=== PATIENT | male | born 1945 | race American Indian/Alaskan Native ===

== ENCOUNTER 2016-10-07 12:30 | Emergency (ER) | payer MEDICARE, BC, OTHER ==
--- NOTE | 2016-10-07 13:34 | EDM.PDOC ---
ED HPI GENERAL MEDICAL PROBLEM - General Chief Complaint: Genitourinary Problem Stated Complaint: UNK Time Seen by Provider: 10/07/16 13:19 - History of Present Illness INITIAL COMMENTS - FREE TEXT/NARRATIVE: HISTORY AND PHYSICAL: History of present illness: Patient is a 71-year-old white male with history of intermittent urinary retention and hesitancy who has seen urology in the distant past who presents with concern of mild discomfort with urination and stress incontinence along with urinary hesitancy and intermittent retention he denies fever chills nausea vomiting or pain Review of systems: As per history of present illness and below otherwise all systems reviewed and negative. Past medical history: As per history of present illness and as reviewed below otherwise noncontributory. Surgical history: As per history of present illness and as reviewed below otherwise noncontributory. Social history: No reported history of drug or alcohol abuse. Family history: As per history of present illness and as reviewed below otherwise noncontributory. Physical exam: HEENT: Atraumatic, normocephalic, pupils reactive, negative for conjunctival pallor or scleral icterus, mucous membranes moist, throat clear, neck supple, nontender, trachea midline. Lungs: Clear to auscultation, breath sounds equal bilaterally, chest nontender. Heart: S1S2, regular, negative for clicks, rubs, or JVD. Abdomen: Soft, nondistended, nontender. Negative for masses or hepatosplenomegaly. Negative for costovertebral tenderness. Pelvis: Stable nontender. Genitourinary: Deferred. Rectal: Deferred. Extremities: Atraumatic, negative for cords or calf pain. Neurovascular unremarkable. Neuro: Awake, alert, oriented. Cranial nerves II through XII unremarkable. Cerebellum unremarkable. Motor and sensory unremarkable throughout. Exam nonfocal. Diagnostics: CBC CMP UA urine culture bladder scan Therapeutics: To be determined Impression: #1 intermittent urinary retention/hesitancy/ incontinence Definitive disposition and diagnosis as appropriate pending reevaluation and review of above. upon urination Pain Score (Numeric/FACES): 7 - Related Data Allergies Allergy/AdvReac Type Severity Reaction Status Date / Time hydrocodone bitartrate Allergy Change Verified 10/07/16 13:21 [From [place]] Mental Status meperidine HCl [From Demerol] Allergy Change Verified 10/07/16 13:21 Mental Status oxycodone [Oxycodone] Allergy Change Verified 10/07/16 13:21 Mental Status tramadol HCl [From Ultram] Allergy Change Verified 10/07/16 13:21 Mental Status Home Meds: Home Meds Aspirin [Aspirin EC] 81 mg PO BEDTIME 01/24/14 [History] Carvedilol [Coreg] 6.25 mg PO BID 01/24/14 [History] Cyanocobalamin (Vitamin B-12) [Vitamin B-12] 1 injection INJECT ASDIRECTED 01/24 [History] atorvaSTATin [Lipitor] 20 mg PO BEDTIME 01/24/14 [History] DULoxetine [Cymbalta] 30 mg PO DAILY 10/07/16 [History] Omeprazole 20 mg PO BEDTIME 10/07/16 [History] traZODone HCl [Trazodone HCl] 100 mg PO BEDTIME 10/07/16 [History] Past Medical History Other Genitourinary History: retention Social & Family History - Tobacco Use Smoking Status *Q: Current Every Day Smoker Years of Tobacco use: 40 Used Tobacco, but Quit: No Second Hand Smoke Exposure: Yes - Alcohol Use Days Per Week of Alcohol Use: 0 - Recreational Drug Use Recreational Drug Use: No ED ROS GENERAL - Review of Systems Review Of Systems: ROS reveals no pertinent complaints other than HPI. ED EXAM, GENERAL - Physical Exam Exam: See Below (see dictation) Course - Vital Signs Last Recorded V/S: Last Vital Signs Temp 37.6 C 10/07/16 14:31 Pulse 69 10/07/16 14:31 Resp 20 10/07/16 14:31 BP 128/72 10/07/16 14:31 Pulse Ox 94 L 10/07/16 14:31 - Orders/Labs/Meds Orders: Active Orders 24 hr Category Date Time Status CULTURE URINE [RM] Stat Lab 10/07/16 13:37 Received Labs: Laboratory Tests 10/07/16 10/07/16 10/07/16 Range/Units 13:36 13:36 13:37 WBC 11.34 H (4.0-11.0) K/uL RBC 4.32 L (4.50-5.90) M/uL Hgb 13.5 (13.0-17.0) g/dL Hct 40.9 (38.0-50.0) % MCV 94.7 (80.0-98.0) fL MCH 31.3 (27.0-32.0) pg MCHC 33.0 (31.0-37.0) g/dL RDW Std Deviation 48.9 (28.0-62.0) fl RDW Coeff of Adriana 14 (11.0-15.0) % Plt Count 162 (150-400) K/uL MPV 10.80 (7.40-12.00) fL Neut % (Auto) 65.2 (48.0-80.0) % Lymph % (Auto) 24.0 (16.0-40.0) % [place] % (Auto) 7.2 (0.0-15.0) % Eos % (Auto) 3.3 (0.0-7.0) % Baso % (Auto) 0.3 (0.0-1.5) % Neut # (Auto) 7.4 H (1.4-5.7) K/uL Lymph # (Auto) 2.7 H (0.6-2.4) K/uL [place] # (Auto) 0.8 (0.0-0.8) K/uL Eos # (Auto) 0.4 (0.0-0.7) K/uL Baso # (Auto) 0.0 (0.0-0.1) K/uL Nucleated RBC % 0.0 /100WBC Nucleated RBCs # 0 K/uL Sodium 138 (136-146) mmol/L Potassium 4.0 (3.5-5.1) mmol/L Chloride 108 (98-110) mmol/L Carbon Dioxide 23 (21-31) mmol/L BUN 16 (6.0-23.0) mg/dL Creatinine 0.8 (0.6-1.5) mg/dL Est Cr Clr Drug Dosing 91.61 mL/min Estimated GFR (MDRD) > 60.0 ml/min Glucose 183 H (60-110) mg/dL Calcium 9.2 (8.8-10.8) mg/dL Total Bilirubin 0.7 (0.1-1.5) mg/dL AST 32 (5-40) IU/L ALT 30 (8-54) IU/L Alkaline Phosphatase 83 (40-150) Total Protein 6.8 (6.0-8.0) g/dL Albumin 3.9 (3.4-4.8) g/dL Globulin 2.9 (2.0-3.5) g/dL Albumin/Globulin Ratio 1.3 (1.3-2.8) Urine Color YELLOW Urine Appearance SLT CLOUDY Urine pH 5.5 (5.0-8.0) Ur Specific [place] 1.015 (1.001-1.035) Urine Protein NEGATIVE (NEGATIVE) mg/dL Urine Glucose (UA) NEGATIVE (NEGATIVE) mg/dL Urine Ketones NEGATIVE (NEGATIVE) mg/dL Urine Occult Blood SMALL H (NEGATIVE) Urine Nitrite NEGATIVE (NEGATIVE) Urine Bilirubin NEGATIVE (NEGATIVE) Urine Urobilinogen 0.2 (<2.0) EU/dL Ur Leukocyte Esterase MODERATE (NEGATIVE) Urine RBC 1-2 (0-2/HPF) Urine WBC 10-20 (0-5/HPF) Ur Epithelial Cells RARE (NONE-FEW) Urine Bacteria FEW (NEGATIVE) Departure - Departure Time of Disposition: 15:02 Disposition: Home, Self-Care 01 Condition: good Clinical Impression: UTI, Urinary tract infectious disease, Retention of urine Referrals: PCP,None [Primary Care Provider] - Forms: ED Department Discharge Additional Instructions: The following information is given to patients seen in the emergency department who are being discharged to home. This information is to outline your options for follow-up care. We provide all patients seen in our emergency department with a follow-up referral. The need for follow-up, as well as the timing and circumstances, are variable depending upon the specifics of your emergency department visit. If you don't have a primary care physician on staff, we will provide you with a referral. We always advise you to contact your personal physician following an emergency department visit to inform them of the circumstance of the visit and for follow-up with them and/or the need for any referrals to a consulting specialist. The emergency department will also refer you to a specialist when appropriate. This referral assures that you have the opportunity for followup care with a specialist. All of these measure are taken in an effort to provide you with optimal care, which includes your followup. Under all circumstances we always encourage you to contact your private physician who remains a resource for coordinating your care. When calling for followup care, please make the office aware that this follow-up is from your recent emergency room visit. If for any reason you are refused follow-up, please contact the [facility] emergency department at and asked to speak to the emergency department charge nurse. GARY [facility] Specialty Care - Urology [address] [place] [id number] Cipro as prescribed German as prescribed call to schedule appointment with private medical doctor in urology of both return as needed discussed - My Orders Last 24 Hours: My Active Orders 10/07/16 13:37 CULTURE URINE [RM] Stat - Assessment/Plan Last 24 Hours: My Active Orders 10/07/16 13:37 CULTURE URINE [RM] Stat
[2016-10-07 14:07] LABS: CHLORIDE,CL 108 mmol/L (98-110); SODIUM,NA 138 mmol/L (136-146)
[2016-10-07 14:44] VITALS: BP 128/72
== END 2016-10-07 15:24 | disposition home or self-care (01) ==
LOC: MW.ED 12:30
DX: N39.0 Urinary tract infection, site not specified (principal); F17.200 Nicotine dependence, unspecified, uncomplicated; R33.9 Retention of urine, unspecified; Z88.5 Allergy status to narcotic agent; Z88.6 Allergy status to analgesic agent; Z88.8 Allergy status to other drugs, medicaments and biological substances; Z79.899 Other long term (current) drug therapy
CPT/HCPCS: 36415; 80053; 81001; 85025; 87086; 87088; 87186; 99283

== ENCOUNTER → 2016-10-20 | Outpatient (CLI) | payer MEDICARE, OTHER, BC | LOC: MW.CHUR 13:54 | PROVIDERS: ATTEND Urology | DX: R32 Unspecified urinary incontinence (principal); N39.0 Urinary tract infection, site not specified | CPT/HCPCS: 36415; 81001; 84153; 99203 ==

== ENCOUNTER → 2016-10-22 | Outpatient (CLI) | payer MEDICARE, BC ==
--- NOTE | 2016-10-22 13:41 | CT ---
CT of the abdomen and pelvis without contrast. HISTORY: Pain TECHNIQUE: Axial CT images were obtained of the abdomen and pelvis without contrast. Coronal and sag ittal reconstructions obtained. Comparison: 03/08/2014. FINDINGS: The lung bases are clear, no pleural effusion. The liver, spleen, adrenal glands, and pancreas appear unremarkable for noncontrast examination. Cho lecystectomy clips are noted. There is no bulky retroperitoneal lymphadenopathy. No abdominal ascite s. Gastric bypass changes noted with mild distal esophageal wall thickening. There are no calcifications noted within the kidneys or along the courses of the ureters bilaterally . There is a hyperdense cyst within the midpole of the right kidney. The large and small bowel are normal in caliber without evidence of obstruction. Appendectomy. There is no bulky pelvic lymphadenopathy. No free fluid. No free air. There is mild bladder wall thickeni ng along the upper fundus. 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 Left total hip hardware is noted. IMPRESSION: 1. Mild bladder wall thickening, grossly unchanged from the prior CT. 2. Cholecystectomy and colectomy. 3. Stable hemorrhagic cyst within the midpole of the right kidney. 4. Otherwise no acute findings within the abdomen or pelvis.
== END ==
LOC: MW.DI 11:17
PROVIDERS: ATTEND Urology
DX: N39.0 Urinary tract infection, site not specified (principal); Z90.49 Acquired absence of other specified parts of digestive tract; N28.1 Cyst of kidney, acquired
CPT/HCPCS: 74176; 74176-26

== ENCOUNTER 2018-03-24 17:44 | Emergency (ER) | payer MEDICARE, OTHER, BC ==
--- NOTE | 2018-03-24 18:04 | EDM.PDOC ---
ED HPI GENERAL MEDICAL PROBLEM - General Chief Complaint: General Stated Complaint: PT HAS BODY PAIN Time Seen by Provider: 03/24/18 18:03 Source of Information: Reports: Patient History Limitations: Reports: No Limitations - History of Present Illness INITIAL COMMENTS - FREE TEXT/NARRATIVE: HISTORY AND PHYSICAL: []73-year-old male presenting with pain all over History of Present Illness: []Today patient just doesn't feel well states he hurts all over. Family states that this has been waxing and waning over the last month. They expressed concern that he was unsteady on his feet tonight. He was coughing up sputum. Denies Nausea, vomiting no diarrhea He is a smoker. He does have history of 7 cardiac stents. Review of Systems: As per history of present illness and below otherwise all systems reviewed and negative. Past medical history: As per history of present illness and as reviewed below otherwise noncontributory. Surgical history: As per history of present illness and as reviewed below otherwise noncontributory. Social history: No reported history of drug or alcohol abuse. Family history: As per history of present illness and as reviewed below otherwise noncontributory. Physical exam: Alert and oriented male answering questions appropriately in full sentences no shortness breath noted. HEENT: Atraumatic, normocehpalic, pupils reactive, negative for conjunctival pallor or scleral icterus, mucous membranes moist, throat clear, neck supple, nontender, trachea midline. Lungs: Coarse on auscultation, breath sounds equal bilaterally, right side chest tender on palpation. Heart: S1S2, regular, negative for clicks, rubs, or JVD. Abdomen: Soft, nondistended, nontender. Negative for masses or hepatossplenmegaly. Negative for costovertebral tenderness. Pelvis: Stable nontender. Genitourinary: Deferred. Rectal: Deferred Extremities: Atraumatic, negative for cords or calf pain. Neurovascular unremarkable. Neuro: Awake, alert, oriented. Cranial nerves II through XII unremarkable. Cerebellum unremarkable. Motor and sensory unremarkable throughout. Exam nonfocal. Discussed this case with Dr. Menjivar she has accepted this patient for transfer. Diagnostics: []CBC CMP EKG blood cultures 2 amylase lipase Therapeutics: []DuoNeb Aspirin Lovenox Nitropaste Morphine Zofran Impression: []Elevated troponin Plan: []transfer to [facility] Definitive disposition and diagnosis as appropriate pending reevaluation and review of above. Onset: Today, Sudden Duration: Hour(s):, Getting Worse Location: Reports: Chest, Generalized Severity: Moderate Improves with: Reports: None Worsens with: Reports: None Associated Symptoms: Reports: Nausea/Vomiting Over whole body Pain Score (Numeric/FACES): 10 - Related Data Allergies Allergy/AdvReac Type Severity Reaction Status Date / Time hydrocodone bitartrate Allergy Change Verified 03/24/18 18:01 [From [place]] Mental Status meperidine HCl [From Demerol] Allergy Change Verified 03/24/18 18:01 Mental Status oxycodone [Oxycodone] Allergy Change Verified 03/24/18 18:01 Mental Status tramadol HCl [From Ultram] Allergy Change Verified 03/24/18 18:01 Mental Status Home Meds: Home Meds Aspirin [Aspirin EC] 81 mg PO BEDTIME 01/24/14 [History] Carvedilol [Coreg] 6.25 mg PO BID 01/24/14 [History] Cyanocobalamin (Vitamin B-12) [Vitamin B-12] 1 injection INJECT ASDIRECTED 01/24 [History] atorvaSTATin [Lipitor] 20 mg PO BEDTIME 01/24/14 [History] DULoxetine [Cymbalta] 60 mg PO DAILY 10/07/16 [History] Omeprazole 20 mg PO BEDTIME 10/07/16 [History] Mirtazapine 30 mg PO BEDTIME 03/24/18 [History] Past Medical History Cardiovascular History: Reports: Heart Failure, Hypertension Other Genitourinary History: retention Endocrine/Metabolic History: Reports: Diabetes, Type II ED ROS GENERAL - Review of Systems Review Of Systems: ROS reveals no pertinent complaints other than HPI. ED EXAM, GENERAL - Physical Exam Exam: See Below (see dictation) EKG INTERPRETATION EKG Date: 03/24/18 Rhythm: Other (Sinus tachycardia) Rate (Beats/Min): 108 Comparison: Change From Previous EKG EKG Interpretation Comments: sinus tach vs RSR Course - Vital Signs Last Recorded V/S: Last Vital Signs Temp 36.6 C 03/24/18 18:03 Pulse 90 03/24/18 18:03 Resp 16 03/24/18 18:03 BP 138/78 03/24/18 18:03 Pulse Ox 93 L 09/12/18 18:03 - Orders/Labs/Meds Orders: Active Orders 24 hr Category Date Time Status EKG Documentation Completion [RC] STAT Care 03/24/18 18:14 Active RT Aerosol Therapy [RC] ASDIRECTED Care 03/24/18 18:33 Active Chest 2V [CR] Stat Exams 03/24/18 18:40 Taken CKMB [CHEM] Stat Lab 03/24/18 18:20 Received CREATINE KINASE,CK [CHEM] Stat Lab 03/24/18 18:20 Received CULTURE BLOOD [BC] Stat Lab 03/24/18 18:31 Received CULTURE BLOOD [BC] Stat Lab 03/24/18 18:40 Received Sodium Chloride 0.9% [Saline Flush] Med 03/24/18 18:14 Active 10 ml FLUSH ASDIRECTED PRN Sodium Chloride 0.9% [Saline Flush] Med 03/24/18 18:14 Active 2.5 ml FLUSH ASDIRECTED PRN Blood Culture x2 Reflex Set [OM.PC] Stat Oth 03/24/18 18:14 Ordered Saline Lock Insert [OM.PC] Stat Oth 03/24/18 18:14 Ordered Medication Orders Sodium Chloride (Saline Flush) 10 ml FLUSH ASDIRECTED PRN PRN Reason: Keep Vein Open Sodium Chloride (Saline Flush) 2.5 ml FLUSH ASDIRECTED PRN PRN Reason: Keep Vein Open Labs: Laboratory Tests 03/24/18 03/24/18 03/24/18 Range/Units 18:20 18:20 18:20 WBC 15.45 H (4.0-11.0) K/uL RBC 4.69 (4.50-5.90) M/uL Hgb 14.7 (13.0-17.0) g/dL Hct 43.4 (38.0-50.0) % MCV 92.5 (80.0-98.0) fL MCH 31.3 (27.0-32.0) pg MCHC 33.9 (31.0-37.0) g/dL RDW Std Deviation 46.5 (28.0-62.0) fl RDW Coeff of Adriana 14 (11.0-15.0) % Plt Count 210 (150-400) K/uL MPV 10.90 (7.40-12.00) fL Neut % (Auto) 77.2 (48.0-80.0) % Lymph % (Auto) 14.6 L (16.0-40.0) % [place] % (Auto) 6.3 (0.0-15.0) % Eos % (Auto) 1.7 (0.0-7.0) % Baso % (Auto) 0.2 (0.0-1.5) % Neut # (Auto) 11.9 H (1.4-5.7) K/uL Lymph # (Auto) 2.3 (0.6-2.4) K/uL [place] # (Auto) 1.0 H (0.0-0.8) K/uL Eos # (Auto) 0.3 (0.0-0.7) K/uL Baso # (Auto) 0.0 (0.0-0.1) K/uL Nucleated RBC % 0.0 /100WBC Nucleated RBCs # 0 K/uL INR 0.98 Sodium 137 (136-148) mmol/L Potassium 4.0 (3.5-5.1) mmol/L Chloride 105 (98-107) mmol/L Carbon Dioxide 24.5 (21.0-32.0) mmol/L BUN 12 (7.0-18.0) mg/dL Creatinine 0.9 (0.8-1.3) mg/dL Est Cr Clr Drug Dosing 90.75 mL/min Estimated GFR (MDRD) > 60.0 ml/min Glucose 175 H (74-106) mg/dL Calcium 9.3 (8.5-10.1) mg/dL Total Bilirubin 0.6 (0.2-1.0) mg/dL AST 21 (15-37) IU/L ALT 25 (14-63) IU/L Alkaline Phosphatase 106 (46-116) U/L Troponin I 0.081 H* (0.000-0.056) ng/mL Total Protein 7.3 (6.4-8.2) g/dL Albumin 3.8 (3.4-5.0) g/dL Globulin 3.5 (2.0-3.5) g/dL Albumin/Globulin Ratio 1.1 L (1.3-2.8) Amylase 44 (25-115) U/L Meds: Medications Generic Name Dose Route Start Last Admin Trade Name David PRN Reason Stop Dose Admin Sodium Chloride 10 ml 03/24/18 18:14 Saline Flush FLUSH ASDIRECTED PRN Keep Vein Open Sodium Chloride 2.5 ml 03/24/18 18:14 Saline Flush FLUSH ASDIRECTED PRN Keep Vein Open Discontinued Medications Generic Name Dose Route Start Last Admin Trade Name David PRN Reason Stop Dose Admin Albuterol/Ipratropium 3 ml 03/24/18 18:32 03/24/18 18:38 Duoneb 3.0-0.5 Mg/3 Ml NEB 03/24/18 18:33 3 ml ONETIME ONE Administration Aspirin 324 mg 03/24/18 19:22 03/24/18 19:31 Aspirin PO 03/24/18 19:23 324 mg ONETIME ONE Administration Enoxaparin Sodium 120 mg 03/24/18 19:22 03/24/18 19:36 Lovenox SUBCUT 03/24/18 19:23 120 mg ONETIME ONE Administration Sodium Chloride 1,000 mls @ 999 mls/hr 03/24/18 18:15 03/24/18 18:27 Normal Saline IV 03/24/18 19:15 999 mls/hr STAT ONE Administration Morphine Sulfate 2 mg 03/24/18 20:01 Morphine IVPUSH 03/24/18 20:02 ONETIME ONE Nitroglycerin 1 gm 03/24/18 19:24 03/24/18 19:33 Nitro-Bid 2% TOP 03/24/18 19:25 1 gm ONETIME ONE Administration Ondansetron HCl 4 mg 03/24/18 20:01 Zofran IVPUSH 03/24/18 20:02 ONETIME ONE Departure - Departure Time of Disposition: 20:04 Disposition: DC/Tfer to Acute Hospital 02 Condition: Good Clinical Impression: Elevated troponin - Discharge Information Referrals: PCP,None [Primary Care Provider] - Forms: ED Department Discharge - My Orders Last 24 Hours: My Active Orders 03/24/18 18:14 EKG Documentation Completion [RC] STAT Sodium Chloride 0.9% [Saline Flush] 10 ml FLUSH ASDIRECTED PRN Sodium Chloride 0.9% [Saline Flush] 2.5 ml FLUSH ASDIRECTED PRN Blood Culture x2 Reflex Set [OM.PC] Stat Saline Lock Insert [OM.PC] Stat 03/24/18 18:20 CKMB [CHEM] Stat CREATINE KINASE,CK [CHEM] Stat 03/24/18 18:31 CULTURE BLOOD [BC] Stat 03/24/18 18:33 RT Aerosol Therapy [RC] ASDIRECTED 03/24/18 18:40 Chest 2V [CR] Stat CULTURE BLOOD [BC] Stat - Assessment/Plan Last 24 Hours: My Active Orders 03/24/18 18:14 EKG Documentation Completion [RC] STAT Sodium Chloride 0.9% [Saline Flush] 10 ml FLUSH ASDIRECTED PRN Sodium Chloride 0.9% [Saline Flush] 2.5 ml FLUSH ASDIRECTED PRN Blood Culture x2 Reflex Set [OM.PC] Stat Saline Lock Insert [OM.PC] Stat 03/24/18 18:20 CKMB [CHEM] Stat CREATINE KINASE,CK [CHEM] Stat 03/24/18 18:31 CULTURE BLOOD [BC] Stat 03/24/18 18:33 RT Aerosol Therapy [RC] ASDIRECTED 03/24/18 18:40 Chest 2V [CR] Stat CULTURE BLOOD [BC] Stat
[2018-03-24] MEDS ORDERED: Sodium Chloride 0.9% 2.5 ML Syringe FLUSH PRN (18:14)
[2018-03-24] MEDS ORDERED: Sodium Chloride 0.9% 10 ML Syringe FLUSH PRN (18:14)
[2018-03-24] MEDS ORDERED: Sodium Chloride 0.9% 1,000 ML IV ONE (18:15)
[2018-03-24] MEDS ORDERED: Albuterol/Ipratropium 3.0-0.5 MG/3 ML Neb Soln NEB ONE (18:32)
[2018-03-24 19:07] LABS: CHLORIDE,CL 105 mmol/L (98-107); SODIUM,NA 137 mmol/L (136-148)
[2018-03-24] MEDS ORDERED: Aspirin 81 MG Tab.Chew PO ONE (19:22)
[2018-03-24] MEDS ORDERED: Enoxaparin 150 MG/1 ML Syringe SUBCUT ONE (19:22)
[2018-03-24] MEDS ORDERED: Nitroglycerin 2% Oint 1 GM UD Packet TOP ONE (19:24)
[2018-03-24] MEDS ORDERED: Morphine 2 MG/ML Syringe IVPUSH ONE (20:01)
[2018-03-24] MEDS ORDERED: Ondansetron 4 MG/2 ML SDV IVPUSH ONE (20:01)
[2018-03-24] MEDS ORDERED: Morphine 2 MG/ML Syringe ONE (20:03)
[2018-03-24] MEDS ORDERED: Ondansetron 4 MG/2 ML SDV ONE (20:04)
[2018-03-24 20:09] VITALS: BP 108/65
--- NOTE | 2018-03-25 10:46 | CR ---
EXAM DATE: 03/24/18 PATIENT'S AGE: 73 Patient: ANGELIA HERNANDEZ Facility: [place], [place] Site . Site : [id number] Study: XRay Chest [id number]/12/2018 7:18:02 PM Ordering Physician: Doctor Murphy Final Report: INDICATION: Pain, shortness of breath TECHNIQUE: Chest radiograph 3 views COMPARISON: None FINDINGS: Moderate degradation of image quality noted due to body habitus. Mediastinum: The mediastinum is normal in appearance. The heart silhouette is normal in size and morphology. Lung: Mild bibasilar subsegmental atelectasis is noted. No sign of pleural effusion seen. No pneumothorax is identified. Musculoskeletal: Unremarkable for age. IMPRESSION: 1. Mild bibasilar subsegmental atelectasis is noted. Dictated by: Chandu Ying MD @ 03/24/2018 19:37:30 (Electronic Signature) Report Signed by Proxy. [email or web address]
== END 2018-03-24 20:20 ==
LOC: MW.ED 17:44
DX: R79.89 Other specified abnormal findings of blood chemistry (principal); I11.0 Hypertensive heart disease with heart failure; I50.9 Heart failure, unspecified; E11.9 Type 2 diabetes mellitus without complications; F17.210 Nicotine dependence, cigarettes, uncomplicated; Z88.8 Allergy status to other drugs, medicaments and biological substances; Z79.82 Long term (current) use of aspirin; Z95.5 Presence of coronary angioplasty implant and graft
CPT/HCPCS: 36415; 71046; 80053; 82150; 82550; 82553; 84484; 85025; 85610; 87040; 93005; 94640; 96361; 96372; 96374; 96375; 99285; A9270; J1650; J2270; J2405; J7040; 99284; J7620-GY

== ENCOUNTER 2018-03-26 16:14 | Emergency (ER) | payer MEDICARE, OTHER, BC ==
--- NOTE | 2018-03-26 17:32 | EDM.PDOC ---
ED HPI GENERAL MEDICAL PROBLEM - General Chief Complaint: Genitourinary Problem Stated Complaint: BLADDER HURTING Time Seen by Provider: 03/26/18 16:16 Source of Information: Reports: Patient History Limitations: Reports: No Limitations - History of Present Illness INITIAL COMMENTS - FREE TEXT/NARRATIVE: History of present illness: []Patient was seen in this ER 2 days ago and transferred to [facility] and had cardiac stents placed. He was discharged stable today and came straight to the ER for burning with urination. He states he complained of this at [facility] but they did not address it. He denies any fevers, chills, vomiting or diarrhea. Patient has had shortness of breath and a mild cough when he lays down for months and this is not new or changed. She denies any chest pain. Review of systems: As per history of present illness and below otherwise all systems reviewed and negative. Past medical history: As per history of present illness and as reviewed below otherwise noncontributory. Surgical history: As per history of present illness and as reviewed below otherwise noncontributory. Social history: No reported history of drug or alcohol abuse. Family history: As per history of present illness and as reviewed below otherwise noncontributory. Physical exam: General: Well developed, well nourished in NAD HEENT: Atraumatic, normocephalic, pupils reactive, negative for conjunctival pallor or scleral icterus, mucous membranes moist, throat clear, neck supple, nontender, trachea midline. Lungs: Clear to auscultation, breath sounds equal bilaterally, chest nontender. Heart: S1S2, regular, negative for clicks, rubs, or JVD. Abdomen: Soft, nondistended, nontender. Negative for masses or hepatosplenomegaly. Negative for costovertebral tenderness. Pelvis: Stable nontender. Genitourinary: Deferred. Rectal: Deferred. Extremities: Atraumatic, negative for cords or calf pain. Neurovascular unremarkable. Neuro: Awake, alert, oriented. Cranial nerves II through XII unremarkable. Cerebellum unremarkable. Motor and sensory unremarkable throughout. Exam nonfocal. Skin:warm and dry Diagnostics: UA Therapeutics: None ED Course: unremarkable Impression: UTI Prescriptions: Cipro, Pyridium Plan: take meds as directed follow-up with primary care Definitive disposition and diagnosis as appropriate pending reevaluation and review of above. Penis Pain Score (Numeric/FACES): 4 - Related Data Allergies Allergy/AdvReac Type Severity Reaction Status Date / Time hydrocodone bitartrate Allergy Change Verified 03/26/18 16:40 [From [place]] Mental Status meperidine HCl [From Demerol] Allergy Change Verified 03/26/18 16:40 Mental Status oxycodone [Oxycodone] Allergy Change Verified 03/26/18 16:40 Mental Status tramadol HCl [From Ultram] Allergy Change Verified 03/26/18 16:40 Mental Status Home Meds: Home Meds Aspirin [Aspirin EC] 81 mg PO BEDTIME 01/24/14 [History] Carvedilol [Coreg] 6.25 mg PO BID 01/24/14 [History] Cyanocobalamin (Vitamin B-12) [Vitamin B-12] 1 injection INJECT ASDIRECTED 01/24 [History] atorvaSTATin [Lipitor] 20 mg PO BEDTIME 01/24/14 [History] DULoxetine [Cymbalta] 60 mg PO DAILY 10/07/16 [History] Omeprazole 20 mg PO BEDTIME 10/07/16 [History] Mirtazapine 30 mg PO BEDTIME 03/24/18 [History] Ciprofloxacin HCl [Cipro] 500 mg PO BID #20 tablet 03/26/18 [Rx] Esomeprazole [NexIUM] 40 mg PO DAILY 03/26/18 [History] Lisinopril 10 mg PO DAILY 03/26/18 [History] Nitroglycerin 0.4 mg PO ASDIRECTED PRN 03/26/18 [History] Phenazopyridine HCl [Pyridium] 200 mg PO TID #9 tablet 03/26/18 [Rx] Ticagrelor [Brilinta] 90 mg PO BID 03/26/18 [History] Past Medical History HEENT History: Reports: Impaired Vision Other HEENT History: wears glasses Cardiovascular History: Reports: Heart Failure, Hypertension, [place], Stents Respiratory History: Reports: COPD Gastrointestinal History: Reports: None Other Genitourinary History: retention Musculoskeletal History: Reports: Osteoarthritis Neurological History: Reports: None Psychiatric History: Reports: None Endocrine/Metabolic History: Reports: Diabetes, Type II Dermatologic History: Reports: None - Infectious Disease History Infectious Disease History: Reports: Chicken Pox Social & Family History - Family History Family Medical History: Noncontributory - Tobacco Use Smoking Status *Q: Current Every Day Smoker Years of Tobacco use: 40 Packs/Tins Daily: 1.5 - Caffeine Use Caffeine Use: Reports: Coffee, Soda, Tea - Recreational Drug Use Recreational Drug Use: No ED ROS GENERAL - Review of Systems Review Of Systems: ROS reveals no pertinent complaints other than HPI. ED EXAM, RENAL/ - Physical Exam Exam: See Below (See history of present illness) Course - Vital Signs Last Recorded V/S: Last Vital Signs Temp 97.4 F 03/26/18 16:33 Pulse 76 03/26/18 16:33 Resp 20 03/26/18 16:33 BP 124/71 03/26/18 16:33 Pulse Ox 94 L 03/26/18 16:33 - Orders/Labs/Meds Labs: Laboratory Tests 03/26/18 Range/Units 17:00 Urine Color YELLOW Urine Appearance SLT CLOUDY Urine pH 6.0 (5.0-8.0) Ur Specific [place] 1.010 (1.001-1.035) Urine Protein NEGATIVE (NEGATIVE) mg/dL Urine Glucose (UA) NEGATIVE (NEGATIVE) mg/dL Urine Ketones NEGATIVE (NEGATIVE) mg/dL Urine Occult Blood TRACE-INTACT (NEGATIVE) Urine Nitrite NEGATIVE (NEGATIVE) Urine Bilirubin NEGATIVE (NEGATIVE) Urine Urobilinogen 2.0 H (<2.0) EU/dL Ur Leukocyte Esterase TRACE (NEGATIVE) Urine RBC 0-2 (0-2/HPF) Urine WBC 3-6 (0-5/HPF) Ur Epithelial Cells RARE (NONE-FEW) Urine Bacteria FEW (NEGATIVE) Departure - Departure Time of Disposition: 17:40 Disposition: Home, Self-Care 01 Condition: Good Clinical Impression: UTI (urinary tract infection) Qualifiers: Urinary tract infection type: site unspecified Hematuria presence: without hematuria Qualified Code(s): N39.0 - Urinary tract infection, site not specified - Discharge Information *PRESCRIPTION DRUG MONITORING PROGRAM REVIEWED*: No *COPY OF PRESCRIPTION DRUG MONITORING REPORT IN PATIENT ELAINE: No Prescriptions: Ciprofloxacin HCl [Cipro] 500 mg PO BID #20 tablet Phenazopyridine HCl [Pyridium] 200 mg PO TID #9 tablet Referrals: PCP,None [Primary Care Provider] - Forms: ED Department Discharge Additional Instructions: The following information is given to patients seen in the emergency department who are being discharged to home. This information is to outline your options for follow-up care. We provide all patients seen in our emergency department with a follow-up referral. The need for follow-up, as well as the timing and circumstances, are variable depending upon the specifics of your emergency department visit. If you don't have a primary care physician on staff, we will provide you with a referral. We always advise you to contact your personal physician following an emergency department visit to inform them of the circumstance of the visit and for follow-up with them and/or the need for any referrals to a consulting specialist. The emergency department will also refer you to a specialist when appropriate. This referral assures that you have the opportunity for follow-up care with a specialist. All of these measure are taken in an effort to provide you with optimal care, which includes your follow-up. Under all circumstances we always encourage you to contact your private physician who remains a resource for coordinating your care. When calling for follow-up care, please make the office aware that this follow-up is from your recent emergency room visit. If for any reason you are refused follow-up, please contact the [facility] Emergency Department at and asked to speak to the emergency department charge nurse. Pyridium and Cipro as directed, follow-up with primary care return if symptoms worsen or change [facility] [address] [place] [phone]
[2018-03-26 18:32] VITALS: BP 109/68
== END 2018-03-26 17:54 | disposition home or self-care (01) ==
LOC: MW.ED 16:14
DX: N39.0 Urinary tract infection, site not specified (principal); F17.210 Nicotine dependence, cigarettes, uncomplicated; I11.0 Hypertensive heart disease with heart failure; I50.9 Heart failure, unspecified; I25.2 Old myocardial infarction; E11.9 Type 2 diabetes mellitus without complications; M19.90 Unspecified osteoarthritis, unspecified site; Z79.899 Other long term (current) drug therapy; Z88.5 Allergy status to narcotic agent; Z88.8 Allergy status to other drugs, medicaments and biological substances
CPT/HCPCS: 81001; 99283

== ENCOUNTER 2019-06-12 10:23 | Inpatient (IN) | payer MEDICARE, OTHER ==
[2019-06-12] MEDS ORDERED: HYDROmorphone 1 MG/ML Syringe IVPUSH STA (10:25)
[2019-06-12] MEDS ORDERED: Ondansetron 4 MG/2 ML SDV IVPUSH ONE (10:26)
[2019-06-12] MEDS ORDERED: Sodium Chloride 0.9% 2.5 ML Syringe FLUSH PRN (10:29)
[2019-06-12] MEDS ORDERED: Sodium Chloride 0.9% 10 ML SDV IV PRN (10:29)
--- NOTE | 2019-06-12 10:32 | EDM.PDOC ---
ED HPI GENERAL MEDICAL PROBLEM - General Chief Complaint: Trauma Stated Complaint: FRACTURED FEMUR Time Seen by Provider: 06/12/19 10:26 - History of Present Illness INITIAL COMMENTS - FREE TEXT/NARRATIVE: HISTORY AND PHYSICAL: History of present illness: Patient's a 74-year-old white male presents status post fall when she slipped on ice injuring his left hip and femur he arrives via paramedics he denies any chest pain dizziness palpitations shortness of breath he denies head or neck pain or trauma he states this was strictly a mechanical fall. Review of systems: As per history of present illness and below otherwise all systems reviewed and negative. Past medical history: As per history of present illness and as reviewed below otherwise noncontributory. Surgical history: As per history of present illness and as reviewed below otherwise noncontributory. Social history: No reported history of drug or alcohol abuse. Family history: As per history of present illness and as reviewed below otherwise noncontributory. Physical exam: HEENT: Atraumatic, normocephalic, pupils reactive, negative for conjunctival pallor or scleral icterus, mucous membranes moist, throat clear, neck supple, nontender, trachea midline. Lungs: Clear to auscultation, breath sounds equal bilaterally, chest nontender. Heart: S1S2, regular, negative for clicks, rubs, or JVD. Abdomen: Soft, nondistended, nontender. Negative for masses or hepatosplenomegaly. Negative for costovertebral tenderness. Pelvis: Stable tenderness palpation of his left hip Genitourinary: Deferred. Rectal: Deferred. Extremities: Lower extremity shortened and internally rotated limited range of motion secondary pain tenderness to his left hip and mid femur Neuro: Awake, alert, oriented. Cranial nerves II through XII unremarkable. Cerebellum unremarkable. Motor and sensory unremarkable throughout. Exam nonfocal. Diagnostics: CBC CMP troponin PT/INR chest x-ray EKG CT brain x-ray pelvis left hip and left femur Therapeutics: [IV O2 monitor dilaudid 1 mg IV Zofran 4 mg IV Impression: #1 observation status post fall #2 left hip/femur injury Definitive disposition and diagnosis as appropriate pending reevaluation and review of above. - Related Data Allergies Allergy/AdvReac Type Severity Reaction Status Date / Time hydrocodone bitartrate Allergy Change Verified 06/12/19 10:40 [From [place]] Mental Status meperidine HCl [From Demerol] Allergy Change Verified 06/12/19 10:40 Mental Status oxycodone [Oxycodone] Allergy Change Verified 06/12/19 10:40 Mental Status tramadol HCl [From Ultram] Allergy Change Verified 06/12/19 10:40 Mental Status Home Meds: Home Meds Aspirin [Aspirin EC] 81 mg PO BEDTIME 01/24/14 [History] Carvedilol [Coreg] 6.25 mg PO BID 01/24/14 [History] atorvaSTATin [Lipitor] 20 mg PO BEDTIME 01/24/14 [History] DULoxetine [Cymbalta] 60 mg PO DAILY 10/07/16 [History] Omeprazole 20 mg PO BEDTIME 10/07/16 [History] Lisinopril 10 mg PO DAILY 03/26/18 [History] Nitroglycerin 0.4 mg PO ASDIRECTED PRN 03/26/18 [History] Ticagrelor [Brilinta] 90 mg PO BID 03/26/18 [History] LORazepam [Ativan] 0.5 mg PO PRN 07/02/18 [History] Omeprazole 20 mg PO DAILY 07/02/18 [History] metFORMIN [Glucophage XR] 500 mg PO DAILY 07/02/18 [History] traZODone HCl [Trazodone HCl] 100 mg PO DAILY 07/02/18 [History] Tamsulosin HCl [Flomax] 0.4 mg PO 06/12/19 [History] Past Medical History HEENT History: Reports: Impaired Vision Other HEENT History: wears glasses Cardiovascular History: Reports: Heart Failure, Hypertension, [place], Stents Respiratory History: Reports: COPD Gastrointestinal History: Reports: None Other Genitourinary History: retention Musculoskeletal History: Reports: Osteoarthritis Neurological History: Reports: None Psychiatric History: Reports: None Endocrine/Metabolic History: Reports: Diabetes, Type II Dermatologic History: Reports: None - Infectious Disease History Infectious Disease History: Reports: Chicken Pox Social & Family History - Family History Family Medical History: Noncontributory - Caffeine Use Caffeine Use: Reports: Coffee, Soda, Tea Review of Systems - Review of Systems Review Of Systems: Comprehensive ROS is negative, except as noted in HPI. ED EXAM, GENERAL - Physical Exam Exam: See Below (dictation) Course - Orders/Labs/Meds Orders: Active Orders 24 hr Category Date Time Status Cardiac Monitoring [RC] . DIRECTED Care 06/12/19 10:29 Active EKG Documentation Completion [RC] STAT Care 06/12/19 10:29 Active Chest 1V Frontal [CR] Stat Exams 06/12/19 10:29 Taken Femur Min 2V Lt [CR] Stat Exams 06/12/19 10:29 Ordered Head wo Cont [CT] Stat Exams 06/12/19 10:29 Ordered Pelvis 1V or 2V [CR] Stat Exams 06/12/19 10:29 Ordered CBC WITH AUTO DIFF [HEME] Stat Lab 06/12/19 10:42 Received COMPREHENSIVE METABOLIC PN,CMP [CHEM] Stat Lab 06/12/19 10:42 Received INR,PT,PROTHROMBIN TIME [COAG] Stat Lab 06/12/19 10:42 Received TROPONIN I [CHEM] Stat Lab 06/12/19 10:42 Received UA RFX TAVARES AND CULT IF INDIC [URIN] Stat Lab 06/12/19 10:29 Ordered Sodium Chloride 0.9% [Normal Saline] Med 06/12/19 10:29 Active 10 ml IV ASDIRECTED PRN Sodium Chloride 0.9% [Saline Flush] Med 06/12/19 10:29 Active 10 ml FLUSH ASDIRECTED PRN Sodium Chloride 0.9% [Saline Flush] Med 06/12/19 10:29 Active 2.5 ml FLUSH ASDIRECTED PRN Peripheral IV Insertion Adult [OM.PC] Stat Oth 06/12/19 10:29 Ordered Medication Orders Sodium Chloride (Saline Flush) 10 ml FLUSH ASDIRECTED PRN PRN Reason: Keep Vein Open Last Admin: 06/12/19 10:38 Dose: 10 ml Sodium Chloride (Saline Flush) 2.5 ml FLUSH ASDIRECTED PRN PRN Reason: Keep Vein Open Last Admin: 06/12/19 10:39 Dose: 2.5 ml Sodium Chloride (Normal Saline) 10 ml IV ASDIRECTED PRN PRN Reason: IV Use Meds: Medications Generic Name Dose Route Start Last Admin Trade Name Freq PRN Reason Stop Dose Admin Sodium Chloride 10 ml 06/12/19 10:29 06/12/19 10:38 Saline Flush FLUSH 10 ml ASDIRECTED PRN Administration Keep Vein Open Sodium Chloride 2.5 ml 06/12/19 10:29 06/12/19 10:39 Saline Flush FLUSH 2.5 ml ASDIRECTED PRN Administration Keep Vein Open Sodium Chloride 10 ml 06/12/19 10:29 Normal Saline IV ASDIRECTED PRN IV Use Discontinued Medications Generic Name Dose Route Start Last Admin Trade Name Freq PRN Reason Stop Dose Admin Hydromorphone HCl 1 mg 06/12/19 10:25 06/12/19 10:37 Dilaudid IVPUSH 06/12/19 10:26 1 mg NOW STA Administration Ondansetron HCl 4 mg 06/12/19 10:26 06/12/19 10:36 Zofran IVPUSH 06/12/19 10:27 4 mg ONETIME ONE Administration Departure - Departure Time of Disposition: 10:59 Disposition: Admitted As Inpatient 65 Condition: Good Clinical Impression: Femur fracture - Discharge Information Forms: ED Department Discharge - My Orders Last 24 Hours: My Active Orders 06/12/19 10:29 Cardiac Monitoring [RC] . DIRECTED EKG Documentation Completion [RC] STAT Chest 1V Frontal [CR] Stat Femur Min 2V Lt [CR] Stat Head wo Cont [CT] Stat Pelvis 1V or 2V [CR] Stat UA RFX TAVARES AND CULT IF INDIC [URIN] Stat Sodium Chloride 0.9% [Normal Saline] 10 ml IV ASDIRECTED PRN Sodium Chloride 0.9% [Saline Flush] 10 ml FLUSH ASDIRECTED PRN Sodium Chloride 0.9% [Saline Flush] 2.5 ml FLUSH ASDIRECTED PRN Peripheral IV Insertion Adult [OM.PC] Stat 06/12/19 10:42 CBC WITH AUTO DIFF [HEME] Stat COMPREHENSIVE METABOLIC PN,CMP [CHEM] Stat INR,PT,PROTHROMBIN TIME [COAG] Stat TROPONIN I [CHEM] Stat - Assessment/Plan Last 24 Hours: My Active Orders 06/12/19 10:29 Cardiac Monitoring [RC] . DIRECTED EKG Documentation Completion [RC] STAT Chest 1V Frontal [CR] Stat Femur Min 2V Lt [CR] Stat Head wo Cont [CT] Stat Pelvis 1V or 2V [CR] Stat UA RFX TAVARES AND CULT IF INDIC [URIN] Stat Sodium Chloride 0.9% [Normal Saline] 10 ml IV ASDIRECTED PRN Sodium Chloride 0.9% [Saline Flush] 10 ml FLUSH ASDIRECTED PRN Sodium Chloride 0.9% [Saline Flush] 2.5 ml FLUSH ASDIRECTED PRN Peripheral IV Insertion Adult [OM.PC] Stat 06/12/19 10:42 CBC WITH AUTO DIFF [HEME] Stat COMPREHENSIVE METABOLIC PN,CMP [CHEM] Stat INR,PT,PROTHROMBIN TIME [COAG] Stat TROPONIN I [CHEM] Stat
[2019-06-12] MEDS: Sodium Chloride 0.9% 10 ML Syringe FLUSH PRN (10:38)
--- NOTE | 2019-06-12 11:14 | CR ---
Indication: Fall. Technique: Two views of the left femur were obtained. Comparison: April 03, 2006 hip x-ray. Findings: Postoperative changes of a left hip arthroplasty are identified. Postoperative changes of a left knee replacement are identified. Mid diaphyseal left femoral fracture is identified. The distal fracture fragment is distal placed approximately 1/2 shaft with medial relation to the proximal fracture fragment. Impression: Mid diaphyseal left femoral fracture Dictated by Lilia Peterson MD @ Jun 12 2019 11:12AM Signed by Dr. Lilia Peterson @ Jun 12 2019 11:13AM
--- NOTE | 2019-06-12 11:14 | CR ---
Indication: Trauma. Fall. Technique: A single AP portable view of the chest. Comparison: March 24, 2018. Findings: The right hemidiaphragm is elevated. The heart is normal in size. No focal infiltrate, pleural effusion, pneumothorax is identified. Impression: Stable chest x-ray Dictated by Lilia Peterson MD @ Jun 12 2019 11:11AM Signed by Dr. Lilia Peterson @ Jun 12 2019 11:12AM
[2019-06-12] MEDS ORDERED: HYDROmorphone 1 MG/ML Syringe IVPUSH ONE ×2 (11:15→12:38)
--- NOTE | 2019-06-12 11:16 | CR ---
Indication: Trauma. Fall. Technique: An AP view of the pelvis was obtained. Comparison: 09/01/2015 hip x-ray. Findings: A left hip arthroplasty is identified. There is no evidence of hardware failure. Femoral stem is not completely included on the study. Degenerative changes of the lower lumbar spine and right [place] hip are identified. Impression: Left hip arthroplasty. Degenerative changes of the right hip. Dictated by Lilia Peterson MD @ Jun 12 2019 11:13AM Signed by Dr. Lilia Peterson @ Jun 12 2019 11:13AM
--- NOTE | 2019-06-12 11:27 | CT ---
INDICATION: Fall. COMPARISON: Head CT scan dated 24 June 2014. TECHNIQUE: Noncontrast head CT scan. FINDINGS: No abnormal foci of altered attenuation in the brain parenchyma. No midline shift or mass effect. No hydrocephalus. No abnormal extra-axial fluid collections. 2.0 x 0.9 cm lesion along the medial aspect of the left anterior tentorium adjacent to the left the brainstem likely represents a meningioma and is unchanged. No abnormalities of the skull or scalp identified. IMPRESSION: 1. No evidence of acute intracranial abnormalities. 2. Probable small meningioma along the left anterior tentorium is unchanged. Dictated by Wilfred Hauser MD @ 06/12/2019 11:24:47 AM Please note that all CT scans at this facility use dose modulation, iterative reconstruction, and/or weight-based dosing when appropriate to reduce radiation dose to as low as reasonably achievable. Dictated by: Wilfred Hauser MD @ 06/12/2019 11:24:54 (Electronically Signed)
--- NOTE | 2019-06-12 12:15 | PCM.HP.2 ---
H&P History of Present Illness - General Date of Service: 06/12/19 Admit Problem/Dx: Admission Diagnosis/Problem Admission Diagnosis/Problem Fracture of distal femur Source of Information: Patient, Family - History of Present Illness Initial Comments - Free Text/Narative: Patient's a 74-year-old white male with PMH of CAD s/p CABG, stents x6, history of stent thrombosis, HTN, CKD, COPD and DM type 2 presents following a mechanical fall when when he slipped on ice injuring on his left side. Patient denies any chest pain dizziness palpitations shortness of breath, head or neck pain or trauma he states this was strictly a mechanical fall. On admission, CT head negative, CXR negative and x-ray of left femur revealed a fracture. Patient was admitted to hospital for Fracture repair and management Onset of Symptoms: Reports: Today, Sudden Duration of Symptoms: Reports: Hour(s): Location: Reports: Lower Extremity, Left Quality: Reports: Sharp Improves with: Reports: Immobilization Worsens with: Reports: Movement Left Leg Pain Score (Numeric/FACES): 8 - Related Data Allergies/Adverse Reactions: Allergies Allergy/AdvReac Type Severity Reaction Status Date / Time hydrocodone bitartrate Allergy Change Verified 06/12/19 13:59 [From [place]] Mental Status meperidine HCl [From Demerol] Allergy Change Verified 06/12/19 13:59 Mental Status oxycodone [Oxycodone] Allergy Change Verified 06/12/19 13:59 Mental Status tramadol HCl [From Ultram] Allergy Change Verified 06/12/19 13:59 Mental Status Home Medications: Home Meds Aspirin [Aspirin EC] 81 mg PO BEDTIME 01/24/14 [History] Carvedilol [Coreg] 6.25 mg PO BID 01/24/14 [History] atorvaSTATin [Lipitor] 20 mg PO BEDTIME 01/24/14 [History] Lisinopril 10 mg PO DAILY 03/26/18 [History] Nitroglycerin 0.4 mg PO ASDIRECTED PRN 03/26/18 [History] Ticagrelor [Brilinta] 90 mg PO BID 03/26/18 [History] Omeprazole 20 mg PO WITHDINNER 07/02/18 [History] metFORMIN [Glucophage XR] 500 mg PO WITHDINNER 07/02/18 [History] traZODone HCl [Trazodone HCl] 100 mg PO BEDTIME 07/02/18 [History] Multivitamin [Daily Multiple Vitamin] 1 tab PO DAILY 06/12/19 [History] Sulfamethoxazole/Trimethoprim [Sulfamethoxazole-Tmp Ds Tablet] 1 tab PO BID 07/31 [History] Tamsulosin HCl [Flomax] 0.4 mg PO BEDTIME 06/12/19 [History] LORazepam 0.5 mg PO DAILY PRN 06/14/19 [History] Tolterodine Tartrate [Tolterodine Tartrate ER] 1 cap PO BEDTIME 06/14/19 [ History] Acetaminophen/HYDROcodone [[place] 325-5 MG] 1 tab PO Q6H PRN #15 tablet 06/22/19 [Rx] Bisacodyl [Dulcolax] 10 mg RECTAL DAILY PRN 7 Days #7 supp 06/22/19 [Rx] Docusate Sodium [Colace] 100 mg PO BID 7 Days #14 cap 06/22/19 [Rx] Gabapentin [Neurontin] 300 mg PO TID 7 Days #21 cap 06/22/19 [Rx] LORazepam [Ativan] 0.5 mg PO DAILY 7 Days #7 tablet 06/22/19 [Rx] Past Medical History HEENT History: Reports: Impaired Vision Other HEENT History: wears glasses Cardiovascular History: Reports: Heart Failure, Hypertension, [place], Stents Respiratory History: Reports: COPD Gastrointestinal History: Reports: None Other Genitourinary History: retention Musculoskeletal History: Reports: Osteoarthritis Neurological History: Reports: None Psychiatric History: Reports: None Endocrine/Metabolic History: Reports: Diabetes, Type II Dermatologic History: Reports: None - Infectious Disease History Infectious Disease History: Reports: Chicken Pox Social & Family History - Family History Family Medical History: Noncontributory - Caffeine Use Caffeine Use: Reports: Coffee, Soda, Tea H&P Review of Systems - Review of Systems: Review Of Systems: See Below General: Denies: Fever, Chills HEENT: Denies: Dysphasia, Ear Pain Pulmonary: Denies: Shortness of Breath, Wheezing, Pleuritic Chest Pain, Cough Cardiovascular: Denies: Chest Pain, Palpitations, Dyspnea on Exertion Gastrointestinal: Denies: Abdominal Pain, Anorexia, Black Stool Genitourinary: Denies: Dysuria, Frequency Musculoskeletal: Denies: Neck Pain, Shoulder Pain, Arm Pain Skin: Denies: Cyanosis, Jaundice, Mottled, Pallor Psychiatric: Denies: Confusion, Depression, Mood Lability Neurological: Denies: Confusion, Dizziness, Headache, Numbness Exam - Exam Exam: See Below - Vital Signs Vital Signs: Last Vital Signs Temp 36.4 C 06/12/19 12:06 Pulse 74 06/12/19 12:06 Resp 12 06/12/19 12:06 BP 100/59 L 06/12/19 12:06 Pulse Ox 94 L 06/12/19 12:06 - Exam General: Alert, Oriented, Cooperative, Moderate Distress Neck: Supple Lungs: Clear to Auscultation, Normal Respiratory Effort Cardiovascular: Regular Rate, Regular Rhythm, Normal S1, Normal S2 GI/Abdominal Exam: Normal Bowel Sounds, Soft, Non-Tender Extremities: Leg Pain, Limited Range of Motion. No: Normal Range of Motion, Pallor, Redness Peripheral Pulses: 1+: Dorsalis Pedis (L), Dorsalis Pedis (R) Skin: Warm - Patient Data Lab Results Last 24 hrs: Laboratory Results - last 24 hr 06/12/19 06/12/19 Range/Units 10:42 10:42 WBC 8.54 (4.0-11.0) K/uL RBC 3.95 L (4.50-5.90) M/uL Hgb 12.5 L (13.0-17.0) g/dL Hct 37.4 L (38.0-50.0) % MCV 94.7 (80.0-98.0) fL MCH 31.6 (27.0-32.0) pg MCHC 33.4 (31.0-37.0) g/dL RDW Std Deviation 49.9 (28.0-62.0) fl RDW Coeff of Adriana 15 (11.0-15.0) % Plt Count 199 (150-400) K/uL MPV 10.60 (7.40-12.00) fL Neut % (Auto) 60.6 (48.0-80.0) % Lymph % (Auto) 30.3 (16.0-40.0) % [place] % (Auto) 6.1 (0.0-15.0) % Eos % (Auto) 2.5 (0.0-7.0) % Baso % (Auto) 0.5 (0.0-1.5) % Neut # (Auto) 5.2 (1.4-5.7) K/uL Lymph # (Auto) 2.6 H (0.6-2.4) K/uL [place] # (Auto) 0.5 (0.0-0.8) K/uL Eos # (Auto) 0.2 (0.0-0.7) K/uL Baso # (Auto) 0.0 (0.0-0.1) K/uL Nucleated RBC % 0.0 /100WBC Nucleated RBCs # 0 K/uL INR 1.02 Result Diagrams: 06/22/19 04:50 06/22/19 04:50 - Problem List (1) CAD (coronary artery disease) SNOMED Code(s): 22720759 ICD Code: I25.10 - ATHSCL HEART DISEASE OF [place] CORONARY ARTERY W/O ANG PCTRS Status: Acute (2) Femur fracture SNOMED Code(s): 01639873 ICD Code: S72.90XA - UNSP FRACTURE OF UNSP FEMUR, INIT ENCNTR FOR CLOSED FRACTURE Status: Acute Qualifiers: Encounter type: initial encounter Femur location: shaft Fracture type: closed Fracture morphology: spiral Fracture alignment: displaced Laterality: left Qualified Code(s): S72.342A - Displaced spiral fracture of shaft of left femur, initial encounter for closed fracture (3) Elevated troponin SNOMED Code(s): 362304294, 882054701, 977028102 ICD Code: R74.8 - ABNORMAL LEVELS OF OTHER SERUM ENZYMES Status: Acute Problem List Initiated/Reviewed/Updated: Yes Orders Last 24hrs: Active Orders 24 hr Category Date Time Status Patient Status [ADT] Stat ADT 06/12/19 11:01 Active Cardiac Monitoring [RC] . DIRECTED Care 06/12/19 10:29 Active EKG Documentation Completion [RC] STAT Care 06/12/19 10:29 Active COMPREHENSIVE METABOLIC PN,CMP [CHEM] Stat Lab 06/12/19 10:42 Received TROPONIN I [CHEM] Stat Lab 06/12/19 10:42 Received UA RFX TAVARES AND CULT IF INDIC [URIN] Stat Lab 06/12/19 10:29 Ordered Sodium Chloride 0.9% [Normal Saline] Med 12/01/19 10:29 Active 10 ml IV ASDIRECTED PRN Sodium Chloride 0.9% [Saline Flush] Med 06/12/19 10:29 Active 10 ml FLUSH ASDIRECTED PRN Sodium Chloride 0.9% [Saline Flush] Med 06/12/19 10:29 Active 2.5 ml FLUSH ASDIRECTED PRN Peripheral IV Insertion Adult [OM.PC] Stat Oth 06/12/19 10:29 Ordered Medication Orders Sodium Chloride (Saline Flush) 10 ml FLUSH ASDIRECTED PRN PRN Reason: Keep Vein Open Last Admin: 06/12/19 10:38 Dose: 10 ml Sodium Chloride (Saline Flush) 2.5 ml FLUSH ASDIRECTED PRN PRN Reason: Keep Vein Open Last Admin: 06/12/19 10:39 Dose: 2.5 ml Sodium Chloride (Normal Saline) 10 ml IV ASDIRECTED PRN PRN Reason: IV Use Assessment/Plan Comment:: 74 y/o M with PMH of CAD s/p CABG, multiple stents who comes in s/p mechanical fall and femur # Ortho on board, scheduled for sx rose EKG unremarkable, 1st trop was slightly elevated, 2nd is normal, unlikely ACS Start Diet for now, NPO past midnight Tylenol for mild pain, Morphine for severe pain Hold off on ASA and Brilinta due to impending surgery Hold off on Antihypertensives due to hypotension likely induced by Dilaudid Patient remains high risk for surgery due to underlying cardiac history but needs the surgery regardless
[2019-06-12 12:17] LABS: BLOOD UREA NITROGEN,BUN 20 mg/dL (7.0-18.0); CARBON DIOXIDE,CO2 24.8 mmol/L (21.0-32.0); CHLORIDE,CL 104 mmol/L (98-107); GLUCOSE RANDOM 149 mg/dL (74-106); POTASSIUM,K 4.8 mmol/L (3.5-5.1); SODIUM,NA 136 mmol/L (136-148)
[2019-06-12] MEDS ORDERED: Tranexamic Acid 2,000 MG in Sodium Chloride 0.9% 100 ML IV ONE (13:07)
[2019-06-12] MEDS ORDERED: Ropivacaine 49.25 ML, Ketorolac 30 MG, EPINEPHrine 0.5 MG in Sodium Chloride 0.9% 23.45 ML INJECT SCH (13:15)
[2019-06-12] MEDS ORDERED: Famotidine 20 MG/2 ML SDV IVPUSH SCH (13:15)
[2019-06-12] MEDS ORDERED: ceFAZolin 2 GM in Premix Bag 1 BAG IV SCH (13:15)
[2019-06-12] MEDS ORDERED: Scopolamine 1.5 MG Transdermal Patch TRDERM SCH (13:15)
[2019-06-12] MEDS ORDERED: Famotidine 40 MG in Sodium Chloride 0.9% 6 ML IV ONE (13:30)
[2019-06-12] MEDS ORDERED: Acetaminophen/HYDROcodone 325-5 MG Tab PO PRN (13:31)
[2019-06-12] MEDS ORDERED: Albuterol/Ipratropium 3.0-0.5 MG/3 ML Neb Soln NEB PRN (13:31)
[2019-06-12] MEDS ORDERED: Ondansetron 4 MG Tab.DIS PO PRN (13:31)
[2019-06-12] MEDS ORDERED: Sodium Chloride 0.9% 500 ML IV SCH (14:30)
[2019-06-12] MEDS: Ondansetron 4 MG/2 ML SDV IVPUSH PRN ×2 (14:43→23:07)
[2019-06-12] MEDS ORDERED: Nitroglycerin 0.4 MG Tab.SL SL PRN (15:54)
[2019-06-12 16:34] LABS: HEMOGLOBIN A1C 7.4 % (4.5-6.2)
[2019-06-12] MEDS: Lidocaine 5% 700 MG Patch TOP SCH (16:42)
[2019-06-12] MEDS: Acetaminophen 500 MG Tab PO PRN ×2 (16:42→23:07)
[2019-06-12] MEDS: Morphine 2 MG/ML Syringe IVPUSH PRN ×2 (18:24→22:30)
[2019-06-12] MEDS: atorvaSTATin 40 MG Tab PO SCH (20:59)
[2019-06-12] MEDS: traZODone 50 MG Tab PO SCH (20:59)
[2019-06-12] MEDS: Lactated Ringers 1,000 ML IV SCH (22:30)
[2019-06-13] MEDS: Morphine 2 MG/ML Syringe IVPUSH PRN ×4 (02:36→12:53)
[2019-06-13 06:28] LABS: POTASSIUM,K 5.4 mmol/L (3.5-5.1)
[2019-06-13] MEDS: Omeprazole 20 MG Cap.CR PO SCH (06:34)
[2019-06-13] MEDS: Tamsulosin 0.4 MG Cap.ER PO SCH (07:54)
[2019-06-13] MEDS: Insulin Aspart 100 Units/ML 3 ML Pen SUBCUT SCH ×3 (07:54→17:54)
[2019-06-13] MEDS: LORazepam 0.5 MG Tab PO SCH (09:26)
[2019-06-13] MEDS: Lactated Ringers 1,000 ML IV SCH (09:27)
--- NOTE | 2019-06-13 09:27 | PCM.SN ---
- Free Text/Narrative Note: Chart reviewed, patient interviewed and examined in preperation for surgery for a mid shaft femur fs (above TKA prosthesis and below KIMI prosthesis). 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 On Brintilla- last dose 26 hours ago. Will not perform regional anesthesia (spinal) until 5 days after Brintilla stopped. Best medical advice recommends delaying all but emergent surgery for 4-5 days after stopping brintilla. Aspirin was stopped upon admission yesterday. Will restart today and continue throughout the perioperative period. Will place pt on telemetry because of the risk of stent thrombosis while stopping brintilla. ECHO this am showed EF of 60%, normal valves, no RWMA. TROPONON was elevated upon admission yesterday. Will request consult from cardiology to optimize cardiac care. ( Brintilla has no reverasal agent and is not removed with dialysis) GERD DM2 Heart failure by history HTN smokes 1.5 ppd CKD3 with eGFR of 53 serum potassium of 5.3 Preoperative management plan discussed with hospitalists This patient will need an ICU bed for 24-48 hours post op
[2019-06-13] MEDS: Aspirin 81 MG Tab.Chew PO SCH (10:44)
--- NOTE | 2019-06-13 12:10 | PCM.PN ---
<Steven Jones M - Last Filed: 06/13/19 12:03> - General Info Date of Service: 06/13/19 Subjective Update: Reports no complaints at bedside this morning. Reported having chest pain early in the morning but has since resolved. Denies SOB or chest pain currently. - Patient Data Vitals - Most Recent: Last Vital Signs Temp 97.6 F 06/13/19 07:08 Pulse 79 06/13/19 07:08 Resp 20 06/13/19 07:08 BP 100/55 L 06/13/19 07:08 Pulse Ox 92 L 06/13/19 07:08 Weight - Most Recent: 133.5 kg I&O - Last 24 Hours: Intake & Output 06/12/19 06/13/19 06/13/19 22:59 06:59 14:59 Intake Total 100 1227 Output Total 150 830 Balance -50 397 Lab Results Last 24 Hours: Laboratory Results - last 24 hr 06/12/19 06/12/19 06/12/19 Range/Units 10:42 10:42 10:42 WBC (4.0-11.0) K/uL RBC (4.50-5.90) M/uL Hgb (13.0-17.0) g/dL Hct (38.0-50.0) % MCV (80.0-98.0) fL MCH (27.0-32.0) pg MCHC (31.0-37.0) g/dL RDW Std Deviation (28.0-62.0) fl RDW Coeff of Adriana (11.0-15.0) % Plt Count (150-400) K/uL MPV (7.40-12.00) fL Neut % (Auto) (48.0-80.0) % Lymph % (Auto) (16.0-40.0) % [place] % (Auto) (0.0-15.0) % Eos % (Auto) (0.0-7.0) % Baso % (Auto) (0.0-1.5) % Neut # (Auto) (1.4-5.7) K/uL Lymph # (Auto) (0.6-2.4) K/uL [place] # (Auto) (0.0-0.8) K/uL Eos # (Auto) (0.0-0.7) K/uL Baso # (Auto) (0.0-0.1) K/uL Nucleated RBC % /100WBC Nucleated RBCs # K/uL Sodium 136 (136-148) mmol/L Potassium 4.8 (3.5-5.1) mmol/L Chloride 104 (98-107) mmol/L Carbon Dioxide 24.8 (21.0-32.0) mmol/L BUN 20 H (7.0-18.0) mg/dL Creatinine 1.1 (0.8-1.3) mg/dL Est Cr Clr Drug Dosing 75.01 mL/min Estimated GFR (MDRD) > 60.0 ml/min Glucose 149 H (74-106) mg/dL POC Glucose (60-110) mg/dL Hemoglobin A1c 7.4 H (4.5-6.2) % Calcium 8.6 (8.5-10.1) mg/dL Phosphorus (2.6-4.7) mg/dL Magnesium (1.8-2.4) mg/dL Total Bilirubin 0.4 (0.2-1.0) mg/dL AST 27 (15-37) IU/L ALT 34 (14-63) IU/L Alkaline Phosphatase 78 (46-116) U/L Troponin I 0.057 H (0.000-0.056) ng/mL Total Protein 7.0 (6.4-8.2) g/dL Albumin 3.7 (3.4-5.0) g/dL Globulin 3.3 (2.6-4.0) g/dL Albumin/Globulin Ratio 1.1 (0.9-1.6) Triglycerides 58 (0-200) mg/dL Cholesterol 101 (50-200) mg/dL LDL Cholesterol, Calc 46 L (60-180) mg/dL VLDL Cholesterol 11 (5-55) mg/dL HDL Cholesterol 43 (40-60) mg/dL Cholesterol/HDL Ratio 2.3 L (3.3-6.0) TSH 3rd Generation 1.29 (0.36-3.74) uIU/mL Urine Color Urine Appearance Urine pH (5.0-8.0) Ur Specific [place] (1.001-1.035) Urine Protein (NEGATIVE) mg/dL Urine Glucose (UA) (NEGATIVE) mg/dL Urine Ketones (NEGATIVE) mg/dL Urine Occult Blood (NEGATIVE) Urine Nitrite (NEGATIVE) Urine Bilirubin (NEGATIVE) Urine Urobilinogen (<2.0) EU/dL Ur Leukocyte Esterase (NEGATIVE) Blood Type Antibody Screen 06/12/19 06/12/19 06/12/19 Range/Units 14:14 14:14 16:15 WBC (4.0-11.0) K/uL RBC (4.50-5.90) M/uL Hgb (13.0-17.0) g/dL Hct (38.0-50.0) % MCV (80.0-98.0) fL MCH (27.0-32.0) pg MCHC (31.0-37.0) g/dL RDW Std Deviation (28.0-62.0) fl RDW Coeff of Adriana (11.0-15.0) % Plt Count (150-400) K/uL MPV (7.40-12.00) fL Neut % (Auto) (48.0-80.0) % Lymph % (Auto) (16.0-40.0) % [place] % (Auto) (0.0-15.0) % Eos % (Auto) (0.0-7.0) % Baso % (Auto) (0.0-1.5) % Neut # (Auto) (1.4-5.7) K/uL Lymph # (Auto) (0.6-2.4) K/uL [place] # (Auto) (0.0-0.8) K/uL Eos # (Auto) (0.0-0.7) K/uL Baso # (Auto) (0.0-0.1) K/uL Nucleated RBC % /100WBC Nucleated RBCs # K/uL Sodium (136-148) mmol/L Potassium (3.5-5.1) mmol/L Chloride (98-107) mmol/L Carbon Dioxide (21.0-32.0) mmol/L BUN (7.0-18.0) mg/dL Creatinine (0.8-1.3) mg/dL Est Cr Clr Drug Dosing mL/min Estimated GFR (MDRD) ml/min Glucose (74-106) mg/dL POC Glucose (60-110) mg/dL Hemoglobin A1c (4.5-6.2) % Calcium (8.5-10.1) mg/dL Phosphorus (2.6-4.7) mg/dL Magnesium (1.8-2.4) mg/dL Total Bilirubin (0.2-1.0) mg/dL AST (15-37) IU/L ALT (14-63) IU/L Alkaline Phosphatase (46-116) U/L Troponin I 0.054 (0.000-0.056) ng/mL Total Protein (6.4-8.2) g/dL Albumin (3.4-5.0) g/dL Globulin (2.6-4.0) g/dL Albumin/Globulin Ratio (0.9-1.6) Triglycerides (0-200) mg/dL Cholesterol (50-200) mg/dL LDL Cholesterol, Calc (60-180) mg/dL VLDL Cholesterol (5-55) mg/dL HDL Cholesterol (40-60) mg/dL Cholesterol/HDL Ratio (3.3-6.0) TSH 3rd Generation (0.36-3.74) uIU/mL Urine Color YELLOW Urine Appearance CLEAR Urine pH 6.0 (5.0-8.0) Ur Specific [place] >= 1.030 (1.001-1.035) Urine Protein NEGATIVE (NEGATIVE) mg/dL Urine Glucose (UA) NEGATIVE (NEGATIVE) mg/dL Urine Ketones NEGATIVE (NEGATIVE) mg/dL Urine Occult Blood NEGATIVE (NEGATIVE) Urine Nitrite NEGATIVE (NEGATIVE) Urine Bilirubin NEGATIVE (NEGATIVE) Urine Urobilinogen 0.2 (<2.0) EU/dL Ur Leukocyte Esterase NEGATIVE (NEGATIVE) Blood Type O POSITIVE Antibody Screen NEGATIVE 06/12/19 06/13/19 06/13/19 Range/Units 18:01 05:43 05:55 WBC 11.11 H (4.0-11.0) K/uL RBC 3.30 L (4.50-5.90) M/uL Hgb 10.3 L (13.0-17.0) g/dL Hct 31.4 L (38.0-50.0) % MCV 95.2 (80.0-98.0) fL MCH 31.2 (27.0-32.0) pg MCHC 32.8 (31.0-37.0) g/dL RDW Std Deviation 49.9 (28.0-62.0) fl RDW Coeff of Adriana 14 (11.0-15.0) % Plt Count 186 (150-400) K/uL MPV 10.80 (7.40-12.00) fL Neut % (Auto) 62.0 (48.0-80.0) % Lymph % (Auto) 27.0 (16.0-40.0) % [place] % (Auto) 10.4 (0.0-15.0) % Eos % (Auto) 0.5 (0.0-7.0) % Baso % (Auto) 0.1 (0.0-1.5) % Neut # (Auto) 6.9 H (1.4-5.7) K/uL Lymph # (Auto) 3.0 H (0.6-2.4) K/uL [place] # (Auto) 1.2 H (0.0-0.8) K/uL Eos # (Auto) 0.1 (0.0-0.7) K/uL Baso # (Auto) 0.0 (0.0-0.1) K/uL Nucleated RBC % 0.0 /100WBC Nucleated RBCs # 0 K/uL Sodium (136-148) mmol/L Potassium (3.5-5.1) mmol/L Chloride (98-107) mmol/L Carbon Dioxide (21.0-32.0) mmol/L BUN (7.0-18.0) mg/dL Creatinine (0.8-1.3) mg/dL Est Cr Clr Drug Dosing mL/min Estimated GFR (MDRD) ml/min Glucose (74-106) mg/dL POC Glucose 143 H 145 H (60-110) mg/dL Hemoglobin A1c (4.5-6.2) % Calcium (8.5-10.1) mg/dL Phosphorus (2.6-4.7) mg/dL Magnesium (1.8-2.4) mg/dL Total Bilirubin (0.2-1.0) mg/dL AST (15-37) IU/L ALT (14-63) IU/L Alkaline Phosphatase (46-116) U/L Troponin I (0.000-0.056) ng/mL Total Protein (6.4-8.2) g/dL Albumin (3.4-5.0) g/dL Globulin (2.6-4.0) g/dL Albumin/Globulin Ratio (0.9-1.6) Triglycerides (0-200) mg/dL Cholesterol (50-200) mg/dL LDL Cholesterol, Calc (60-180) mg/dL VLDL Cholesterol (5-55) mg/dL HDL Cholesterol (40-60) mg/dL Cholesterol/HDL Ratio (3.3-6.0) TSH 3rd Generation (0.36-3.74) uIU/mL Urine Color Urine Appearance Urine pH (5.0-8.0) Ur Specific [place] (1.001-1.035) Urine Protein (NEGATIVE) mg/dL Urine Glucose (UA) (NEGATIVE) mg/dL Urine Ketones (NEGATIVE) mg/dL Urine Occult Blood (NEGATIVE) Urine Nitrite (NEGATIVE) Urine Bilirubin (NEGATIVE) Urine Urobilinogen (<2.0) EU/dL Ur Leukocyte Esterase (NEGATIVE) Blood Type Antibody Screen 06/13/19 06/13/19 Range/Units 05:55 06:54 WBC (4.0-11.0) K/uL RBC (4.50-5.90) M/uL Hgb (13.0-17.0) g/dL Hct (38.0-50.0) % MCV (80.0-98.0) fL MCH (27.0-32.0) pg MCHC (31.0-37.0) g/dL RDW Std Deviation (28.0-62.0) fl RDW Coeff of Adriana (11.0-15.0) % Plt Count (150-400) K/uL MPV (7.40-12.00) fL Neut % (Auto) (48.0-80.0) % Lymph % (Auto) (16.0-40.0) % [place] % (Auto) (0.0-15.0) % Eos % (Auto) (0.0-7.0) % Baso % (Auto) (0.0-1.5) % Neut # (Auto) (1.4-5.7) K/uL Lymph # (Auto) (0.6-2.4) K/uL [place] # (Auto) (0.0-0.8) K/uL Eos # (Auto) (0.0-0.7) K/uL Baso # (Auto) (0.0-0.1) K/uL Nucleated RBC % /100WBC Nucleated RBCs # K/uL Sodium 135 L (136-148) mmol/L Potassium 5.4 H (3.5-5.1) mmol/L Chloride 101 (98-107) mmol/L Carbon Dioxide 25.0 (21.0-32.0) mmol/L BUN 29 H (7.0-18.0) mg/dL Creatinine 1.3 (0.8-1.3) mg/dL Est Cr Clr Drug Dosing 61.88 mL/min Estimated GFR (MDRD) 53.8 ml/min Glucose 159 H (74-106) mg/dL POC Glucose (60-110) mg/dL Hemoglobin A1c (4.5-6.2) % Calcium 8.4 L (8.5-10.1) mg/dL Phosphorus 4.6 (2.6-4.7) mg/dL Magnesium 2.1 (1.8-2.4) mg/dL Total Bilirubin (0.2-1.0) mg/dL AST (15-37) IU/L ALT (14-63) IU/L Alkaline Phosphatase (46-116) U/L Troponin I < 0.050 (0.000-0.056) ng/mL Total Protein (6.4-8.2) g/dL Albumin (3.4-5.0) g/dL Globulin (2.6-4.0) g/dL Albumin/Globulin Ratio (0.9-1.6) Triglycerides (0-200) mg/dL Cholesterol (50-200) mg/dL LDL Cholesterol, Calc (60-180) mg/dL VLDL Cholesterol (5-55) mg/dL HDL Cholesterol (40-60) mg/dL Cholesterol/HDL Ratio (3.3-6.0) TSH 3rd Generation (0.36-3.74) uIU/mL Urine Color Urine Appearance Urine pH (5.0-8.0) Ur Specific [place] (1.001-1.035) Urine Protein (NEGATIVE) mg/dL Urine Glucose (UA) (NEGATIVE) mg/dL Urine Ketones (NEGATIVE) mg/dL Urine Occult Blood (NEGATIVE) Urine Nitrite (NEGATIVE) Urine Bilirubin (NEGATIVE) Urine Urobilinogen (<2.0) EU/dL Ur Leukocyte Esterase (NEGATIVE) Blood Type Antibody Screen Med Orders - Current: Current Medications Acetaminophen (Tylenol Extra Strength) 500 mg PO Q6H PRN PRN Reason: Pain Last Admin: 06/12/19 23:07 Dose: 500 mg Albuterol/Ipratropium (Duoneb 3.0-0.5 Mg/3 Ml) 3 ml NEB Q4HRRT PRN PRN Reason: Shortness Of Breath/wheezing Aspirin (Aspirin) 81 mg PO DAILY [facility] Last Admin: 06/13/19 10:44 Dose: 81 mg Atorvastatin Calcium (Lipitor) 20 mg PO BEDTIME [facility] Last Admin: 06/12/19 20:59 Dose: 20 mg Cefazolin Sodium/Dextrose 2 gm (/ Premix) 50 mls @ 100 mls/hr IV ONCALL [facility] Ropivacaine 49.25 ml/Ketorolac Tromethamine 30 mg/Epinephrine HCl 0.5 mg/ Sodium Chloride 74.2 mls @ 50 mls/sec INJECT ASDIRECTED [facility] Insulin Aspart (Novolog) 0 unit SUBCUT TIDAC [facility]; Protocol Last Admin: 06/13/19 07:54 Dose: Not Given Lidocaine (Lidoderm 5%) 700 mg TOP Q24H [facility] Last Admin: 06/12/19 16:42 Dose: 700 mg Lorazepam (Ativan) 0.5 mg PO DAILY [facility] Last Admin: 06/13/19 09:26 Dose: 0.5 mg Morphine Sulfate (Morphine) 2 mg IVPUSH Q2H PRN PRN Reason: Pain (severe 7-10) Stop: 06/13/19 13:32 Last Admin: 06/13/19 07:55 Dose: 2 mg Nitroglycerin (Nitrostat) 0.4 mg SL ASDIRECTED PRN PRN Reason: Chest Pain Omeprazole (Omeprazole) 20 mg PO ACBREAKFAST [facility] Last Admin: 06/13/19 06:34 Dose: 20 mg Ondansetron HCl (Zofran Odt) 4 mg PO Q4H PRN PRN Reason: nausea, able to take PO Ondansetron HCl (Zofran) 4 mg IVPUSH Q4H PRN PRN Reason: Nausea/Vomiting Last Admin: 06/12/19 23:07 Dose: 4 mg Scopolamine (Transderm-Scop) 1.5 mg TRDERM ONARRIVE [facility] Sodium Chloride (Saline Flush) 10 ml FLUSH ASDIRECTED PRN PRN Reason: Keep Vein Open Last Admin: 06/12/19 10:38 Dose: 10 ml Sodium Chloride (Saline Flush) 2.5 ml FLUSH ASDIRECTED PRN PRN Reason: Keep Vein Open Last Admin: 06/12/19 10:39 Dose: 2.5 ml Sodium Chloride (Normal Saline) 10 ml IV ASDIRECTED PRN PRN Reason: IV Use Tamsulosin HCl (Flomax) 0.4 mg PO PCBREAKFAST [facility] Last Admin: 06/13/19 07:54 Dose: 0.4 mg Trazodone HCl (Trazodone) 100 mg PO BEDTIME [facility] Last Admin: 06/12/19 20:59 Dose: 100 mg Discontinued Medications Hydrocodone Bitart/Acetaminophen ([place] 325-5 Mg) 2 tab PO Q4H PRN PRN Reason: Pain (moderate 4-6) Hydromorphone HCl (Dilaudid) 1 mg IVPUSH NOW STA Stop: 06/12/19 10:26 Last Admin: 06/12/19 10:37 Dose: 1 mg Hydromorphone HCl (Dilaudid) 1 mg IVPUSH ONETIME ONE Stop: 06/12/19 11:16 Last Admin: 06/12/19 11:23 Dose: 1 mg Hydromorphone HCl (Dilaudid) 1 mg IVPUSH ONETIME ONE Stop: 06/12/19 12:39 Last Admin: 06/12/19 12:42 Dose: 1 mg Lactated Ringer's (Ringers, Lactated) 1,000 mls @ 100 mls/hr IV ASDIRECTED [facility] Last Admin: 06/13/19 09:27 Dose: 100 mls/hr Tranexamic Acid 2,000 mg/ (Sodium Chloride) 120 mls @ 360 mls/hr IV ASDIRECTED ONE Stop: 06/12/19 13:26 Famotidine 40 mg/ Sodium (Chloride) 10 mls @ 300 mls/hr IV ONETIME ONE Stop: 06/12/19 13:31 Sodium Chloride (Normal Saline) 500 mls @ 999 mls/hr IV .BOLUS [facility] Last Admin: 06/12/19 14:43 Dose: 999 mls/hr Ondansetron HCl (Zofran) 4 mg IVPUSH ONETIME ONE Stop: 06/12/19 10:27 Last Admin: 06/12/19 10:36 Dose: 4 mg - Exam General: Alert, Oriented, Cooperative, No Acute Distress Lungs: Clear to Auscultation, Normal Respiratory Effort Cardiovascular: Regular Rate, Regular Rhythm GI/Abdominal Exam: Normal Bowel Sounds, Soft, Non-Tender, No Distention Extremities: Other (LLE: edematous when compared to right. ) Peripheral Pulses: 1+: Posterior Tibial (L), Posterior Tibial (R) Skin: Warm, Dry, Intact - Problem List Review Problem List Initiated/Reviewed/Updated: Yes - My Orders Last 24 Hours: My Active Orders 06/13/19 08:57 Code Status [Resuscitation Status] Routine 06/13/19 09:08 Telemetry Monitoring [Cardiac Monitoring] [RC] . DIRECTED 06/13/19 09:15 Aspirin 81 mg PO DAILY 06/13/19 Breakfast Heart Healthy Diet [DIET] - Plan Plan:: Assessment and Plan: 1. Left femur fracture s/p mechanical fall: Patient scheduled for surgery on 06/15/19. His last dose of ticagrelor was yesterday morning and has been held since admission. As per anesthesia, recommended restarting aspirin because of significant cardiac history. Patient on telemetry. He will require ICU bed post- op for close monitoring. Preliminary ECHO report showed EF of 60-65%. Patient's initial troponin on admission was elevated but has since normalized. Will also contact cardiology for evaluation considering significant complicated cardiac history and is considered high risk for surgery. 2. Hypotension: Will hold anti-hypertensive medications for now. 3. Hyperkalemia: Will continue to monitor. 4. History of CAD s/p CABG, stents x 6, HFpEF, HTN, COPD and DM type II. <Estevan Jones - Last Filed: 06/14/19 11:51> - Patient Data Vitals - Most Recent: Last Vital Signs Temp 36.9 C 06/14/19 11:42 Pulse 87 06/14/19 11:42 Resp 16 06/14/19 11:42 BP 123/59 L 06/14/19 11:42 Pulse Ox 95 06/14/19 11:42 I&O - Last 24 Hours: Intake & Output 06/13/19 06/14/19 06/14/19 22:59 06:59 14:59 Intake Total 1180 820 Output Total 900 1200 Balance 280 -380 Lab Results Last 24 Hours: Laboratory Results - last 24 hr 06/13/19 06/13/19 06/14/19 Range/Units 12:28 17:53 05:05 WBC 9.58 (4.0-11.0) K/uL RBC 2.84 L (4.50-5.90) M/uL Hgb 9.1 L (13.0-17.0) g/dL Hct 26.3 L (38.0-50.0) % MCV 92.6 (80.0-98.0) fL MCH 32.0 (27.0-32.0) pg MCHC 34.6 (31.0-37.0) g/dL RDW Std Deviation 43.7 (28.0-62.0) fl RDW Coeff of Adriana 13 (11.0-15.0) % Plt Count 171 (150-400) K/uL MPV 11.40 (7.40-12.00) fL Neut % (Auto) 57.5 (48.0-80.0) % Lymph % (Auto) 26.9 (16.0-40.0) % [place] % (Auto) 14.0 (0.0-15.0) % Eos % (Auto) 1.4 (0.0-7.0) % Baso % (Auto) 0.2 (0.0-1.5) % Neut # (Auto) 5.5 (1.4-5.7) K/uL Lymph # (Auto) 2.6 H (0.6-2.4) K/uL [place] # (Auto) 1.3 H (0.0-0.8) K/uL Eos # (Auto) 0.1 (0.0-0.7) K/uL Baso # (Auto) 0.0 (0.0-0.1) K/uL Sodium (136-148) mmol/L Potassium (3.5-5.1) mmol/L Chloride (98-107) mmol/L Carbon Dioxide (21.0-32.0) mmol/L BUN (7.0-18.0) mg/dL Creatinine (0.8-1.3) mg/dL Est Cr Clr Drug Dosing mL/min Estimated GFR (MDRD) ml/min Glucose (74-106) mg/dL POC Glucose 150 H 128 H (60-110) mg/dL Calcium (8.5-10.1) mg/dL Total Bilirubin (0.2-1.0) mg/dL AST (15-37) IU/L ALT (14-63) IU/L Alkaline Phosphatase (46-116) U/L Total Protein (6.4-8.2) g/dL Albumin (3.4-5.0) g/dL Globulin (2.6-4.0) g/dL Albumin/Globulin Ratio (0.9-1.6) 06/14/19 06/14/19 06/14/19 Range/Units 05:05 05:59 11:38 WBC (4.0-11.0) K/uL RBC (4.50-5.90) M/uL Hgb (13.0-17.0) g/dL Hct (38.0-50.0) % MCV (80.0-98.0) fL MCH (27.0-32.0) pg MCHC (31.0-37.0) g/dL RDW Std Deviation (28.0-62.0) fl RDW Coeff of Adriana (11.0-15.0) % Plt Count (150-400) K/uL MPV (7.40-12.00) fL Neut % (Auto) (48.0-80.0) % Lymph % (Auto) (16.0-40.0) % [place] % (Auto) (0.0-15.0) % Eos % (Auto) (0.0-7.0) % Baso % (Auto) (0.0-1.5) % Neut # (Auto) (1.4-5.7) K/uL Lymph # (Auto) (0.6-2.4) K/uL [place] # (Auto) (0.0-0.8) K/uL Eos # (Auto) (0.0-0.7) K/uL Baso # (Auto) (0.0-0.1) K/uL Sodium 133 L (136-148) mmol/L Potassium 4.7 (3.5-5.1) mmol/L Chloride 100 (98-107) mmol/L Carbon Dioxide 25.9 (21.0-32.0) mmol/L BUN 18 (7.0-18.0) mg/dL Creatinine 1.0 (0.8-1.3) mg/dL Est Cr Clr Drug Dosing 80.44 mL/min Estimated GFR (MDRD) > 60.0 ml/min Glucose 138 H (74-106) mg/dL POC Glucose 129 H 190 H (60-110) mg/dL Calcium 8.0 L (8.5-10.1) mg/dL Total Bilirubin 0.6 (0.2-1.0) mg/dL AST 31 (15-37) IU/L ALT 22 (14-63) IU/L Alkaline Phosphatase 66 (46-116) U/L Total Protein 6.0 L (6.4-8.2) g/dL Albumin 3.1 L (3.4-5.0) g/dL Globulin 2.9 (2.6-4.0) g/dL Albumin/Globulin Ratio 1.1 (0.9-1.6) Med Orders - Current: Current Medications Acetaminophen (Tylenol Extra Strength) 500 mg PO Q6H PRN PRN Reason: Pain Last Admin: 06/14/19 06:50 Dose: 500 mg Hydrocodone Bitart/Acetaminophen ([place] 325-5 Mg) 1 tab PO Q4H PRN PRN Reason: Pain Albuterol/Ipratropium (Duoneb 3.0-0.5 Mg/3 Ml) 3 ml NEB Q4HRRT PRN PRN Reason: Shortness Of Breath/wheezing Last Admin: 06/14/19 00:36 Dose: 3 ml Aspirin (Aspirin) 81 mg PO DAILY [facility] Last Admin: 06/14/19 08:49 Dose: 81 mg Atorvastatin Calcium (Lipitor) 20 mg PO BEDTIME [facility] Last Admin: 06/13/19 21:27 Dose: 20 mg Bisacodyl (Dulcolax) 10 mg RECTAL DAILY PRN PRN Reason: Constipation Docusate Sodium (Colace) 100 mg PO BID [facility] Heparin Sodium (Porcine) (Heparin Sodium) 5,000 units SUBCUT Q8H [facility] Cefazolin Sodium/Dextrose 2 gm (/ Premix) 50 mls @ 100 mls/hr IV ONCALL [facility] Insulin Aspart (Novolog) 0 unit SUBCUT TIDAC [facility]; Protocol Last Admin: 06/14/19 06:52 Dose: Not Given Lidocaine (Lidoderm 5%) 700 mg TOP Q24H [facility] Last Admin: 06/13/19 16:04 Dose: 700 mg Lorazepam (Ativan) 0.5 mg PO DAILY [facility] Last Admin: 06/14/19 08:48 Dose: 0.5 mg Nitroglycerin (Nitrostat) 0.4 mg SL ASDIRECTED PRN PRN Reason: Chest Pain Omeprazole (Omeprazole) 20 mg PO ACBREAKFAST [facility] Last Admin: 06/14/19 06:49 Dose: 20 mg Ondansetron HCl (Zofran Odt) 4 mg PO Q4H PRN PRN Reason: nausea, able to take PO Ondansetron HCl (Zofran) 4 mg IVPUSH Q4H PRN PRN Reason: Nausea/Vomiting Last Admin: 06/12/19 23:07 Dose: 4 mg Scopolamine (Transderm-Scop) 1.5 mg TRDERM ONARRIVE [facility] Sodium Chloride (Saline Flush) 10 ml FLUSH ASDIRECTED PRN PRN Reason: Keep Vein Open Last Admin: 06/12/19 10:38 Dose: 10 ml Sodium Chloride (Saline Flush) 2.5 ml FLUSH ASDIRECTED PRN PRN Reason: Keep Vein Open Last Admin: 06/12/19 10:39 Dose: 2.5 ml Sodium Chloride (Normal Saline) 10 ml IV ASDIRECTED PRN PRN Reason: IV Use Tamsulosin HCl (Flomax) 0.4 mg PO PCBREAKFAST [facility] Last Admin: 06/14/19 08:51 Dose: 0.4 mg Trazodone HCl (Trazodone) 100 mg PO BEDTIME [facility] Last Admin: 06/13/19 21:27 Dose: 100 mg Discontinued Medications Hydrocodone Bitart/Acetaminophen ([place] 325-5 Mg) 2 tab PO Q4H PRN PRN Reason: Pain (moderate 4-6) Hydromorphone HCl (Dilaudid) 1 mg IVPUSH NOW STA Stop: 06/12/19 10:26 Last Admin: 06/12/19 10:37 Dose: 1 mg Hydromorphone HCl (Dilaudid) 1 mg IVPUSH ONETIME ONE Stop: 06/12/19 11:16 Last Admin: 06/12/19 11:23 Dose: 1 mg Hydromorphone HCl (Dilaudid) 1 mg IVPUSH ONETIME ONE Stop: 06/12/19 12:39 Last Admin: 06/12/19 12:42 Dose: 1 mg Hydromorphone HCl (Dilaudid) 0.5 mg IVPUSH Q4H PRN PRN Reason: Pain Hydromorphone HCl (Dilaudid) 1 mg IVPUSH ONETIME ONE Stop: 06/13/19 17:36 Last Admin: 06/13/19 17:53 Dose: 1 mg Lactated Ringer's (Ringers, Lactated) 1,000 mls @ 100 mls/hr IV ASDIRECTED [facility] Last Admin: 06/13/19 09:27 Dose: 100 mls/hr Tranexamic Acid 2,000 mg/ (Sodium Chloride) 120 mls @ 360 mls/hr IV ASDIRECTED ONE Stop: 06/12/19 13:26 Famotidine 40 mg/ Sodium (Chloride) 10 mls @ 300 mls/hr IV ONETIME ONE Stop: 06/12/19 13:31 Sodium Chloride (Normal Saline) 500 mls @ 999 mls/hr IV .BOLUS [facility] Last Admin: 06/12/19 14:43 Dose: 999 mls/hr Ketorolac Tromethamine (Toradol) 15 mg IVPUSH Q6H PRN PRN Reason: Pain Last Admin: 06/14/19 01:32 Dose: 15 mg Morphine Sulfate (Morphine) 2 mg IVPUSH Q2H PRN PRN Reason: Pain (severe 7-10) Stop: 06/13/19 13:32 Last Admin: 06/13/19 12:53 Dose: 2 mg Ondansetron HCl (Zofran) 4 mg IVPUSH ONETIME ONE Stop: 06/12/19 10:27 Last Admin: 06/12/19 10:36 Dose: 4 mg - Problem List & Annotations (1) CAD (coronary artery disease) SNOMED Code(s): 62847912 Code(s): I25.10 - ATHSCL HEART DISEASE OF [place] CORONARY ARTERY W/O ANG PCTRS Status: Acute Current Visit: Yes (2) Femur fracture SNOMED Code(s): 21343481 Code(s): S72.90XA - UNSP FRACTURE OF UNSP FEMUR, INIT ENCNTR FOR CLOSED FRACTURE Status: Acute Current Visit: Yes Qualifiers: Encounter type: initial encounter Femur location: shaft Fracture type: closed Fracture morphology: spiral Fracture alignment: displaced Laterality: left Qualified Code(s): S72.342A - Displaced spiral fracture of shaft of left femur, initial encounter for closed fracture (3) Elevated troponin SNOMED Code(s): 770094272, 640070048, 781282324 Code(s): R74.8 - ABNORMAL LEVELS OF OTHER SERUM ENZYMES Status: Acute Current Visit: No - My Orders Last 24 Hours: My Active Orders 06/13/19 15:53 Echo Comp wo Cont [US] Routine - Plan Plan:: I have seen and evaluated the patient and agree with the residents note unless specified in my note
[2019-06-13] MEDS: Lidocaine 5% 700 MG Patch TOP SCH (16:04)
[2019-06-13] MEDS: Acetaminophen 500 MG Tab PO PRN (16:04)
[2019-06-13] MEDS ORDERED: HYDROmorphone 1 MG/ML Syringe IVPUSH PRN (17:24)
[2019-06-13] MEDS ORDERED: HYDROmorphone 1 MG/ML Syringe IVPUSH ONE (17:35)
[2019-06-13] MEDS ORDERED: Ketorolac 30 MG/ML SDV IVPUSH PRN (17:36)
[2019-06-13] MEDS: traZODone 50 MG Tab PO SCH (21:27)
[2019-06-13] MEDS: atorvaSTATin 40 MG Tab PO SCH (21:27)
[2019-06-14] MEDS: Acetaminophen 500 MG Tab PO PRN ×2 (00:34→06:50)
[2019-06-14 06:06] LABS: BLOOD UREA NITROGEN,BUN 18 mg/dL (7.0-18.0); CARBON DIOXIDE,CO2 25.9 mmol/L (21.0-32.0); CHLORIDE,CL 100 mmol/L (98-107); GLUCOSE RANDOM 138 mg/dL (74-106); POTASSIUM,K 4.7 mmol/L (3.5-5.1); SODIUM,NA 133 mmol/L (136-148)
[2019-06-14] MEDS: Omeprazole 20 MG Cap.CR PO SCH (06:49)
[2019-06-14] MEDS: Insulin Aspart 100 Units/ML 3 ML Pen SUBCUT SCH ×3 (06:52→17:43)
--- NOTE | 2019-06-14 07:55 | PCM.CONS ---
H&P History of Present Illness - General Date of Service: 06/13/19 Admit Problem/Dx: Admission Diagnosis/Problem Periprosthetic distal 1/3 shaft femoral fracture, closed Source of Information: Patient, Provider, RN History Limitations: Reports: No Limitations - History of Present Illness Onset of Symptoms: Reports: Today, Sudden Symptom Onset Date: 06/13/19 Duration of Symptoms: Reports: Hour(s): Location: Reports: Lower Extremity, Left Quality: Reports: Burning, Pressure, Stabbing, Throbbing Improves with: Reports: Immobilization Worsens with: Reports: Movement Associated Symptoms: Reports: No Other Symptoms Left Leg Pain Score (Numeric/FACES): 8 - Related Data Allergies/Adverse Reactions: Allergies Allergy/AdvReac Type Severity Reaction Status Date / Time hydrocodone bitartrate Allergy Change Verified 06/12/19 13:59 [From [facility]] Mental Status meperidine HCl [From Demerol] Allergy Change Verified 06/12/19 13:59 Mental Status oxycodone [Oxycodone] Allergy Change Verified 06/12/19 13:59 Mental Status tramadol HCl [From Ultram] Allergy Change Verified 06/12/19 13:59 Mental Status Home Medications: Home Meds Aspirin [Aspirin EC] 81 mg PO BEDTIME 01/24/14 [History] Carvedilol [Coreg] 6.25 mg PO BID 01/24/14 [History] atorvaSTATin [Lipitor] 20 mg PO BEDTIME 01/24/14 [History] Lisinopril 10 mg PO DAILY 03/26/18 [History] Nitroglycerin 0.4 mg PO ASDIRECTED PRN 03/26/18 [History] Ticagrelor [Brilinta] 90 mg PO BID 03/26/18 [History] LORazepam [Ativan] 0.5 mg PO DAILY 07/02/18 [History] Omeprazole 20 mg PO DAILY 07/02/18 [History] metFORMIN [Glucophage XR] 500 mg PO DAILY 07/02/18 [History] traZODone HCl [Trazodone HCl] 100 mg PO DAILY 07/02/18 [History] Multivitamin [Daily Multiple Vitamin] 1 tab PO DAILY 06/12/19 [History] Sulfamethoxazole/Trimethoprim [Sulfamethoxazole-Tmp Ds Tablet] 1 tab PO BID 07/31 [History] Tamsulosin HCl [Flomax] 0.4 mg PO DAILY 06/12/19 [History] Past Medical History HEENT History: Reports: Impaired Vision Other HEENT History: wears glasses Cardiovascular History: Reports: Heart Failure, Hypertension, MD, Stents Respiratory History: Reports: COPD Gastrointestinal History: Reports: None Genitourinary History: Reports: Renal Calculus, Other (See Below) Other Genitourinary History: retention Musculoskeletal History: Reports: Osteoarthritis Neurological History: Reports: None Other Neuro History: crushed vertabrea in lower back, hx of rib fractures Psychiatric History: Reports: None Endocrine/Metabolic History: Reports: Diabetes, Type II Hematologic History: Reports: B12 Deficiency Dermatologic History: Reports: None - Infectious Disease History Infectious Disease History: Reports: Chicken Pox - Past Surgical History HEENT Surgical History: Reports: Adenoidectomy, Tonsillectomy GI Surgical History: Reports: Appendectomy, Other (See Below) Other GI Surgeries/Procedures: gastric bypass Endocrine Surgical History: Reports: None Other Endocrine Surgeries/Procedures: sweat glans removed in groin and bilateral armpits. Neurological Surgical History: Reports: None Musculoskeletal Surgical History: Reports: Arthroscopic Procedure, Hip Replacement, Knee Replacement Other Musculoskeletal Surgeries/Procedures:: left hip and knee replaced. Right knee replaced. Social & Family History - Family History Family Medical History: Noncontributory - Tobacco Use Smoking Status *Q: Current Every Day Smoker Years of Tobacco use: 50 Packs/Tins Daily: 2 Used Tobacco, but Quit: No Second Hand Smoke Exposure: Yes - Caffeine Use Caffeine Use: Reports: Coffee, Soda, Tea Other Caffeine Use: Diet Mountain Dew - Recreational Drug Use Recreational Drug Use: No H&P Review of Systems - Review of Systems: Review Of Systems: See Below General: Reports: No Symptoms HEENT: Reports: No Symptoms Pulmonary: Reports: No Symptoms Cardiovascular: Reports: No Symptoms Gastrointestinal: Reports: No Symptoms Genitourinary: Reports: No Symptoms Musculoskeletal: Reports: Leg Pain, Joint Pain, Joint Swelling, Muscle Pain, Muscle Stiffness Skin: Reports: No Symptoms Psychiatric: Reports: No Symptoms Neurological: Reports: No Symptoms Hematologic/Lymphatic: Reports: No Symptoms Immunologic: Reports: No Symptoms Exam - Exam Exam: See Below - Vital Signs Vital Signs: Last Vital Signs Temp 36.7 C 06/14/19 07:49 Pulse 86 06/14/19 07:49 Resp 16 06/14/19 07:49 BP 108/61 06/14/19 07:49 Pulse Ox 94 L 06/14/19 07:49 Weight: 133.5 kg - Exam General: Alert, Oriented, Cooperative, Moderate Distress HEENT: Mucosa Moist & [place], Pupils Equal, Pupils Reactive Neck: Supple, Trachea Midline Lungs: Normal Respiratory Effort GI/Abdominal Exam: No Distention Extremities: Joint Swelling, Leg Pain, Limited Range of Motion Peripheral Pulses: 2+: Dorsalis Pedis (L) Skin: Warm, Dry, Intact Neuro Extensive - Mental Status: Alert, Oriented x3, Normal Mood/Affect, Normal Cognition Psychiatric: Alert, Normal Affect, Normal Mood - Patient Data Lab Results Last 24 hrs: Laboratory Results - last 24 hr 06/13/19 06/13/19 06/14/19 Range/Units 12:28 17:53 05:05 WBC 9.58 (4.0-11.0) K/uL RBC 2.84 L (4.50-5.90) M/uL Hgb 9.1 L (13.0-17.0) g/dL Hct 26.3 L (38.0-50.0) % MCV 92.6 (80.0-98.0) fL MCH 32.0 (27.0-32.0) pg MCHC 34.6 (31.0-37.0) g/dL RDW Std Deviation 43.7 (28.0-62.0) fl RDW Coeff of Adriana 13 (11.0-15.0) % Plt Count 171 (150-400) K/uL MPV 11.40 (7.40-12.00) fL Neut % (Auto) 57.5 (48.0-80.0) % Lymph % (Auto) 26.9 (16.0-40.0) % [place] % (Auto) 14.0 (0.0-15.0) % Eos % (Auto) 1.4 (0.0-7.0) % Baso % (Auto) 0.2 (0.0-1.5) % Neut # (Auto) 5.5 (1.4-5.7) K/uL Lymph # (Auto) 2.6 H (0.6-2.4) K/uL [place] # (Auto) 1.3 H (0.0-0.8) K/uL Eos # (Auto) 0.1 (0.0-0.7) K/uL Baso # (Auto) 0.0 (0.0-0.1) K/uL Sodium (136-148) mmol/L Potassium (3.5-5.1) mmol/L Chloride (98-107) mmol/L Carbon Dioxide (21.0-32.0) mmol/L BUN (7.0-18.0) mg/dL Creatinine (0.8-1.3) mg/dL Est Cr Clr Drug Dosing mL/min Estimated GFR (MDRD) ml/min Glucose (74-106) mg/dL POC Glucose 150 H 128 H (60-110) mg/dL Calcium (8.5-10.1) mg/dL Total Bilirubin (0.2-1.0) mg/dL AST (15-37) IU/L ALT (14-63) IU/L Alkaline Phosphatase (46-116) U/L Total Protein (6.4-8.2) g/dL Albumin (3.4-5.0) g/dL Globulin (2.6-4.0) g/dL Albumin/Globulin Ratio (0.9-1.6) 06/14/19 06/14/19 Range/Units 05:05 05:59 WBC (4.0-11.0) K/uL RBC (4.50-5.90) M/uL Hgb (13.0-17.0) g/dL Hct (38.0-50.0) % MCV (80.0-98.0) fL MCH (27.0-32.0) pg MCHC (31.0-37.0) g/dL RDW Std Deviation (28.0-62.0) fl RDW Coeff of Adriana (11.0-15.0) % Plt Count (150-400) K/uL MPV (7.40-12.00) fL Neut % (Auto) (48.0-80.0) % Lymph % (Auto) (16.0-40.0) % [place] % (Auto) (0.0-15.0) % Eos % (Auto) (0.0-7.0) % Baso % (Auto) (0.0-1.5) % Neut # (Auto) (1.4-5.7) K/uL Lymph # (Auto) (0.6-2.4) K/uL [place] # (Auto) (0.0-0.8) K/uL Eos # (Auto) (0.0-0.7) K/uL Baso # (Auto) (0.0-0.1) K/uL Sodium 133 L (136-148) mmol/L Potassium 4.7 (3.5-5.1) mmol/L Chloride 100 (98-107) mmol/L Carbon Dioxide 25.9 (21.0-32.0) mmol/L BUN 18 (7.0-18.0) mg/dL Creatinine 1.0 (0.8-1.3) mg/dL Est Cr Clr Drug Dosing 80.44 mL/min Estimated GFR (MDRD) > 60.0 ml/min Glucose 138 H (74-106) mg/dL POC Glucose 129 H (60-110) mg/dL Calcium 8.0 L (8.5-10.1) mg/dL Total Bilirubin 0.6 (0.2-1.0) mg/dL AST 31 (15-37) IU/L ALT 22 (14-63) IU/L Alkaline Phosphatase 66 (46-116) U/L Total Protein 6.0 L (6.4-8.2) g/dL Albumin 3.1 L (3.4-5.0) g/dL Globulin 2.9 (2.6-4.0) g/dL Albumin/Globulin Ratio 1.1 (0.9-1.6) Result Diagrams: 06/14/19 05:05 06/14/19 05:05 Consult PN Assessment/Plan POD#: 0 Procedures: Procedures AIRWAY INHALATION TREATMENT (03/24/18) ASSAY OF ACETAMINOPHEN (12/26/13) ASSAY OF AMYLASE (03/24/18) ASSAY OF CK (CPK) (03/24/18) ASSAY OF CREATININE (06/29/18) ASSAY OF LACTIC ACID (03/08/14) ASSAY OF PROTEIN OTHER (12/26/13) ASSAY OF PSA TOTAL (10/27/18) ASSAY OF SALICYLATE (12/26/13) ASSAY OF TROPONIN QUANT (03/24/18) BLOOD CULTURE FOR BACTERIA (03/24/18) BODY FLUID CELL COUNT (12/26/13) CARDIAC REHAB/MONITOR (05/10/18) CHEST X-RAY 1 VIEW FRONTAL (06/24/14) COMPLETE CBC W/AUTO DIFF WBC (03/24/18) COMPREHEN METABOLIC PANEL (03/24/18) CREATINE MB FRACTION (03/24/18) CT ABD & PELV 1/> REGNS (06/29/18) CT ABD & PELVIS W/O CONTRAST (10/22/16) CT HEAD/BRAIN W/O DYE (06/24/14) CULTURE AEROBIC IDENTIFY (12/26/13) CULTURE OTHR SPECIMN AEROBIC (12/26/13) CYSTOSCOPY (10/27/18) ELECTROCARDIOGRAM TRACING (03/24/18) EMERGENCY DEPT VISIT (07/02/18) EMERGENCY DEPT VISIT (03/24/18) EMERGENCY DEPT VISIT (10/07/16) EMERGENCY DEPT VISIT (06/24/14) EMERGENCY DEPT VISIT (06/24/14) EMERGENCY DEPT VISIT (03/08/14) EMERGENCY DEPT VISIT (12/26/13) FIBRIN DEGRADATION QUANT (06/24/14) GLUCOSE BLOOD TEST (06/24/14) GLUCOSE OTHER FLUID (12/26/13) HYDRATE IV INFUSION ADD-ON (03/24/18) INFLUENZA A/B AG IA (06/24/14) METABOLIC PANEL TOTAL CA (12/26/13) MICROBE SUSCEPTIBLE TAVARES (10/07/16) PROTHROMBIN TIME (03/24/18) PT EVALUATION (12/26/13) ROUTINE VENIPUNCTURE (10/27/18) SMEAR GRAM STAIN (12/26/13) SPINAL FLUID TAP DIAGNOSTIC (12/26/13) THER/PROPH/DIAG INJ IV PUSH (03/24/18) THER/PROPH/DIAG INJ SC/IM (03/24/18) THER/PROPH/DIAG IV INF INIT (03/08/14) THROMBOPLASTIN TIME PARTIAL (12/26/13) TX/PRO/DX INJ NEW DRUG ADDON (03/24/18) URINALYSIS AUTO W/O SCOPE (06/24/14) URINALYSIS AUTO W/SCOPE (10/27/18) URINE BACTERIA CULTURE (10/07/16) URINE CULTURE/COLONY COUNT (10/07/16) US TRANSRECTAL (10/27/18) US URINE CAPACITY MEASURE (07/02/18) X-RAY EXAM CHEST 2 VIEWS (03/24/18) X-RAY EXAM HIP UNI 2-3 VIEWS (04/03/16) X-RAY EXAM KNEE 4 OR MORE (03/14/16) X-RAY EXAM OF KNEE 3 (04/03/16) (1) Femur fracture SNOMED Code(s): 54966582 Code(s): S72.90XA - UNSP FRACTURE OF UNSP FEMUR, INIT ENCNTR FOR CLOSED FRACTURE Current Visit: Yes Qualifiers: Encounter type: initial encounter Femur location: shaft Fracture type: closed Fracture morphology: spiral Fracture alignment: displaced Laterality: left Qualified Code(s): S72.342A - Displaced spiral fracture of shaft of left femur, initial encounter for closed fracture Problem List Initiated/Reviewed/Updated: Yes Plan: A: 74 yo male distal 1/3 femoral shaft fracture, closed, periprosthetic P: wait for Brililia dc 4 days prior to orif pain control, dvt prophylaxis plan for or Thursday
[2019-06-14] MEDS: LORazepam 0.5 MG Tab PO SCH (08:48)
[2019-06-14] MEDS: Aspirin 81 MG Tab.Chew PO SCH (08:49)
[2019-06-14] MEDS: Tamsulosin 0.4 MG Cap.ER PO SCH (08:51)
--- NOTE | 2019-06-14 08:59 | PCM.PN ---
<Steven Jones M - Last Filed: 06/14/19 12:21> - General Info Date of Service: 06/14/19 Subjective Update: Patient reports no shortness of breath or chest pain overnight. Denied having a bowel movement. Tolerating PO diet. - Patient Data Vitals - Most Recent: Last Vital Signs Temp 98.0 F 06/14/19 07:49 Pulse 86 06/14/19 07:49 Resp 16 06/14/19 07:49 BP 108/61 06/14/19 07:49 Pulse Ox 94 L 06/14/19 07:49 Weight - Most Recent: 133.5 kg I&O - Last 24 Hours: Intake & Output 06/13/19 06/14/19 06/14/19 22:59 06:59 14:59 Intake Total 1180 820 Output Total 900 1200 Balance 280 -380 Lab Results Last 24 Hours: Laboratory Results - last 24 hr 06/13/19 06/13/19 06/14/19 Range/Units 12:28 17:53 05:05 WBC 9.58 (4.0-11.0) K/uL RBC 2.84 L (4.50-5.90) M/uL Hgb 9.1 L (13.0-17.0) g/dL Hct 26.3 L (38.0-50.0) % MCV 92.6 (80.0-98.0) fL MCH 32.0 (27.0-32.0) pg MCHC 34.6 (31.0-37.0) g/dL RDW Std Deviation 43.7 (28.0-62.0) fl RDW Coeff of Adriana 13 (11.0-15.0) % Plt Count 171 (150-400) K/uL MPV 11.40 (7.40-12.00) fL Neut % (Auto) 57.5 (48.0-80.0) % Lymph % (Auto) 26.9 (16.0-40.0) % [place] % (Auto) 14.0 (0.0-15.0) % Eos % (Auto) 1.4 (0.0-7.0) % Baso % (Auto) 0.2 (0.0-1.5) % Neut # (Auto) 5.5 (1.4-5.7) K/uL Lymph # (Auto) 2.6 H (0.6-2.4) K/uL [place] # (Auto) 1.3 H (0.0-0.8) K/uL Eos # (Auto) 0.1 (0.0-0.7) K/uL Baso # (Auto) 0.0 (0.0-0.1) K/uL Sodium (136-148) mmol/L Potassium (3.5-5.1) mmol/L Chloride (98-107) mmol/L Carbon Dioxide (21.0-32.0) mmol/L BUN (7.0-18.0) mg/dL Creatinine (0.8-1.3) mg/dL Est Cr Clr Drug Dosing mL/min Estimated GFR (MDRD) ml/min Glucose (74-106) mg/dL POC Glucose 150 H 128 H (60-110) mg/dL Calcium (8.5-10.1) mg/dL Total Bilirubin (0.2-1.0) mg/dL AST (15-37) IU/L ALT (14-63) IU/L Alkaline Phosphatase (46-116) U/L Total Protein (6.4-8.2) g/dL Albumin (3.4-5.0) g/dL Globulin (2.6-4.0) g/dL Albumin/Globulin Ratio (0.9-1.6) 06/14/19 06/14/19 Range/Units 05:05 05:59 WBC (4.0-11.0) K/uL RBC (4.50-5.90) M/uL Hgb (13.0-17.0) g/dL Hct (38.0-50.0) % MCV (80.0-98.0) fL MCH (27.0-32.0) pg MCHC (31.0-37.0) g/dL RDW Std Deviation (28.0-62.0) fl RDW Coeff of Adriana (11.0-15.0) % Plt Count (150-400) K/uL MPV (7.40-12.00) fL Neut % (Auto) (48.0-80.0) % Lymph % (Auto) (16.0-40.0) % [place] % (Auto) (0.0-15.0) % Eos % (Auto) (0.0-7.0) % Baso % (Auto) (0.0-1.5) % Neut # (Auto) (1.4-5.7) K/uL Lymph # (Auto) (0.6-2.4) K/uL [place] # (Auto) (0.0-0.8) K/uL Eos # (Auto) (0.0-0.7) K/uL Baso # (Auto) (0.0-0.1) K/uL Sodium 133 L (136-148) mmol/L Potassium 4.7 (3.5-5.1) mmol/L Chloride 100 (98-107) mmol/L Carbon Dioxide 25.9 (21.0-32.0) mmol/L BUN 18 (7.0-18.0) mg/dL Creatinine 1.0 (0.8-1.3) mg/dL Est Cr Clr Drug Dosing 80.44 mL/min Estimated GFR (MDRD) > 60.0 ml/min Glucose 138 H (74-106) mg/dL POC Glucose 129 H (60-110) mg/dL Calcium 8.0 L (8.5-10.1) mg/dL Total Bilirubin 0.6 (0.2-1.0) mg/dL AST 31 (15-37) IU/L ALT 22 (14-63) IU/L Alkaline Phosphatase 66 (46-116) U/L Total Protein 6.0 L (6.4-8.2) g/dL Albumin 3.1 L (3.4-5.0) g/dL Globulin 2.9 (2.6-4.0) g/dL Albumin/Globulin Ratio 1.1 (0.9-1.6) Med Orders - Current: Current Medications Acetaminophen (Tylenol Extra Strength) 500 mg PO Q6H PRN PRN Reason: Pain Last Admin: 06/14/19 06:50 Dose: 500 mg Albuterol/Ipratropium (Duoneb 3.0-0.5 Mg/3 Ml) 3 ml NEB Q4HRRT PRN PRN Reason: Shortness Of Breath/wheezing Last Admin: 06/14/19 00:36 Dose: 3 ml Aspirin (Aspirin) 81 mg PO DAILY [facility] Last Admin: 06/14/19 08:49 Dose: 81 mg Atorvastatin Calcium (Lipitor) 20 mg PO BEDTIME [facility] Last Admin: 06/13/19 21:27 Dose: 20 mg Cefazolin Sodium/Dextrose 2 gm (/ Premix) 50 mls @ 100 mls/hr IV ONCALL [facility] Insulin Aspart (Novolog) 0 unit SUBCUT TIDAC [facility]; Protocol Last Admin: 06/14/19 06:52 Dose: Not Given Ketorolac Tromethamine (Toradol) 15 mg IVPUSH Q6H PRN PRN Reason: Pain Last Admin: 06/14/19 01:32 Dose: 15 mg Lidocaine (Lidoderm 5%) 700 mg TOP Q24H [facility] Last Admin: 06/13/19 16:04 Dose: 700 mg Lorazepam (Ativan) 0.5 mg PO DAILY [facility] Last Admin: 06/14/19 08:48 Dose: 0.5 mg Nitroglycerin (Nitrostat) 0.4 mg SL ASDIRECTED PRN PRN Reason: Chest Pain Omeprazole (Omeprazole) 20 mg PO ACBREAKFAST [facility] Last Admin: 06/14/19 06:49 Dose: 20 mg Ondansetron HCl (Zofran Odt) 4 mg PO Q4H PRN PRN Reason: nausea, able to take PO Ondansetron HCl (Zofran) 4 mg IVPUSH Q4H PRN PRN Reason: Nausea/Vomiting Last Admin: 06/12/19 23:07 Dose: 4 mg Scopolamine (Transderm-Scop) 1.5 mg TRDERM ONARRIVE [facility] Sodium Chloride (Saline Flush) 10 ml FLUSH ASDIRECTED PRN PRN Reason: Keep Vein Open Last Admin: 06/12/19 10:38 Dose: 10 ml Sodium Chloride (Saline Flush) 2.5 ml FLUSH ASDIRECTED PRN PRN Reason: Keep Vein Open Last Admin: 06/12/19 10:39 Dose: 2.5 ml Sodium Chloride (Normal Saline) 10 ml IV ASDIRECTED PRN PRN Reason: IV Use Tamsulosin HCl (Flomax) 0.4 mg PO PCBREAKFAST [facility] Last Admin: 06/14/19 08:51 Dose: 0.4 mg Trazodone HCl (Trazodone) 100 mg PO BEDTIME [facility] Last Admin: 06/13/19 21:27 Dose: 100 mg Discontinued Medications Hydrocodone Bitart/Acetaminophen ([place] 325-5 Mg) 2 tab PO Q4H PRN PRN Reason: Pain (moderate 4-6) Hydromorphone HCl (Dilaudid) 1 mg IVPUSH NOW STA Stop: 06/12/19 10:26 Last Admin: 06/12/19 10:37 Dose: 1 mg Hydromorphone HCl (Dilaudid) 1 mg IVPUSH ONETIME ONE Stop: 06/12/19 11:16 Last Admin: 06/12/19 11:23 Dose: 1 mg Hydromorphone HCl (Dilaudid) 1 mg IVPUSH ONETIME ONE Stop: 06/12/19 12:39 Last Admin: 06/12/19 12:42 Dose: 1 mg Hydromorphone HCl (Dilaudid) 0.5 mg IVPUSH Q4H PRN PRN Reason: Pain Hydromorphone HCl (Dilaudid) 1 mg IVPUSH ONETIME ONE Stop: 06/13/19 17:36 Last Admin: 06/13/19 17:53 Dose: 1 mg Lactated Ringer's (Ringers, Lactated) 1,000 mls @ 100 mls/hr IV ASDIRECTED [facility] Last Admin: 06/13/19 09:27 Dose: 100 mls/hr Tranexamic Acid 2,000 mg/ (Sodium Chloride) 120 mls @ 360 mls/hr IV ASDIRECTED ONE Stop: 06/12/19 13:26 Famotidine 40 mg/ Sodium (Chloride) 10 mls @ 300 mls/hr IV ONETIME ONE Stop: 06/12/19 13:31 Sodium Chloride (Normal Saline) 500 mls @ 999 mls/hr IV .BOLUS [facility] Last Admin: 06/12/19 14:43 Dose: 999 mls/hr Morphine Sulfate (Morphine) 2 mg IVPUSH Q2H PRN PRN Reason: Pain (severe 7-10) Stop: 06/13/19 13:32 Last Admin: 06/13/19 12:53 Dose: 2 mg Ondansetron HCl (Zofran) 4 mg IVPUSH ONETIME ONE Stop: 06/12/19 10:27 Last Admin: 06/12/19 10:36 Dose: 4 mg - Exam General: Alert, Oriented, Cooperative, No Acute Distress Lungs: Clear to Auscultation, Normal Respiratory Effort Cardiovascular: Regular Rate, Regular Rhythm GI/Abdominal Exam: Normal Bowel Sounds, Soft, Non-Tender, No Distention, Other ( morbid obesity) Extremities: Other (LLE: immobilizer in place. ) Peripheral Pulses: 1+: Posterior Tibial (L), Posterior Tibial (R) Skin: Warm, Dry, Intact - Problem List Review Problem List Initiated/Reviewed/Updated: Yes - My Orders Last 24 Hours: My Active Orders 06/13/19 08:57 Code Status [Resuscitation Status] Routine 06/13/19 09:08 Telemetry Monitoring [Cardiac Monitoring] [RC] Q8H 06/13/19 09:15 Aspirin 81 mg PO DAILY 06/13/19 17:18 Notify Provider Consults [RC] ASDIRECTED Consult to Physician [CONS] Stat 06/13/19 17:36 Ketorolac [Toradol] 15 mg IVPUSH Q6H PRN - Plan Plan:: Assessment and Plan: 1. Left femur fracture s/p mechanical fall: Per orthopedic surgery, surgery tentatively planned for Thursday (06/17/19). Ticagrelor held on admission. Per anesthesia, will continue aspirin daily because of significant cardiac history. Preliminary ECHO report showed EF of 60-65%. [place] [employer] Dr. Hernandez consulted yesterday who recommended continuing aspirin as well. Patient will require ICU bed post-op for close monitoring. Will add heparin for VTE prophylaxis. 2. Hypotension: Will hold anti-hypertensive medications for now and continue to monitor blood pressures. 3. Hyperkalemia, resolved. 4. History of CAD s/p CABG, stents x 6, HFpEF, HTN, COPD and DM type II. <Estevan Jones - Last Filed: 06/25/19 20:55> - Patient Data Vitals - Most Recent: Last Vital Signs Temp 36.6 C 06/22/19 12:00 Pulse 92 06/22/19 12:00 Resp 16 06/22/19 12:00 BP 115/60 06/22/19 12:00 Pulse Ox 95 06/22/19 12:00 Med Orders - Current: Current Medications Discontinued Medications Acetaminophen (Tylenol Extra Strength) 500 mg PO Q6H PRN PRN Reason: Pain Last Admin: 06/21/19 07:39 Dose: 500 mg Hydrocodone Bitart/Acetaminophen ([place] 325-5 Mg) 2 tab PO Q4H PRN PRN Reason: Pain (moderate 4-6) Hydrocodone Bitart/Acetaminophen ([place] 325-5 Mg) 1 tab PO Q4H PRN PRN Reason: Other Last Admin: 06/22/19 13:57 Dose: 1 tab Al Hydroxide/Mg Hydroxide (Mag-Al Plus) 30 ml PO Q4H PRN PRN Reason: Heartburn Last Admin: 06/19/19 02:28 Dose: 30 ml Albuterol/Ipratropium (Duoneb 3.0-0.5 Mg/3 Ml) 3 ml NEB Q4HRRT PRN PRN Reason: Shortness Of Breath/wheezing Last Admin: 06/14/19 00:36 Dose: 3 ml Aspirin (Aspirin) 81 mg PO DAILY [facility] Last Admin: 06/22/19 09:04 Dose: 81 mg Atorvastatin Calcium (Lipitor) 20 mg PO BEDTIME [facility] Last Admin: 06/17/19 20:36 Dose: 20 mg Atorvastatin Calcium (Lipitor) 20 mg PO BEDTIME [facility] Last Admin: 06/21/19 20:22 Dose: 20 mg Bisacodyl (Dulcolax) 10 mg RECTAL DAILY PRN PRN Reason: Constipation Last Admin: 06/17/19 22:50 Dose: 10 mg Cefazolin Sodium (Ancef) Confirm Administered Dose 2 gm .ROUTE .STK-MED ONE Stop: 06/17/19 11:34 Docusate Sodium (Colace) 100 mg PO BID [facility] Last Admin: 06/22/19 09:05 Dose: 100 mg Esmolol HCl (Esmolol) Confirm Administered Dose 100 mg .ROUTE .STK-MED ONE Stop: 06/17/19 13:29 Fentanyl (Sublimaze) Confirm Administered Dose 100 mcg .ROUTE .STK-MED ONE Stop: 06/17/19 09:04 Furosemide (Lasix) 40 mg IVPUSH NOW ONE Stop: 06/19/19 11:33 Last Admin: 06/19/19 11:46 Dose: 40 mg Gabapentin (Neurontin) 300 mg PO TID [facility] Last Admin: 06/22/19 13:57 Dose: 300 mg Heparin Sodium (Porcine) (Heparin Sodium) 5,000 units SUBCUT Q8H [facility] Last Admin: 06/14/19 17:42 Dose: 5,000 units Heparin Sodium (Porcine) (Heparin Sodium) 5,000 units SUBCUT Q8H [facility] Stop: 06/16/19 23:00 Last Admin: 06/16/19 16:13 Dose: 5,000 units Hydromorphone HCl (Dilaudid) 1 mg IVPUSH NOW STA Stop: 06/12/19 10:26 Last Admin: 06/12/19 10:37 Dose: 1 mg Hydromorphone HCl (Dilaudid) 1 mg IVPUSH ONETIME ONE Stop: 06/12/19 11:16 Last Admin: 06/12/19 11:23 Dose: 1 mg Hydromorphone HCl (Dilaudid) 1 mg IVPUSH ONETIME ONE Stop: 06/12/19 12:39 Last Admin: 06/12/19 12:42 Dose: 1 mg Hydromorphone HCl (Dilaudid) 0.5 mg IVPUSH Q4H PRN PRN Reason: Pain Hydromorphone HCl (Dilaudid) 1 mg IVPUSH ONETIME ONE Stop: 06/13/19 17:36 Last Admin: 06/13/19 17:53 Dose: 1 mg Hydromorphone HCl (Dilaudid) 0.5 mg IVPUSH Q4H PRN PRN Reason: Other Last Admin: 06/17/19 10:37 Dose: 0.5 mg Hydromorphone HCl (Dilaudid) 2 mg IVPUSH ONETIME ONE Stop: 06/14/19 17:01 Last Admin: 06/14/19 17:10 Dose: 2 mg Hydromorphone HCl (Dilaudid) 0.5 mg IVPUSH Q4H PRN PRN Reason: Other Last Admin: 06/20/19 08:54 Dose: 0.5 mg Hydroxyzine Pamoate (Vistaril) 25 mg PO Q6H [facility] Last Admin: 06/22/19 13:57 Dose: 25 mg Cefazolin Sodium/Dextrose 2 gm (/ Premix) 50 mls @ 100 mls/hr IV ONCALL [facility] Lactated Ringer's (Ringers, Lactated) 1,000 mls @ 100 mls/hr IV ASDIRECTED [facility] Last Admin: 06/13/19 09:27 Dose: 100 mls/hr Tranexamic Acid 2,000 mg/ (Sodium Chloride) 120 mls @ 360 mls/hr IV ASDIRECTED ONE Stop: 06/12/19 13:26 Famotidine 40 mg/ Sodium (Chloride) 10 mls @ 300 mls/hr IV ONETIME ONE Stop: 06/12/19 13:31 Sodium Chloride (Normal Saline) 500 mls @ 999 mls/hr IV .BOLUS [facility] Last Admin: 06/12/19 14:43 Dose: 999 mls/hr Lactated Ringer's (Ringers, Lactated) 1,000 mls @ 75 mls/hr IV ASDIRECTED [facility] Last Admin: 06/14/19 23:54 Dose: 75 mls/hr Lactated Ringer's (Ringers, Lactated) 1,000 mls @ 75 mls/hr IV ASDIRECTED [facility] Last Admin: 06/17/19 21:12 Dose: 75 mls/hr Ropivacaine 49.25 ml/Ketorolac Tromethamine 30 mg/Epinephrine HCl 0.5 mg/ Clonidine HCl 80 mcg/ Sodium Chloride 75 mls @ 50 mls/sec INJECT ASDIRECTED [facility] Cefazolin Sodium/Dextrose 2 gm (/ Premix) 50 mls @ 100 mls/hr IV ONCALL [facility] Cefazolin Sodium/Dextrose 2 gm (/ Premix) 50 mls @ 100 mls/hr IV ONETIME ONE Stop: 06/17/19 20:29 Last Admin: 06/17/19 20:09 Dose: 100 mls/hr Vasopressin 100 units/ Sodium (Chloride) 100 mls @ 0.6 mls/hr IV TITRATE [facility]; Protocol Last Titration: 06/18/19 11:10 Dose: 0 units/min, 0 mls/hr Lactated Ringer's (Ringers, Lactated) 1,000 mls @ 999 mls/hr IV .BOLUS ONE Stop: 06/18/19 10:42 Last Admin: 06/18/19 09:52 Dose: 999 mls/hr Pantoprazole Sodium 40 mg/ (Sodium Chloride) 10 mls @ 300 mls/hr IV NOW ONE Stop: 06/19/19 04:36 Last Admin: 06/19/19 04:55 Dose: 300 mls/hr Insulin Aspart (Novolog) 0 unit SUBCUT TIDAC [facility]; Protocol Last Admin: 06/22/19 12:50 Dose: 4 units Insulin Glargine (Lantus Solostar) 8 units SUBCUT DAILY [facility] Last Admin: 06/22/19 09:10 Dose: 8 units Ketorolac Tromethamine (Toradol) 15 mg IVPUSH Q6H PRN PRN Reason: Pain Last Admin: 06/14/19 01:32 Dose: 15 mg Lidocaine (Lidoderm 5%) 700 mg TOP Q24H [facility] Last Admin: 06/19/19 07:26 Dose: Not Given Lidocaine (Xylocaine-Mpf 2%) Confirm Administered Dose 5 ml .ROUTE .STK-MED ONE Stop: 06/17/19 09:04 Lorazepam (Ativan) 0.5 mg PO DAILY [facility] Last Admin: 06/22/19 09:05 Dose: 0.5 mg Magnesium Hydroxide (Milk Of Magnesia) 30 ml PO ONETIME ONE Stop: 06/21/19 09:31 Last Admin: 06/21/19 10:48 Dose: 30 ml Midazolam HCl (Versed 1 Mg/Ml) Confirm Administered Dose 2 mg .ROUTE .STK-MED ONE Stop: 06/17/19 09:04 Morphine Sulfate (Morphine) 2 mg IVPUSH Q2H PRN PRN Reason: Pain (severe 7-10) Stop: 06/13/19 13:32 Last Admin: 06/13/19 12:53 Dose: 2 mg Nitroglycerin (Nitrostat) 0.4 mg SL ASDIRECTED PRN PRN Reason: Chest Pain Omeprazole (Omeprazole) 20 mg PO ACBREAKFAST [facility] Last Admin: 06/22/19 06:34 Dose: 20 mg Ondansetron HCl (Zofran) 4 mg IVPUSH ONETIME ONE Stop: 06/12/19 10:27 Last Admin: 06/12/19 10:36 Dose: 4 mg Ondansetron HCl (Zofran Odt) 4 mg PO Q4H PRN PRN Reason: nausea, able to take PO Ondansetron HCl (Zofran) 4 mg IVPUSH Q4H PRN PRN Reason: Nausea/Vomiting Last Admin: 06/12/19 23:07 Dose: 4 mg Ondansetron HCl (Zofran) Confirm Administered Dose 4 mg .ROUTE .STK-MED ONE Stop: 06/17/19 14:21 Ticagrelor 90 Mg 1 each PO BID [facility] Last Admin: 06/22/19 09:12 Dose: 1 each Phenylephrine HCl (Eber-Synephrine) Confirm Administered Dose 10 mg .ROUTE .STK- MED ONE Stop: 06/17/19 09:05 Phenylephrine HCl (Eber-Synephrine) Confirm Administered Dose 10 mg .ROUTE .STK- MED ONE Stop: 06/17/19 12:53 Phenylephrine HCl (Eber-Synephrine) Confirm Administered Dose 10 mg .ROUTE .STK- MED ONE Stop: 06/17/19 13:40 Phenylephrine HCl (Phenylephrine In Ns 100 Mcg/Ml) Confirm Administered Dose 1 mg .ROUTE .STK-MED ONE Stop: 06/17/19 13:55 Propofol (Diprivan 20 Ml) Confirm Administered Dose 400 mg .ROUTE .STK-MED ONE Stop: 06/17/19 09:04 Propofol (Diprivan 20 Ml) Confirm Administered Dose 200 mg .ROUTE .STK-MED ONE Stop: 06/17/19 12:30 Propofol (Diprivan 20 Ml) Confirm Administered Dose 200 mg .ROUTE .STK-MED ONE Stop: 06/17/19 13:21 Scopolamine ([facility]m-[facility]op) [facility] Sodium Chloride (Saline Flush) 10 ml FLUSH ASDIRECTED PRN PRN Reason: Keep Vein Open Last Admin: 06/20/19 04:29 Dose: 10 ml Sodium Chloride (Saline Flush) 2.5 ml FLUSH ASDIRECTED PRN PRN Reason: Keep Vein Open Last Admin: 06/12/19 10:39 Dose: 2.5 ml Sodium Chloride (Normal Saline) 10 ml IV ASDIRECTED PRN PRN Reason: IV Use Sodium Phosphate (Neutra-Phos) 250 mg PO QID [facility] Stop: 06/21/19 06:01 Last Admin: 06/21/19 06:46 Dose: 250 mg Tamsulosin HCl (Flomax) 0.4 mg PO PCBREAKFAST [facility] Last Admin: 06/17/19 09:12 Dose: Not Given Tamsulosin HCl (Flomax) 0.4 mg PO PCBREAKFAST [facility] Last Admin: 06/22/19 09:04 Dose: 0.4 mg Tranexamic Acid (Cyklokapron) Confirm Administered Dose 1,000 mg .ROUTE .STK- MED ONE Stop: 06/17/19 09:45 Trazodone HCl (Trazodone) 100 mg PO BEDTIME [facility] Last Admin: 06/21/19 20:23 Dose: 100 mg Vancomycin HCl (Vancomycin) Confirm Administered Dose 1 gm .ROUTE .STK-MED ONE Stop: 06/17/19 13:37 Vasopressin (Vasopressin) Confirm Administered Dose 20 units .ROUTE .STK-MED ONE Stop: 06/17/19 13:46 Vasopressin (Vasopressin) Confirm Administered Dose 20 units .ROUTE .STK-MED ONE Stop: 06/17/19 14:21 - Problem List & Annotations (1) CAD (coronary artery disease) SNOMED Code(s): 62259785 Code(s): I25.10 - ATHSCL HEART DISEASE OF [place] CORONARY ARTERY W/O ANG PCTRS Status: Acute (2) Femur fracture SNOMED Code(s): 40992356 Code(s): S72.90XA - UNSP FRACTURE OF UNSP FEMUR, INIT ENCNTR FOR CLOSED FRACTURE Status: Acute Qualifiers: Encounter type: initial encounter Femur location: shaft Fracture type: closed Fracture morphology: spiral Fracture alignment: displaced Laterality: left Qualified Code(s): S72.342A - Displaced spiral fracture of shaft of left femur, initial encounter for closed fracture (3) Elevated troponin SNOMED Code(s): 181595619, 236854772, 450921459 Code(s): R74.8 - ABNORMAL LEVELS OF OTHER SERUM ENZYMES Status: Acute - Plan Plan:: I have seen and evaluated the patient and agree with the residents note unless specified in my note
[2019-06-14] MEDS: Acetaminophen/HYDROcodone 325-5 MG Tab PO PRN ×2 (12:11→22:38)
[2019-06-14] MEDS: Docusate Sodium 100 MG Cap PO SCH ×2 (12:16→20:29)
[2019-06-14] MEDS: Heparin Sodium 5,000 Units/ML Vial SUBCUT SCH ×2 (12:30→17:42)
[2019-06-14] MEDS ORDERED: Aluminum Hydroxide/Magnesium Hydroxide/Simethicone Susp 30 ML Cup PO PRN (12:38)
[2019-06-14] MEDS: Lidocaine 5% 700 MG Patch TOP SCH (16:20)
[2019-06-14] MEDS: HYDROmorphone 2 MG/ML Syringe IVPUSH PRN (16:21)
[2019-06-14] MEDS ORDERED: HYDROmorphone 1 MG/ML Syringe IVPUSH ONE (17:00)
--- NOTE | 2019-06-14 17:36 | PCM.OPNOTE ---
- General Post-Op/Procedure Note Date of Surgery/Procedure: 06/14/19 Operative Procedure(s): application long leg splint Pre Op Diagnosis: left distal shaft femur fracture, closed Post-Op Diagnosis: Same Anesthesia Technique: Other (see below) Other Anesthesia Type: iv pain meds Primary Surgeon: Pradeep Medrano Complications: None Condition: Stable Free Text/Narrative:: Intake & Output 06/14/19 06/14/19 06/14/19 06:59 14:59 22:59 Intake Total 820 Output Total 1200 Balance -380
[2019-06-14] MEDS: atorvaSTATin 40 MG Tab PO SCH (20:28)
[2019-06-14] MEDS: traZODone 50 MG Tab PO SCH (20:29)
--- NOTE | 2019-06-14 22:45 | CONS ---
DATE OF CONSULTATION: DATE OF : 1945 PRIMARY CARE PHYSICIAN: Tatum Linton REASON FOR CONSULTATION: Preop for the femur surgery. HISTORY OF PRESENT ILLNESS: This is a 74-year-old male who had a history of CAD, status post multiple stents. The last stent was in March 2018. At that time, he was admitted in the hospital for substernal chest pain, who also had a history of diabetes, hypertension, and also chronic kidney disease. He was seen here at the hospital at this time because of mechanical fall. He was getting out from the car, but he slipped on the floor. It was icy floor, and he denied head trauma, but he landed on his left hip. When he came to the emergency room, he was found to have a fracture. Orthopedic surgeon was consulted and recommended to have a surgery. However, because of a history of CAD as well as he is taking the Brilinta as well as an aspirin, he was consulted to me at this time. Per the patient, prior to the mechanical fall, he has been doing well. Denies shortness of breath or chest pain, and the last stent was in March 2018. PAST MEDICAL HISTORY: Includes CAD, status post multiple stents, last stent was in March 2018; diabetes; hypertension. FAMILY HISTORY: There is positive family history of premature CAD. SOCIAL HISTORY: Current smoker. Denies alcohol. Denies drug use. ALLERGIES: He is allergic to Ativan, Darvocet, oxycodone, tramadol. REVIEW OF SYSTEMS: Except indicated in the HPI, otherwise been negative. PHYSICAL EXAMINATION: VITAL SIGNS: Initial blood pressure is 120/57, heart rate of 70 to 90, temperature is 98, and O2 saturation is 94% on 2 L. HEENT: No pallor. No jaundice. No JVD. HEART: Normal S1 and S2. No murmur. LUNGS: Clear. ABDOMEN: Soft and nontender. Bowel sounds are present. No hepatosplenomegaly. LEGS: The left leg is immobilized. The right leg has no edema. EKG on March 14 shows sinus rhythm with a heart rate of 88, QRS duration 95, OR interval 194, QTc interval 446. No ST changes. Echocardiogram, prelim report, June 13, suboptimal study; however, the LVEF is grossly impaired. No significant valvular abnormalities. The last cardiac catheterization on March 30 showed left main has no obstructive lesion, LAD, mild luminal irregularity. The proximal and mid LAD stent was patent; no significant in-stent stenosis. The left circumflex showed in-stent stenosis of 75%. It was treated with a drug-eluting stent at that time. RCA showed no obstructive lesion, and the left ventricular end-diastolic pressure is 14. ASSESSMENT AND PLAN: This is a 74-year-old male, history of coronary artery disease, status post multiple percutaneous coronary interventions, last time in March 2018, on dual anti-platelet therapy including Brilinta and aspirin. He presented to the hospital with mechanical fall with a femur fracture. The femur surgery seems to be a urgent surgery. It cannot be waited long. At least, his LVEF is preserved. He should be able to tolerate the surgery, and he has a brief episode of chest pain this morning, which is not the same chest pain that he had when he had the heart attack. EKG has been unremarkable so far, unchanged from the previous EKG, and troponin was indeterminate , but it came back down to negative. He is intermediate risk for intermediate risk surgery. However, due to urgent nature of the surgery, he should go for this surgery. I would not recommend any further cardiac testing at this point. Aspirin and Brilinta can be on hold prior to surgery to decrease bleeding risk. Because the stent that he had was more than a year ago, the risk of a stent thrombosis has tremendously reduced. Otherwise, I will follow the patient. If any concerns, please feel free to reach out to me. Thank you so much. BENJA BALDERRAMA /[id number]
[2019-06-14] MEDS ORDERED: Lactated Ringers 1,000 ML IV SCH (23:15)
[2019-06-15] MEDS: HYDROmorphone 2 MG/ML Syringe IVPUSH PRN ×4 (03:47→13:07)
[2019-06-15] MEDS: Insulin Aspart 100 Units/ML 3 ML Pen SUBCUT SCH ×3 (06:31→17:21)
[2019-06-15] MEDS: Omeprazole 20 MG Cap.CR PO SCH ×2 (06:33→09:31)
[2019-06-15 06:54] LABS: BLOOD UREA NITROGEN,BUN 14 mg/dL (7.0-18.0); CARBON DIOXIDE,CO2 26.2 mmol/L (21.0-32.0); CHLORIDE,CL 100 mmol/L (98-107); GLUCOSE RANDOM 159 mg/dL (74-106); POTASSIUM,K 4.5 mmol/L (3.5-5.1); SODIUM,NA 133 mmol/L (136-148)
[2019-06-15] MEDS: Heparin Sodium 5,000 Units/ML Vial SUBCUT SCH ×3 (08:36→23:22)
[2019-06-15] MEDS: LORazepam 0.5 MG Tab PO SCH (08:41)
[2019-06-15] MEDS: Docusate Sodium 100 MG Cap PO SCH ×2 (08:42→20:55)
[2019-06-15] MEDS: Aspirin 81 MG Tab.Chew PO SCH (08:42)
[2019-06-15] MEDS: Tamsulosin 0.4 MG Cap.ER PO SCH (08:42)
[2019-06-15] MEDS: Acetaminophen/HYDROcodone 325-5 MG Tab PO PRN ×2 (09:37→23:19)
[2019-06-15] MEDS: Bisacodyl 10 MG Supp RECTAL PRN (10:54)
--- NOTE | 2019-06-15 13:23 | PCM.PN ---
- General Info Date of Service: 06/15/19 Subjective Update: Reports no chest pain, shortness of breath, nausea or vomiting. Has not had bowel movement. - Patient Data Vitals - Most Recent: Last Vital Signs Temp 98.9 F 06/15/19 11:00 Pulse 97 06/15/19 11:00 Resp 20 06/15/19 11:00 BP 135/65 06/15/19 11:00 Pulse Ox 94 L 06/15/19 11:00 Weight - Most Recent: 294 lb 5.074 oz I&O - Last 24 Hours: Intake & Output 06/14/19 06/15/19 06/15/19 22:59 06:59 14:59 Intake Total 800 400 Output Total 1800 900 Balance -1000 -500 Lab Results Last 24 Hours: Laboratory Results - last 24 hr 06/14/19 06/15/19 06/15/19 Range/Units 16:17 05:58 06:05 WBC 8.34 (4.0-11.0) K/uL RBC 2.90 L (4.50-5.90) M/uL Hgb 9.1 L (13.0-17.0) g/dL Hct 27.0 L (38.0-50.0) % MCV 93.1 (80.0-98.0) fL MCH 31.4 (27.0-32.0) pg MCHC 33.7 (31.0-37.0) g/dL RDW Std Deviation 47.9 (28.0-62.0) fl RDW Coeff of Adriana 14 (11.0-15.0) % Plt Count 164 (150-400) K/uL MPV 10.70 (7.40-12.00) fL Neut % (Auto) 58.6 (48.0-80.0) % Lymph % (Auto) 26.0 (16.0-40.0) % [place] % (Auto) 13.5 (0.0-15.0) % Eos % (Auto) 1.7 (0.0-7.0) % Baso % (Auto) 0.2 (0.0-1.5) % Neut # (Auto) 4.9 (1.4-5.7) K/uL Lymph # (Auto) 2.2 (0.6-2.4) K/uL [place] # (Auto) 1.1 H (0.0-0.8) K/uL Eos # (Auto) 0.1 (0.0-0.7) K/uL Baso # (Auto) 0.0 (0.0-0.1) K/uL Nucleated RBC % 0.0 /100WBC Nucleated RBCs # 0 K/uL Sodium (136-148) mmol/L Potassium (3.5-5.1) mmol/L Chloride (98-107) mmol/L Carbon Dioxide (21.0-32.0) mmol/L BUN (7.0-18.0) mg/dL Creatinine (0.8-1.3) mg/dL Est Cr Clr Drug Dosing mL/min Estimated GFR (MDRD) ml/min Glucose (74-106) mg/dL POC Glucose 120 H 148 H (60-110) mg/dL Calcium (8.5-10.1) mg/dL Total Bilirubin (0.2-1.0) mg/dL AST (15-37) IU/L ALT (14-63) IU/L Alkaline Phosphatase (46-116) U/L Total Protein (6.4-8.2) g/dL Albumin (3.4-5.0) g/dL Globulin (2.6-4.0) g/dL Albumin/Globulin Ratio (0.9-1.6) 06/15/19 06/15/19 Range/Units 06:05 11:50 WBC (4.0-11.0) K/uL RBC (4.50-5.90) M/uL Hgb (13.0-17.0) g/dL Hct (38.0-50.0) % MCV (80.0-98.0) fL MCH (27.0-32.0) pg MCHC (31.0-37.0) g/dL RDW Std Deviation (28.0-62.0) fl RDW Coeff of Adriana (11.0-15.0) % Plt Count (150-400) K/uL MPV (7.40-12.00) fL Neut % (Auto) (48.0-80.0) % Lymph % (Auto) (16.0-40.0) % [place] % (Auto) (0.0-15.0) % Eos % (Auto) (0.0-7.0) % Baso % (Auto) (0.0-1.5) % Neut # (Auto) (1.4-5.7) K/uL Lymph # (Auto) (0.6-2.4) K/uL [place] # (Auto) (0.0-0.8) K/uL Eos # (Auto) (0.0-0.7) K/uL Baso # (Auto) (0.0-0.1) K/uL Nucleated RBC % /100WBC Nucleated RBCs # K/uL Sodium 133 L (136-148) mmol/L Potassium 4.5 (3.5-5.1) mmol/L Chloride 100 (98-107) mmol/L Carbon Dioxide 26.2 (21.0-32.0) mmol/L BUN 14 (7.0-18.0) mg/dL Creatinine 0.8 (0.8-1.3) mg/dL Est Cr Clr Drug Dosing 100.55 mL/min Estimated GFR (MDRD) > 60.0 ml/min Glucose 159 H (74-106) mg/dL POC Glucose 147 H (60-110) mg/dL Calcium 8.1 L (8.5-10.1) mg/dL Total Bilirubin 0.7 (0.2-1.0) mg/dL AST 26 (15-37) IU/L ALT 20 (14-63) IU/L Alkaline Phosphatase 69 (46-116) U/L Total Protein 5.9 L (6.4-8.2) g/dL Albumin 3.1 L (3.4-5.0) g/dL Globulin 2.8 (2.6-4.0) g/dL Albumin/Globulin Ratio 1.1 (0.9-1.6) Med Orders - Current: Current Medications Acetaminophen (Tylenol Extra Strength) 500 mg PO Q6H PRN PRN Reason: Pain Last Admin: 06/14/19 06:50 Dose: 500 mg Hydrocodone Bitart/Acetaminophen ([place] 325-5 Mg) 1 tab PO Q4H PRN PRN Reason: Other Last Admin: 06/15/19 09:37 Dose: 1 tab Al Hydroxide/Mg Hydroxide (Mag-Al Plus) 30 ml PO Q4H PRN PRN Reason: Heartburn Albuterol/Ipratropium (Duoneb 3.0-0.5 Mg/3 Ml) 3 ml NEB Q4HRRT PRN PRN Reason: Shortness Of Breath/wheezing Last Admin: 06/14/19 00:36 Dose: 3 ml Aspirin (Aspirin) 81 mg PO DAILY [facility] Last Admin: 06/15/19 08:42 Dose: 81 mg Atorvastatin Calcium (Lipitor) 20 mg PO BEDTIME [facility] Last Admin: 06/14/19 20:28 Dose: 20 mg Bisacodyl (Dulcolax) 10 mg RECTAL DAILY PRN PRN Reason: Constipation Last Admin: 06/15/19 10:54 Dose: 10 mg Docusate Sodium (Colace) 100 mg PO BID [facility] Last Admin: 06/15/19 08:42 Dose: 100 mg Heparin Sodium (Porcine) (Heparin Sodium) 5,000 units SUBCUT Q8H [facility] Last Admin: 06/15/19 08:36 Dose: 5,000 units Hydromorphone HCl (Dilaudid) 0.5 mg IVPUSH Q4H PRN PRN Reason: Other Last Admin: 06/15/19 13:07 Dose: 0.5 mg Cefazolin Sodium/Dextrose 2 gm (/ Premix) 50 mls @ 100 mls/hr IV ONCALL [facility] Lactated Ringer's (Ringers, Lactated) 1,000 mls @ 75 mls/hr IV ASDIRECTED [facility] Last Admin: 06/14/19 23:54 Dose: 75 mls/hr Insulin Aspart (Novolog) 0 unit SUBCUT TIDAC [facility]; Protocol Last Admin: 06/15/19 06:31 Dose: Not Given Lidocaine (Lidoderm 5%) 700 mg TOP Q24H [facility] Last Admin: 06/14/19 16:20 Dose: 700 mg Lorazepam (Ativan) 0.5 mg PO DAILY [facility] Last Admin: 06/15/19 08:41 Dose: 0.5 mg Nitroglycerin (Nitrostat) 0.4 mg SL ASDIRECTED PRN PRN Reason: Chest Pain Omeprazole (Omeprazole) 20 mg PO ACBREAKFAST [facility] Last Admin: 06/15/19 09:31 Dose: 20 mg Ondansetron HCl (Zofran Odt) 4 mg PO Q4H PRN PRN Reason: nausea, able to take PO Ondansetron HCl (Zofran) 4 mg IVPUSH Q4H PRN PRN Reason: Nausea/Vomiting Last Admin: 06/12/19 23:07 Dose: 4 mg Scopolamine (Transderm-Scop) 1.5 mg TRDERM ONARRIVE [facility] Sodium Chloride (Saline Flush) 10 ml FLUSH ASDIRECTED PRN PRN Reason: Keep Vein Open Last Admin: 06/12/19 10:38 Dose: 10 ml Sodium Chloride (Saline Flush) 2.5 ml FLUSH ASDIRECTED PRN PRN Reason: Keep Vein Open Last Admin: 06/12/19 10:39 Dose: 2.5 ml Sodium Chloride (Normal Saline) 10 ml IV ASDIRECTED PRN PRN Reason: IV Use Tamsulosin HCl (Flomax) 0.4 mg PO PCBREAKFAST [facility] Last Admin: 06/15/19 08:42 Dose: 0.4 mg Trazodone HCl (Trazodone) 100 mg PO BEDTIME [facility] Last Admin: 06/14/19 20:29 Dose: 100 mg Discontinued Medications Hydrocodone Bitart/Acetaminophen ([place] 325-5 Mg) 2 tab PO Q4H PRN PRN Reason: Pain (moderate 4-6) Heparin Sodium (Porcine) (Heparin Sodium) 5,000 units SUBCUT Q8H [facility] Last Admin: 06/14/19 17:42 Dose: 5,000 units Hydromorphone HCl (Dilaudid) 1 mg IVPUSH NOW STA Stop: 06/12/19 10:26 Last Admin: 06/12/19 10:37 Dose: 1 mg Hydromorphone HCl (Dilaudid) 1 mg IVPUSH ONETIME ONE Stop: 06/12/19 11:16 Last Admin: 06/12/19 11:23 Dose: 1 mg Hydromorphone HCl (Dilaudid) 1 mg IVPUSH ONETIME ONE Stop: 06/12/19 12:39 Last Admin: 06/12/19 12:42 Dose: 1 mg Hydromorphone HCl (Dilaudid) 0.5 mg IVPUSH Q4H PRN PRN Reason: Pain Hydromorphone HCl (Dilaudid) 1 mg IVPUSH ONETIME ONE Stop: 06/13/19 17:36 Last Admin: 06/13/19 17:53 Dose: 1 mg Hydromorphone HCl (Dilaudid) 2 mg IVPUSH ONETIME ONE Stop: 06/14/19 17:01 Last Admin: 06/14/19 17:10 Dose: 2 mg Lactated Ringer's (Ringers, Lactated) 1,000 mls @ 100 mls/hr IV ASDIRECTED [facility] Last Admin: 06/13/19 09:27 Dose: 100 mls/hr Tranexamic Acid 2,000 mg/ (Sodium Chloride) 120 mls @ 360 mls/hr IV ASDIRECTED ONE Stop: 06/12/19 13:26 Famotidine 40 mg/ Sodium (Chloride) 10 mls @ 300 mls/hr IV ONETIME ONE Stop: 06/12/19 13:31 Sodium Chloride (Normal Saline) 500 mls @ 999 mls/hr IV .BOLUS [facility] Last Admin: 06/12/19 14:43 Dose: 999 mls/hr Ketorolac Tromethamine (Toradol) 15 mg IVPUSH Q6H PRN PRN Reason: Pain Last Admin: 06/14/19 01:32 Dose: 15 mg Morphine Sulfate (Morphine) 2 mg IVPUSH Q2H PRN PRN Reason: Pain (severe 7-10) Stop: 06/13/19 13:32 Last Admin: 06/13/19 12:53 Dose: 2 mg Ondansetron HCl (Zofran) 4 mg IVPUSH ONETIME ONE Stop: 06/12/19 10:27 Last Admin: 06/12/19 10:36 Dose: 4 mg - Exam General: Alert, Oriented, Cooperative, No Acute Distress Lungs: Clear to Auscultation, Normal Respiratory Effort Cardiovascular: Regular Rate, Regular Rhythm GI/Abdominal Exam: Normal Bowel Sounds, Soft, Non-Tender, No Distention Extremities: No Pedal Edema, Other (LLE: wrapped in splint) Peripheral Pulses: 1+: Dorsalis Pedis (L), Dorsalis Pedis (R) Skin: Warm, Dry, Intact - Problem List Review Problem List Initiated/Reviewed/Updated: Yes - My Orders Last 24 Hours: My Active Orders 06/14/19 12:38 Alum Hydrox/Mag Hydrox/Simeth [Mag-Al Plus] 30 ml PO Q4H PRN 06/14/19 12:39 HYDROmorphone [Dilaudid] 0.5 mg IVPUSH Q4H PRN - Plan Plan:: Assessment and Plan: 1. Left femur fracture s/p mechanical fall: Per orthopedic surgery, surgery tentatively planned for Thursday (06/17/19). Ticagrelor held on admission. Will continue aspirin [address]. Hernandez consulted yesterday. Per cardiology, patient is intermediate risk for intermediate surgery and no further cardiac testing was recommended. Patient will require ICU bed post-op for close monitoring. Patient is on heparin for VTE prophylaxis. 2. Hypotension: Will hold anti-hypertensive medications for now and continue to monitor blood pressures. 3. History of CAD s/p CABG, stents x 6, HFpEF, HTN, COPD and DM type II.
--- NOTE | 2019-06-15 14:36 | ECHO ---
EXAM DATE: 06/12/19 PATIENT'S AGE: 74 The echocardiogram report can be seen in this patient's EMR (Electronic Medical Record) in the Reports section. The report has also been scanned into PACs. [email or web address]
[2019-06-15] MEDS: Lidocaine 5% 700 MG Patch TOP SCH (17:45)
[2019-06-15] MEDS: Acetaminophen 500 MG Tab PO PRN (20:53)
[2019-06-15] MEDS: traZODone 50 MG Tab PO SCH (20:55)
[2019-06-15] MEDS: atorvaSTATin 40 MG Tab PO SCH (20:56)
[2019-06-16] MEDS: Acetaminophen/HYDROcodone 325-5 MG Tab PO PRN ×3 (03:25→16:13)
[2019-06-16] MEDS: HYDROmorphone 2 MG/ML Syringe IVPUSH PRN ×2 (04:59→09:49)
[2019-06-16] MEDS: Omeprazole 20 MG Cap.CR PO SCH (06:42)
[2019-06-16] MEDS: Insulin Aspart 100 Units/ML 3 ML Pen SUBCUT SCH ×3 (06:59→16:22)
[2019-06-16 07:12] LABS: BLOOD UREA NITROGEN,BUN 16 mg/dL (7.0-18.0); CHLORIDE,CL 100 mmol/L (98-107); GLUCOSE RANDOM 156 mg/dL (74-106); POTASSIUM,K 4.2 mmol/L (3.5-5.1); SODIUM,NA 134 mmol/L (136-148)
[2019-06-16] MEDS: Docusate Sodium 100 MG Cap PO SCH ×2 (08:14→20:30)
[2019-06-16] MEDS: hydrOXYzine Pamoate 25 MG Cap PO SCH ×3 (08:15→20:30)
[2019-06-16] MEDS: Tamsulosin 0.4 MG Cap.ER PO SCH (08:15)
[2019-06-16] MEDS: LORazepam 0.5 MG Tab PO SCH (08:16)
[2019-06-16] MEDS: Aspirin 81 MG Tab.Chew PO SCH (08:18)
[2019-06-16] MEDS: Heparin Sodium 5,000 Units/ML Vial SUBCUT SCH ×2 (11:09→16:13)
[2019-06-16] MEDS: Gabapentin 300 MG Cap PO SCH ×3 (13:46→22:07)
--- NOTE | 2019-06-16 15:41 | PCM.PN ---
- General Info Date of Service: 06/16/19 Subjective Update: Denies SOB or chest pain this morning. Had bowel movement yesterday. Has been tolerating oral diet. - Patient Data Vitals - Most Recent: Last Vital Signs Temp 98.8 F 06/16/19 12:00 Pulse 89 06/16/19 12:00 Resp 16 06/16/19 12:00 BP 119/57 L 06/16/19 12:00 Pulse Ox 98 06/16/19 12:00 Weight - Most Recent: 294 lb 5.074 oz I&O - Last 24 Hours: Intake & Output 06/16/19 06/16/19 06/16/19 06:59 14:59 22:59 Intake Total 800 Output Total 700 Balance 100 Lab Results Last 24 Hours: Laboratory Results - last 24 hr 06/15/19 06/16/19 06/16/19 Range/Units 16:59 06:21 06:35 WBC 9.23 (4.0-11.0) K/uL RBC 2.76 L (4.50-5.90) M/uL Hgb 8.6 L (13.0-17.0) g/dL Hct 25.7 L (38.0-50.0) % MCV 93.1 (80.0-98.0) fL MCH 31.2 (27.0-32.0) pg MCHC 33.5 (31.0-37.0) g/dL RDW Std Deviation 47.8 (28.0-62.0) fl RDW Coeff of Adriana 14 (11.0-15.0) % Plt Count 180 (150-400) K/uL MPV 10.00 (7.40-12.00) fL Neut % (Auto) 59.9 (48.0-80.0) % Lymph % (Auto) 23.6 (16.0-40.0) % [place] % (Auto) 13.8 (0.0-15.0) % Eos % (Auto) 2.5 (0.0-7.0) % Baso % (Auto) 0.2 (0.0-1.5) % Neut # (Auto) 5.5 (1.4-5.7) K/uL Lymph # (Auto) 2.2 (0.6-2.4) K/uL [place] # (Auto) 1.3 H (0.0-0.8) K/uL Eos # (Auto) 0.2 (0.0-0.7) K/uL Baso # (Auto) 0.0 (0.0-0.1) K/uL Nucleated RBC % 0.0 /100WBC Nucleated RBCs # 0 K/uL Sodium (136-148) mmol/L Potassium (3.5-5.1) mmol/L Chloride (98-107) mmol/L Carbon Dioxide (21.0-32.0) mmol/L BUN (7.0-18.0) mg/dL Creatinine (0.8-1.3) mg/dL Est Cr Clr Drug Dosing mL/min Estimated GFR (MDRD) ml/min Glucose (74-106) mg/dL POC Glucose 149 H 147 H (60-110) mg/dL Calcium (8.5-10.1) mg/dL Total Bilirubin (0.2-1.0) mg/dL AST (15-37) IU/L ALT (14-63) IU/L Alkaline Phosphatase (46-116) U/L Total Protein (6.4-8.2) g/dL Albumin (3.4-5.0) g/dL Globulin (2.6-4.0) g/dL Albumin/Globulin Ratio (0.9-1.6) 06/16/19 06/16/19 Range/Units 06:35 11:17 WBC (4.0-11.0) K/uL RBC (4.50-5.90) M/uL Hgb (13.0-17.0) g/dL Hct (38.0-50.0) % MCV (80.0-98.0) fL MCH (27.0-32.0) pg MCHC (31.0-37.0) g/dL RDW Std Deviation (28.0-62.0) fl RDW Coeff of Adriana (11.0-15.0) % Plt Count (150-400) K/uL MPV (7.40-12.00) fL Neut % (Auto) (48.0-80.0) % Lymph % (Auto) (16.0-40.0) % [place] % (Auto) (0.0-15.0) % Eos % (Auto) (0.0-7.0) % Baso % (Auto) (0.0-1.5) % Neut # (Auto) (1.4-5.7) K/uL Lymph # (Auto) (0.6-2.4) K/uL [place] # (Auto) (0.0-0.8) K/uL Eos # (Auto) (0.0-0.7) K/uL Baso # (Auto) (0.0-0.1) K/uL Nucleated RBC % /100WBC Nucleated RBCs # K/uL Sodium 134 L (136-148) mmol/L Potassium 4.2 (3.5-5.1) mmol/L Chloride 100 (98-107) mmol/L Carbon Dioxide 28.0 (21.0-32.0) mmol/L BUN 16 (7.0-18.0) mg/dL Creatinine 0.8 (0.8-1.3) mg/dL Est Cr Clr Drug Dosing 100.55 mL/min Estimated GFR (MDRD) > 60.0 ml/min Glucose 156 H (74-106) mg/dL POC Glucose 155 H (60-110) mg/dL Calcium 8.5 (8.5-10.1) mg/dL Total Bilirubin 1.0 (0.2-1.0) mg/dL AST 25 (15-37) IU/L ALT 19 (14-63) IU/L Alkaline Phosphatase 68 (46-116) U/L Total Protein 6.2 L (6.4-8.2) g/dL Albumin 2.8 L (3.4-5.0) g/dL Globulin 3.4 (2.6-4.0) g/dL Albumin/Globulin Ratio 0.8 L (0.9-1.6) Med Orders - Current: Current Medications Acetaminophen (Tylenol Extra Strength) 500 mg PO Q6H PRN PRN Reason: Pain Last Admin: 06/15/19 20:53 Dose: 500 mg Hydrocodone Bitart/Acetaminophen ([place] 325-5 Mg) 1 tab PO Q4H PRN PRN Reason: Other Last Admin: 06/16/19 11:33 Dose: 1 tab Al Hydroxide/Mg Hydroxide (Mag-Al Plus) 30 ml PO Q4H PRN PRN Reason: Heartburn Albuterol/Ipratropium (Duoneb 3.0-0.5 Mg/3 Ml) 3 ml NEB Q4HRRT PRN PRN Reason: Shortness Of Breath/wheezing Last Admin: 06/14/19 00:36 Dose: 3 ml Aspirin (Aspirin) 81 mg PO DAILY [facility] Last Admin: 06/16/19 08:18 Dose: 81 mg Atorvastatin Calcium (Lipitor) 20 mg PO BEDTIME [facility] Last Admin: 06/15/19 20:56 Dose: 20 mg Bisacodyl (Dulcolax) 10 mg RECTAL DAILY PRN PRN Reason: Constipation Last Admin: 06/15/19 10:54 Dose: 10 mg Docusate Sodium (Colace) 100 mg PO BID [facility] Last Admin: 06/16/19 08:14 Dose: 100 mg Gabapentin (Neurontin) 300 mg PO TID [facility] Last Admin: 06/16/19 13:46 Dose: 300 mg Heparin Sodium (Porcine) (Heparin Sodium) 5,000 units SUBCUT Q8H [facility] Stop: 06/16/19 23:00 Last Admin: 06/16/19 11:09 Dose: 5,000 units Hydromorphone HCl (Dilaudid) 0.5 mg IVPUSH Q4H PRN PRN Reason: Other Last Admin: 06/16/19 09:49 Dose: 0.5 mg Hydroxyzine Pamoate (Vistaril) 25 mg PO Q6H [facility] Last Admin: 06/16/19 13:46 Dose: 25 mg Cefazolin Sodium/Dextrose 2 gm (/ Premix) 50 mls @ 100 mls/hr IV ONCALL [facility] Insulin Aspart (Novolog) 0 unit SUBCUT TIDAC [facility]; Protocol Last Admin: 06/16/19 11:36 Dose: Not Given Lidocaine (Lidoderm 5%) 700 mg TOP Q24H [facility] Last Admin: 06/15/19 17:45 Dose: 700 mg Lorazepam (Ativan) 0.5 mg PO DAILY [facility] Last Admin: 06/16/19 08:16 Dose: 0.5 mg Nitroglycerin (Nitrostat) 0.4 mg SL ASDIRECTED PRN PRN Reason: Chest Pain Omeprazole (Omeprazole) 20 mg PO ACBREAKFAST [facility] Last Admin: 06/16/19 06:42 Dose: 20 mg Ondansetron HCl (Zofran Odt) 4 mg PO Q4H PRN PRN Reason: nausea, able to take PO Ondansetron HCl (Zofran) 4 mg IVPUSH Q4H PRN PRN Reason: Nausea/Vomiting Last Admin: 06/12/19 23:07 Dose: 4 mg Scopolamine (Transderm-Scop) 1.5 mg TRDERM ONARRIVE [facility] Sodium Chloride (Saline Flush) 10 ml FLUSH ASDIRECTED PRN PRN Reason: Keep Vein Open Last Admin: 06/12/19 10:38 Dose: 10 ml Sodium Chloride (Saline Flush) 2.5 ml FLUSH ASDIRECTED PRN PRN Reason: Keep Vein Open Last Admin: 06/12/19 10:39 Dose: 2.5 ml Sodium Chloride (Normal Saline) 10 ml IV ASDIRECTED PRN PRN Reason: IV Use Tamsulosin HCl (Flomax) 0.4 mg PO PCBREAKFAST [facility] Last Admin: 06/16/19 08:15 Dose: 0.4 mg Trazodone HCl (Trazodone) 100 mg PO BEDTIME [facility] Last Admin: 06/15/19 20:55 Dose: 100 mg Discontinued Medications Hydrocodone Bitart/Acetaminophen ([place] 325-5 Mg) 2 tab PO Q4H PRN PRN Reason: Pain (moderate 4-6) Heparin Sodium (Porcine) (Heparin Sodium) 5,000 units SUBCUT Q8H [facility] Last Admin: 06/14/19 17:42 Dose: 5,000 units Hydromorphone HCl (Dilaudid) 1 mg IVPUSH NOW STA Stop: 06/12/19 10:26 Last Admin: 06/12/19 10:37 Dose: 1 mg Hydromorphone HCl (Dilaudid) 1 mg IVPUSH ONETIME ONE Stop: 06/12/19 11:16 Last Admin: 06/12/19 11:23 Dose: 1 mg Hydromorphone HCl (Dilaudid) 1 mg IVPUSH ONETIME ONE Stop: 06/12/19 12:39 Last Admin: 06/12/19 12:42 Dose: 1 mg Hydromorphone HCl (Dilaudid) 0.5 mg IVPUSH Q4H PRN PRN Reason: Pain Hydromorphone HCl (Dilaudid) 1 mg IVPUSH ONETIME ONE Stop: 06/13/19 17:36 Last Admin: 06/13/19 17:53 Dose: 1 mg Hydromorphone HCl (Dilaudid) 2 mg IVPUSH ONETIME ONE Stop: 06/14/19 17:01 Last Admin: 06/14/19 17:10 Dose: 2 mg Lactated Ringer's (Ringers, Lactated) 1,000 mls @ 100 mls/hr IV ASDIRECTED [facility] Last Admin: 06/13/19 09:27 Dose: 100 mls/hr Tranexamic Acid 2,000 mg/ (Sodium Chloride) 120 mls @ 360 mls/hr IV ASDIRECTED ONE Stop: 06/12/19 13:26 Famotidine 40 mg/ Sodium (Chloride) 10 mls @ 300 mls/hr IV ONETIME ONE Stop: 06/12/19 13:31 Sodium Chloride (Normal Saline) 500 mls @ 999 mls/hr IV .BOLUS [facility] Last Admin: 06/12/19 14:43 Dose: 999 mls/hr Lactated Ringer's (Ringers, Lactated) 1,000 mls @ 75 mls/hr IV ASDIRECTED [facility] Last Admin: 06/14/19 23:54 Dose: 75 mls/hr Ketorolac Tromethamine (Toradol) 15 mg IVPUSH Q6H PRN PRN Reason: Pain Last Admin: 06/14/19 01:32 Dose: 15 mg Morphine Sulfate (Morphine) 2 mg IVPUSH Q2H PRN PRN Reason: Pain (severe 7-10) Stop: 06/13/19 13:32 Last Admin: 06/13/19 12:53 Dose: 2 mg Ondansetron HCl (Zofran) 4 mg IVPUSH ONETIME ONE Stop: 06/12/19 10:27 Last Admin: 06/12/19 10:36 Dose: 4 mg - Exam General: Alert, Oriented, Cooperative, No Acute Distress Lungs: Clear to Auscultation, Normal Respiratory Effort Cardiovascular: Regular Rate, Regular Rhythm GI/Abdominal Exam: Normal Bowel Sounds, Soft, Non-Tender, No Distention Extremities: Other (LLE: splint and dressing in place. ) Peripheral Pulses: 1+: Dorsalis Pedis (L), Dorsalis Pedis (R) - Problem List Review Problem List Initiated/Reviewed/Updated: Yes - Plan Plan:: Assessment and Plan: 1. Left femur fracture s/p mechanical fall: Per orthopedic surgery, going to OR tomorrow. Per cardiology, patient is intermediate risk for intermediate surgery and no further cardiac testing was recommended. Patient will require ICU bed post-op for close monitoring. Patient is on heparin for VTE prophylaxis and this will be discontinued after dose tonight. 2. Hypotension: Continue to hold anti-hypertensive medications and continue to monitor blood pressures. 3. History of CAD s/p CABG, stents x 6, HFpEF, HTN, COPD and DM type II.
[2019-06-16] MEDS: Lidocaine 5% 700 MG Patch TOP SCH (16:13)
[2019-06-16] MEDS ORDERED: Ropivacaine 49.25 ML, Ketorolac 30 MG, EPINEPHrine 0.5 MG, cloNIDine 80 MCG in Sodium C... INJECT SCH (16:15)
[2019-06-16] MEDS: atorvaSTATin 40 MG Tab PO SCH (20:30)
[2019-06-16] MEDS: traZODone 50 MG Tab PO SCH (20:30)
[2019-06-16] MEDS: Lactated Ringers 1,000 ML IV SCH (23:49)
[2019-06-17] MEDS: hydrOXYzine Pamoate 25 MG Cap PO SCH ×4 (02:44→20:37)
[2019-06-17] MEDS: Acetaminophen/HYDROcodone 325-5 MG Tab PO PRN ×3 (03:56→19:50)
[2019-06-17 05:54] LABS: BLOOD UREA NITROGEN,BUN 15 mg/dL (7.0-18.0); CARBON DIOXIDE,CO2 28.8 mmol/L (21.0-32.0); CHLORIDE,CL 99 mmol/L (98-107); GLUCOSE RANDOM 158 mg/dL (74-106); POTASSIUM,K 4.1 mmol/L (3.5-5.1); SODIUM,NA 133 mmol/L (136-148)
[2019-06-17] MEDS: Gabapentin 300 MG Cap PO SCH ×3 (05:58→22:06)
[2019-06-17] MEDS: Acetaminophen 500 MG Tab PO PRN ×2 (05:58→16:25)
[2019-06-17] MEDS: HYDROmorphone 2 MG/ML Syringe IVPUSH PRN ×2 (06:04→10:37)
[2019-06-17] MEDS: Insulin Aspart 100 Units/ML 3 ML Pen SUBCUT SCH ×3 (07:25→20:38)
--- NOTE | 2019-06-17 08:31 | PCM.PREANE ---
Preanesthetic Assessment - Anesthesia/Transfusion/Family Hx Anesthesia History: Prior Anesthesia Without Reaction Family History of Anesthesia Reaction: No Transfusion History: Unknown - Review of Systems General: No Symptoms Pulmonary: No Symptoms Cardiovascular: No Symptoms Gastrointestinal: No Symptoms Neurological: No Symptoms Other: Reports: Easy Bleeding - Physical Assessment NPO Status Date: 06/16/19 Vital Signs: Last Vital Signs Temp 98.6 F 06/17/19 07:35 Pulse 84 06/17/19 07:35 Resp 16 06/17/19 07:35 BP 120/63 06/17/19 07:35 Pulse Ox 95 06/17/19 07:35 Height: 6 ft 5 in Weight: 133.5 kg ASA Class: 4 Mental Status: Alert & Oriented x3 Airway Class: Mallampati = 2 ROM/Head Extension: Full Lungs: Clear to Auscultation, Normal Respiratory Effort Cardiovascular: Regular Rate, Regular Rhythm - Lab Values: Laboratory Last Values WBC 8.13 K/uL (4.0-11.0) 06/17/19 05:13 RBC 2.64 M/uL (4.50-5.90) L 06/17/19 05:13 Hgb 8.2 g/dL (13.0-17.0) L 06/17/19 05:13 Hct 24.6 % (38.0-50.0) L 06/17/19 05:13 MCV 93.2 fL (80.0-98.0) 06/17/19 05:13 MCH 31.1 pg (27.0-32.0) 06/17/19 05:13 MCHC 33.3 g/dL (31.0-37.0) 06/17/19 05:13 RDW Std Deviation 46.6 fl (28.0-62.0) 06/17/19 05:13 RDW Coeff of Adriana 14 % (11.0-15.0) 06/17/19 05:13 Plt Count 201 K/uL (150-400) 06/17/19 05:13 MPV 10.00 fL (7.40-12.00) 06/17/19 05:13 Neut % (Auto) 56.4 % (48.0-80.0) 06/17/19 05:13 Lymph % (Auto) 26.1 % (16.0-40.0) 06/17/19 05:13 [place] % (Auto) 13.0 % (0.0-15.0) 06/17/19 05:13 Eos % (Auto) 4.1 % (0.0-7.0) 06/17/19 05:13 Baso % (Auto) 0.4 % (0.0-1.5) 06/17/19 05:13 Neut # (Auto) 4.6 K/uL (1.4-5.7) 06/17/19 05:13 Lymph # (Auto) 2.1 K/uL (0.6-2.4) 06/17/19 05:13 [place] # (Auto) 1.1 K/uL (0.0-0.8) H 06/17/19 05:13 Eos # (Auto) 0.3 K/uL (0.0-0.7) 06/17/19 05:13 Baso # (Auto) 0.0 K/uL (0.0-0.1) 06/17/19 05:13 Nucleated RBC % 0.0 /100WBC 06/17/19 05:13 Nucleated RBCs # 0 K/uL 06/17/19 05:13 INR 1.02 06/12/19 10:42 Sodium 133 mmol/L (136-148) L 06/17/19 05:13 Potassium 4.1 mmol/L (3.5-5.1) 06/17/19 05:13 Chloride 99 mmol/L (98-107) 06/17/19 05:13 Carbon Dioxide 28.8 mmol/L (21.0-32.0) 06/17/19 05:13 BUN 15 mg/dL (7.0-18.0) 06/17/19 05:13 Creatinine 0.8 mg/dL (0.8-1.3) 06/17/19 05:13 Est Cr Clr Drug Dosing 100.55 mL/min 06/17/19 05:13 Estimated GFR (MDRD) > 60.0 ml/min 06/17/19 05:13 Glucose 158 mg/dL (74-106) H 06/17/19 05:13 POC Glucose 155 mg/dL (60-110) H 06/17/19 06:08 Hemoglobin A1c 7.4 % (4.5-6.2) H 06/12/19 10:42 Calcium 8.1 mg/dL (8.5-10.1) L 06/17/19 05:13 Phosphorus 4.6 mg/dL (2.6-4.7) 06/13/19 05:55 Magnesium 2.1 mg/dL (1.8-2.4) 06/13/19 05:55 Total Bilirubin 1.0 mg/dL (0.2-1.0) 06/17/19 05:13 AST 18 IU/L (15-37) 06/17/19 05:13 ALT 17 IU/L (14-63) 06/17/19 05:13 Alkaline Phosphatase 63 U/L (46-116) 06/17/19 05:13 Troponin I < 0.050 ng/mL (0.000-0.056) 06/13/19 06:54 Total Protein 5.9 g/dL (6.4-8.2) L 06/17/19 05:13 Albumin 2.6 g/dL (3.4-5.0) L 06/17/19 05:13 Globulin 3.3 g/dL (2.6-4.0) 06/17/19 05:13 Albumin/Globulin Ratio 0.8 (0.9-1.6) L 06/17/19 05:13 Triglycerides 58 mg/dL (0-200) 06/12/19 10:42 Cholesterol 101 mg/dL (50-200) 06/12/19 10:42 LDL Cholesterol, Calc 46 mg/dL (60-180) L 06/12/19 10:42 VLDL Cholesterol 11 mg/dL (5-55) 06/12/19 10:42 HDL Cholesterol 43 mg/dL (40-60) 06/12/19 10:42 Cholesterol/HDL Ratio 2.3 (3.3-6.0) L 06/12/19 10:42 TSH 3rd Generation 1.29 uIU/mL (0.36-3.74) 06/12/19 10:42 Urine Color YELLOW 06/12/19 16:15 Urine Appearance CLEAR 06/12/19 16:15 Urine pH 6.0 (5.0-8.0) 06/12/19 16:15 Ur Specific [place] >= 1.030 (1.001-1.035) 06/12/19 16:15 Urine Protein NEGATIVE mg/dL (NEGATIVE) 06/12/19 16:15 Urine Glucose (UA) NEGATIVE mg/dL (NEGATIVE) 06/12/19 16:15 Urine Ketones NEGATIVE mg/dL (NEGATIVE) 06/12/19 16:15 Urine Occult Blood NEGATIVE (NEGATIVE) 06/12/19 16:15 Urine Nitrite NEGATIVE (NEGATIVE) 06/12/19 16:15 Urine Bilirubin NEGATIVE (NEGATIVE) 06/12/19 16:15 Urine Urobilinogen 0.2 EU/dL (<2.0) 06/12/19 16:15 Ur Leukocyte Esterase NEGATIVE (NEGATIVE) 06/12/19 16:15 Blood Type O POSITIVE 06/16/19 16:40 Antibody Screen NEGATIVE 06/16/19 16:40 Crossmatch See Detail 06/16/19 16:40 - Allergies Allergies/Adverse Reactions: Allergies Allergy/AdvReac Type Severity Reaction Status Date / Time hydrocodone bitartrate Allergy Change Verified 06/12/19 13:59 [From [place]] Mental Status meperidine HCl [From Demerol] Allergy Change Verified 06/12/19 13:59 Mental Status oxycodone [Oxycodone] Allergy Change Verified 06/12/19 13:59 Mental Status tramadol HCl [From Ultram] Allergy Change Verified 06/12/19 13:59 Mental Status - Blood Blood Available: Yes Product(s) Available: PRBC - Acknowledgements Anesthesia Type Planned: Spinal Pt an Appropriate Candidate for the Planned Anesthesia: Yes Alternatives and Risks of Anesthesia Discussed w Pt/Guardian: Yes Pt/Guardian Understands and Agrees with Anesthesia Plan: Yes Additional Comments: Now 5 days since d/c of brintilla, should be safe for spinal anesthesia with sedation and vasopressor support. HB is 8, will give prbc slowly, beginning in the OR. Will plan 48 hr post op ICU stay with am troponins x 2 days. High risk of MACE form acute cardiac injury 5 days ago as documented by rise and fall of troponin PLAN:spinal with sedation, vasopressor support, pRBCs PreAnesthesia Questionnaire HEENT History: Reports: Impaired Vision Other HEENT History: wears glasses Cardiovascular History: Reports: Heart Failure, Hypertension, [place], Stents Respiratory History: Reports: COPD Gastrointestinal History: Reports: None Genitourinary History: Reports: Renal Calculus, Other (See Below) Other Genitourinary History: retention Musculoskeletal History: Reports: Osteoarthritis Neurological History: Reports: None Other Neuro History: crushed vertabrea in lower back, hx of rib fractures Psychiatric History: Reports: None Endocrine/Metabolic History: Reports: Diabetes, Type II Hematologic History: Reports: B12 Deficiency Dermatologic History: Reports: None - Infectious Disease History Infectious Disease History: Reports: Chicken Pox - Past Surgical History HEENT Surgical History: Reports: Adenoidectomy, Tonsillectomy GI Surgical History: Reports: Appendectomy, Other (See Below) Other GI Surgeries/Procedures: gastric bypass Endocrine Surgical History: Reports: None Other Endocrine Surgeries/Procedures: sweat glans removed in groin and bilateral armpits. Neurological Surgical History: Reports: None Musculoskeletal Surgical History: Reports: Arthroscopic Procedure, Hip Replacement, Knee Replacement Other Musculoskeletal Surgeries/Procedures:: left hip and knee replaced. Right knee replaced. - SUBSTANCE USE Smoking Status *Q: Current Every Day Smoker Tobacco Use Within Last Twelve Months: Cigarettes Second Hand Smoke Exposure: Yes Recreational Drug Use History: No - HOME MEDS Home Medications: Home Meds Aspirin [Aspirin EC] 81 mg PO BEDTIME 01/24/14 [History] Carvedilol [Coreg] 6.25 mg PO BID 01/24/14 [History] atorvaSTATin [Lipitor] 20 mg PO BEDTIME 01/24/14 [History] Lisinopril 10 mg PO DAILY 03/26/18 [History] Nitroglycerin 0.4 mg PO ASDIRECTED PRN 03/26/18 [History] Ticagrelor [Brilinta] 90 mg PO BID 03/26/18 [History] LORazepam [Ativan] 0.5 mg PO DAILY 07/02/18 [History] Omeprazole 20 mg PO WITHDINNER 07/02/18 [History] metFORMIN [Glucophage XR] 500 mg PO WITHDINNER 07/02/18 [History] traZODone HCl [Trazodone HCl] 100 mg PO BEDTIME 07/02/18 [History] Multivitamin [Daily Multiple Vitamin] 1 tab PO DAILY 06/12/19 [History] Sulfamethoxazole/Trimethoprim [Sulfamethoxazole-Tmp Ds Tablet] 1 tab PO BID 07/31 [History] Tamsulosin HCl [Flomax] 0.4 mg PO BEDTIME 06/12/19 [History] LORazepam 0.5 mg PO DAILY PRN 06/14/19 [History] Tolterodine Tartrate [Tolterodine Tartrate ER] 1 cap PO BEDTIME 06/14/19 [ History] - CURRENT (IN HOUSE) MEDS Current Meds: Current Medications Acetaminophen (Tylenol Extra Strength) 500 mg PO Q6H PRN PRN Reason: Pain Last Admin: 06/17/19 05:58 Dose: 500 mg Hydrocodone Bitart/Acetaminophen ([place] 325-5 Mg) 1 tab PO Q4H PRN PRN Reason: Other Last Admin: 06/17/19 07:53 Dose: 1 tab Al Hydroxide/Mg Hydroxide (Mag-Al Plus) 30 ml PO Q4H PRN PRN Reason: Heartburn Albuterol/Ipratropium (Duoneb 3.0-0.5 Mg/3 Ml) 3 ml NEB Q4HRRT PRN PRN Reason: Shortness Of Breath/wheezing Last Admin: 06/14/19 00:36 Dose: 3 ml Aspirin (Aspirin) 81 mg PO DAILY [facility] Last Admin: 06/16/19 08:18 Dose: 81 mg Atorvastatin Calcium (Lipitor) 20 mg PO BEDTIME [facility] Last Admin: 06/16/19 20:30 Dose: 20 mg Bisacodyl (Dulcolax) 10 mg RECTAL DAILY PRN PRN Reason: Constipation Last Admin: 06/15/19 10:54 Dose: 10 mg Docusate Sodium (Colace) 100 mg PO BID [facility] Last Admin: 06/16/19 20:30 Dose: 100 mg Gabapentin (Neurontin) 300 mg PO TID [facility] Last Admin: 06/17/19 05:58 Dose: 300 mg Hydromorphone HCl (Dilaudid) 0.5 mg IVPUSH Q4H PRN PRN Reason: Other Last Admin: 06/17/19 06:04 Dose: 0.5 mg Hydroxyzine Pamoate (Vistaril) 25 mg PO Q6H [facility] Last Admin: 06/17/19 02:44 Dose: 25 mg Lactated Ringer's (Ringers, Lactated) 1,000 mls @ 75 mls/hr IV ASDIRECTED [facility] Last Admin: 06/16/19 23:49 Dose: 75 mls/hr Ropivacaine 49.25 ml/Ketorolac Tromethamine 30 mg/Epinephrine HCl 0.5 mg/ Clonidine HCl 80 mcg/ Sodium Chloride 75 mls @ 50 mls/sec INJECT ASDIRECTED [facility] Cefazolin Sodium/Dextrose 2 gm (/ Premix) 50 mls @ 100 mls/hr IV ONCALL [facility] Insulin Aspart (Novolog) 0 unit SUBCUT TIDAC [facility]; Protocol Last Admin: 06/17/19 07:25 Dose: Not Given Lidocaine (Lidoderm 5%) 700 mg TOP Q24H [facility] Last Admin: 06/16/19 16:13 Dose: 700 mg Lorazepam (Ativan) 0.5 mg PO DAILY [facility] Last Admin: 06/16/19 08:16 Dose: 0.5 mg Nitroglycerin (Nitrostat) 0.4 mg SL ASDIRECTED PRN PRN Reason: Chest Pain Omeprazole (Omeprazole) 20 mg PO ACBREAKFAST [facility] Last Admin: 06/16/19 06:42 Dose: 20 mg Ondansetron HCl (Zofran Odt) 4 mg PO Q4H PRN PRN Reason: nausea, able to take PO Ondansetron HCl (Zofran) 4 mg IVPUSH Q4H PRN PRN Reason: Nausea/Vomiting Last Admin: 06/12/19 23:07 Dose: 4 mg Scopolamine (Transderm-Scop) 1.5 mg TRDERM ONARRIVE [facility] Sodium Chloride (Saline Flush) 10 ml FLUSH ASDIRECTED PRN PRN Reason: Keep Vein Open Last Admin: 06/12/19 10:38 Dose: 10 ml Sodium Chloride (Saline Flush) 2.5 ml FLUSH ASDIRECTED PRN PRN Reason: Keep Vein Open Last Admin: 06/12/19 10:39 Dose: 2.5 ml Sodium Chloride (Normal Saline) 10 ml IV ASDIRECTED PRN PRN Reason: IV Use Tamsulosin HCl (Flomax) 0.4 mg PO PCBREAKFAST [facility] Last Admin: 06/16/19 08:15 Dose: 0.4 mg Trazodone HCl (Trazodone) 100 mg PO BEDTIME [facility] Last Admin: 06/16/19 20:30 Dose: 100 mg Discontinued Medications Hydrocodone Bitart/Acetaminophen ([place] 325-5 Mg) 2 tab PO Q4H PRN PRN Reason: Pain (moderate 4-6) Heparin Sodium (Porcine) (Heparin Sodium) 5,000 units SUBCUT Q8H [facility] Last Admin: 12/03/19 17:42 Dose: 5,000 units Heparin Sodium (Porcine) (Heparin Sodium) 5,000 units SUBCUT Q8H [facility] Stop: 06/16/19 23:00 Last Admin: 06/16/19 16:13 Dose: 5,000 units Hydromorphone HCl (Dilaudid) 1 mg IVPUSH NOW STA Stop: 06/12/19 10:26 Last Admin: 06/12/19 10:37 Dose: 1 mg Hydromorphone HCl (Dilaudid) 1 mg IVPUSH ONETIME ONE Stop: 06/12/19 11:16 Last Admin: 06/12/19 11:23 Dose: 1 mg Hydromorphone HCl (Dilaudid) 1 mg IVPUSH ONETIME ONE Stop: 06/12/19 12:39 Last Admin: 06/12/19 12:42 Dose: 1 mg Hydromorphone HCl (Dilaudid) 0.5 mg IVPUSH Q4H PRN PRN Reason: Pain Hydromorphone HCl (Dilaudid) 1 mg IVPUSH ONETIME ONE Stop: 06/13/19 17:36 Last Admin: 06/13/19 17:53 Dose: 1 mg Hydromorphone HCl (Dilaudid) 2 mg IVPUSH ONETIME ONE Stop: 06/14/19 17:01 Last Admin: 06/14/19 17:10 Dose: 2 mg Cefazolin Sodium/Dextrose 2 gm (/ Premix) 50 mls @ 100 mls/hr IV ONCALL [facility] Lactated Ringer's (Ringers, Lactated) 1,000 mls @ 100 mls/hr IV ASDIRECTED [facility] Last Admin: 06/13/19 09:27 Dose: 100 mls/hr Tranexamic Acid 2,000 mg/ (Sodium Chloride) 120 mls @ 360 mls/hr IV ASDIRECTED ONE Stop: 06/12/19 13:26 Famotidine 40 mg/ Sodium (Chloride) 10 mls @ 300 mls/hr IV ONETIME ONE Stop: 06/12/19 13:31 Sodium Chloride (Normal Saline) 500 mls @ 999 mls/hr IV .BOLUS [facility] Last Admin: 06/12/19 14:43 Dose: 999 mls/hr Lactated Ringer's (Ringers, Lactated) 1,000 mls @ 75 mls/hr IV ASDIRECTED [facility] Last Admin: 06/14/19 23:54 Dose: 75 mls/hr Ketorolac Tromethamine (Toradol) 15 mg IVPUSH Q6H PRN PRN Reason: Pain Last Admin: 06/14/19 01:32 Dose: 15 mg Morphine Sulfate (Morphine) 2 mg IVPUSH Q2H PRN PRN Reason: Pain (severe 7-10) Stop: 06/13/19 13:32 Last Admin: 06/13/19 12:53 Dose: 2 mg Ondansetron HCl (Zofran) 4 mg IVPUSH ONETIME ONE Stop: 06/12/19 10:27 Last Admin: 06/12/19 10:36 Dose: 4 mg
[2019-06-17] MEDS ORDERED: Midazolam 1 MG/ML 2 ML SDV ONE (09:03)
[2019-06-17] MEDS ORDERED: Lidocaine 2% 5 ML SDV ONE (09:03)
[2019-06-17] MEDS ORDERED: fentaNYL 100 MCG/2 ML SDV ONE (09:03)
[2019-06-17] MEDS ORDERED: Propofol 200 MG/20 ML SDV ONE ×3 (09:03→13:20)
[2019-06-17] MEDS ORDERED: Phenylephrine 1% 10 MG/ML SDV ONE ×3 (09:04→13:39)
[2019-06-17] MEDS: Tamsulosin 0.4 MG Cap.ER PO SCH (09:12)
[2019-06-17] MEDS: Aspirin 81 MG Tab.Chew PO SCH (09:12)
[2019-06-17] MEDS: Omeprazole 20 MG Cap.CR PO SCH (09:12)
[2019-06-17] MEDS: LORazepam 0.5 MG Tab PO SCH (09:12)
[2019-06-17] MEDS: Docusate Sodium 100 MG Cap PO SCH ×3 (09:13→20:37)
--- NOTE | 2019-06-17 10:55 | PCM.PN ---
- General Info Date of Service: 06/17/19 Subjective Update: No complaints overnight. Had bowel movement yesterday. No shortness of breath or chest pain. NPO since midnight. - Patient Data Vitals - Most Recent: Last Vital Signs Temp 98.6 F 06/17/19 07:35 Pulse 84 06/17/19 07:35 Resp 16 06/17/19 07:35 BP 120/63 06/17/19 07:35 Pulse Ox 95 06/17/19 07:35 Weight - Most Recent: 294 lb 5.074 oz I&O - Last 24 Hours: Intake & Output 06/16/19 06/17/19 06/17/19 22:59 06:59 14:59 Intake Total 1140 906 Output Total 900 950 Balance 240 -44 Lab Results Last 24 Hours: Laboratory Results - last 24 hr 06/16/19 06/16/19 06/16/19 Range/Units 11:17 16:17 16:40 WBC (4.0-11.0) K/uL RBC (4.50-5.90) M/uL Hgb (13.0-17.0) g/dL Hct (38.0-50.0) % MCV (80.0-98.0) fL MCH (27.0-32.0) pg MCHC (31.0-37.0) g/dL RDW Std Deviation (28.0-62.0) fl RDW Coeff of Adriana (11.0-15.0) % Plt Count (150-400) K/uL MPV (7.40-12.00) fL Neut % (Auto) (48.0-80.0) % Lymph % (Auto) (16.0-40.0) % [place] % (Auto) (0.0-15.0) % Eos % (Auto) (0.0-7.0) % Baso % (Auto) (0.0-1.5) % Neut # (Auto) (1.4-5.7) K/uL Lymph # (Auto) (0.6-2.4) K/uL [place] # (Auto) (0.0-0.8) K/uL Eos # (Auto) (0.0-0.7) K/uL Baso # (Auto) (0.0-0.1) K/uL Nucleated RBC % /100WBC Nucleated RBCs # K/uL Sodium (136-148) mmol/L Potassium (3.5-5.1) mmol/L Chloride (98-107) mmol/L Carbon Dioxide (21.0-32.0) mmol/L BUN (7.0-18.0) mg/dL Creatinine (0.8-1.3) mg/dL Est Cr Clr Drug Dosing mL/min Estimated GFR (MDRD) ml/min Glucose (74-106) mg/dL POC Glucose 155 H 152 H (60-110) mg/dL Calcium (8.5-10.1) mg/dL Total Bilirubin (0.2-1.0) mg/dL AST (15-37) IU/L ALT (14-63) IU/L Alkaline Phosphatase (46-116) U/L Total Protein (6.4-8.2) g/dL Albumin (3.4-5.0) g/dL Globulin (2.6-4.0) g/dL Albumin/Globulin Ratio (0.9-1.6) Blood Type O POSITIVE Antibody Screen NEGATIVE Crossmatch See Detail 06/17/19 06/17/19 06/17/19 Range/Units 05:13 05:13 06:08 WBC 8.13 (4.0-11.0) K/uL RBC 2.64 L (4.50-5.90) M/uL Hgb 8.2 L (13.0-17.0) g/dL Hct 24.6 L (38.0-50.0) % MCV 93.2 (80.0-98.0) fL MCH 31.1 (27.0-32.0) pg MCHC 33.3 (31.0-37.0) g/dL RDW Std Deviation 46.6 (28.0-62.0) fl RDW Coeff of Adriana 14 (11.0-15.0) % Plt Count 201 (150-400) K/uL MPV 10.00 (7.40-12.00) fL Neut % (Auto) 56.4 (48.0-80.0) % Lymph % (Auto) 26.1 (16.0-40.0) % [place] % (Auto) 13.0 (0.0-15.0) % Eos % (Auto) 4.1 (0.0-7.0) % Baso % (Auto) 0.4 (0.0-1.5) % Neut # (Auto) 4.6 (1.4-5.7) K/uL Lymph # (Auto) 2.1 (0.6-2.4) K/uL [place] # (Auto) 1.1 H (0.0-0.8) K/uL Eos # (Auto) 0.3 (0.0-0.7) K/uL Baso # (Auto) 0.0 (0.0-0.1) K/uL Nucleated RBC % 0.0 /100WBC Nucleated RBCs # 0 K/uL Sodium 133 L (136-148) mmol/L Potassium 4.1 (3.5-5.1) mmol/L Chloride 99 (98-107) mmol/L Carbon Dioxide 28.8 (21.0-32.0) mmol/L BUN 15 (7.0-18.0) mg/dL Creatinine 0.8 (0.8-1.3) mg/dL Est Cr Clr Drug Dosing 100.55 mL/min Estimated GFR (MDRD) > 60.0 ml/min Glucose 158 H (74-106) mg/dL POC Glucose 155 H (60-110) mg/dL Calcium 8.1 L (8.5-10.1) mg/dL Total Bilirubin 1.0 (0.2-1.0) mg/dL AST 18 (15-37) IU/L ALT 17 (14-63) IU/L Alkaline Phosphatase 63 (46-116) U/L Total Protein 5.9 L (6.4-8.2) g/dL Albumin 2.6 L (3.4-5.0) g/dL Globulin 3.3 (2.6-4.0) g/dL Albumin/Globulin Ratio 0.8 L (0.9-1.6) Blood Type Antibody Screen Crossmatch Med Orders - Current: Current Medications Acetaminophen (Tylenol Extra Strength) 500 mg PO Q6H PRN PRN Reason: Pain Last Admin: 06/17/19 05:58 Dose: 500 mg Hydrocodone Bitart/Acetaminophen ([place] 325-5 Mg) 1 tab PO Q4H PRN PRN Reason: Other Last Admin: 06/17/19 07:53 Dose: 1 tab Al Hydroxide/Mg Hydroxide (Mag-Al Plus) 30 ml PO Q4H PRN PRN Reason: Heartburn Albuterol/Ipratropium (Duoneb 3.0-0.5 Mg/3 Ml) 3 ml NEB Q4HRRT PRN PRN Reason: Shortness Of Breath/wheezing Last Admin: 06/14/19 00:36 Dose: 3 ml Aspirin (Aspirin) 81 mg PO DAILY [facility] Last Admin: 06/17/19 09:12 Dose: Not Given Atorvastatin Calcium (Lipitor) 20 mg PO BEDTIME [facility] Last Admin: 06/16/19 20:30 Dose: 20 mg Bisacodyl (Dulcolax) 10 mg RECTAL DAILY PRN PRN Reason: Constipation Last Admin: 06/15/19 10:54 Dose: 10 mg Docusate Sodium (Colace) 100 mg PO BID [facility] Last Admin: 06/17/19 09:13 Dose: Not Given Gabapentin (Neurontin) 300 mg PO TID [facility] Last Admin: 06/17/19 05:58 Dose: 300 mg Hydromorphone HCl (Dilaudid) 0.5 mg IVPUSH Q4H PRN PRN Reason: Other Last Admin: 06/17/19 10:37 Dose: 0.5 mg Hydroxyzine Pamoate (Vistaril) 25 mg PO Q6H [facility] Last Admin: 06/17/19 09:12 Dose: Not Given Lactated Ringer's (Ringers, Lactated) 1,000 mls @ 75 mls/hr IV ASDIRECTED [facility] Last Admin: 06/16/19 23:49 Dose: 75 mls/hr Ropivacaine 49.25 ml/Ketorolac Tromethamine 30 mg/Epinephrine HCl 0.5 mg/ Clonidine HCl 80 mcg/ Sodium Chloride 75 mls @ 50 mls/sec INJECT ASDIRECTED [facility] Cefazolin Sodium/Dextrose 2 gm (/ Premix) 50 mls @ 100 mls/hr IV ONCALL [facility] Insulin Aspart (Novolog) 0 unit SUBCUT TIDAC [facility]; Protocol Last Admin: 06/17/19 07:25 Dose: Not Given Lidocaine (Lidoderm 5%) 700 mg TOP Q24H [facility] Last Admin: 06/16/19 16:13 Dose: 700 mg Lorazepam (Ativan) 0.5 mg PO DAILY [facility] Last Admin: 06/17/19 09:12 Dose: Not Given Nitroglycerin (Nitrostat) 0.4 mg SL ASDIRECTED PRN PRN Reason: Chest Pain Omeprazole (Omeprazole) 20 mg PO ACBREAKFAST [facility] Last Admin: 06/17/19 09:12 Dose: Not Given Ondansetron HCl (Zofran Odt) 4 mg PO Q4H PRN PRN Reason: nausea, able to take PO Ondansetron HCl (Zofran) 4 mg IVPUSH Q4H PRN PRN Reason: Nausea/Vomiting Last Admin: 06/12/19 23:07 Dose: 4 mg Scopolamine (Transderm-Scop) 1.5 mg TRDERM ONARRIVE [facility] Sodium Chloride (Saline Flush) 10 ml FLUSH ASDIRECTED PRN PRN Reason: Keep Vein Open Last Admin: 06/12/19 10:38 Dose: 10 ml Sodium Chloride (Saline Flush) 2.5 ml FLUSH ASDIRECTED PRN PRN Reason: Keep Vein Open Last Admin: 06/12/19 10:39 Dose: 2.5 ml Sodium Chloride (Normal Saline) 10 ml IV ASDIRECTED PRN PRN Reason: IV Use Tamsulosin HCl (Flomax) 0.4 mg PO PCBREAKFAST [facility] Last Admin: 06/17/19 09:12 Dose: Not Given Trazodone HCl (Trazodone) 100 mg PO BEDTIME [facility] Last Admin: 06/16/19 20:30 Dose: 100 mg Discontinued Medications Hydrocodone Bitart/Acetaminophen ([place] 325-5 Mg) 2 tab PO Q4H PRN PRN Reason: Pain (moderate 4-6) Fentanyl (Sublimaze) Confirm Administered Dose 100 mcg .ROUTE .STK-MED ONE Stop: 06/17/19 09:04 Heparin Sodium (Porcine) (Heparin Sodium) 5,000 units SUBCUT Q8H [facility] Last Admin: 06/14/19 17:42 Dose: 5,000 units Heparin Sodium (Porcine) (Heparin Sodium) 5,000 units SUBCUT Q8H [facility] Stop: 06/16/19 23:00 Last Admin: 06/16/19 16:13 Dose: 5,000 units Hydromorphone HCl (Dilaudid) 1 mg IVPUSH NOW [facility] Stop: 06/12/19 10:26 Last Admin: 06/12/19 10:37 Dose: 1 mg Hydromorphone HCl (Dilaudid) 1 mg IVPUSH ONETIME ONE Stop: 06/12/19 11:16 Last Admin: 06/12/19 11:23 Dose: 1 mg Hydromorphone HCl (Dilaudid) 1 mg IVPUSH ONETIME ONE Stop: 06/12/19 12:39 Last Admin: 06/12/19 12:42 Dose: 1 mg Hydromorphone HCl (Dilaudid) 0.5 mg IVPUSH Q4H PRN PRN Reason: Pain Hydromorphone HCl (Dilaudid) 1 mg IVPUSH ONETIME ONE Stop: 06/13/19 17:36 Last Admin: 06/13/19 17:53 Dose: 1 mg Hydromorphone HCl (Dilaudid) 2 mg IVPUSH ONETIME ONE Stop: 06/14/19 17:01 Last Admin: 06/14/19 17:10 Dose: 2 mg Cefazolin Sodium/Dextrose 2 gm (/ Premix) 50 mls @ 100 mls/hr IV ONCALL TWIN Lactated Ringer's (Ringers, Lactated) 1,000 mls @ 100 mls/hr IV ASDIRECTED [facility] Last Admin: 06/13/19 09:27 Dose: 100 mls/hr Tranexamic Acid 2,000 mg/ (Sodium Chloride) 120 mls @ 360 mls/hr IV ASDIRECTED ONE Stop: 06/12/19 13:26 Famotidine 40 mg/ Sodium (Chloride) 10 mls @ 300 mls/hr IV ONETIME ONE Stop: 06/12/19 13:31 Sodium Chloride (Normal Saline) 500 mls @ 999 mls/hr IV .BOLUS [facility] Last Admin: 06/12/19 14:43 Dose: 999 mls/hr Lactated Ringer's (Ringers, Lactated) 1,000 mls @ 75 mls/hr IV ASDIRECTED [facility] Last Admin: 06/14/19 23:54 Dose: 75 mls/hr Ketorolac Tromethamine (Toradol) 15 mg IVPUSH Q6H PRN PRN Reason: Pain Last Admin: 06/14/19 01:32 Dose: 15 mg Lidocaine (Xylocaine-Mpf 2%) Confirm Administered Dose 5 ml .ROUTE .STK-MED ONE Stop: 06/17/19 09:04 Midazolam HCl (Versed 1 Mg/Ml) Confirm Administered Dose 2 mg .ROUTE .STK-MED ONE Stop: 06/17/19 09:04 Morphine Sulfate (Morphine) 2 mg IVPUSH Q2H PRN PRN Reason: Pain (severe 7-10) Stop: 06/13/19 13:32 Last Admin: 06/13/19 12:53 Dose: 2 mg Ondansetron HCl (Zofran) 4 mg IVPUSH ONETIME ONE Stop: 06/12/19 10:27 Last Admin: 06/12/19 10:36 Dose: 4 mg Phenylephrine HCl (Eber-Synephrine) Confirm Administered Dose 10 mg .ROUTE .STK- MED ONE Stop: 06/17/19 09:05 Propofol (Diprivan 20 Ml) Confirm Administered Dose 400 mg .ROUTE .STK-MED ONE Stop: 06/17/19 09:04 Tranexamic Acid (Cyklokapron) Confirm Administered Dose 1,000 mg .ROUTE .STK- MED ONE Stop: 06/17/19 09:45 - Exam General: Alert, Oriented, Cooperative, No Acute Distress Lungs: Clear to Auscultation, Normal Respiratory Effort Cardiovascular: Regular Rate, Regular Rhythm GI/Abdominal Exam: Normal Bowel Sounds, Soft, Non-Tender, No Distention Extremities: Other (LLE: splint and dressings are in place. ) Peripheral Pulses: 1+: Dorsalis Pedis (L), Dorsalis Pedis (R) Skin: Warm, Dry, Intact - Problem List Review Problem List Initiated/Reviewed/Updated: Yes - Plan Plan:: Assessment and Plan: 1. Left femur fracture s/p mechanical fall: Patient going to OR today. ICU bed post-op for close monitoring. Will follow-up with orthopedic surgery on when to resume aspirin and Brilinta. 2. Hypotension: Continue to hold anti-hypertensive medications and continue to monitor blood pressures. 3. History of CAD s/p CABG, stents x 6, HFpEF, HTN, COPD and DM type II.
[2019-06-17] MEDS ORDERED: ceFAZolin 1 GM Vial ONE (11:33)
[2019-06-17] MEDS ORDERED: ceFAZolin 2 GM in Premix Bag 1 BAG IV SCH (13:15)
[2019-06-17] MEDS ORDERED: Esmolol 100 MG/10 ML SDV ONE (13:28)
[2019-06-17] MEDS ORDERED: Vancomycin 1 GM SDV ONE (13:36)
[2019-06-17] MEDS ORDERED: Vasopressin 20 Units/1 ML MDV ONE ×2 (13:45→14:20)
[2019-06-17] MEDS ORDERED: Phenylephrine/Normal Saline 100 MCG/ML 10 ML Syringe ONE (13:54)
--- NOTE | 2019-06-17 14:17 | PCM.OPNOTE ---
- General Post-Op/Procedure Note Date of Surgery/Procedure: 06/17/19 Operative Procedure(s): orif left femoral periprosthetic shaft fracture Pre Op Diagnosis: left femoral shaft fracture, closed, periprosthetic Post-Op Diagnosis: Same Anesthesia Technique: Combo Spinal/Epidural, Moderate Sedation Primary Surgeon: Pradeep Medrano Operating System Programmer: Sarah Mackey EBL in mLs: 1,700 Complications: None Condition: Stable Free Text/Narrative:: Intake & Output 06/16/19 06/17/19 06/17/19 22:59 06:59 14:59 Intake Total 1140 906 Output Total 900 950 Balance 240 -44
[2019-06-17] MEDS ORDERED: Ondansetron 4 MG/2 ML SDV ONE (14:20)
--- NOTE | 2019-06-17 16:04 | PCM.SN ---
- Free Text/Narrative Note: Procedure note placement of internal jugular centtral access line on R, in PACU, for administration of vasopressors consent obtained skin prepped full isolation precautions 1% lido skin infiltration IJV entered under direct u/s visualization good blood return catheter placed over wire after dilitation catheter feeds easily. secured at 15 cm, silver barrier applied sterile dressing applied all three lubens draw and flow freely CXR ordered to check position of tip of catheter No complications
--- NOTE | 2019-06-17 16:50 | CR ---
Indication: Central line placement Technique: Chest 1 view Comparison: 06/12/2019 Findings/Impression: Cardiovascular and mediastinum: Stable cardiomediastinal silhouette. Lungs and pleural space: Persistent elevation of the right hemidiaphragm with right perihilar compressive subsegmental atelectasis. No new consolidation or pleural effusions. No pneumothorax seen. Bones and soft tissues: A right IJ central catheter with the tip in the SVC. A cholecystectomy clip. Stable osseous structures. Dictated by Charles Ramos MD @ 06/17/2019 4:48:48 PM Dictated by: Charles Ramos MD @ 06/17/2019 16:49:07 (Electronically Signed)
[2019-06-17] MEDS: Lidocaine 5% 700 MG Patch TOP SCH (17:55)
--- NOTE | 2019-06-17 19:25 | PN ---
THC Physician - Brief Progress [id number]/06/2019 19:23[facility] Ne Parada, JOSE - MWN (LUIS ENRIQUE) - MWN EVELYNE ANGELIA FritzDate of Service 06/17/2019 19:23HPI/Events of Note eICU Admission [id number] admitted for hypotension and closer ICU monitoring. History obtained p ana from review of EMR.PMH: CABG, CAD with multiple stents, with prior stent thrombosis last yea rHPI: Admitted for L femur fracture. Post-OR, patient was placed in ICU per anesthesia recommendation s for close monitoring. Course had been complicated by episodes of hypotension for which patient had been placed on vasopressin. Notably recorded EBL of 1.7L. Camera exam: Laying in bed. Vitals monitor reviewed. Vitals: reviewedLabs: reviewedRadiology: reviewedMeds: reviewedeICU Impression and Recommen dations:Hypotension, uncertain etiology, differential including blood loss from recent surgeryHistory of coronary artery disease with prior stent thrombosisCBC now, lactateLower suspicion for sepsis, it xs reasonable to hold off on sepsis work up until hemodynamics are better understood and more likely causes (ie blood loss) are ruled outConsider changing pressor from vasopressin to norepinephrine for management of what I would consider to be undifferentiated shockDVT and GI prophylaxis as appropriat e.We are available to assist in further clarification, or implementation of any of the above recommen dations if desired by primary service.Thank you for allowing us to participate in the care of this pa tient.The above note transcribed via dictation software. Please excuse any errors.Interventions Major -Hypotension - evaluation and management
[2019-06-17] MEDS ORDERED: ceFAZolin 2 GM in Premix Bag 1 BAG IV ONE (20:00)
[2019-06-17] MEDS: atorvaSTATin 40 MG Tab PO SCH (20:36)
[2019-06-17] MEDS: traZODone 50 MG Tab PO SCH (20:36)
[2019-06-17] MEDS: Lactated Ringers 1,000 ML IV SCH (21:12)
[2019-06-17] MEDS: Bisacodyl 10 MG Supp RECTAL PRN (22:50)
[2019-06-18] MEDS: hydrOXYzine Pamoate 25 MG Cap PO SCH ×5 (01:21→19:54)
[2019-06-18] MEDS: Acetaminophen/HYDROcodone 325-5 MG Tab PO PRN ×2 (01:21→06:33)
[2019-06-18 03:43] LABS: BLOOD UREA NITROGEN,BUN 27 mg/dL (7.0-18.0); CARBON DIOXIDE,CO2 27.2 mmol/L (21.0-32.0); CHLORIDE,CL 99 mmol/L (98-107); GLUCOSE RANDOM 242 mg/dL (74-106); POTASSIUM,K 4.9 mmol/L (3.5-5.1); SODIUM,NA 133 mmol/L (136-148)
[2019-06-18] MEDS: Omeprazole 20 MG Cap.CR PO SCH (06:34)
[2019-06-18] MEDS: Gabapentin 300 MG Cap PO SCH ×4 (06:34→21:52)
[2019-06-18] MEDS: Insulin Aspart 100 Units/ML 3 ML Pen SUBCUT SCH ×3 (07:55→18:21)
[2019-06-18] MEDS: Aspirin 81 MG Tab.Chew PO SCH (09:31)
[2019-06-18] MEDS: LORazepam 0.5 MG Tab PO SCH (09:31)
[2019-06-18] MEDS: Docusate Sodium 100 MG Cap PO SCH ×2 (09:36→20:01)
[2019-06-18] MEDS ORDERED: Lactated Ringers 1,000 ML IV ONE (09:42)
--- NOTE | 2019-06-18 09:56 | PCM.SN ---
- Free Text/Narrative Note: Doing well currently. Currently giving fluid bolus. Weaning vasopressin. BP maintaining >100 systolic. Pain control adequate. Will check later.
--- NOTE | 2019-06-18 11:12 | PCM.PN ---
- General Info Date of Service: 06/18/19 Admission Dx/Problem (Free Text): Admission Diagnosis/Problem Periprosthetic distal 1/3 shaft femoral fracture, closed Functional Status: Reports: Pain Controlled, Tolerating Diet, Ambulating - Review of Systems General: Reports: No Symptoms HEENT: Reports: No Symptoms Pulmonary: Reports: No Symptoms Cardiovascular: Reports: No Symptoms Gastrointestinal: Reports: No Symptoms Genitourinary: Reports: No Symptoms Musculoskeletal: Reports: Leg Pain, Joint Pain, Joint Swelling Skin: Reports: No Symptoms Neurological: Reports: No Symptoms Psychiatric: Reports: No Symptoms - Patient Data Vitals - Most Recent: Last Vital Signs Temp 36.8 C 06/18/19 07:59 Pulse 102 H 06/17/19 18:00 Resp 21 H 06/18/19 09:00 BP 112/49 L 06/18/19 09:00 Pulse Ox 94 L 06/18/19 09:00 Weight - Most Recent: 128.503 kg I&O - Last 24 Hours: Intake & Output 06/17/19 06/18/19 06/18/19 22:59 06:59 14:59 Intake Total 2250 1722 Output Total 375 Balance 2250 1347 Lab Results Last 24 Hours: Laboratory Results - last 24 hr 06/16/19 06/17/19 06/17/19 Range/Units 16:40 15:55 17:42 WBC (4.0-11.0) K/uL RBC (4.50-5.90) M/uL Hgb (13.0-17.0) g/dL Hct (38.0-50.0) % MCV (80.0-98.0) fL MCH (27.0-32.0) pg MCHC (31.0-37.0) g/dL RDW Std Deviation (28.0-62.0) fl RDW Coeff of Adriana (11.0-15.0) % Plt Count (150-400) K/uL MPV (7.40-12.00) fL Neut % (Auto) (48.0-80.0) % Lymph % (Auto) (16.0-40.0) % [place] % (Auto) (0.0-15.0) % Eos % (Auto) (0.0-7.0) % Baso % (Auto) (0.0-1.5) % Neut # (Auto) (1.4-5.7) K/uL Lymph # (Auto) (0.6-2.4) K/uL [place] # (Auto) (0.0-0.8) K/uL Eos # (Auto) (0.0-0.7) K/uL Baso # (Auto) (0.0-0.1) K/uL Nucleated RBC % /100WBC Nucleated RBCs # K/uL Lactate (0.20-2.00) mmol/L Sodium (136-148) mmol/L Potassium (3.5-5.1) mmol/L Chloride (98-107) mmol/L Carbon Dioxide (21.0-32.0) mmol/L BUN (7.0-18.0) mg/dL Creatinine (0.8-1.3) mg/dL Est Cr Clr Drug Dosing mL/min Estimated GFR (MDRD) ml/min Glucose (74-106) mg/dL POC Glucose 195 H (60-110) mg/dL Calcium (8.5-10.1) mg/dL Total Bilirubin (0.2-1.0) mg/dL AST (15-37) IU/L ALT (14-63) IU/L Alkaline Phosphatase (46-116) U/L Troponin I < 0.050 (0.000-0.056) ng/mL Total Protein (6.4-8.2) g/dL Albumin (3.4-5.0) g/dL Globulin (2.6-4.0) g/dL Albumin/Globulin Ratio (0.9-1.6) Blood Type O POSITIVE Antibody Screen NEGATIVE Crossmatch See Detail 06/17/19 06/17/19 06/17/19 Range/Units 19:08 19:08 21:13 WBC 16.53 H (4.0-11.0) K/uL RBC 2.87 L (4.50-5.90) M/uL Hgb 8.8 L (13.0-17.0) g/dL Hct 25.7 L (38.0-50.0) % MCV 89.5 (80.0-98.0) fL MCH 30.7 (27.0-32.0) pg MCHC 34.2 (31.0-37.0) g/dL RDW Std Deviation 49.3 (28.0-62.0) fl RDW Coeff of Adriana 15 (11.0-15.0) % Plt Count 153 (150-400) K/uL MPV 10.10 (7.40-12.00) fL Neut % (Auto) (48.0-80.0) % Lymph % (Auto) (16.0-40.0) % [place] % (Auto) (0.0-15.0) % Eos % (Auto) (0.0-7.0) % Baso % (Auto) (0.0-1.5) % Neut # (Auto) (1.4-5.7) K/uL Lymph # (Auto) (0.6-2.4) K/uL [place] # (Auto) (0.0-0.8) K/uL Eos # (Auto) (0.0-0.7) K/uL Baso # (Auto) (0.0-0.1) K/uL Nucleated RBC % 0.0 /100WBC Nucleated RBCs # 0 K/uL Lactate 1.4 (0.20-2.00) mmol/L Sodium (136-148) mmol/L Potassium (3.5-5.1) mmol/L Chloride (98-107) mmol/L Carbon Dioxide (21.0-32.0) mmol/L BUN (7.0-18.0) mg/dL Creatinine (0.8-1.3) mg/dL Est Cr Clr Drug Dosing mL/min Estimated GFR (MDRD) ml/min Glucose (74-106) mg/dL POC Glucose (60-110) mg/dL Calcium (8.5-10.1) mg/dL Total Bilirubin (0.2-1.0) mg/dL AST (15-37) IU/L ALT (14-63) IU/L Alkaline Phosphatase (46-116) U/L Troponin I < 0.050 (0.000-0.056) ng/mL Total Protein (6.4-8.2) g/dL Albumin (3.4-5.0) g/dL Globulin (2.6-4.0) g/dL Albumin/Globulin Ratio (0.9-1.6) Blood Type Antibody Screen Crossmatch 06/18/19 06/18/19 06/18/19 Range/Units 03:10 03:10 03:10 WBC 14.58 H (4.0-11.0) K/uL RBC 2.62 L (4.50-5.90) M/uL Hgb 8.0 L (13.0-17.0) g/dL Hct 23.5 L (38.0-50.0) % MCV 89.7 (80.0-98.0) fL MCH 30.5 (27.0-32.0) pg MCHC 34.0 (31.0-37.0) g/dL RDW Std Deviation 48.6 (28.0-62.0) fl RDW Coeff of Adriana 15 (11.0-15.0) % Plt Count 166 (150-400) K/uL MPV 10.60 (7.40-12.00) fL Neut % (Auto) 79.0 (48.0-80.0) % Lymph % (Auto) 10.7 L (16.0-40.0) % [place] % (Auto) 10.1 (0.0-15.0) % Eos % (Auto) 0.1 (0.0-7.0) % Baso % (Auto) 0.1 (0.0-1.5) % Neut # (Auto) 11.5 H (1.4-5.7) K/uL Lymph # (Auto) 1.6 (0.6-2.4) K/uL [place] # (Auto) 1.5 H (0.0-0.8) K/uL Eos # (Auto) 0.0 (0.0-0.7) K/uL Baso # (Auto) 0.0 (0.0-0.1) K/uL Nucleated RBC % 0.0 /100WBC Nucleated RBCs # 0 K/uL Lactate (0.20-2.00) mmol/L Sodium 133 L (136-148) mmol/L Potassium 4.9 (3.5-5.1) mmol/L Chloride 99 (98-107) mmol/L Carbon Dioxide 27.2 (21.0-32.0) mmol/L BUN 27 H (7.0-18.0) mg/dL Creatinine 1.1 (0.8-1.3) mg/dL Est Cr Clr Drug Dosing 73.13 mL/min Estimated GFR (MDRD) > 60.0 ml/min Glucose 242 H (74-106) mg/dL POC Glucose (60-110) mg/dL Calcium 7.5 L (8.5-10.1) mg/dL Total Bilirubin 1.1 H (0.2-1.0) mg/dL AST 33 (15-37) IU/L ALT 19 (14-63) IU/L Alkaline Phosphatase 56 (46-116) U/L Troponin I < 0.050 (0.000-0.056) ng/mL Total Protein 5.0 L (6.4-8.2) g/dL Albumin 2.1 L (3.4-5.0) g/dL Globulin 2.9 (2.6-4.0) g/dL Albumin/Globulin Ratio 0.7 L (0.9-1.6) Blood Type Antibody Screen Crossmatch 06/18/19 Range/Units 06:49 WBC (4.0-11.0) K/uL RBC (4.50-5.90) M/uL Hgb (13.0-17.0) g/dL Hct (38.0-50.0) % MCV (80.0-98.0) fL MCH (27.0-32.0) pg MCHC (31.0-37.0) g/dL RDW Std Deviation (28.0-62.0) fl RDW Coeff of Adriana (11.0-15.0) % Plt Count (150-400) K/uL MPV (7.40-12.00) fL Neut % (Auto) (48.0-80.0) % Lymph % (Auto) (16.0-40.0) % [place] % (Auto) (0.0-15.0) % Eos % (Auto) (0.0-7.0) % Baso % (Auto) (0.0-1.5) % Neut # (Auto) (1.4-5.7) K/uL Lymph # (Auto) (0.6-2.4) K/uL [place] # (Auto) (0.0-0.8) K/uL Eos # (Auto) (0.0-0.7) K/uL Baso # (Auto) (0.0-0.1) K/uL Nucleated RBC % /100WBC Nucleated RBCs # K/uL Lactate (0.20-2.00) mmol/L Sodium (136-148) mmol/L Potassium (3.5-5.1) mmol/L Chloride (98-107) mmol/L Carbon Dioxide (21.0-32.0) mmol/L BUN (7.0-18.0) mg/dL Creatinine (0.8-1.3) mg/dL Est Cr Clr Drug Dosing mL/min Estimated GFR (MDRD) ml/min Glucose (74-106) mg/dL POC Glucose 239 H (60-110) mg/dL Calcium (8.5-10.1) mg/dL Total Bilirubin (0.2-1.0) mg/dL AST (15-37) IU/L ALT (14-63) IU/L Alkaline Phosphatase (46-116) U/L Troponin I (0.000-0.056) ng/mL Total Protein (6.4-8.2) g/dL Albumin (3.4-5.0) g/dL Globulin (2.6-4.0) g/dL Albumin/Globulin Ratio (0.9-1.6) Blood Type Antibody Screen Crossmatch Med Orders - Current: Current Medications Acetaminophen (Tylenol Extra Strength) 500 mg PO Q6H PRN PRN Reason: Pain Last Admin: 06/17/19 16:25 Dose: 500 mg Hydrocodone Bitart/Acetaminophen ([place] 325-5 Mg) 1 tab PO Q4H PRN PRN Reason: Other Last Admin: 06/18/19 06:33 Dose: 1 tab Al Hydroxide/Mg Hydroxide (Mag-Al Plus) 30 ml PO Q4H PRN PRN Reason: Heartburn Albuterol/Ipratropium (Duoneb 3.0-0.5 Mg/3 Ml) 3 ml NEB Q4HRRT PRN PRN Reason: Shortness Of Breath/wheezing Last Admin: 06/14/19 00:36 Dose: 3 ml Aspirin (Aspirin) 81 mg PO DAILY [facility] Last Admin: 06/18/19 09:31 Dose: 81 mg Atorvastatin Calcium (Lipitor) 20 mg PO BEDTIME [facility] Bisacodyl (Dulcolax) 10 mg RECTAL DAILY PRN PRN Reason: Constipation Last Admin: 06/17/19 22:50 Dose: 10 mg Docusate Sodium (Colace) 100 mg PO BID [facility] Last Admin: 06/18/19 09:36 Dose: 100 mg Gabapentin (Neurontin) 300 mg PO TID [facility] Last Admin: 06/18/19 06:34 Dose: 300 mg Hydromorphone HCl (Dilaudid) 0.5 mg IVPUSH Q4H PRN PRN Reason: Other Hydroxyzine Pamoate (Vistaril) 25 mg PO Q6H [facility] Last Admin: 06/18/19 06:55 Dose: Not Given Lactated Ringer's (Ringers, Lactated) 1,000 mls @ 75 mls/hr IV ASDIRECTED [facility] Last Admin: 06/17/19 21:12 Dose: 75 mls/hr Ropivacaine 49.25 ml/Ketorolac Tromethamine 30 mg/Epinephrine HCl 0.5 mg/ Clonidine HCl 80 mcg/ Sodium Chloride 75 mls @ 50 mls/sec INJECT ASDIRECTED [facility] Cefazolin Sodium/Dextrose 2 gm (/ Premix) 50 mls @ 100 mls/hr IV ONCALL [facility] Vasopressin 100 units/ Sodium (Chloride) 100 mls @ 0.6 mls/hr IV TITRATE [facility]; Protocol Last Titration: 06/18/19 09:43 Dose: 0.03 units/min, 1.8 mls/hr Insulin Aspart (Novolog) 0 unit SUBCUT TIDAC [facility]; Protocol Last Admin: 06/18/19 07:55 Dose: 4 units Lidocaine (Lidoderm 5%) 700 mg TOP Q24H [facility] Last Admin: 06/17/19 17:55 Dose: Not Given Lorazepam (Ativan) 0.5 mg PO DAILY [facility] Last Admin: 06/18/19 09:31 Dose: 0.5 mg Nitroglycerin (Nitrostat) 0.4 mg SL ASDIRECTED PRN PRN Reason: Chest Pain Omeprazole (Omeprazole) 20 mg PO ACBREAKFAST [facility] Last Admin: 06/18/19 06:34 Dose: 20 mg Ondansetron HCl (Zofran Odt) 4 mg PO Q4H PRN PRN Reason: nausea, able to take PO Ondansetron HCl (Zofran) 4 mg IVPUSH Q4H PRN PRN Reason: Nausea/Vomiting Last Admin: 06/12/19 23:07 Dose: 4 mg Scopolamine (Transderm-Scop) 1.5 mg TRDERM ONARRIVE [facility] Sodium Chloride (Saline Flush) 10 ml FLUSH ASDIRECTED PRN PRN Reason: Keep Vein Open Last Admin: 06/12/19 10:38 Dose: 10 ml Sodium Chloride (Saline Flush) 2.5 ml FLUSH ASDIRECTED PRN PRN Reason: Keep Vein Open Last Admin: 06/12/19 10:39 Dose: 2.5 ml Sodium Chloride (Normal Saline) 10 ml IV ASDIRECTED PRN PRN Reason: IV Use Trazodone HCl (Trazodone) 100 mg PO BEDTIME [facility] Last Admin: 06/17/19 20:36 Dose: 100 mg Discontinued Medications Hydrocodone Bitart/Acetaminophen ([place] 325-5 Mg) 2 tab PO Q4H PRN PRN Reason: Pain (moderate 4-6) Atorvastatin Calcium (Lipitor) 20 mg PO BEDTIME [facility] Last Admin: 06/17/19 20:36 Dose: 20 mg Cefazolin Sodium (Ancef) Confirm Administered Dose 2 gm .ROUTE .STK-MED ONE Stop: 06/17/19 11:34 Esmolol HCl (Esmolol) Confirm Administered Dose 100 mg .ROUTE .STK-MED ONE Stop: 06/17/19 13:29 Fentanyl (Sublimaze) Confirm Administered Dose 100 mcg .ROUTE .STK-MED ONE Stop: 06/17/19 09:04 Heparin Sodium (Porcine) (Heparin Sodium) 5,000 units SUBCUT Q8H [facility] Last Admin: 06/14/19 17:42 Dose: 5,000 units Heparin Sodium (Porcine) (Heparin Sodium) 5,000 units SUBCUT Q8H [facility] Stop: 06/16/19 23:00 Last Admin: 06/16/19 16:13 Dose: 5,000 units Hydromorphone HCl (Dilaudid) 1 mg IVPUSH NOW STA Stop: 06/12/19 10:26 Last Admin: 06/12/19 10:37 Dose: 1 mg Hydromorphone HCl (Dilaudid) 1 mg IVPUSH ONETIME ONE Stop: 06/12/19 11:16 Last Admin: 06/12/19 11:23 Dose: 1 mg Hydromorphone HCl (Dilaudid) 1 mg IVPUSH ONETIME ONE Stop: 06/12/19 12:39 Last Admin: 06/12/19 12:42 Dose: 1 mg Hydromorphone HCl (Dilaudid) 0.5 mg IVPUSH Q4H PRN PRN Reason: Pain Hydromorphone HCl (Dilaudid) 1 mg IVPUSH ONETIME ONE Stop: 06/13/19 17:36 Last Admin: 06/13/19 17:53 Dose: 1 mg Hydromorphone HCl (Dilaudid) 0.5 mg IVPUSH Q4H PRN PRN Reason: Other Last Admin: 06/17/19 10:37 Dose: 0.5 mg Hydromorphone HCl (Dilaudid) 2 mg IVPUSH ONETIME ONE Stop: 06/14/19 17:01 Last Admin: 06/14/19 17:10 Dose: 2 mg Cefazolin Sodium/Dextrose 2 gm (/ Premix) 50 mls @ 100 mls/hr IV ONCALL [facility] Lactated Ringer's (Ringers, Lactated) 1,000 mls @ 100 mls/hr IV ASDIRECTED [facility] Last Admin: 06/13/19 09:27 Dose: 100 mls/hr Tranexamic Acid 2,000 mg/ (Sodium Chloride) 120 mls @ 360 mls/hr IV ASDIRECTED ONE Stop: 06/12/19 13:26 Famotidine 40 mg/ Sodium (Chloride) 10 mls @ 300 mls/hr IV ONETIME ONE Stop: 06/12/19 13:31 Sodium Chloride (Normal Saline) 500 mls @ 999 mls/hr IV .BOLUS [facility] Last Admin: 06/12/19 14:43 Dose: 999 mls/hr Lactated Ringer's (Ringers, Lactated) 1,000 mls @ 75 mls/hr IV ASDIRECTED [facility] Last Admin: 06/14/19 23:54 Dose: 75 mls/hr Cefazolin Sodium/Dextrose 2 gm (/ Premix) 50 mls @ 100 mls/hr IV ONETIME ONE Stop: 06/17/19 20:29 Last Admin: 06/17/19 20:09 Dose: 100 mls/hr Lactated Ringer's (Ringers, Lactated) 1,000 mls @ 999 mls/hr IV .BOLUS ONE Stop: 06/18/19 10:42 Last Admin: 06/18/19 09:52 Dose: 999 mls/hr Ketorolac Tromethamine (Toradol) 15 mg IVPUSH Q6H PRN PRN Reason: Pain Last Admin: 06/14/19 01:32 Dose: 15 mg Lidocaine (Xylocaine-Mpf 2%) Confirm Administered Dose 5 ml .ROUTE .STK-MED ONE Stop: 06/17/19 09:04 Midazolam HCl (Versed 1 Mg/Ml) Confirm Administered Dose 2 mg .ROUTE .STK-MED ONE Stop: 06/17/19 09:04 Morphine Sulfate (Morphine) 2 mg IVPUSH Q2H PRN PRN Reason: Pain (severe 7-10) Stop: 06/13/19 13:32 Last Admin: 06/13/19 12:53 Dose: 2 mg Ondansetron HCl (Zofran) 4 mg IVPUSH ONETIME ONE Stop: 06/12/19 10:27 Last Admin: 06/12/19 10:36 Dose: 4 mg Ondansetron HCl (Zofran) Confirm Administered Dose 4 mg .ROUTE .STK-MED ONE Stop: 06/17/19 14:21 Phenylephrine HCl (Eber-Synephrine) Confirm Administered Dose 10 mg .ROUTE .STK- MED ONE Stop: 06/17/19 09:05 Phenylephrine HCl (Ebre-Synephrine) Confirm Administered Dose 10 mg .ROUTE .STK- MED ONE Stop: 06/17/19 12:53 Phenylephrine HCl (Eber-Synephrine) Confirm Administered Dose 10 mg .ROUTE .STK- MED ONE Stop: 06/17/19 13:40 Phenylephrine HCl (Phenylephrine In Ns 100 Mcg/Ml) Confirm Administered Dose 1 mg .ROUTE .STK-MED ONE Stop: 06/17/19 13:55 Propofol (Diprivan 20 Ml) Confirm Administered Dose 400 mg .ROUTE .STK-MED ONE Stop: 06/17/19 09:04 Propofol (Diprivan 20 Ml) Confirm Administered Dose 200 mg .ROUTE .STK-MED ONE Stop: 06/17/19 12:30 Propofol (Diprivan 20 Ml) Confirm Administered Dose 200 mg .ROUTE .STK-MED ONE Stop: 06/17/19 13:21 Tamsulosin HCl (Flomax) 0.4 mg PO PCBREAKFAST [facility] Last Admin: 06/17/19 09:12 Dose: Not Given Tranexamic Acid (Cyklokapron) Confirm Administered Dose 1,000 mg .ROUTE .STK- MED ONE Stop: 06/17/19 09:45 Vancomycin HCl (Vancomycin) Confirm Administered Dose 1 gm .ROUTE .STK-MED ONE Stop: 06/17/19 13:37 Vasopressin (Vasopressin) Confirm Administered Dose 20 units .ROUTE .STK-MED ONE Stop: 06/17/19 13:46 Vasopressin (Vasopressin) Confirm Administered Dose 20 units .ROUTE .STK-MED ONE Stop: 06/17/19 14:21 - Exam Quality Assessment: DVT Prophylaxis General: Alert, Oriented, Cooperative, No Acute Distress HEENT: Pupils Equal, Pupils Reactive, EOMI, Mucous Membr. Moist/[place] Neck: Supple, Trachea Midline Lungs: Normal Respiratory Effort GI/Abdominal Exam: No Distention Peripheral Pulses: 1+: Posterior Tibial (L), Dorsalis Pedis (L) Skin: Warm, Dry, Intact Wound/Incisions: Healing Well, Dressing Dry and Intact, No Drainage Neurological: No New Focal Deficit, Normal Gait Psy/Mental Status: Alert, Normal Affect, Normal Mood - Problem List & Annotations (1) Femur fracture SNOMED Code(s): 23296407 Code(s): S72.90XA - UNSP FRACTURE OF UNSP FEMUR, INIT ENCNTR FOR CLOSED FRACTURE Status: Acute Current Visit: Yes Qualifiers: Encounter type: initial encounter Femur location: shaft Fracture type: closed Fracture morphology: spiral Fracture alignment: displaced Laterality: left Qualified Code(s): S72.342A - Displaced spiral fracture of shaft of left femur, initial encounter for closed fracture - Problem List Review Problem List Initiated/Reviewed/Updated: Yes - My Orders Last 24 Hours: My Active Orders 06/17/19 11:25 Fluoro>1Hr [CR] Routine 06/17/19 13:15 ceFAZolin [Ancef] 2 gm Premix Bag 1 bag IV ONCALL 06/17/19 14:31 Admission Status [Patient Status] [ADT] Routine 06/17/19 21:18 Weight bearing status [OM.PC] Routine 06/18/19 11:05 Consult to Physical Therapy [PT Evaluation and Treatment] [CONS] Routine Weight bearing status [OM.PC] Routine 06/19/19 05:00 TROPONIN I [CHEM] ONETIME - Plan Plan:: Assessment and Plan: 74 yo male pod 1 left periprosthetic femoral shaft fracture, closed pt/ot/pain control/restart anticoag per medicine
[2019-06-18] MEDS: Acetaminophen 500 MG Tab PO PRN ×2 (11:34→18:24)
--- NOTE | 2019-06-18 16:42 | PCM.PN ---
<Steven oJnes M - Last Filed: 06/18/19 16:42> - General Info Date of Service: 06/18/19 Subjective Update: No shortness of breath, chest pain, nausea or vomiting this morning. Reports pain well controlled. Complains of no bowel movement. - Patient Data Vitals - Most Recent: Last Vital Signs Temp 99.1 F 06/18/19 12:00 Pulse 102 H 06/17/19 18:00 Resp 27 H 06/18/19 16:00 BP 113/46 L 06/18/19 16:00 Pulse Ox 93 L 06/18/19 16:00 Weight - Most Recent: 128.503 kg I&O - Last 24 Hours: Intake & Output 06/18/19 06/18/19 06/18/19 06:59 14:59 22:59 Intake Total 1722 1906 Output Total 375 250 Balance 1347 1656 Lab Results Last 24 Hours: Laboratory Results - last 24 hr 06/16/19 06/17/19 06/17/19 Range/Units 16:40 17:42 19:08 WBC 16.53 H (4.0-11.0) K/uL RBC 2.87 L (4.50-5.90) M/uL Hgb 8.8 L (13.0-17.0) g/dL Hct 25.7 L (38.0-50.0) % MCV 89.5 (80.0-98.0) fL MCH 30.7 (27.0-32.0) pg MCHC 34.2 (31.0-37.0) g/dL RDW Std Deviation 49.3 (28.0-62.0) fl RDW Coeff of Adriana 15 (11.0-15.0) % Plt Count 153 (150-400) K/uL MPV 10.10 (7.40-12.00) fL Neut % (Auto) (48.0-80.0) % Lymph % (Auto) (16.0-40.0) % Lucas % (Auto) (0.0-15.0) % Eos % (Auto) (0.0-7.0) % Baso % (Auto) (0.0-1.5) % Neut # (Auto) (1.4-5.7) K/uL Lymph # (Auto) (0.6-2.4) K/uL Lucas # (Auto) (0.0-0.8) K/uL Eos # (Auto) (0.0-0.7) K/uL Baso # (Auto) (0.0-0.1) K/uL Nucleated RBC % 0.0 /100WBC Nucleated RBCs # 0 K/uL Lactate (0.20-2.00) mmol/L Sodium (136-148) mmol/L Potassium (3.5-5.1) mmol/L Chloride (98-107) mmol/L Carbon Dioxide (21.0-32.0) mmol/L BUN (7.0-18.0) mg/dL Creatinine (0.8-1.3) mg/dL Est Cr Clr Drug Dosing mL/min Estimated GFR (MDRD) ml/min Glucose (74-106) mg/dL POC Glucose 195 H (60-110) mg/dL Calcium (8.5-10.1) mg/dL Total Bilirubin (0.2-1.0) mg/dL AST (15-37) IU/L ALT (14-63) IU/L Alkaline Phosphatase (46-116) U/L Troponin I (0.000-0.056) ng/mL Total Protein (6.4-8.2) g/dL Albumin (3.4-5.0) g/dL Globulin (2.6-4.0) g/dL Albumin/Globulin Ratio (0.9-1.6) Blood Type O POSITIVE Antibody Screen NEGATIVE Crossmatch See Detail 06/17/19 06/17/19 06/18/19 Range/Units 19:08 21:13 03:10 WBC 14.58 H (4.0-11.0) K/uL RBC 2.62 L (4.50-5.90) M/uL Hgb 8.0 L (13.0-17.0) g/dL Hct 23.5 L (38.0-50.0) % MCV 89.7 (80.0-98.0) fL MCH 30.5 (27.0-32.0) pg MCHC 34.0 (31.0-37.0) g/dL RDW Std Deviation 48.6 (28.0-62.0) fl RDW Coeff of Adriana 15 (11.0-15.0) % Plt Count 166 (150-400) K/uL MPV 10.60 (7.40-12.00) fL Neut % (Auto) 79.0 (48.0-80.0) % Lymph % (Auto) 10.7 L (16.0-40.0) % Lucas % (Auto) 10.1 (0.0-15.0) % Eos % (Auto) 0.1 (0.0-7.0) % Baso % (Auto) 0.1 (0.0-1.5) % Neut # (Auto) 11.5 H (1.4-5.7) K/uL Lymph # (Auto) 1.6 (0.6-2.4) K/uL Lucas # (Auto) 1.5 H (0.0-0.8) K/uL Eos # (Auto) 0.0 (0.0-0.7) K/uL Baso # (Auto) 0.0 (0.0-0.1) K/uL Nucleated RBC % 0.0 /100WBC Nucleated RBCs # 0 K/uL Lactate 1.4 (0.20-2.00) mmol/L Sodium (136-148) mmol/L Potassium (3.5-5.1) mmol/L Chloride (98-107) mmol/L Carbon Dioxide (21.0-32.0) mmol/L BUN (7.0-18.0) mg/dL Creatinine (0.8-1.3) mg/dL Est Cr Clr Drug Dosing mL/min Estimated GFR (MDRD) ml/min Glucose (74-106) mg/dL POC Glucose (60-110) mg/dL Calcium (8.5-10.1) mg/dL Total Bilirubin (0.2-1.0) mg/dL AST (15-37) IU/L ALT (14-63) IU/L Alkaline Phosphatase (46-116) U/L Troponin I < 0.050 (0.000-0.056) ng/mL Total Protein (6.4-8.2) g/dL Albumin (3.4-5.0) g/dL Globulin (2.6-4.0) g/dL Albumin/Globulin Ratio (0.9-1.6) Blood Type Antibody Screen Crossmatch 06/18/19 06/18/19 06/18/19 Range/Units 03:10 03:10 06:49 WBC (4.0-11.0) K/uL RBC (4.50-5.90) M/uL Hgb (13.0-17.0) g/dL Hct (38.0-50.0) % MCV (80.0-98.0) fL MCH (27.0-32.0) pg MCHC (31.0-37.0) g/dL RDW Std Deviation (28.0-62.0) fl RDW Coeff of Adriana (11.0-15.0) % Plt Count (150-400) K/uL MPV (7.40-12.00) fL Neut % (Auto) (48.0-80.0) % Lymph % (Auto) (16.0-40.0) % Lucas % (Auto) (0.0-15.0) % Eos % (Auto) (0.0-7.0) % Baso % (Auto) (0.0-1.5) % Neut # (Auto) (1.4-5.7) K/uL Lymph # (Auto) (0.6-2.4) K/uL Lucas # (Auto) (0.0-0.8) K/uL Eos # (Auto) (0.0-0.7) K/uL Baso # (Auto) (0.0-0.1) K/uL Nucleated RBC % /100WBC Nucleated RBCs # K/uL Lactate (0.20-2.00) mmol/L Sodium 133 L (136-148) mmol/L Potassium 4.9 (3.5-5.1) mmol/L Chloride 99 (98-107) mmol/L Carbon Dioxide 27.2 (21.0-32.0) mmol/L BUN 27 H (7.0-18.0) mg/dL Creatinine 1.1 (0.8-1.3) mg/dL Est Cr Clr Drug Dosing 73.13 mL/min Estimated GFR (MDRD) > 60.0 ml/min Glucose 242 H (74-106) mg/dL POC Glucose 239 H (60-110) mg/dL Calcium 7.5 L (8.5-10.1) mg/dL Total Bilirubin 1.1 H (0.2-1.0) mg/dL AST 33 (15-37) IU/L ALT 19 (14-63) IU/L Alkaline Phosphatase 56 (46-116) U/L Troponin I < 0.050 (0.000-0.056) ng/mL Total Protein 5.0 L (6.4-8.2) g/dL Albumin 2.1 L (3.4-5.0) g/dL Globulin 2.9 (2.6-4.0) g/dL Albumin/Globulin Ratio 0.7 L (0.9-1.6) Blood Type Antibody Screen Crossmatch 06/18/19 06/18/19 Range/Units 11:27 14:55 WBC (4.0-11.0) K/uL RBC (4.50-5.90) M/uL Hgb 7.4 L (13.0-17.0) g/dL Hct 21.5 L (38.0-50.0) % MCV (80.0-98.0) fL MCH (27.0-32.0) pg MCHC (31.0-37.0) g/dL RDW Std Deviation (28.0-62.0) fl RDW Coeff of Adriana (11.0-15.0) % Plt Count (150-400) K/uL MPV (7.40-12.00) fL Neut % (Auto) (48.0-80.0) % Lymph % (Auto) (16.0-40.0) % Lucas % (Auto) (0.0-15.0) % Eos % (Auto) (0.0-7.0) % Baso % (Auto) (0.0-1.5) % Neut # (Auto) (1.4-5.7) K/uL Lymph # (Auto) (0.6-2.4) K/uL Lucas # (Auto) (0.0-0.8) K/uL Eos # (Auto) (0.0-0.7) K/uL Baso # (Auto) (0.0-0.1) K/uL Nucleated RBC % /100WBC Nucleated RBCs # K/uL Lactate (0.20-2.00) mmol/L Sodium (136-148) mmol/L Potassium (3.5-5.1) mmol/L Chloride (98-107) mmol/L Carbon Dioxide (21.0-32.0) mmol/L BUN (7.0-18.0) mg/dL Creatinine (0.8-1.3) mg/dL Est Cr Clr Drug Dosing mL/min Estimated GFR (MDRD) ml/min Glucose (74-106) mg/dL POC Glucose 252 H (60-110) mg/dL Calcium (8.5-10.1) mg/dL Total Bilirubin (0.2-1.0) mg/dL AST (15-37) IU/L ALT (14-63) IU/L Alkaline Phosphatase (46-116) U/L Troponin I (0.000-0.056) ng/mL Total Protein (6.4-8.2) g/dL Albumin (3.4-5.0) g/dL Globulin (2.6-4.0) g/dL Albumin/Globulin Ratio (0.9-1.6) Blood Type Antibody Screen Crossmatch Med Orders - Current: Current Medications Acetaminophen (Tylenol Extra Strength) 500 mg PO Q6H PRN PRN Reason: Pain Last Admin: 06/18/19 11:34 Dose: 500 mg Hydrocodone Bitart/Acetaminophen (Tigrett 325-5 Mg) 1 tab PO Q4H PRN PRN Reason: Other Last Admin: 06/18/19 06:33 Dose: 1 tab Al Hydroxide/Mg Hydroxide (Mag-Al Plus) 30 ml PO Q4H PRN PRN Reason: Heartburn Albuterol/Ipratropium (Duoneb 3.0-0.5 Mg/3 Ml) 3 ml NEB Q4HRRT PRN PRN Reason: Shortness Of Breath/wheezing Last Admin: 06/14/19 00:36 Dose: 3 ml Aspirin (Aspirin) 81 mg PO DAILY [facility] Last Admin: 06/18/19 09:31 Dose: 81 mg Atorvastatin Calcium (Lipitor) 20 mg PO BEDTIME [facility] Bisacodyl (Dulcolax) 10 mg RECTAL DAILY PRN PRN Reason: Constipation Last Admin: 06/17/19 22:50 Dose: 10 mg Docusate Sodium (Colace) 100 mg PO BID [facility] Last Admin: 06/18/19 09:36 Dose: 100 mg Gabapentin (Neurontin) 300 mg PO TID [facility] Last Admin: 06/18/19 16:25 Dose: 300 mg Hydromorphone HCl (Dilaudid) 0.5 mg IVPUSH Q4H PRN PRN Reason: Other Hydroxyzine Pamoate (Vistaril) 25 mg PO Q6H [facility] Last Admin: 06/18/19 16:25 Dose: 25 mg Lactated Ringer's (Ringers, Lactated) 1,000 mls @ 75 mls/hr IV ASDIRECTED [facility] Last Admin: 06/17/19 21:12 Dose: 75 mls/hr Ropivacaine 49.25 ml/Ketorolac Tromethamine 30 mg/Epinephrine HCl 0.5 mg/ Clonidine HCl 80 mcg/ Sodium Chloride 75 mls @ 50 mls/sec INJECT ASDIRECTED [facility] Cefazolin Sodium/Dextrose 2 gm (/ Premix) 50 mls @ 100 mls/hr IV ONCALL [facility] Vasopressin 100 units/ Sodium (Chloride) 100 mls @ 0.6 mls/hr IV TITRATE [facility]; Protocol Last Titration: 06/18/19 11:10 Dose: 0 units/min, 0 mls/hr Insulin Aspart (Novolog) 0 unit SUBCUT TIDAC [facility]; Protocol Last Admin: 06/18/19 11:30 Dose: 6 units Insulin Glargine (Lantus Solostar) 8 units SUBCUT DAILY [facility] Lidocaine (Lidoderm 5%) 700 mg TOP Q24H [facility] Last Admin: 06/17/19 17:55 Dose: Not Given Lorazepam (Ativan) 0.5 mg PO DAILY [facility] Last Admin: 06/18/19 09:31 Dose: 0.5 mg Nitroglycerin (Nitrostat) 0.4 mg SL ASDIRECTED PRN PRN Reason: Chest Pain Omeprazole (Omeprazole) 20 mg PO ACBREAKFAST [facility] Last Admin: 06/18/19 06:34 Dose: 20 mg Ondansetron HCl (Zofran Odt) 4 mg PO Q4H PRN PRN Reason: nausea, able to take PO Ondansetron HCl (Zofran) 4 mg IVPUSH Q4H PRN PRN Reason: Nausea/Vomiting Last Admin: 06/12/19 23:07 Dose: 4 mg Scopolamine (Transderm-Scop) 1.5 mg TRDERM ONARRIVE [facility] Sodium Chloride (Saline Flush) 10 ml FLUSH ASDIRECTED PRN PRN Reason: Keep Vein Open Last Admin: 06/12/19 10:38 Dose: 10 ml Sodium Chloride (Saline Flush) 2.5 ml FLUSH ASDIRECTED PRN PRN Reason: Keep Vein Open Last Admin: 06/12/19 10:39 Dose: 2.5 ml Sodium Chloride (Normal Saline) 10 ml IV ASDIRECTED PRN PRN Reason: IV Use Trazodone HCl (Trazodone) 100 mg PO BEDTIME [facility] Last Admin: 06/17/19 20:36 Dose: 100 mg Discontinued Medications Hydrocodone Bitart/Acetaminophen (Tigrett 325-5 Mg) 2 tab PO Q4H PRN PRN Reason: Pain (moderate 4-6) Atorvastatin Calcium (Lipitor) 20 mg PO BEDTIME [facility] Last Admin: 06/17/19 20:36 Dose: 20 mg Cefazolin Sodium (Ancef) Confirm Administered Dose 2 gm .ROUTE .STK-MED ONE Stop: 06/17/19 11:34 Esmolol HCl (Esmolol) Confirm Administered Dose 100 mg .ROUTE .STK-MED ONE Stop: 06/17/19 13:29 Fentanyl (Sublimaze) Confirm Administered Dose 100 mcg .ROUTE .STK-MED ONE Stop: 06/17/19 09:04 Heparin Sodium (Porcine) (Heparin Sodium) 5,000 units SUBCUT Q8H [facility] Last Admin: 06/14/19 17:42 Dose: 5,000 units Heparin Sodium (Porcine) (Heparin Sodium) 5,000 units SUBCUT Q8H [facility] Stop: 06/16/19 23:00 Last Admin: 06/16/19 16:13 Dose: 5,000 units Hydromorphone HCl (Dilaudid) 1 mg IVPUSH NOW STA Stop: 06/12/19 10:26 Last Admin: 06/12/19 10:37 Dose: 1 mg Hydromorphone HCl (Dilaudid) 1 mg IVPUSH ONETIME ONE Stop: 06/12/19 11:16 Last Admin: 06/12/19 11:23 Dose: 1 mg Hydromorphone HCl (Dilaudid) 1 mg IVPUSH ONETIME ONE Stop: 06/12/19 12:39 Last Admin: 06/12/19 12:42 Dose: 1 mg Hydromorphone HCl (Dilaudid) 0.5 mg IVPUSH Q4H PRN PRN Reason: Pain Hydromorphone HCl (Dilaudid) 1 mg IVPUSH ONETIME ONE Stop: 06/13/19 17:36 Last Admin: 06/13/19 17:53 Dose: 1 mg Hydromorphone HCl (Dilaudid) 0.5 mg IVPUSH Q4H PRN PRN Reason: Other Last Admin: 06/17/19 10:37 Dose: 0.5 mg Hydromorphone HCl (Dilaudid) 2 mg IVPUSH ONETIME ONE Stop: 06/14/19 17:01 Last Admin: 06/14/19 17:10 Dose: 2 mg Cefazolin Sodium/Dextrose 2 gm (/ Premix) 50 mls @ 100 mls/hr IV ONCALL [facility] Lactated Ringer's (Ringers, Lactated) 1,000 mls @ 100 mls/hr IV ASDIRECTED [facility] Last Admin: 06/13/19 09:27 Dose: 100 mls/hr Tranexamic Acid 2,000 mg/ (Sodium Chloride) 120 mls @ 360 mls/hr IV ASDIRECTED ONE Stop: 06/12/19 13:26 Famotidine 40 mg/ Sodium (Chloride) 10 mls @ 300 mls/hr IV ONETIME ONE Stop: 06/12/19 13:31 Sodium Chloride (Normal Saline) 500 mls @ 999 mls/hr IV .BOLUS [facility] Last Admin: 06/12/19 14:43 Dose: 999 mls/hr Lactated Ringer's (Ringers, Lactated) 1,000 mls @ 75 mls/hr IV ASDIRECTED [facility] Last Admin: 06/14/19 23:54 Dose: 75 mls/hr Cefazolin Sodium/Dextrose 2 gm (/ Premix) 50 mls @ 100 mls/hr IV ONETIME ONE Stop: 06/17/19 20:29 Last Admin: 06/17/19 20:09 Dose: 100 mls/hr Lactated Ringer's (Ringers, Lactated) 1,000 mls @ 999 mls/hr IV .BOLUS ONE Stop: 06/18/19 10:42 Last Admin: 06/18/19 09:52 Dose: 999 mls/hr Ketorolac Tromethamine (Toradol) 15 mg IVPUSH Q6H PRN PRN Reason: Pain Last Admin: 06/14/19 01:32 Dose: 15 mg Lidocaine (Xylocaine-Mpf 2%) Confirm Administered Dose 5 ml .ROUTE .STK-MED ONE Stop: 06/17/19 09:04 Midazolam HCl (Versed 1 Mg/Ml) Confirm Administered Dose 2 mg .ROUTE .STK-MED ONE Stop: 06/17/19 09:04 Morphine Sulfate (Morphine) 2 mg IVPUSH Q2H PRN PRN Reason: Pain (severe 7-10) Stop: 06/13/19 13:32 Last Admin: 06/13/19 12:53 Dose: 2 mg Ondansetron HCl (Zofran) 4 mg IVPUSH ONETIME ONE Stop: 06/12/19 10:27 Last Admin: 06/12/19 10:36 Dose: 4 mg Ondansetron HCl (Zofran) Confirm Administered Dose 4 mg .ROUTE .STK-MED ONE Stop: 06/17/19 14:21 Phenylephrine HCl (Eber-Synephrine) Confirm Administered Dose 10 mg .ROUTE .STK- MED ONE Stop: 06/17/19 09:05 Phenylephrine HCl (Eber-Synephrine) Confirm Administered Dose 10 mg .ROUTE .STK- MED ONE Stop: 06/17/19 12:53 Phenylephrine HCl (Eber-Synephrine) Confirm Administered Dose 10 mg .ROUTE .STK- MED ONE Stop: 06/17/19 13:40 Phenylephrine HCl (Phenylephrine In Ns 100 Mcg/Ml) Confirm Administered Dose 1 mg .ROUTE .STK-MED ONE Stop: 06/17/19 13:55 Propofol (Diprivan 20 Ml) Confirm Administered Dose 400 mg .ROUTE .STK-MED ONE Stop: 06/17/19 09:04 Propofol (Diprivan 20 Ml) Confirm Administered Dose 200 mg .ROUTE .STK-MED ONE Stop: 06/17/19 12:30 Propofol (Diprivan 20 Ml) Confirm Administered Dose 200 mg .ROUTE .STK-MED ONE Stop: 06/17/19 13:21 Tamsulosin HCl (Flomax) 0.4 mg PO PCBREAKFAST [facility] Last Admin: 06/17/19 09:12 Dose: Not Given Tranexamic Acid (Cyklokapron) Confirm Administered Dose 1,000 mg .ROUTE .STK- MED ONE Stop: 06/17/19 09:45 Vancomycin HCl (Vancomycin) Confirm Administered Dose 1 gm .ROUTE .STK-MED ONE Stop: 06/17/19 13:37 Vasopressin (Vasopressin) Confirm Administered Dose 20 units .ROUTE .STK-MED ONE Stop: 06/17/19 13:46 Vasopressin (Vasopressin) Confirm Administered Dose 20 units .ROUTE .STK-MED ONE Stop: 06/17/19 14:21 - Exam General: Alert, Oriented, Cooperative, No Acute Distress Lungs: Clear to Auscultation, Normal Respiratory Effort Cardiovascular: Regular Rate, Regular Rhythm GI/Abdominal Exam: Normal Bowel Sounds, Soft, Non-Tender, No Distention Extremities: Other (LLE: dressings c/d/i.) - Problem List Review Problem List Initiated/Reviewed/Updated: Yes - My Orders Last 24 Hours: My Active Orders 06/18/19 09:00 HYDROmorphone [Dilaudid] 0.5 mg IVPUSH Q4H PRN - Plan Plan:: Assessment and Plan: 1. Left femur fracture s/p fracture repair POD#1. Per orthopedic surgery, PT/OT and pain control. Will consider resuming Brilinta tomorrow. 2. Hypotension: Will wean off of vasopressin drip and monitor blood pressures. If blood pressures unstable, will consider starting norepinephrine drip. Troponins negative x3. 3. Acute normocytic anemia s/p transfusion 3 units PRBC's. Hemoglobin this morning was 8.0. Will monitor. 4. History of CAD s/p CABG, stents x 6, HFpEF, HTN, COPD and DM type II. <Estevan Jones - Last Filed: 06/25/19 20:56> - Patient Data Vitals - Most Recent: Last Vital Signs Temp 36.6 C 06/22/19 12:00 Pulse 92 06/22/19 12:00 Resp 16 06/22/19 12:00 BP 115/60 06/22/19 12:00 Pulse Ox 95 06/22/19 12:00 Med Orders - Current: Current Medications Discontinued Medications Acetaminophen (Tylenol Extra Strength) 500 mg PO Q6H PRN PRN Reason: Pain Last Admin: 06/21/19 07:39 Dose: 500 mg Hydrocodone Bitart/Acetaminophen (Tigrett 325-5 Mg) 2 tab PO Q4H PRN PRN Reason: Pain (moderate 4-6) Hydrocodone Bitart/Acetaminophen (Tigrett 325-5 Mg) 1 tab PO Q4H PRN PRN Reason: Other Last Admin: 06/22/19 13:57 Dose: 1 tab Al Hydroxide/Mg Hydroxide (Mag-Al Plus) 30 ml PO Q4H PRN PRN Reason: Heartburn Last Admin: 06/19/19 02:28 Dose: 30 ml Albuterol/Ipratropium (Duoneb 3.0-0.5 Mg/3 Ml) 3 ml NEB Q4HRRT PRN PRN Reason: Shortness Of Breath/wheezing Last Admin: 06/14/19 00:36 Dose: 3 ml Aspirin (Aspirin) 81 mg PO DAILY [facility] Last Admin: 06/22/19 09:04 Dose: 81 mg Atorvastatin Calcium (Lipitor) 20 mg PO BEDTIME [facility] Last Admin: 06/17/19 20:36 Dose: 20 mg Atorvastatin Calcium (Lipitor) 20 mg PO BEDTIME [facility] Last Admin: 06/21/19 20:22 Dose: 20 mg Bisacodyl (Dulcolax) 10 mg RECTAL DAILY PRN PRN Reason: Constipation Last Admin: 06/17/19 22:50 Dose: 10 mg Cefazolin Sodium (Ancef) Confirm Administered Dose 2 gm .ROUTE .STK-MED ONE Stop: 06/17/19 11:34 Docusate Sodium (Colace) 100 mg PO BID [facility] Last Admin: 06/22/19 09:05 Dose: 100 mg Esmolol HCl (Esmolol) Confirm Administered Dose 100 mg .ROUTE .STK-MED ONE Stop: 06/17/19 13:29 Fentanyl (Sublimaze) Confirm Administered Dose 100 mcg .ROUTE .STK-MED ONE Stop: 06/17/19 09:04 Furosemide (Lasix) 40 mg IVPUSH NOW ONE Stop: 06/19/19 11:33 Last Admin: 06/19/19 11:46 Dose: 40 mg Gabapentin (Neurontin) 300 mg PO TID [facility] Last Admin: 06/22/19 13:57 Dose: 300 mg Heparin Sodium (Porcine) (Heparin Sodium) 5,000 units SUBCUT Q8H [facility] Last Admin: 06/14/19 17:42 Dose: 5,000 units Heparin Sodium (Porcine) (Heparin Sodium) 5,000 units SUBCUT Q8H [facility] Stop: 06/16/19 23:00 Last Admin: 06/16/19 16:13 Dose: 5,000 units Hydromorphone HCl (Dilaudid) 1 mg IVPUSH NOW STA Stop: 06/12/19 10:26 Last Admin: 06/12/19 10:37 Dose: 1 mg Hydromorphone HCl (Dilaudid) 1 mg IVPUSH ONETIME ONE Stop: 06/12/19 11:16 Last Admin: 06/12/19 11:23 Dose: 1 mg Hydromorphone HCl (Dilaudid) 1 mg IVPUSH ONETIME ONE Stop: 06/12/19 12:39 Last Admin: 06/12/19 12:42 Dose: 1 mg Hydromorphone HCl (Dilaudid) 0.5 mg IVPUSH Q4H PRN PRN Reason: Pain Hydromorphone HCl (Dilaudid) 1 mg IVPUSH ONETIME ONE Stop: 06/13/19 17:36 Last Admin: 06/13/19 17:53 Dose: 1 mg Hydromorphone HCl (Dilaudid) 0.5 mg IVPUSH Q4H PRN PRN Reason: Other Last Admin: 06/17/19 10:37 Dose: 0.5 mg Hydromorphone HCl (Dilaudid) 2 mg IVPUSH ONETIME ONE Stop: 06/14/19 17:01 Last Admin: 06/14/19 17:10 Dose: 2 mg Hydromorphone HCl (Dilaudid) 0.5 mg IVPUSH Q4H PRN PRN Reason: Other Last Admin: 06/20/19 08:54 Dose: 0.5 mg Hydroxyzine Pamoate (Vistaril) 25 mg PO Q6H [facility] Last Admin: 06/22/19 13:57 Dose: 25 mg Cefazolin Sodium/Dextrose 2 gm (/ Premix) 50 mls @ 100 mls/hr IV ONCALL [facility] Lactated Ringer's (Ringers, Lactated) 1,000 mls @ 100 mls/hr IV ASDIRECTED [facility] Last Admin: 06/13/19 09:27 Dose: 100 mls/hr Tranexamic Acid 2,000 mg/ (Sodium Chloride) 120 mls @ 360 mls/hr IV ASDIRECTED ONE Stop: 06/12/19 13:26 Famotidine 40 mg/ Sodium (Chloride) 10 mls @ 300 mls/hr IV ONETIME ONE Stop: 06/12/19 13:31 Sodium Chloride (Normal Saline) 500 mls @ 999 mls/hr IV .BOLUS [facility] Last Admin: 06/12/19 14:43 Dose: 999 mls/hr Lactated Ringer's (Ringers, Lactated) 1,000 mls @ 75 mls/hr IV ASDIRECTED [facility] Last Admin: 06/14/19 23:54 Dose: 75 mls/hr Lactated Ringer's (Ringers, Lactated) 1,000 mls @ 75 mls/hr IV ASDIRECTED [facility] Last Admin: 06/17/19 21:12 Dose: 75 mls/hr Ropivacaine 49.25 ml/Ketorolac Tromethamine 30 mg/Epinephrine HCl 0.5 mg/ Clonidine HCl 80 mcg/ Sodium Chloride 75 mls @ 50 mls/sec INJECT ASDIRECTED [facility] Cefazolin Sodium/Dextrose 2 gm (/ Premix) 50 mls @ 100 mls/hr IV ONCALL [facility] Cefazolin Sodium/Dextrose 2 gm (/ Premix) 50 mls @ 100 mls/hr IV ONETIME ONE Stop: 06/17/19 20:29 Last Admin: 06/17/19 20:09 Dose: 100 mls/hr Vasopressin 100 units/ Sodium (Chloride) 100 mls @ 0.6 mls/hr IV TITRATE [facility]; Protocol Last Titration: 06/18/19 11:10 Dose: 0 units/min, 0 mls/hr Lactated Ringer's (Ringers, Lactated) 1,000 mls @ 999 mls/hr IV .BOLUS ONE Stop: 06/18/19 10:42 Last Admin: 06/18/19 09:52 Dose: 999 mls/hr Pantoprazole Sodium 40 mg/ (Sodium Chloride) 10 mls @ 300 mls/hr IV NOW ONE Stop: 06/19/19 04:36 Last Admin: 06/19/19 04:55 Dose: 300 mls/hr Insulin Aspart (Novolog) 0 unit SUBCUT TIDAC TWIN; Protocol Last Admin: 06/22/19 12:50 Dose: 4 units Insulin Glargine (Lantus Solostar) 8 units SUBCUT DAILY [facility] Last Admin: 06/22/19 09:10 Dose: 8 units Ketorolac Tromethamine (Toradol) 15 mg IVPUSH Q6H PRN PRN Reason: Pain Last Admin: 06/14/19 01:32 Dose: 15 mg Lidocaine (Lidoderm 5%) 700 mg TOP Q24H [facility] Last Admin: 06/19/19 07:26 Dose: Not Given Lidocaine (Xylocaine-Mpf 2%) Confirm Administered Dose 5 ml .ROUTE .STK-MED ONE Stop: 06/17/19 09:04 Lorazepam (Ativan) 0.5 mg PO DAILY [facility] Last Admin: 06/22/19 09:05 Dose: 0.5 mg Magnesium Hydroxide (Milk Of Magnesia) 30 ml PO ONETIME ONE Stop: 06/21/19 09:31 Last Admin: 06/21/19 10:48 Dose: 30 ml Midazolam HCl (Versed 1 Mg/Ml) Confirm Administered Dose 2 mg .ROUTE .STK-MED ONE Stop: 06/17/19 09:04 Morphine Sulfate (Morphine) 2 mg IVPUSH Q2H PRN PRN Reason: Pain (severe 7-10) Stop: 06/13/19 13:32 Last Admin: 06/13/19 12:53 Dose: 2 mg Nitroglycerin (Nitrostat) 0.4 mg SL ASDIRECTED PRN PRN Reason: Chest Pain Omeprazole (Omeprazole) 20 mg PO ACBREAKFAST [facility] Last Admin: 06/22/19 06:34 Dose: 20 mg Ondansetron HCl (Zofran) 4 mg IVPUSH ONETIME ONE Stop: 06/12/19 10:27 Last Admin: 06/12/19 10:36 Dose: 4 mg Ondansetron HCl (Zofran Odt) 4 mg PO Q4H PRN PRN Reason: nausea, able to take PO Ondansetron HCl (Zofran) 4 mg IVPUSH Q4H PRN PRN Reason: Nausea/Vomiting Last Admin: 06/12/19 23:07 Dose: 4 mg Ondansetron HCl (Zofran) Confirm Administered Dose 4 mg .ROUTE .STK-MED ONE Stop: 06/17/19 14:21 Ticagrelor 90 Mg 1 each PO BID [facility] Last Admin: 06/22/19 09:12 Dose: 1 each Phenylephrine HCl (Eber-Synephrine) Confirm Administered Dose 10 mg .ROUTE .STK- MED ONE Stop: 06/17/19 09:05 Phenylephrine HCl (Eber-Synephrine) Confirm Administered Dose 10 mg .ROUTE .STK- MED ONE Stop: 06/17/19 12:53 Phenylephrine HCl (Eber-Synephrine) Confirm Administered Dose 10 mg .ROUTE .STK- MED ONE Stop: 06/17/19 13:40 Phenylephrine HCl (Phenylephrine In Ns 100 Mcg/Ml) Confirm Administered Dose 1 mg .ROUTE .STK-MED ONE Stop: 06/17/19 13:55 Propofol (Diprivan 20 Ml) Confirm Administered Dose 400 mg .ROUTE .STK-MED ONE Stop: 06/17/19 09:04 Propofol (Diprivan 20 Ml) Confirm Administered Dose 200 mg .ROUTE .STK-MED ONE Stop: 06/17/19 12:30 Propofol (Diprivan 20 Ml) Confirm Administered Dose 200 mg .ROUTE .STK-MED ONE Stop: 06/17/19 13:21 Scopolamine (Transderm-Scop) 1.5 mg TRDERM ONARRIVE [facility] Sodium Chloride (Saline Flush) 10 ml FLUSH ASDIRECTED PRN PRN Reason: Keep Vein Open Last Admin: 06/20/19 04:29 Dose: 10 ml Sodium Chloride (Saline Flush) 2.5 ml FLUSH ASDIRECTED PRN PRN Reason: Keep Vein Open Last Admin: 06/12/19 10:39 Dose: 2.5 ml Sodium Chloride (Normal Saline) 10 ml IV ASDIRECTED PRN PRN Reason: IV Use Sodium Phosphate (Neutra-Phos) 250 mg PO QID [facility] Stop: 06/21/19 06:01 Last Admin: 06/21/19 06:46 Dose: 250 mg Tamsulosin HCl (Flomax) 0.4 mg PO PCBREAKFAST [facility] Last Admin: 06/17/19 09:12 Dose: Not Given Tamsulosin HCl (Flomax) 0.4 mg PO PCBREAKFAST [facility] Last Admin: 06/22/19 09:04 Dose: 0.4 mg Tranexamic Acid (Cyklokapron) Confirm Administered Dose 1,000 mg .ROUTE .STK- MED ONE Stop: 06/17/19 09:45 Trazodone HCl (Trazodone) 100 mg PO BEDTIME TWIN Last Admin: 06/21/19 20:23 Dose: 100 mg Vancomycin HCl (Vancomycin) Confirm Administered Dose 1 gm .ROUTE .STK-MED ONE Stop: 06/17/19 13:37 Vasopressin (Vasopressin) Confirm Administered Dose 20 units .ROUTE .STK-MED ONE Stop: 06/17/19 13:46 Vasopressin (Vasopressin) Confirm Administered Dose 20 units .ROUTE .STK-MED ONE Stop: 06/17/19 14:21 - Problem List & Annotations (1) CAD (coronary artery disease) SNOMED Code(s): 32517762 Code(s): I25.10 - ATHSCL HEART DISEASE OF [place] CORONARY ARTERY W/O ANG PCTRS Status: Acute (2) Femur fracture SNOMED Code(s): 99801203 Code(s): S72.90XA - UNSP FRACTURE OF UNSP FEMUR, INIT ENCNTR FOR CLOSED FRACTURE Status: Acute Qualifiers: Encounter type: initial encounter Femur location: shaft Fracture type: closed Fracture morphology: spiral Fracture alignment: displaced Laterality: left Qualified Code(s): S72.342A - Displaced spiral fracture of shaft of left femur, initial encounter for closed fracture (3) Elevated troponin SNOMED Code(s): 622802889, 686593433, 726156041 Code(s): R74.8 - ABNORMAL LEVELS OF OTHER SERUM ENZYMES Status: Acute - Plan Plan:: I have seen and evaluated the patient and agree with the residents note unless specified in my note
--- NOTE | 2019-06-18 17:43 | OR ---
SURGEON: Pradeep Medrano DATE OF PROCEDURE: 06/17/2019 PREOPERATIVE DIAGNOSIS: Left femoral shaft fracture, closed, periprosthetic. POSTOPERATIVE DIAGNOSIS: Left femoral shaft fracture, closed, periprosthetic. PROCEDURE: Open reduction and internal fixation, left femoral shaft, periprosthetic. CIT[employer] LEAD: Michelle Mackey, anesthesiologist assistant student. ANESTHESIA: Spinal plus conscious sedation. FLUIDS: Lactated Ringer solution. ESTIMATED BLOOD LOSS: 1700 mL. COMPLICATIONS: None. SPECIMENS: None. DISCHARGE DISPOSITION: Stable to PACU. HISTORY AND INDICATIONS FOR THE PROCEDURE: The patient was in a fall on the ice on the 12 of June, who came to the ER. Preoperative imaging confirmed the above-mentioned diagnosis. Risks and goals of procedure were explained to the patient and informed consent was obtained. Surgery was delayed because of the anticoagulants that the patient was on and he certainly had other medical comorbidities, a spinal was desired, so surgery was delayed and he was placed into a posterior splint. DETAILS OF PROCEDURE: The patient was seen preoperatively by myself and the Anesthesia staff in his hospital room. He was brought to the operative suite by the Anesthesia staff where spinal was administered with conscious sedation. He was placed supine onto a trauma table. Both of his extremities were placed into traction boots. The right lower extremity was lower to the left lower extremity and was supported in the fracture site by a bolster, attached to the trauma table. The left lower extremity was then prepped and draped. A time-out was called identifying the correct patient, correct procedure, correct site and antibiotics had began within appropriate period of time. Fluoroscopy was used to visualize the knee and the proximal extent of the fracture. An incision was made distal to the joint to obtain exposure going proximally above the level of the fracture site. Iliotibial band was incised as well as the joint in order to obtain access to the distal femur. There was significant old blood loss from the fracture over number of days. Great deal of clot had to be removed. The fracture site was visualized. It took quite a bit of time traction and internal and external rotation of the foot to get the fracture reduced. The problem was that it should have keyed in, but due to the weight of the patient, the flexion of the distal fragment, the extension of the proximal fragment, and that they had overlapped and required more time to get this to pantoja in. Eventually, I got this to pantoja in very nicely and secured it with bone clamps. While it was secured with bone clamps, I put across 2 lag screws, which were 4.5 corticals from inferior to superior in oblique in about a 30 to 45 degree angle to obtain compression. This held it in place nicely. I then took some traction off the leg to avoid any femoral nerve palsy. We then applied the periprostatic plate. I K-wired this in place and took AP and lateral films to visualize the plate placement. This was in good position. We then applied our distal lockers and then applied a proximal cortical screw to approximate the plate to the fracture site. We then drilled and filled the rest of the screws, copiously irrigated with Betadine, infused the irrigation. I did use pulse lavage throughout the case, mainly to loosen up all of our clot and I took final films. I then closed the deep muscular layer with #5 Ethibond. This was done in an interlocking manner. I then irrigated again and closed the iliotibial band with 5 Ethibond interlocking suture and I applied some vancomycin powder inside the joint and then oversewed the joint space to make sure that it was watertight with 0 Stratafix and ran them more proximally. Having ensured that our joint space was watertight and iliotibial band had been reapproximated with suture, we then copiously irrigated with Betadine. Again, applied rest of the vancomycin in subcu with some tranexamic acid and then closed with 0 Stratafix jessica and then applied Betadine-soaked Adaptic sponges and Medipore tape. The patient was then allowed to awaken from conscious sedation and transferred to his hospital bed and taken to PACU in stable condition. [id number] / MODL /[id number]
[2019-06-18] MEDS: Insulin Glargine,Human Rec. Analog 100 Units/ML 3 ML Pen SUBCUT SCH (18:18)
[2019-06-18] MEDS: atorvaSTATin 20 MG Tab PO SCH (20:00)
[2019-06-18] MEDS: traZODone 50 MG Tab PO SCH (20:01)
[2019-06-19] MEDS: hydrOXYzine Pamoate 25 MG Cap PO SCH ×4 (01:09→19:55)
[2019-06-19] MEDS: HYDROmorphone 1 MG/ML Syringe IVPUSH PRN (01:10)
[2019-06-19] MEDS: Acetaminophen/HYDROcodone 325-5 MG Tab PO PRN ×3 (03:32→15:10)
[2019-06-19 03:36] LABS: BLOOD UREA NITROGEN,BUN 21 mg/dL (7.0-18.0); CARBON DIOXIDE,CO2 29.8 mmol/L (21.0-32.0); CHLORIDE,CL 98 mmol/L (98-107); GLUCOSE RANDOM 175 mg/dL (74-106); POTASSIUM,K 4.1 mmol/L (3.5-5.1); SODIUM,NA 132 mmol/L (136-148)
[2019-06-19] MEDS ORDERED: Pantoprazole 40 MG in Sodium Chloride 0.9% 10 ML IV ONE (04:35)
[2019-06-19] MEDS: Gabapentin 300 MG Cap PO SCH ×3 (06:07→21:56)
[2019-06-19] MEDS: Omeprazole 20 MG Cap.CR PO SCH ×2 (06:10→07:13)
[2019-06-19] MEDS: Lidocaine 5% 700 MG Patch TOP SCH (07:26)
[2019-06-19] MEDS: Insulin Aspart 100 Units/ML 3 ML Pen SUBCUT SCH ×3 (07:39→18:02)
[2019-06-19] MEDS: Docusate Sodium 100 MG Cap PO SCH ×2 (09:27→21:04)
[2019-06-19] MEDS: LORazepam 0.5 MG Tab PO SCH (09:27)
[2019-06-19] MEDS: Aspirin 81 MG Tab.Chew PO SCH (09:27)
[2019-06-19] MEDS: Insulin Glargine,Human Rec. Analog 100 Units/ML 3 ML Pen SUBCUT SCH (09:31)
--- NOTE | 2019-06-19 09:52 | PCM.PN ---
- General Info Date of Service: 06/19/19 Admission Dx/Problem (Free Text): Admission Diagnosis/Problem Periprosthetic distal 1/3 shaft femoral fracture, closed Subjective Update: No shortness of breath, chest pain, nausea or vomiting this morning. Reports pain well controlled. Receiving 2 PRBC as Hb dropped this AM. Functional Status: Reports: Pain Controlled, Tolerating Diet - Review of Systems General: Denies: Weakness, Fatigue Pulmonary: Denies: Shortness of Breath, Pleuritic Chest Pain Cardiovascular: Denies: Chest Pain, Palpitations Gastrointestinal: Denies: Abdominal Pain, Decreased Appetite, Diarrhea Genitourinary: Denies: Dysuria, Frequency, Burning Musculoskeletal: Reports: Leg Pain. Denies: Neck Pain, Shoulder Pain Skin: Denies: Cyanosis, Jaundice, Mottled, Pallor - Patient Data Vitals - Most Recent: Last Vital Signs Temp 36.9 C 06/19/19 09:17 Pulse 91 06/19/19 09:17 Resp 22 H 06/19/19 09:17 BP 119/52 L 06/19/19 09:17 Pulse Ox 93 L 06/19/19 08:10 Weight - Most Recent: 126.144 kg I&O - Last 24 Hours: Intake & Output 06/18/19 06/19/19 06/19/19 22:59 06:59 14:59 Intake Total 3209 933 320 Output Total 1355 1300 Balance 1854 -367 320 Lab Results Last 24 Hours: Laboratory Results - last 24 hr 06/16/19 06/16/19 06/18/19 Range/Units 16:40 16:40 11:27 WBC (4.0-11.0) K/uL RBC (4.50-5.90) M/uL Hgb (13.0-17.0) g/dL Hct (38.0-50.0) % MCV (80.0-98.0) fL MCH (27.0-32.0) pg MCHC (31.0-37.0) g/dL RDW Std Deviation (28.0-62.0) fl RDW Coeff of Adriana (11.0-15.0) % Plt Count (150-400) K/uL MPV (7.40-12.00) fL Neut % (Auto) (48.0-80.0) % Lymph % (Auto) (16.0-40.0) % Price % (Auto) (0.0-15.0) % Eos % (Auto) (0.0-7.0) % Baso % (Auto) (0.0-1.5) % Neut # (Auto) (1.4-5.7) K/uL Lymph # (Auto) (0.6-2.4) K/uL Price # (Auto) (0.0-0.8) K/uL Eos # (Auto) (0.0-0.7) K/uL Baso # (Auto) (0.0-0.1) K/uL Nucleated RBC % /100WBC Nucleated RBCs # K/uL Sodium (136-148) mmol/L Potassium (3.5-5.1) mmol/L Chloride (98-107) mmol/L Carbon Dioxide (21.0-32.0) mmol/L BUN (7.0-18.0) mg/dL Creatinine (0.8-1.3) mg/dL Est Cr Clr Drug Dosing mL/min Estimated GFR (MDRD) ml/min Glucose (74-106) mg/dL POC Glucose 252 H (60-110) mg/dL Calcium (8.5-10.1) mg/dL Total Bilirubin (0.2-1.0) mg/dL AST (15-37) IU/L ALT (14-63) IU/L Alkaline Phosphatase (46-116) U/L Troponin I (0.000-0.056) ng/mL Total Protein (6.4-8.2) g/dL Albumin (3.4-5.0) g/dL Globulin (2.6-4.0) g/dL Albumin/Globulin Ratio (0.9-1.6) Blood Type O POSITIVE Antibody Screen NEGATIVE Crossmatch See Detail See Detail 06/18/19 06/18/19 06/19/19 Range/Units 14:55 17:40 03:04 WBC (4.0-11.0) K/uL RBC (4.50-5.90) M/uL Hgb 7.4 L (13.0-17.0) g/dL Hct 21.5 L (38.0-50.0) % MCV (80.0-98.0) fL MCH (27.0-32.0) pg MCHC (31.0-37.0) g/dL RDW Std Deviation (28.0-62.0) fl RDW Coeff of Adriana (11.0-15.0) % Plt Count (150-400) K/uL MPV (7.40-12.00) fL Neut % (Auto) (48.0-80.0) % Lymph % (Auto) (16.0-40.0) % Price % (Auto) (0.0-15.0) % Eos % (Auto) (0.0-7.0) % Baso % (Auto) (0.0-1.5) % Neut # (Auto) (1.4-5.7) K/uL Lymph # (Auto) (0.6-2.4) K/uL Price # (Auto) (0.0-0.8) K/uL Eos # (Auto) (0.0-0.7) K/uL Baso # (Auto) (0.0-0.1) K/uL Nucleated RBC % /100WBC Nucleated RBCs # K/uL Sodium (136-148) mmol/L Potassium (3.5-5.1) mmol/L Chloride (98-107) mmol/L Carbon Dioxide (21.0-32.0) mmol/L BUN (7.0-18.0) mg/dL Creatinine (0.8-1.3) mg/dL Est Cr Clr Drug Dosing mL/min Estimated GFR (MDRD) ml/min Glucose (74-106) mg/dL POC Glucose 230 H (60-110) mg/dL Calcium (8.5-10.1) mg/dL Total Bilirubin (0.2-1.0) mg/dL AST (15-37) IU/L ALT (14-63) IU/L Alkaline Phosphatase (46-116) U/L Troponin I < 0.050 (0.000-0.056) ng/mL Total Protein (6.4-8.2) g/dL Albumin (3.4-5.0) g/dL Globulin (2.6-4.0) g/dL Albumin/Globulin Ratio (0.9-1.6) Blood Type Antibody Screen Crossmatch 06/19/19 06/19/19 06/19/19 Range/Units 03:04 03:04 06:33 WBC 12.47 H (4.0-11.0) K/uL RBC 2.34 L (4.50-5.90) M/uL Hgb 7.1 L (13.0-17.0) g/dL Hct 21.0 L (38.0-50.0) % MCV 89.7 (80.0-98.0) fL MCH 30.3 (27.0-32.0) pg MCHC 33.8 (31.0-37.0) g/dL RDW Std Deviation 46.8 (28.0-62.0) fl RDW Coeff of Adriana 14 (11.0-15.0) % Plt Count 196 (150-400) K/uL MPV 9.90 (7.40-12.00) fL Neut % (Auto) 75.1 (48.0-80.0) % Lymph % (Auto) 11.3 L (16.0-40.0) % Price % (Auto) 12.4 (0.0-15.0) % Eos % (Auto) 1.0 (0.0-7.0) % Baso % (Auto) 0.2 (0.0-1.5) % Neut # (Auto) 9.4 H (1.4-5.7) K/uL Lymph # (Auto) 1.4 (0.6-2.4) K/uL Price # (Auto) 1.6 H (0.0-0.8) K/uL Eos # (Auto) 0.1 (0.0-0.7) K/uL Baso # (Auto) 0.0 (0.0-0.1) K/uL Nucleated RBC % 0.4 /100WBC Nucleated RBCs # 0 K/uL Sodium 132 L (136-148) mmol/L Potassium 4.1 (3.5-5.1) mmol/L Chloride 98 (98-107) mmol/L Carbon Dioxide 29.8 (21.0-32.0) mmol/L BUN 21 H (7.0-18.0) mg/dL Creatinine 0.8 (0.8-1.3) mg/dL Est Cr Clr Drug Dosing 100.55 mL/min Estimated GFR (MDRD) > 60.0 ml/min Glucose 175 H (74-106) mg/dL POC Glucose 166 H (60-110) mg/dL Calcium 7.7 L (8.5-10.1) mg/dL Total Bilirubin 1.1 H (0.2-1.0) mg/dL AST 28 (15-37) IU/L ALT 13 L (14-63) IU/L Alkaline Phosphatase 58 (46-116) U/L Troponin I (0.000-0.056) ng/mL Total Protein 4.9 L (6.4-8.2) g/dL Albumin 2.0 L (3.4-5.0) g/dL Globulin 2.9 (2.6-4.0) g/dL Albumin/Globulin Ratio 0.7 L (0.9-1.6) Blood Type Antibody Screen Crossmatch Med Orders - Current: Current Medications Acetaminophen (Tylenol Extra Strength) 500 mg PO Q6H PRN PRN Reason: Pain Last Admin: 06/18/19 18:24 Dose: 500 mg Hydrocodone Bitart/Acetaminophen ([place] 325-5 Mg) 1 tab PO Q4H PRN PRN Reason: Other Last Admin: 06/19/19 09:28 Dose: 1 tab Al Hydroxide/Mg Hydroxide (Mag-Al Plus) 30 ml PO Q4H PRN PRN Reason: Heartburn Last Admin: 06/19/19 02:28 Dose: 30 ml Albuterol/Ipratropium (Duoneb 3.0-0.5 Mg/3 Ml) 3 ml NEB Q4HRRT PRN PRN Reason: Shortness Of Breath/wheezing Last Admin: 06/14/19 00:36 Dose: 3 ml Aspirin (Aspirin) 81 mg PO DAILY [facility] Last Admin: 06/19/19 09:27 Dose: 81 mg Atorvastatin Calcium (Lipitor) 20 mg PO BEDTIME [facility] Last Admin: 06/18/19 20:00 Dose: 20 mg Bisacodyl (Dulcolax) 10 mg RECTAL DAILY PRN PRN Reason: Constipation Last Admin: 06/17/19 22:50 Dose: 10 mg Docusate Sodium (Colace) 100 mg PO BID [facility] Last Admin: 06/19/19 09:27 Dose: 100 mg Gabapentin (Neurontin) 300 mg PO TID [facility] Last Admin: 06/19/19 06:07 Dose: 300 mg Hydromorphone HCl (Dilaudid) 0.5 mg IVPUSH Q4H PRN PRN Reason: Other Last Admin: 06/19/19 01:10 Dose: 0.5 mg Hydroxyzine Pamoate (Vistaril) 25 mg PO Q6H [facility] Last Admin: 06/19/19 07:28 Dose: 25 mg Lactated Ringer's (Ringers, Lactated) 1,000 mls @ 75 mls/hr IV ASDIRECTED [facility] Last Admin: 06/17/19 21:12 Dose: 75 mls/hr Ropivacaine 49.25 ml/Ketorolac Tromethamine 30 mg/Epinephrine HCl 0.5 mg/ Clonidine HCl 80 mcg/ Sodium Chloride 75 mls @ 50 mls/sec INJECT ASDIRECTED [facility] Cefazolin Sodium/Dextrose 2 gm (/ Premix) 50 mls @ 100 mls/hr IV ONCALL [facility] Vasopressin 100 units/ Sodium (Chloride) 100 mls @ 0.6 mls/hr IV TITRATE [facility]; Protocol Last Titration: 06/18/19 11:10 Dose: 0 units/min, 0 mls/hr Insulin Aspart (Novolog) 0 unit SUBCUT TIDAC [facility]; Protocol Last Admin: 06/19/19 07:39 Dose: 2 units Insulin Glargine (Lantus Solostar) 8 units SUBCUT DAILY [facility] Last Admin: 06/19/19 09:31 Dose: 8 units Lorazepam (Ativan) 0.5 mg PO DAILY [facility] Last Admin: 06/19/19 09:27 Dose: 0.5 mg Nitroglycerin (Nitrostat) 0.4 mg SL ASDIRECTED PRN PRN Reason: Chest Pain Non-Formulary Medication (Ticagrelor) 90 mg PO BID [facility] Omeprazole (Omeprazole) 20 mg PO ACBREAKFAST [facility] Last Admin: 06/19/19 07:13 Dose: Not Given Ondansetron HCl (Zofran Odt) 4 mg PO Q4H PRN PRN Reason: nausea, able to take PO Ondansetron HCl (Zofran) 4 mg IVPUSH Q4H PRN PRN Reason: Nausea/Vomiting Last Admin: 06/12/19 23:07 Dose: 4 mg Scopolamine (Transderm-Scop) 1.5 mg TRDERM ONARRIVE [facility] Sodium Chloride (Saline Flush) 10 ml FLUSH ASDIRECTED PRN PRN Reason: Keep Vein Open Last Admin: 06/12/19 10:38 Dose: 10 ml Sodium Chloride (Saline Flush) 2.5 ml FLUSH ASDIRECTED PRN PRN Reason: Keep Vein Open Last Admin: 06/12/19 10:39 Dose: 2.5 ml Sodium Chloride (Normal Saline) 10 ml IV ASDIRECTED PRN PRN Reason: IV Use Trazodone HCl (Trazodone) 100 mg PO BEDTIME [facility] Last Admin: 06/18/19 20:01 Dose: 100 mg Discontinued Medications Hydrocodone Bitart/Acetaminophen ([place] 325-5 Mg) 2 tab PO Q4H PRN PRN Reason: Pain (moderate 4-6) Atorvastatin Calcium (Lipitor) 20 mg PO BEDTIME [facility] Last Admin: 06/17/19 20:36 Dose: 20 mg Cefazolin Sodium (Ancef) Confirm Administered Dose 2 gm .ROUTE .STK-MED ONE Stop: 06/17/19 11:34 Esmolol HCl (Esmolol) Confirm Administered Dose 100 mg .ROUTE .STK-MED ONE Stop: 06/17/19 13:29 Fentanyl (Sublimaze) Confirm Administered Dose 100 mcg .ROUTE .STK-MED ONE Stop: 06/17/19 09:04 Heparin Sodium (Porcine) (Heparin Sodium) 5,000 units SUBCUT Q8H [facility] Last Admin: 06/14/19 17:42 Dose: 5,000 units Heparin Sodium (Porcine) (Heparin Sodium) 5,000 units SUBCUT Q8H [facility] Stop: 06/16/19 23:00 Last Admin: 06/16/19 16:13 Dose: 5,000 units Hydromorphone HCl (Dilaudid) 1 mg IVPUSH NOW STA Stop: 06/12/19 10:26 Last Admin: 06/12/19 10:37 Dose: 1 mg Hydromorphone HCl (Dilaudid) 1 mg IVPUSH ONETIME ONE Stop: 06/12/19 11:16 Last Admin: 06/12/19 11:23 Dose: 1 mg Hydromorphone HCl (Dilaudid) 1 mg IVPUSH ONETIME ONE Stop: 06/12/19 12:39 Last Admin: 06/12/19 12:42 Dose: 1 mg Hydromorphone HCl (Dilaudid) 0.5 mg IVPUSH Q4H PRN PRN Reason: Pain Hydromorphone HCl (Dilaudid) 1 mg IVPUSH ONETIME ONE Stop: 06/13/19 17:36 Last Admin: 06/13/19 17:53 Dose: 1 mg Hydromorphone HCl (Dilaudid) 0.5 mg IVPUSH Q4H PRN PRN Reason: Other Last Admin: 06/17/19 10:37 Dose: 0.5 mg Hydromorphone HCl (Dilaudid) 2 mg IVPUSH ONETIME ONE Stop: 06/14/19 17:01 Last Admin: 06/14/19 17:10 Dose: 2 mg Cefazolin Sodium/Dextrose 2 gm (/ Premix) 50 mls @ 100 mls/hr IV ONCALL [facility] Lactated Ringer's (Ringers, Lactated) 1,000 mls @ 100 mls/hr IV ASDIRECTED [facility] Last Admin: 06/13/19 09:27 Dose: 100 mls/hr Tranexamic Acid 2,000 mg/ (Sodium Chloride) 120 mls @ 360 mls/hr IV ASDIRECTED ONE Stop: 06/12/19 13:26 Famotidine 40 mg/ Sodium (Chloride) 10 mls @ 300 mls/hr IV ONETIME ONE Stop: 06/12/19 13:31 Sodium Chloride (Normal Saline) 500 mls @ 999 mls/hr IV .BOLUS [facility] Last Admin: 06/12/19 14:43 Dose: 999 mls/hr Lactated Ringer's (Ringers, Lactated) 1,000 mls @ 75 mls/hr IV ASDIRECTED [facility] Last Admin: 06/14/19 23:54 Dose: 75 mls/hr Cefazolin Sodium/Dextrose 2 gm (/ Premix) 50 mls @ 100 mls/hr IV ONETIME ONE Stop: 06/17/19 20:29 Last Admin: 06/17/19 20:09 Dose: 100 mls/hr Lactated Ringer's (Ringers, Lactated) 1,000 mls @ 999 mls/hr IV .BOLUS ONE Stop: 06/18/19 10:42 Last Admin: 06/18/19 09:52 Dose: 999 mls/hr Pantoprazole Sodium 40 mg/ (Sodium Chloride) 10 mls @ 300 mls/hr IV NOW ONE Stop: 06/19/19 04:36 Last Admin: 06/19/19 04:55 Dose: 300 mls/hr Ketorolac Tromethamine (Toradol) 15 mg IVPUSH Q6H PRN PRN Reason: Pain Last Admin: 06/14/19 01:32 Dose: 15 mg Lidocaine (Lidoderm 5%) 700 mg TOP Q24H [facility] Last Admin: 06/19/19 07:26 Dose: Not Given Lidocaine (Xylocaine-Mpf 2%) Confirm Administered Dose 5 ml .ROUTE .STK-MED ONE Stop: 06/17/19 09:04 Midazolam HCl (Versed 1 Mg/Ml) Confirm Administered Dose 2 mg .ROUTE .STK-MED ONE Stop: 06/17/19 09:04 Morphine Sulfate (Morphine) 2 mg IVPUSH Q2H PRN PRN Reason: Pain (severe 7-10) Stop: 06/13/19 13:32 Last Admin: 06/13/19 12:53 Dose: 2 mg Ondansetron HCl (Zofran) 4 mg IVPUSH ONETIME ONE Stop: 06/12/19 10:27 Last Admin: 06/12/19 10:36 Dose: 4 mg Ondansetron HCl (Zofran) Confirm Administered Dose 4 mg .ROUTE .STK-MED ONE Stop: 06/17/19 14:21 Phenylephrine HCl (Eber-Synephrine) Confirm Administered Dose 10 mg .ROUTE .STK- MED ONE Stop: 06/17/19 09:05 Phenylephrine HCl (Eber-Synephrine) Confirm Administered Dose 10 mg .ROUTE .STK- MED ONE Stop: 06/17/19 12:53 Phenylephrine HCl (Eber-Synephrine) Confirm Administered Dose 10 mg .ROUTE .STK- MED ONE Stop: 06/17/19 13:40 Phenylephrine HCl (Phenylephrine In Ns 100 Mcg/Ml) Confirm Administered Dose 1 mg .ROUTE .STK-MED ONE Stop: 06/17/19 13:55 Propofol (Diprivan 20 Ml) Confirm Administered Dose 400 mg .ROUTE .STK-MED ONE Stop: 06/17/19 09:04 Propofol (Diprivan 20 Ml) Confirm Administered Dose 200 mg .ROUTE .STK-MED ONE Stop: 06/17/19 12:30 Propofol (Diprivan 20 Ml) Confirm Administered Dose 200 mg .ROUTE .STK-MED ONE Stop: 06/17/19 13:21 Tamsulosin HCl (Flomax) 0.4 mg PO PCBREAKFAST [facility] Last Admin: 06/17/19 09:12 Dose: Not Given Tranexamic Acid (Cyklokapron) Confirm Administered Dose 1,000 mg .ROUTE .STK- MED ONE Stop: 06/17/19 09:45 Vancomycin HCl (Vancomycin) Confirm Administered Dose 1 gm .ROUTE .STK-MED ONE Stop: 06/17/19 13:37 Vasopressin (Vasopressin) Confirm Administered Dose 20 units .ROUTE .STK-MED ONE Stop: 06/17/19 13:46 Vasopressin (Vasopressin) Confirm Administered Dose 20 units .ROUTE .STK-MED ONE Stop: 06/17/19 14:21 - Problem List & Annotations (1) CAD (coronary artery disease) SNOMED Code(s): 98884013 Code(s): I25.10 - ATHSCL HEART DISEASE OF [place] CORONARY ARTERY W/O ANG PCTRS Status: Acute (2) Femur fracture SNOMED Code(s): 97124833 Code(s): S72.90XA - UNSP FRACTURE OF UNSP FEMUR, INIT ENCNTR FOR CLOSED FRACTURE Status: Acute Qualifiers: Encounter type: initial encounter Femur location: shaft Fracture type: closed Fracture morphology: spiral Fracture alignment: displaced Laterality: left Qualified Code(s): S72.342A - Displaced spiral fracture of shaft of left femur, initial encounter for closed fracture (3) Elevated troponin SNOMED Code(s): 047575400, 398018140, 703668412 Code(s): R74.8 - ABNORMAL LEVELS OF OTHER SERUM ENZYMES Status: Acute - Problem List Review Problem List Initiated/Reviewed/Updated: Yes - My Orders Last 24 Hours: My Active Orders 06/18/19 21:00 atorvaSTATin [Lipitor] 20 mg PO BEDTIME 06/19/19 04:51 Transfuse PRBC [Transfuse Red Blood Cells] [COMM] Routine 06/19/19 21:00 Ticagrelor 90 mg PO BID - Plan Plan:: Assessment and Plan: 1. Left femur fracture s/p fracture repair POD#2. Per orthopedic surgery, PT/OT and pain control. Resume Brilinta tonight. 2. Hypotension: Resolved, off vasopressin drip. 3. Acute normocytic anemia s/p transfusion 6 units PRBC's. Will repeat Hb at noon, Lasix 40mg IV once. 4. History of CAD s/p CABG, stents x 6,: Cont ASA, resume Brilinta 5. HFpEF: No in acute decompensation. , 6.HTN, COPD and DM type II: Stable
--- NOTE | 2019-06-19 11:09 | PCM48HPAN ---
Post Anesthesia Note - EVALUATION WITHIN 48HRS OF ANESTHETIC Vital Signs in Normal Range: Yes Patient Participated in Evaluation: Yes Respiratory Function Stable: Yes Airway Patent: Yes Cardiovascular Function Stable: Yes (VSS. Off Vasopressin. Unit 6 blood infusing. Tropins NEGATIVE x3.) Hydration Status Stable: Yes (Will diuresis with lasix.) Pain Control Satisfactory: Yes Nausea and Vomiting Control Satisfactory: Yes Mental Status Recovered: Yes Vital Signs: Last Vital Signs Temp 36.9 C 06/19/19 09:17 Pulse 91 06/19/19 09:17 Resp 22 H 06/19/19 09:17 BP 119/52 L 06/19/19 09:17 Pulse Ox 93 L 06/19/19 08:10 - COMMENTS/OBSERVATIONS Free Text/Narrative:: Doing well at present. No distress noted.
[2019-06-19] MEDS ORDERED: Furosemide 40 MG/4 ML VIAL IVPUSH ONE (11:32)
--- NOTE | 2019-06-19 12:08 | PN ---
TH[facility] Physician - Brief Progress [id number]/08/2019 12:06[facility], JOSE - MWN (LUIS ENRIQUE) - ANNE AGUAYOANGELIA GONZALEZJoseDate of Service 06/19/2019 12:06HPI/Events of Note eICU Admission Note Admitted for L femur fracture. Post-OR, patient was placed in ICU per [facility] recommendations for close monitoring. Course had been complicated by episodes of hypotension for which patient had been placed on vasopressin. Notably recorded EBL of 1.7L. PMH: CABG, CAD with m ultiple stents, with prior stent thrombosis last yearCamera exam: Laying in bed. Vitals monitor revie thu. Vitals: reviewedLabs: reviewedRadiology: reviewedMeds: reviewedeICU Impression and Recommendatio ns:Continue to follow surgeon recommendationH&H every 8 hoursRBCs replacementPlease feel free to call us whenever neededDVT and GI prophylaxis as appropriate.Interventions Major-Other: hypotensionMinor- Clinical assessment - ordering diagnostic testsElectronically Signed by: ROB VERGARA) on 12:08
[2019-06-19] MEDS: Acetaminophen 500 MG Tab PO PRN (16:46)
[2019-06-19] MEDS: Sodium Chloride 0.9% 10 ML Syringe FLUSH PRN ×2 (20:24→20:30)
[2019-06-19] MEDS: atorvaSTATin 20 MG Tab PO SCH (21:03)
[2019-06-19] MEDS: traZODone 50 MG Tab PO SCH (21:56)
[2019-06-20] MEDS: Sodium Chloride 0.9% 10 ML Syringe FLUSH PRN ×3 (00:30→04:29)
[2019-06-20] MEDS: hydrOXYzine Pamoate 25 MG Cap PO SCH ×4 (04:24→18:58)
[2019-06-20 06:18] LABS: BLOOD UREA NITROGEN,BUN 13 mg/dL (7.0-18.0); CARBON DIOXIDE,CO2 30.4 mmol/L (21.0-32.0); CHLORIDE,CL 98 mmol/L (98-107); GLUCOSE RANDOM 140 mg/dL (74-106); POTASSIUM,K 4.1 mmol/L (3.5-5.1); SODIUM,NA 132 mmol/L (136-148)
[2019-06-20] MEDS: Gabapentin 300 MG Cap PO SCH ×3 (06:29→21:52)
[2019-06-20] MEDS: Acetaminophen/HYDROcodone 325-5 MG Tab PO PRN ×2 (06:29→23:30)
[2019-06-20] MEDS: Insulin Aspart 100 Units/ML 3 ML Pen SUBCUT SCH ×3 (08:04→17:28)
[2019-06-20] MEDS: Omeprazole 20 MG Cap.CR PO SCH (08:19)
[2019-06-20] MEDS: Aspirin 81 MG Tab.Chew PO SCH (08:19)
[2019-06-20] MEDS: LORazepam 0.5 MG Tab PO SCH (08:19)
[2019-06-20] MEDS: Docusate Sodium 100 MG Cap PO SCH ×2 (08:20→21:53)
[2019-06-20] MEDS: Insulin Glargine,Human Rec. Analog 100 Units/ML 3 ML Pen SUBCUT SCH (08:42)
[2019-06-20] MEDS: HYDROmorphone 1 MG/ML Syringe IVPUSH PRN (08:54)
--- NOTE | 2019-06-20 09:35 | PCM.PN ---
- General Info Date of Service: 06/19/19 Admission Dx/Problem (Free Text): Admission Diagnosis/Problem Periprosthetic distal 1/3 shaft femoral fracture, closed Functional Status: Reports: Pain Controlled, Tolerating Diet, Urinating - Review of Systems General: Reports: No Symptoms HEENT: Reports: No Symptoms Pulmonary: Reports: No Symptoms Cardiovascular: Reports: No Symptoms Gastrointestinal: Reports: No Symptoms Genitourinary: Reports: No Symptoms Musculoskeletal: Reports: Leg Pain, Joint Pain, Joint Swelling Skin: Reports: No Symptoms Neurological: Reports: No Symptoms Psychiatric: Reports: No Symptoms - Patient Data Vitals - Most Recent: Last Vital Signs Temp 36.9 C 06/20/19 07:52 Pulse 98 06/20/19 07:52 Resp 26 H 06/20/19 07:52 BP 135/51 L 06/20/19 07:52 Pulse Ox 97 06/20/19 07:52 Weight - Most Recent: 125.736 kg I&O - Last 24 Hours: Intake & Output 06/19/19 06/20/19 06/20/19 22:59 06:59 14:59 Intake Total 960 260 Output Total 2100 900 Balance -1140 -640 Lab Results Last 24 Hours: Laboratory Results - last 24 hr 06/16/19 06/19/19 06/19/19 Range/Units 16:40 11:34 14:06 WBC (4.0-11.0) K/uL RBC (4.50-5.90) M/uL Hgb 8.9 L (13.0-17.0) g/dL Hct 26.3 L (38.0-50.0) % MCV (80.0-98.0) fL MCH (27.0-32.0) pg MCHC (31.0-37.0) g/dL RDW Std Deviation (28.0-62.0) fl RDW Coeff of Adriana (11.0-15.0) % Plt Count (150-400) K/uL MPV (7.40-12.00) fL Neut % (Auto) (48.0-80.0) % Lymph % (Auto) (16.0-40.0) % [place] % (Auto) (0.0-15.0) % Eos % (Auto) (0.0-7.0) % Baso % (Auto) (0.0-1.5) % Neut # (Auto) (1.4-5.7) K/uL Lymph # (Auto) (0.6-2.4) K/uL [place] # (Auto) (0.0-0.8) K/uL Eos # (Auto) (0.0-0.7) K/uL Baso # (Auto) (0.0-0.1) K/uL Nucleated RBC % /100WBC Nucleated RBCs # K/uL Sodium (136-148) mmol/L Potassium (3.5-5.1) mmol/L Chloride (98-107) mmol/L Carbon Dioxide (21.0-32.0) mmol/L BUN (7.0-18.0) mg/dL Creatinine (0.8-1.3) mg/dL Est Cr Clr Drug Dosing mL/min Estimated GFR (MDRD) ml/min Glucose (74-106) mg/dL POC Glucose 147 H (60-110) mg/dL Calcium (8.5-10.1) mg/dL Phosphorus (2.6-4.7) mg/dL Magnesium (1.8-2.4) mg/dL Crossmatch See Detail 06/19/19 06/20/19 06/20/19 Range/Units 17:02 05:30 05:30 WBC 9.09 (4.0-11.0) K/uL RBC 2.81 L (4.50-5.90) M/uL Hgb 8.5 L (13.0-17.0) g/dL Hct 25.4 L (38.0-50.0) % MCV 90.4 (80.0-98.0) fL MCH 30.2 (27.0-32.0) pg MCHC 33.5 (31.0-37.0) g/dL RDW Std Deviation 46.9 (28.0-62.0) fl RDW Coeff of Adriana 14 (11.0-15.0) % Plt Count 205 (150-400) K/uL MPV 10.00 (7.40-12.00) fL Neut % (Auto) 72.3 (48.0-80.0) % Lymph % (Auto) 13.0 L (16.0-40.0) % [place] % (Auto) 12.8 (0.0-15.0) % Eos % (Auto) 1.5 (0.0-7.0) % Baso % (Auto) 0.4 (0.0-1.5) % Neut # (Auto) 6.6 H (1.4-5.7) K/uL Lymph # (Auto) 1.2 (0.6-2.4) K/uL [place] # (Auto) 1.2 H (0.0-0.8) K/uL Eos # (Auto) 0.1 (0.0-0.7) K/uL Baso # (Auto) 0.0 (0.0-0.1) K/uL Nucleated RBC % 1.4 /100WBC Nucleated RBCs # 0 K/uL Sodium 132 L (136-148) mmol/L Potassium 4.1 (3.5-5.1) mmol/L Chloride 98 (98-107) mmol/L Carbon Dioxide 30.4 (21.0-32.0) mmol/L BUN 13 (7.0-18.0) mg/dL Creatinine 0.7 L (0.8-1.3) mg/dL Est Cr Clr Drug Dosing 114.91 mL/min Estimated GFR (MDRD) > 60.0 ml/min Glucose 140 H (74-106) mg/dL POC Glucose 206 H (60-110) mg/dL Calcium 7.6 L (8.5-10.1) mg/dL Phosphorus 1.9 L (2.6-4.7) mg/dL Magnesium 1.8 (1.8-2.4) mg/dL Crossmatch 06/20/19 Range/Units 07:02 WBC (4.0-11.0) K/uL RBC (4.50-5.90) M/uL Hgb (13.0-17.0) g/dL Hct (38.0-50.0) % MCV (80.0-98.0) fL MCH (27.0-32.0) pg MCHC (31.0-37.0) g/dL RDW Std Deviation (28.0-62.0) fl RDW Coeff of Adriana (11.0-15.0) % Plt Count (150-400) K/uL MPV (7.40-12.00) fL Neut % (Auto) (48.0-80.0) % Lymph % (Auto) (16.0-40.0) % [place] % (Auto) (0.0-15.0) % Eos % (Auto) (0.0-7.0) % Baso % (Auto) (0.0-1.5) % Neut # (Auto) (1.4-5.7) K/uL Lymph # (Auto) (0.6-2.4) K/uL [place] # (Auto) (0.0-0.8) K/uL Eos # (Auto) (0.0-0.7) K/uL Baso # (Auto) (0.0-0.1) K/uL Nucleated RBC % /100WBC Nucleated RBCs # K/uL Sodium (136-148) mmol/L Potassium (3.5-5.1) mmol/L Chloride (98-107) mmol/L Carbon Dioxide (21.0-32.0) mmol/L BUN (7.0-18.0) mg/dL Creatinine (0.8-1.3) mg/dL Est Cr Clr Drug Dosing mL/min Estimated GFR (MDRD) ml/min Glucose (74-106) mg/dL POC Glucose 148 H (60-110) mg/dL Calcium (8.5-10.1) mg/dL Phosphorus (2.6-4.7) mg/dL Magnesium (1.8-2.4) mg/dL Crossmatch Med Orders - Current: Current Medications Acetaminophen (Tylenol Extra Strength) 500 mg PO Q6H PRN PRN Reason: Pain Last Admin: 06/19/19 16:46 Dose: 500 mg Hydrocodone Bitart/Acetaminophen ([place] 325-5 Mg) 1 tab PO Q4H PRN PRN Reason: Other Last Admin: 06/20/19 06:29 Dose: 1 tab Al Hydroxide/Mg Hydroxide (Mag-Al Plus) 30 ml PO Q4H PRN PRN Reason: Heartburn Last Admin: 06/19/19 02:28 Dose: 30 ml Albuterol/Ipratropium (Duoneb 3.0-0.5 Mg/3 Ml) 3 ml NEB Q4HRRT PRN PRN Reason: Shortness Of Breath/wheezing Last Admin: 06/14/19 00:36 Dose: 3 ml Aspirin (Aspirin) 81 mg PO DAILY [facility] Last Admin: 06/20/19 08:19 Dose: 81 mg Atorvastatin Calcium (Lipitor) 20 mg PO BEDTIME [facility] Last Admin: 06/19/19 21:03 Dose: 20 mg Bisacodyl (Dulcolax) 10 mg RECTAL DAILY PRN PRN Reason: Constipation Last Admin: 06/17/19 22:50 Dose: 10 mg Docusate Sodium (Colace) 100 mg PO BID [facility] Last Admin: 06/20/19 08:20 Dose: 100 mg Gabapentin (Neurontin) 300 mg PO TID [facility] Last Admin: 06/20/19 06:29 Dose: 300 mg Hydromorphone HCl (Dilaudid) 0.5 mg IVPUSH Q4H PRN PRN Reason: Other Last Admin: 06/20/19 08:54 Dose: 0.5 mg Hydroxyzine Pamoate (Vistaril) 25 mg PO Q6H [facility] Last Admin: 06/20/19 08:19 Dose: 25 mg Lactated Ringer's (Ringers, Lactated) 1,000 mls @ 75 mls/hr IV ASDIRECTED [facility] Last Admin: 06/17/19 21:12 Dose: 75 mls/hr Ropivacaine 49.25 ml/Ketorolac Tromethamine 30 mg/Epinephrine HCl 0.5 mg/ Clonidine HCl 80 mcg/ Sodium Chloride 75 mls @ 50 mls/sec INJECT ASDIRECTED [facility] Cefazolin Sodium/Dextrose 2 gm (/ Premix) 50 mls @ 100 mls/hr IV ONCALL [facility] Vasopressin 100 units/ Sodium (Chloride) 100 mls @ 0.6 mls/hr IV TITRATE [facility]; Protocol Last Titration: 06/18/19 11:10 Dose: 0 units/min, 0 mls/hr Insulin Aspart (Novolog) 0 unit SUBCUT TIDAC [facility]; Protocol Last Admin: 06/20/19 08:04 Dose: Not Given Insulin Glargine (Lantus Solostar) 8 units SUBCUT DAILY [facility] Last Admin: 06/20/19 08:42 Dose: 8 units Lorazepam (Ativan) 0.5 mg PO DAILY [facility] Last Admin: 06/20/19 08:19 Dose: 0.5 mg Nitroglycerin (Nitrostat) 0.4 mg SL ASDIRECTED PRN PRN Reason: Chest Pain Omeprazole (Omeprazole) 20 mg PO ACBREAKFAST [facility] Last Admin: 06/20/19 08:19 Dose: 20 mg Ondansetron HCl (Zofran Odt) 4 mg PO Q4H PRN PRN Reason: nausea, able to take PO Ondansetron HCl (Zofran) 4 mg IVPUSH Q4H PRN PRN Reason: Nausea/Vomiting Last Admin: 06/12/19 23:07 Dose: 4 mg Ticagrelor 90 Mg 1 each PO BID [facility] Last Admin: 06/20/19 08:20 Dose: 1 each Scopolamine (Transderm-Scop) 1.5 mg TRDERM ONARRIVE [facility] Sodium Chloride (Saline Flush) 10 ml FLUSH ASDIRECTED PRN PRN Reason: Keep Vein Open Last Admin: 06/20/19 04:29 Dose: 10 ml Sodium Chloride (Saline Flush) 2.5 ml FLUSH ASDIRECTED PRN PRN Reason: Keep Vein Open Last Admin: 06/12/19 10:39 Dose: 2.5 ml Sodium Chloride (Normal Saline) 10 ml IV ASDIRECTED PRN PRN Reason: IV Use Sodium Phosphate (Neutra-Phos) 250 mg PO QID [facility] Stop: 06/21/19 06:01 Trazodone HCl (Trazodone) 100 mg PO BEDTIME [facility] Last Admin: 06/19/19 21:56 Dose: 100 mg Discontinued Medications Hydrocodone Bitart/Acetaminophen ([place] 325-5 Mg) 2 tab PO Q4H PRN PRN Reason: Pain (moderate 4-6) Atorvastatin Calcium (Lipitor) 20 mg PO BEDTIME [facility] Last Admin: 06/17/19 20:36 Dose: 20 mg Cefazolin Sodium (Ancef) Confirm Administered Dose 2 gm .ROUTE .STK-MED ONE Stop: 06/17/19 11:34 Esmolol HCl (Esmolol) Confirm Administered Dose 100 mg .ROUTE .STK-MED ONE Stop: 06/17/19 13:29 Fentanyl (Sublimaze) Confirm Administered Dose 100 mcg .ROUTE .STK-MED ONE Stop: 06/17/19 09:04 Furosemide (Lasix) 40 mg IVPUSH NOW ONE Stop: 06/19/19 11:33 Last Admin: 06/19/19 11:46 Dose: 40 mg Heparin Sodium (Porcine) (Heparin Sodium) 5,000 units SUBCUT Q8H [facility] Last Admin: 06/14/19 17:42 Dose: 5,000 units Heparin Sodium (Porcine) (Heparin Sodium) 5,000 units SUBCUT Q8H [facility] Stop: 06/16/19 23:00 Last Admin: 06/16/19 16:13 Dose: 5,000 units Hydromorphone HCl (Dilaudid) 1 mg IVPUSH NOW STA Stop: 06/12/19 10:26 Last Admin: 06/12/19 10:37 Dose: 1 mg Hydromorphone HCl (Dilaudid) 1 mg IVPUSH ONETIME ONE Stop: 06/12/19 11:16 Last Admin: 06/12/19 11:23 Dose: 1 mg Hydromorphone HCl (Dilaudid) 1 mg IVPUSH ONETIME ONE Stop: 06/12/19 12:39 Last Admin: 06/12/19 12:42 Dose: 1 mg Hydromorphone HCl (Dilaudid) 0.5 mg IVPUSH Q4H PRN PRN Reason: Pain Hydromorphone HCl (Dilaudid) 1 mg IVPUSH ONETIME ONE Stop: 06/13/19 17:36 Last Admin: 06/13/19 17:53 Dose: 1 mg Hydromorphone HCl (Dilaudid) 0.5 mg IVPUSH Q4H PRN PRN Reason: Other Last Admin: 06/17/19 10:37 Dose: 0.5 mg Hydromorphone HCl (Dilaudid) 2 mg IVPUSH ONETIME ONE Stop: 06/14/19 17:01 Last Admin: 06/14/19 17:10 Dose: 2 mg Cefazolin Sodium/Dextrose 2 gm (/ Premix) 50 mls @ 100 mls/hr IV ONCALL [facility] Lactated Ringer's (Ringers, Lactated) 1,000 mls @ 100 mls/hr IV ASDIRECTED [facility] Last Admin: 06/13/19 09:27 Dose: 100 mls/hr Tranexamic Acid 2,000 mg/ (Sodium Chloride) 120 mls @ 360 mls/hr IV ASDIRECTED ONE Stop: 06/12/19 13:26 Famotidine 40 mg/ Sodium (Chloride) 10 mls @ 300 mls/hr IV ONETIME ONE Stop: 06/12/19 13:31 Sodium Chloride (Normal Saline) 500 mls @ 999 mls/hr IV .BOLUS [facility] Last Admin: 06/12/19 14:43 Dose: 999 mls/hr Lactated Ringer's (Ringers, Lactated) 1,000 mls @ 75 mls/hr IV ASDIRECTED [facility] Last Admin: 06/14/19 23:54 Dose: 75 mls/hr Cefazolin Sodium/Dextrose 2 gm (/ Premix) 50 mls @ 100 mls/hr IV ONETIME ONE Stop: 06/17/19 20:29 Last Admin: 06/17/19 20:09 Dose: 100 mls/hr Lactated Ringer's (Ringers, Lactated) 1,000 mls @ 999 mls/hr IV .BOLUS ONE Stop: 06/18/19 10:42 Last Admin: 06/18/19 09:52 Dose: 999 mls/hr Pantoprazole Sodium 40 mg/ (Sodium Chloride) 10 mls @ 300 mls/hr IV NOW ONE Stop: 06/19/19 04:36 Last Admin: 06/19/19 04:55 Dose: 300 mls/hr Ketorolac Tromethamine (Toradol) 15 mg IVPUSH Q6H PRN PRN Reason: Pain Last Admin: 06/14/19 01:32 Dose: 15 mg Lidocaine (Lidoderm 5%) 700 mg TOP Q24H [facility] Last Admin: 06/19/19 07:26 Dose: Not Given Lidocaine (Xylocaine-Mpf 2%) Confirm Administered Dose 5 ml .ROUTE .STK-MED ONE Stop: 06/17/19 09:04 Midazolam HCl (Versed 1 Mg/Ml) Confirm Administered Dose 2 mg .ROUTE .STK-MED ONE Stop: 06/17/19 09:04 Morphine Sulfate (Morphine) 2 mg IVPUSH Q2H PRN PRN Reason: Pain (severe 7-10) Stop: 06/13/19 13:32 Last Admin: 06/13/19 12:53 Dose: 2 mg Ondansetron HCl (Zofran) 4 mg IVPUSH ONETIME ONE Stop: 06/12/19 10:27 Last Admin: 06/12/19 10:36 Dose: 4 mg Ondansetron HCl (Zofran) Confirm Administered Dose 4 mg .ROUTE .STK-MED ONE Stop: 06/17/19 14:21 Phenylephrine HCl (Eber-Synephrine) Confirm Administered Dose 10 mg .ROUTE .STK- MED ONE Stop: 06/17/19 09:05 Phenylephrine HCl (Eber-Synephrine) Confirm Administered Dose 10 mg .ROUTE .STK- MED ONE Stop: 06/17/19 12:53 Phenylephrine HCl (Eber-Synephrine) Confirm Administered Dose 10 mg .ROUTE .STK- MED ONE Stop: 06/17/19 13:40 Phenylephrine HCl (Phenylephrine In Ns 100 Mcg/Ml) Confirm Administered Dose 1 mg .ROUTE .STK-MED ONE Stop: 06/17/19 13:55 Propofol (Diprivan 20 Ml) Confirm Administered Dose 400 mg .ROUTE .STK-MED ONE Stop: 06/17/19 09:04 Propofol (Diprivan 20 Ml) Confirm Administered Dose 200 mg .ROUTE .STK-MED ONE Stop: 06/17/19 12:30 Propofol (Diprivan 20 Ml) Confirm Administered Dose 200 mg .ROUTE .STK-MED ONE Stop: 06/17/19 13:21 Tamsulosin HCl (Flomax) 0.4 mg PO PCBREAKFAST [facility] Last Admin: 06/17/19 09:12 Dose: Not Given Tranexamic Acid (Cyklokapron) Confirm Administered Dose 1,000 mg .ROUTE .STK- MED ONE Stop: 06/17/19 09:45 Vancomycin HCl (Vancomycin) Confirm Administered Dose 1 gm .ROUTE .STK-MED ONE Stop: 06/17/19 13:37 Vasopressin (Vasopressin) Confirm Administered Dose 20 units .ROUTE .STK-MED ONE Stop: 06/17/19 13:46 Vasopressin (Vasopressin) Confirm Administered Dose 20 units .ROUTE .STK-MED ONE Stop: 06/17/19 14:21 - Exam Quality Assessment: Supplemental Oxygen, DVT Prophylaxis General: Alert, Oriented, Cooperative, Mild Distress HEENT: Pupils Equal, Pupils Reactive, EOMI, Mucous Membr. Moist/[place] Neck: Supple, Trachea Midline Lungs: Normal Respiratory Effort GI/Abdominal Exam: No Distention Extremities: Joint Swelling, Leg Pain Peripheral Pulses: 2+: Dorsalis Pedis (L) Skin: Warm, Dry, Intact Wound/Incisions: Healing Well, Dressing Dry and Intact, No Drainage Neurological: No New Focal Deficit Psy/Mental Status: Alert, Normal Affect, Normal Mood - Problem List & Annotations (1) Femur fracture SNOMED Code(s): 73123375 Code(s): S72.90XA - UNSP FRACTURE OF UNSP FEMUR, INIT ENCNTR FOR CLOSED FRACTURE Status: Acute Current Visit: Yes Qualifiers: Encounter type: initial encounter Femur location: shaft Fracture type: closed Fracture morphology: spiral Fracture alignment: displaced Laterality: left Qualified Code(s): S72.342A - Displaced spiral fracture of shaft of left femur, initial encounter for closed fracture - Problem List Review Problem List Initiated/Reviewed/Updated: Yes - Plan Plan:: Assessment and Plan: 74 yo male POD 2 left femur periprosthetic orif pt/ot/pain control/restart dvt prophylaxis Dr. Jones plans to diurese patient today and monitor H/H f/u three weeks post op in clinic for XR and staple removal
--- NOTE | 2019-06-20 10:29 | PN ---
THC Physician - Brief Progress [id number]/09/2019 10:22[facility] - MWN (LUIS ENRIQUE) - MWN OLIVIERANGELIA GONZALEZJoseDate of Service 06/20/2019 10:22HPI/Events of Note eICU Progress [id number] admitted for post-surgical monitoring. History obtained primarily from review of EMR.Camera exam: Laying in bed. Vitals monitor reviewed.Vitals: reviewedLabs: reviewedRadio logy: reviewedMeds: reviewedeICU Impression and Recommendations:Status post femoral fracture repairHy potension, resolvedDiscontinuation of vasopressin, as it appears to be off since 06/18 per med documen tationIncentive spirometry q1h while awake, to target goal for patientxs heightPain control per prima ry and surgical services, we are available to assist if desiredPhysical therapy evaluation, taking pa tient out of bed to chair, and ambulation initiation per primary and surgical servicesDVT and GI prop hylaxis as appropriate.We are available to assist in further clarification, or implementation of any of the above recommendations if desired by primary service.Thank you for allowing us to participate i n the care of this patient.The above note transcribed via dictation software. Please excuse any error s.Interventions Major-Hypotension - evaluation and management
[2019-06-20] MEDS: Phosphorus #1 250 MG Tab PO SCH ×3 (11:43→23:30)
--- NOTE | 2019-06-20 12:08 | CR ---
EXAM DATE: 06/12/19 PATIENT'S AGE: 74 Femur: Multiple fluoroscopic spot views of the femur were obtained. Side of exam was not marked on the study. Knee prosthesis is noted. Orthopedic stem or short kiela is noted within the proximal femur which is not included completely. Plate and screws are noted within the femur which appear to affix a femoral shaft fracture. Fluoroscopy time is given as 59.35 seconds Impression: 1. Procedural study as noted above. Diagnostic code #2 Study was dictated in [place] [employer] Time Report Signed by Proxy. [email or web address]
--- NOTE | 2019-06-20 13:16 | PCM.PN ---
<Steven Jones M - Last Filed: 06/20/19 13:08> - General Info Date of Service: 06/20/19 Subjective Update: No shortness of breath, chest pain, nausea or vomiting. Reports having bowel movement yesterday. - Patient Data Vitals - Most Recent: Last Vital Signs Temp 98.5 F 06/20/19 07:52 Pulse 106 H 06/20/19 10:00 Resp 21 H 06/20/19 10:00 BP 124/60 06/20/19 10:00 Pulse Ox 92 L 06/20/19 10:00 Weight - Most Recent: 125.736 kg I&O - Last 24 Hours: Intake & Output 06/19/19 06/20/19 06/20/19 22:59 06:59 14:59 Intake Total 960 260 Output Total 2100 900 Balance -1140 -640 Lab Results Last 24 Hours: Laboratory Results - last 24 hr 06/19/19 06/19/19 06/20/19 Range/Units 14:06 17:02 05:30 WBC 9.09 (4.0-11.0) K/uL RBC 2.81 L (4.50-5.90) M/uL Hgb 8.9 L 8.5 L (13.0-17.0) g/dL Hct 26.3 L 25.4 L (38.0-50.0) % MCV 90.4 (80.0-98.0) fL MCH 30.2 (27.0-32.0) pg MCHC 33.5 (31.0-37.0) g/dL RDW Std Deviation 46.9 (28.0-62.0) fl RDW Coeff of Adriana 14 (11.0-15.0) % Plt Count 205 (150-400) K/uL MPV 10.00 (7.40-12.00) fL Neut % (Auto) 72.3 (48.0-80.0) % Lymph % (Auto) 13.0 L (16.0-40.0) % [place] % (Auto) 12.8 (0.0-15.0) % Eos % (Auto) 1.5 (0.0-7.0) % Baso % (Auto) 0.4 (0.0-1.5) % Neut # (Auto) 6.6 H (1.4-5.7) K/uL Lymph # (Auto) 1.2 (0.6-2.4) K/uL [place] # (Auto) 1.2 H (0.0-0.8) K/uL Eos # (Auto) 0.1 (0.0-0.7) K/uL Baso # (Auto) 0.0 (0.0-0.1) K/uL Nucleated RBC % 1.4 /100WBC Nucleated RBCs # 0 K/uL Sodium (136-148) mmol/L Potassium (3.5-5.1) mmol/L Chloride (98-107) mmol/L Carbon Dioxide (21.0-32.0) mmol/L BUN (7.0-18.0) mg/dL Creatinine (0.8-1.3) mg/dL Est Cr Clr Drug Dosing mL/min Estimated GFR (MDRD) ml/min Glucose (74-106) mg/dL POC Glucose 206 H (60-110) mg/dL Calcium (8.5-10.1) mg/dL Phosphorus (2.6-4.7) mg/dL Magnesium (1.8-2.4) mg/dL 06/20/19 06/20/19 Range/Units 05:30 07:02 WBC (4.0-11.0) K/uL RBC (4.50-5.90) M/uL Hgb (13.0-17.0) g/dL Hct (38.0-50.0) % MCV (80.0-98.0) fL MCH (27.0-32.0) pg MCHC (31.0-37.0) g/dL RDW Std Deviation (28.0-62.0) fl RDW Coeff of Adriana (11.0-15.0) % Plt Count (150-400) K/uL MPV (7.40-12.00) fL Neut % (Auto) (48.0-80.0) % Lymph % (Auto) (16.0-40.0) % [place] % (Auto) (0.0-15.0) % Eos % (Auto) (0.0-7.0) % Baso % (Auto) (0.0-1.5) % Neut # (Auto) (1.4-5.7) K/uL Lymph # (Auto) (0.6-2.4) K/uL [place] # (Auto) (0.0-0.8) K/uL Eos # (Auto) (0.0-0.7) K/uL Baso # (Auto) (0.0-0.1) K/uL Nucleated RBC % /100WBC Nucleated RBCs # K/uL Sodium 132 L (136-148) mmol/L Potassium 4.1 (3.5-5.1) mmol/L Chloride 98 (98-107) mmol/L Carbon Dioxide 30.4 (21.0-32.0) mmol/L BUN 13 (7.0-18.0) mg/dL Creatinine 0.7 L (0.8-1.3) mg/dL Est Cr Clr Drug Dosing 114.91 mL/min Estimated GFR (MDRD) > 60.0 ml/min Glucose 140 H (74-106) mg/dL POC Glucose 148 H (60-110) mg/dL Calcium 7.6 L (8.5-10.1) mg/dL Phosphorus 1.9 L (2.6-4.7) mg/dL Magnesium 1.8 (1.8-2.4) mg/dL Med Orders - Current: Current Medications Acetaminophen (Tylenol Extra Strength) 500 mg PO Q6H PRN PRN Reason: Pain Last Admin: 06/19/19 16:46 Dose: 500 mg Hydrocodone Bitart/Acetaminophen ([place] 325-5 Mg) 1 tab PO Q4H PRN PRN Reason: Other Last Admin: 06/20/19 06:29 Dose: 1 tab Al Hydroxide/Mg Hydroxide (Mag-Al Plus) 30 ml PO Q4H PRN PRN Reason: Heartburn Last Admin: 06/19/19 02:28 Dose: 30 ml Albuterol/Ipratropium (Duoneb 3.0-0.5 Mg/3 Ml) 3 ml NEB Q4HRRT PRN PRN Reason: Shortness Of Breath/wheezing Last Admin: 06/14/19 00:36 Dose: 3 ml Aspirin (Aspirin) 81 mg PO DAILY [facility] Last Admin: 06/20/19 08:19 Dose: 81 mg Atorvastatin Calcium (Lipitor) 20 mg PO BEDTIME [facility] Last Admin: 06/19/19 21:03 Dose: 20 mg Bisacodyl (Dulcolax) 10 mg RECTAL DAILY PRN PRN Reason: Constipation Last Admin: 06/17/19 22:50 Dose: 10 mg Docusate Sodium (Colace) 100 mg PO BID [facility] Last Admin: 06/20/19 08:20 Dose: 100 mg Gabapentin (Neurontin) 300 mg PO TID [facility] Last Admin: 06/20/19 06:29 Dose: 300 mg Hydromorphone HCl (Dilaudid) 0.5 mg IVPUSH Q4H PRN PRN Reason: Other Last Admin: 06/20/19 08:54 Dose: 0.5 mg Hydroxyzine Pamoate (Vistaril) 25 mg PO Q6H [facility] Last Admin: 06/20/19 08:19 Dose: 25 mg Lactated Ringer's (Ringers, Lactated) 1,000 mls @ 75 mls/hr IV ASDIRECTED [facility] Last Admin: 06/17/19 21:12 Dose: 75 mls/hr Ropivacaine 49.25 ml/Ketorolac Tromethamine 30 mg/Epinephrine HCl 0.5 mg/ Clonidine HCl 80 mcg/ Sodium Chloride 75 mls @ 50 mls/sec INJECT ASDIRECTED [facility] Cefazolin Sodium/Dextrose 2 gm (/ Premix) 50 mls @ 100 mls/hr IV ONCALL [facility] Vasopressin 100 units/ Sodium (Chloride) 100 mls @ 0.6 mls/hr IV TITRATE [facility]; Protocol Last Titration: 06/18/19 11:10 Dose: 0 units/min, 0 mls/hr Insulin Aspart (Novolog) 0 unit SUBCUT TIDAC [facility]; Protocol Last Admin: 06/20/19 11:47 Dose: 2 units Insulin Glargine (Lantus Solostar) 8 units SUBCUT DAILY [facility] Last Admin: 06/20/19 08:42 Dose: 8 units Lorazepam (Ativan) 0.5 mg PO DAILY [facility] Last Admin: 06/20/19 08:19 Dose: 0.5 mg Nitroglycerin (Nitrostat) 0.4 mg SL ASDIRECTED PRN PRN Reason: Chest Pain Omeprazole (Omeprazole) 20 mg PO ACBREAKFAST [facility] Last Admin: 06/20/19 08:19 Dose: 20 mg Ondansetron HCl (Zofran Odt) 4 mg PO Q4H PRN PRN Reason: nausea, able to take PO Ondansetron HCl (Zofran) 4 mg IVPUSH Q4H PRN PRN Reason: Nausea/Vomiting Last Admin: 06/12/19 23:07 Dose: 4 mg Ticagrelor 90 Mg 1 each PO BID [facility] Last Admin: 06/20/19 08:20 Dose: 1 each Scopolamine (Transderm-Scop) 1.5 mg TRDERM ONARRIVE [facility] Sodium Chloride (Saline Flush) 10 ml FLUSH ASDIRECTED PRN PRN Reason: Keep Vein Open Last Admin: 06/20/19 04:29 Dose: 10 ml Sodium Chloride (Saline Flush) 2.5 ml FLUSH ASDIRECTED PRN PRN Reason: Keep Vein Open Last Admin: 06/12/19 10:39 Dose: 2.5 ml Sodium Chloride (Normal Saline) 10 ml IV ASDIRECTED PRN PRN Reason: IV Use Sodium Phosphate (Neutra-Phos) 250 mg PO QID [facility] Stop: 06/21/19 06:01 Last Admin: 06/20/19 11:43 Dose: 250 mg Trazodone HCl (Trazodone) 100 mg PO BEDTIME [facility] Last Admin: 06/19/19 21:56 Dose: 100 mg Discontinued Medications Hydrocodone Bitart/Acetaminophen ([place] 325-5 Mg) 2 tab PO Q4H PRN PRN Reason: Pain (moderate 4-6) Atorvastatin Calcium (Lipitor) 20 mg PO BEDTIME [facility] Last Admin: 06/17/19 20:36 Dose: 20 mg Cefazolin Sodium (Ancef) Confirm Administered Dose 2 gm .ROUTE .STK-MED ONE Stop: 06/17/19 11:34 Esmolol HCl (Esmolol) Confirm Administered Dose 100 mg .ROUTE .STK-MED ONE Stop: 06/17/19 13:29 Fentanyl (Sublimaze) Confirm Administered Dose 100 mcg .ROUTE .STK-MED ONE Stop: 06/17/19 09:04 Furosemide (Lasix) 40 mg IVPUSH NOW ONE Stop: 06/19/19 11:33 Last Admin: 06/19/19 11:46 Dose: 40 mg Heparin Sodium (Porcine) (Heparin Sodium) 5,000 units SUBCUT Q8H [facility] Last Admin: 06/14/19 17:42 Dose: 5,000 units Heparin Sodium (Porcine) (Heparin Sodium) 5,000 units SUBCUT Q8H [facility] Stop: 06/16/19 23:00 Last Admin: 06/16/19 16:13 Dose: 5,000 units Hydromorphone HCl (Dilaudid) 1 mg IVPUSH NOW STA Stop: 06/12/19 10:26 Last Admin: 06/12/19 10:37 Dose: 1 mg Hydromorphone HCl (Dilaudid) 1 mg IVPUSH ONETIME ONE Stop: 06/12/19 11:16 Last Admin: 06/12/19 11:23 Dose: 1 mg Hydromorphone HCl (Dilaudid) 1 mg IVPUSH ONETIME ONE Stop: 06/12/19 12:39 Last Admin: 06/12/19 12:42 Dose: 1 mg Hydromorphone HCl (Dilaudid) 0.5 mg IVPUSH Q4H PRN PRN Reason: Pain Hydromorphone HCl (Dilaudid) 1 mg IVPUSH ONETIME ONE Stop: 06/13/19 17:36 Last Admin: 06/13/19 17:53 Dose: 1 mg Hydromorphone HCl (Dilaudid) 0.5 mg IVPUSH Q4H PRN PRN Reason: Other Last Admin: 06/17/19 10:37 Dose: 0.5 mg Hydromorphone HCl (Dilaudid) 2 mg IVPUSH ONETIME ONE Stop: 06/14/19 17:01 Last Admin: 06/14/19 17:10 Dose: 2 mg Cefazolin Sodium/Dextrose 2 gm (/ Premix) 50 mls @ 100 mls/hr IV ONCALL [facility] Lactated Ringer's (Ringers, Lactated) 1,000 mls @ 100 mls/hr IV ASDIRECTED [facility] Last Admin: 06/13/19 09:27 Dose: 100 mls/hr Tranexamic Acid 2,000 mg/ (Sodium Chloride) 120 mls @ 360 mls/hr IV ASDIRECTED ONE Stop: 06/12/19 13:26 Famotidine 40 mg/ Sodium (Chloride) 10 mls @ 300 mls/hr IV ONETIME ONE Stop: 06/12/19 13:31 Sodium Chloride (Normal Saline) 500 mls @ 999 mls/hr IV .BOLUS [facility] Last Admin: 06/12/19 14:43 Dose: 999 mls/hr Lactated Ringer's (Ringers, Lactated) 1,000 mls @ 75 mls/hr IV ASDIRECTED [facility] Last Admin: 06/14/19 23:54 Dose: 75 mls/hr Cefazolin Sodium/Dextrose 2 gm (/ Premix) 50 mls @ 100 mls/hr IV ONETIME ONE Stop: 06/17/19 20:29 Last Admin: 06/17/19 20:09 Dose: 100 mls/hr Lactated Ringer's (Ringers, Lactated) 1,000 mls @ 999 mls/hr IV .BOLUS ONE Stop: 06/18/19 10:42 Last Admin: 06/18/19 09:52 Dose: 999 mls/hr Pantoprazole Sodium 40 mg/ (Sodium Chloride) 10 mls @ 300 mls/hr IV NOW ONE Stop: 06/19/19 04:36 Last Admin: 06/19/19 04:55 Dose: 300 mls/hr Ketorolac Tromethamine (Toradol) 15 mg IVPUSH Q6H PRN PRN Reason: Pain Last Admin: 06/14/19 01:32 Dose: 15 mg Lidocaine (Lidoderm 5%) 700 mg TOP Q24H [facility] Last Admin: 06/19/19 07:26 Dose: Not Given Lidocaine (Xylocaine-Mpf 2%) Confirm Administered Dose 5 ml .ROUTE .STK-MED ONE Stop: 06/17/19 09:04 Midazolam HCl (Versed 1 Mg/Ml) Confirm Administered Dose 2 mg .ROUTE .STK-MED ONE Stop: 06/17/19 09:04 Morphine Sulfate (Morphine) 2 mg IVPUSH Q2H PRN PRN Reason: Pain (severe 7-10) Stop: 06/13/19 13:32 Last Admin: 06/13/19 12:53 Dose: 2 mg Ondansetron HCl (Zofran) 4 mg IVPUSH ONETIME ONE Stop: 06/12/19 10:27 Last Admin: 06/12/19 10:36 Dose: 4 mg Ondansetron HCl (Zofran) Confirm Administered Dose 4 mg .ROUTE .STK-MED ONE Stop: 06/17/19 14:21 Phenylephrine HCl (Eber-Synephrine) Confirm Administered Dose 10 mg .ROUTE .STK- MED ONE Stop: 06/17/19 09:05 Phenylephrine HCl (Eber-Synephrine) Confirm Administered Dose 10 mg .ROUTE .STK- MED ONE Stop: 06/17/19 12:53 Phenylephrine HCl (Eber-Synephrine) Confirm Administered Dose 10 mg .ROUTE .STK- MED ONE Stop: 06/17/19 13:40 Phenylephrine HCl (Phenylephrine In Ns 100 Mcg/Ml) Confirm Administered Dose 1 mg .ROUTE .STK-MED ONE Stop: 06/17/19 13:55 Propofol (Diprivan 20 Ml) Confirm Administered Dose 400 mg .ROUTE .STK-MED ONE Stop: 06/17/19 09:04 Propofol (Diprivan 20 Ml) Confirm Administered Dose 200 mg .ROUTE .STK-MED ONE Stop: 06/17/19 12:30 Propofol (Diprivan 20 Ml) Confirm Administered Dose 200 mg .ROUTE .STK-MED ONE Stop: 06/17/19 13:21 Tamsulosin HCl (Flomax) 0.4 mg PO PCBREAKFAST [facility] Last Admin: 06/17/19 09:12 Dose: Not Given Tranexamic Acid (Cyklokapron) Confirm Administered Dose 1,000 mg .ROUTE .STK- MED ONE Stop: 06/17/19 09:45 Vancomycin HCl (Vancomycin) Confirm Administered Dose 1 gm .ROUTE .STK-MED ONE Stop: 06/17/19 13:37 Vasopressin (Vasopressin) Confirm Administered Dose 20 units .ROUTE .STK-MED ONE Stop: 06/17/19 13:46 Vasopressin (Vasopressin) Confirm Administered Dose 20 units .ROUTE .STK-MED ONE Stop: 06/17/19 14:21 - Exam General: Alert, Oriented, Cooperative, No Acute Distress Lungs: Clear to Auscultation, Normal Respiratory Effort Cardiovascular: Regular Rate, Regular Rhythm GI/Abdominal Exam: Normal Bowel Sounds, Soft, Non-Tender, No Distention Extremities: Other (Dressings on LLE c/d/i.) - Problem List Review Problem List Initiated/Reviewed/Updated: Yes - My Orders Last 24 Hours: My Active Orders 06/20/19 12:00 Phosphorus #1 [Neutra-Phos] 250 mg PO QID 06/21/19 05:11 CBC WITH AUTO DIFF [HEME] AM COMPREHENSIVE METABOLIC PN,CMP [CHEM] AM MAGNESIUM [CHEM] AM PHOSPHORUS [CHEM] AM - Plan Plan:: Assessment and Plan: 1. Left femur fracture s/p fracture repair POD#3. Brilinta has been resumed. Per orthopedic surgery, PT/OT and pain control. Will downgrade patient to general medical floor today. 2. Acute normocytic anemia s/p transfusion 6 units PRBC's. Hemoglobin stable this AM. Will continue to monitor. 3. History of CAD s/p CABG, stents x 6,: Cont ASA and Brilinta. 4. HFpEF: Stable. 5. PMH of HTN, COPD and DM type II: continue home medications. 6. Per case management: Patient accepted to [facility] on discharge. <Estevan Jones - Last Filed: 06/25/19 20:56> - Patient Data Vitals - Most Recent: Last Vital Signs Temp 36.6 C 06/22/19 12:00 Pulse 92 06/22/19 12:00 Resp 16 06/22/19 12:00 BP 115/60 06/22/19 12:00 Pulse Ox 95 06/22/19 12:00 Med Orders - Current: Current Medications Discontinued Medications Acetaminophen (Tylenol Extra Strength) 500 mg PO Q6H PRN PRN Reason: Pain Last Admin: 06/21/19 07:39 Dose: 500 mg Hydrocodone Bitart/Acetaminophen ([place] 325-5 Mg) 2 tab PO Q4H PRN PRN Reason: Pain (moderate 4-6) Hydrocodone Bitart/Acetaminophen ([place] 325-5 Mg) 1 tab PO Q4H PRN PRN Reason: Other Last Admin: 06/22/19 13:57 Dose: 1 tab Al Hydroxide/Mg Hydroxide (Mag-Al Plus) 30 ml PO Q4H PRN PRN Reason: Heartburn Last Admin: 06/19/19 02:28 Dose: 30 ml Albuterol/Ipratropium (Duoneb 3.0-0.5 Mg/3 Ml) 3 ml NEB Q4HRRT PRN PRN Reason: Shortness Of Breath/wheezing Last Admin: 06/14/19 00:36 Dose: 3 ml Aspirin (Aspirin) 81 mg PO DAILY [facility] Last Admin: 06/22/19 09:04 Dose: 81 mg Atorvastatin Calcium (Lipitor) 20 mg PO BEDTIME [facility] Last Admin: 06/17/19 20:36 Dose: 20 mg Atorvastatin Calcium (Lipitor) 20 mg PO BEDTIME [facility] Last Admin: 06/21/19 20:22 Dose: 20 mg Bisacodyl (Dulcolax) 10 mg RECTAL DAILY PRN PRN Reason: Constipation Last Admin: 06/17/19 22:50 Dose: 10 mg Cefazolin Sodium (Ancef) Confirm Administered Dose 2 gm .ROUTE .STK-MED ONE Stop: 06/17/19 11:34 Docusate Sodium (Colace) 100 mg PO BID [facility] Last Admin: 06/22/19 09:05 Dose: 100 mg Esmolol HCl (Esmolol) Confirm Administered Dose 100 mg .ROUTE .STK-MED ONE Stop: 06/17/19 13:29 Fentanyl (Sublimaze) Confirm Administered Dose 100 mcg .ROUTE .STK-MED ONE Stop: 06/17/19 09:04 Furosemide (Lasix) 40 mg IVPUSH NOW ONE Stop: 06/19/19 11:33 Last Admin: 06/19/19 11:46 Dose: 40 mg Gabapentin (Neurontin) 300 mg PO TID [facility] Last Admin: 06/22/19 13:57 Dose: 300 mg Heparin Sodium (Porcine) (Heparin Sodium) 5,000 units SUBCUT Q8H [facility] Last Admin: 06/14/19 17:42 Dose: 5,000 units Heparin Sodium (Porcine) (Heparin Sodium) 5,000 units SUBCUT Q8H [facility] Stop: 06/16/19 23:00 Last Admin: 06/16/19 16:13 Dose: 5,000 units Hydromorphone HCl (Dilaudid) 1 mg IVPUSH NOW STA Stop: 06/12/19 10:26 Last Admin: 06/12/19 10:37 Dose: 1 mg Hydromorphone HCl (Dilaudid) 1 mg IVPUSH ONETIME ONE Stop: 06/12/19 11:16 Last Admin: 06/12/19 11:23 Dose: 1 mg Hydromorphone HCl (Dilaudid) 1 mg IVPUSH ONETIME ONE Stop: 06/12/19 12:39 Last Admin: 06/12/19 12:42 Dose: 1 mg Hydromorphone HCl (Dilaudid) 0.5 mg IVPUSH Q4H PRN PRN Reason: Pain Hydromorphone HCl (Dilaudid) 1 mg IVPUSH ONETIME ONE Stop: 06/13/19 17:36 Last Admin: 06/13/19 17:53 Dose: 1 mg Hydromorphone HCl (Dilaudid) 0.5 mg IVPUSH Q4H PRN PRN Reason: Other Last Admin: 06/17/19 10:37 Dose: 0.5 mg Hydromorphone HCl (Dilaudid) 2 mg IVPUSH ONETIME ONE Stop: 06/14/19 17:01 Last Admin: 06/14/19 17:10 Dose: 2 mg Hydromorphone HCl (Dilaudid) 0.5 mg IVPUSH Q4H PRN PRN Reason: Other Last Admin: 06/20/19 08:54 Dose: 0.5 mg Hydroxyzine Pamoate (Vistaril) 25 mg PO Q6H [facility] Last Admin: 06/22/19 13:57 Dose: 25 mg Cefazolin Sodium/Dextrose 2 gm (/ Premix) 50 mls @ 100 mls/hr IV ONCALL [facility] Lactated Ringer's (Ringers, Lactated) 1,000 mls @ 100 mls/hr IV ASDIRECTED [facility] Last Admin: 06/13/19 09:27 Dose: 100 mls/hr Tranexamic Acid 2,000 mg/ (Sodium Chloride) 120 mls @ 360 mls/hr IV ASDIRECTED ONE Stop: 06/12/19 13:26 Famotidine 40 mg/ Sodium (Chloride) 10 mls @ 300 mls/hr IV ONETIME ONE Stop: 06/12/19 13:31 Sodium Chloride (Normal Saline) 500 mls @ 999 mls/hr IV .BOLUS [facility] Last Admin: 06/12/19 14:43 Dose: 999 mls/hr Lactated Ringer's (Ringers, Lactated) 1,000 mls @ 75 mls/hr IV ASDIRECTED [facility] Last Admin: 06/14/19 23:54 Dose: 75 mls/hr Lactated Ringer's (Ringers, Lactated) 1,000 mls @ 75 mls/hr IV ASDIRECTED [facility] Last Admin: 06/17/19 21:12 Dose: 75 mls/hr Ropivacaine 49.25 ml/Ketorolac Tromethamine 30 mg/Epinephrine HCl 0.5 mg/ Clonidine HCl 80 mcg/ Sodium Chloride 75 mls @ 50 mls/sec INJECT ASDIRECTED [facility] Cefazolin Sodium/Dextrose 2 gm (/ Premix) 50 mls @ 100 mls/hr IV ONCALL [facility] Cefazolin Sodium/Dextrose 2 gm (/ Premix) 50 mls @ 100 mls/hr IV ONETIME ONE Stop: 06/17/19 20:29 Last Admin: 06/17/19 20:09 Dose: 100 mls/hr Vasopressin 100 units/ Sodium (Chloride) 100 mls @ 0.6 mls/hr IV TITRATE [facility]; Protocol Last Titration: 06/18/19 11:10 Dose: 0 units/min, 0 mls/hr Lactated Ringer's (Ringers, Lactated) 1,000 mls @ 999 mls/hr IV .BOLUS ONE Stop: 06/18/19 10:42 Last Admin: 06/18/19 09:52 Dose: 999 mls/hr Pantoprazole Sodium 40 mg/ (Sodium Chloride) 10 mls @ 300 mls/hr IV NOW ONE Stop: 06/19/19 04:36 Last Admin: 06/19/19 04:55 Dose: 300 mls/hr Insulin Aspart (Novolog) 0 unit SUBCUT TIDAC [facility]; Protocol Last Admin: 06/22/19 12:50 Dose: 4 units Insulin Glargine (Lantus Solostar) 8 units SUBCUT DAILY [facility] Last Admin: 06/22/19 09:10 Dose: 8 units Ketorolac Tromethamine (Toradol) 15 mg IVPUSH Q6H PRN PRN Reason: Pain Last Admin: 06/14/19 01:32 Dose: 15 mg Lidocaine (Lidoderm 5%) 700 mg TOP Q24H [facility] Last Admin: 06/19/19 07:26 Dose: Not Given Lidocaine (Xylocaine-Mpf 2%) Confirm Administered Dose 5 ml .ROUTE .STK-MED ONE Stop: 06/17/19 09:04 Lorazepam (Ativan) 0.5 mg PO DAILY [facility] Last Admin: 06/22/19 09:05 Dose: 0.5 mg Magnesium Hydroxide (Milk Of Magnesia) 30 ml PO ONETIME ONE Stop: 06/21/19 09:31 Last Admin: 06/21/19 10:48 Dose: 30 ml Midazolam HCl (Versed 1 Mg/Ml) Confirm Administered Dose 2 mg .ROUTE .STK-MED ONE Stop: 06/17/19 09:04 Morphine Sulfate (Morphine) 2 mg IVPUSH Q2H PRN PRN Reason: Pain (severe 7-10) Stop: 06/13/19 13:32 Last Admin: 06/13/19 12:53 Dose: 2 mg Nitroglycerin (Nitrostat) 0.4 mg SL ASDIRECTED PRN PRN Reason: Chest Pain Omeprazole (Omeprazole) 20 mg PO ACBREAKFAST [facility] Last Admin: 06/22/19 06:34 Dose: 20 mg Ondansetron HCl (Zofran) 4 mg IVPUSH ONETIME ONE Stop: 06/12/19 10:27 Last Admin: 06/12/19 10:36 Dose: 4 mg Ondansetron HCl (Zofran Odt) 4 mg PO Q4H PRN PRN Reason: nausea, able to take PO Ondansetron HCl (Zofran) 4 mg IVPUSH Q4H PRN PRN Reason: Nausea/Vomiting Last Admin: 06/12/19 23:07 Dose: 4 mg Ondansetron HCl (Zofran) Confirm Administered Dose 4 mg .ROUTE .STK-MED ONE Stop: 06/17/19 14:21 Ticagrelor 90 Mg 1 each PO BID [facility] Last Admin: 06/22/19 09:12 Dose: 1 each Phenylephrine HCl (Eber-Synephrine) Confirm Administered Dose 10 mg .ROUTE .STK- MED ONE Stop: 06/17/19 09:05 Phenylephrine HCl (Eber-Synephrine) Confirm Administered Dose 10 mg .ROUTE .STK- MED ONE Stop: 06/17/19 12:53 Phenylephrine HCl (Eber-Synephrine) Confirm Administered Dose 10 mg .ROUTE .STK- MED ONE Stop: 06/17/19 13:40 Phenylephrine HCl (Phenylephrine In Ns 100 Mcg/Ml) Confirm Administered Dose 1 mg .ROUTE .STK-MED ONE Stop: 06/17/19 13:55 Propofol (Diprivan 20 Ml) Confirm Administered Dose 400 mg .ROUTE .STK-MED ONE Stop: 06/17/19 09:04 Propofol (Diprivan 20 Ml) Confirm Administered Dose 200 mg .ROUTE .STK-MED ONE Stop: 06/17/19 12:30 Propofol (Diprivan 20 Ml) Confirm Administered Dose 200 mg .ROUTE .STK-MED ONE Stop: 06/17/19 13:21 Scopolamine (Transderm-Scop) 1.5 mg TRDERM ONARRIVE [facility] Sodium Chloride (Saline Flush) 10 ml FLUSH ASDIRECTED PRN PRN Reason: Keep Vein Open Last Admin: 06/20/19 04:29 Dose: 10 ml Sodium Chloride (Saline Flush) 2.5 ml FLUSH ASDIRECTED PRN PRN Reason: Keep Vein Open Last Admin: 06/12/19 10:39 Dose: 2.5 ml Sodium Chloride (Normal Saline) 10 ml IV ASDIRECTED PRN PRN Reason: IV Use Sodium Phosphate (Neutra-Phos) 250 mg PO QID [facility] Stop: 06/21/19 06:01 Last Admin: 06/21/19 06:46 Dose: 250 mg Tamsulosin HCl (Flomax) 0.4 mg PO [facility] Last Admin: 06/17/19 09:12 Dose: Not Given Tamsulosin HCl (Flomax) 0.4 mg PO [facility] Last Admin: 06/22/19 09:04 Dose: 0.4 mg Tranexamic Acid (Cyklokapron) Confirm Administered Dose 1,000 mg .ROUTE .STK- MED ONE Stop: 06/17/19 09:45 Trazodone HCl (Trazodone) 100 mg PO BEDTIME [facility] Last Admin: 06/21/19 20:23 Dose: 100 mg Vancomycin HCl (Vancomycin) Confirm Administered Dose 1 gm .ROUTE .STK-MED ONE Stop: 06/17/19 13:37 Vasopressin (Vasopressin) Confirm Administered Dose 20 units .ROUTE .STK-MED ONE Stop: 06/17/19 13:46 Vasopressin (Vasopressin) Confirm Administered Dose 20 units .ROUTE .STK-MED ONE Stop: 06/17/19 14:21 - Problem List & Annotations (1) CAD (coronary artery disease) SNOMED Code(s): 93469548 Code(s): I25.10 - ATHSCL HEART DISEASE OF [place] CORONARY ARTERY W/O ANG PCTRS Status: Acute (2) Femur fracture SNOMED Code(s): 91034345 Code(s): S72.90XA - UNSP FRACTURE OF UNSP FEMUR, INIT ENCNTR FOR CLOSED FRACTURE Status: Acute Qualifiers: Encounter type: initial encounter Femur location: shaft Fracture type: closed Fracture morphology: spiral Fracture alignment: displaced Laterality: left Qualified Code(s): S72.342A - Displaced spiral fracture of shaft of left femur, initial encounter for closed fracture (3) Elevated troponin SNOMED Code(s): 096251664, 277492891, 616739526 Code(s): R74.8 - ABNORMAL LEVELS OF OTHER SERUM ENZYMES Status: Acute - Plan Plan:: I have seen and evaluated the patient and agree with the residents note unless specified in my note
[2019-06-20] MEDS: atorvaSTATin 20 MG Tab PO SCH (21:52)
[2019-06-20] MEDS: traZODone 50 MG Tab PO SCH (21:52)
[2019-06-21] MEDS: Acetaminophen 500 MG Tab PO PRN ×2 (00:23→07:39)
[2019-06-21] MEDS: hydrOXYzine Pamoate 25 MG Cap PO SCH ×4 (02:22→20:22)
[2019-06-21] MEDS: Acetaminophen/HYDROcodone 325-5 MG Tab PO PRN ×2 (05:20→13:47)
[2019-06-21] MEDS: Omeprazole 20 MG Cap.CR PO SCH (06:46)
[2019-06-21] MEDS: Gabapentin 300 MG Cap PO SCH ×3 (06:46→22:29)
[2019-06-21] MEDS: Phosphorus #1 250 MG Tab PO SCH (06:46)
[2019-06-21 07:17] LABS: BLOOD UREA NITROGEN,BUN 12 mg/dL (7.0-18.0); CARBON DIOXIDE,CO2 29.1 mmol/L (21.0-32.0); CHLORIDE,CL 101 mmol/L (98-107); GLUCOSE RANDOM 130 mg/dL (74-106); POTASSIUM,K 3.9 mmol/L (3.5-5.1); SODIUM,NA 135 mmol/L (136-148)
[2019-06-21] MEDS: Insulin Aspart 100 Units/ML 3 ML Pen SUBCUT SCH ×3 (07:33→17:36)
[2019-06-21] MEDS: LORazepam 0.5 MG Tab PO SCH (09:20)
[2019-06-21] MEDS: Docusate Sodium 100 MG Cap PO SCH ×2 (09:20→20:23)
[2019-06-21] MEDS: Aspirin 81 MG Tab.Chew PO SCH (09:21)
[2019-06-21] MEDS: Insulin Glargine,Human Rec. Analog 100 Units/ML 3 ML Pen SUBCUT SCH (09:22)
[2019-06-21] MEDS ORDERED: Magnesium Hydroxide 400 MG/5 ML Susp 30 ML Cup PO ONE (09:30)
[2019-06-21] MEDS: Tamsulosin 0.4 MG Cap.ER PO SCH (10:48)
--- NOTE | 2019-06-21 11:49 | PCM.PN ---
<Steven Jones M - Last Filed: 06/21/19 11:45> - General Info Date of Service: 06/21/19 Subjective Update: Denies pain or shortness of breath at bedside this morning. Tolerating PO diet. Has not been urinating. Per nursing, patient required straight cath x2 overnight. Patient denies urge to urinate. - Patient Data Vitals - Most Recent: Last Vital Signs Temp 97.6 F 06/21/19 04:00 Pulse 84 06/21/19 04:00 Resp 18 06/21/19 04:00 BP 109/58 L 06/21/19 04:00 Pulse Ox 94 L 06/21/19 04:00 Weight - Most Recent: 128.457 kg I&O - Last 24 Hours: Intake & Output 06/20/19 06/21/19 06/21/19 22:59 06:59 14:59 Intake Total 260 Output Total 1785 1075 Balance -1525 -1075 Lab Results Last 24 Hours: Laboratory Results - last 24 hr 06/20/19 06/20/19 06/21/19 Range/Units 11:19 17:19 01:11 WBC (4.0-11.0) K/uL RBC (4.50-5.90) M/uL Hgb (13.0-17.0) g/dL Hct (38.0-50.0) % MCV (80.0-98.0) fL MCH (27.0-32.0) pg MCHC (31.0-37.0) g/dL RDW Std Deviation (28.0-62.0) fl RDW Coeff of Adriana (11.0-15.0) % Plt Count (150-400) K/uL MPV (7.40-12.00) fL Neut % (Auto) (48.0-80.0) % Lymph % (Auto) (16.0-40.0) % [place] % (Auto) (0.0-15.0) % Eos % (Auto) (0.0-7.0) % Baso % (Auto) (0.0-1.5) % Neut # (Auto) (1.4-5.7) K/uL Lymph # (Auto) (0.6-2.4) K/uL [place] # (Auto) (0.0-0.8) K/uL Eos # (Auto) (0.0-0.7) K/uL Baso # (Auto) (0.0-0.1) K/uL Nucleated RBC % /100WBC Nucleated RBCs # K/uL Sodium (136-148) mmol/L Potassium (3.5-5.1) mmol/L Chloride (98-107) mmol/L Carbon Dioxide (21.0-32.0) mmol/L BUN (7.0-18.0) mg/dL Creatinine (0.8-1.3) mg/dL Est Cr Clr Drug Dosing mL/min Estimated GFR (MDRD) ml/min Glucose (74-106) mg/dL POC Glucose 162 H 179 H 181 H (60-110) mg/dL Calcium (8.5-10.1) mg/dL Phosphorus (2.6-4.7) mg/dL Magnesium (1.8-2.4) mg/dL Total Bilirubin (0.2-1.0) mg/dL AST (15-37) IU/L ALT (14-63) IU/L Alkaline Phosphatase (46-116) U/L Total Protein (6.4-8.2) g/dL Albumin (3.4-5.0) g/dL Globulin (2.6-4.0) g/dL Albumin/Globulin Ratio (0.9-1.6) 06/21/19 06/21/19 06/21/19 Range/Units 05:40 05:40 06:45 WBC 7.39 (4.0-11.0) K/uL RBC 2.94 L (4.50-5.90) M/uL Hgb 8.9 L (13.0-17.0) g/dL Hct 27.2 L (38.0-50.0) % MCV 92.5 (80.0-98.0) fL MCH 30.3 (27.0-32.0) pg MCHC 32.7 (31.0-37.0) g/dL RDW Std Deviation 47.4 (28.0-62.0) fl RDW Coeff of Adriana 15 (11.0-15.0) % Plt Count 221 (150-400) K/uL MPV 9.70 (7.40-12.00) fL Neut % (Auto) 63.7 (48.0-80.0) % Lymph % (Auto) 19.9 (16.0-40.0) % [place] % (Auto) 13.7 (0.0-15.0) % Eos % (Auto) 2.2 (0.0-7.0) % Baso % (Auto) 0.5 (0.0-1.5) % Neut # (Auto) 4.7 (1.4-5.7) K/uL Lymph # (Auto) 1.5 (0.6-2.4) K/uL [place] # (Auto) 1.0 H (0.0-0.8) K/uL Eos # (Auto) 0.2 (0.0-0.7) K/uL Baso # (Auto) 0.0 (0.0-0.1) K/uL Nucleated RBC % 0.0 /100WBC Nucleated RBCs # 0 K/uL Sodium 135 L (136-148) mmol/L Potassium 3.9 (3.5-5.1) mmol/L Chloride 101 (98-107) mmol/L Carbon Dioxide 29.1 (21.0-32.0) mmol/L BUN 12 (7.0-18.0) mg/dL Creatinine 0.8 (0.8-1.3) mg/dL Est Cr Clr Drug Dosing 100.55 mL/min Estimated GFR (MDRD) > 60.0 ml/min Glucose 130 H (74-106) mg/dL POC Glucose 152 H (60-110) mg/dL Calcium 8.0 L (8.5-10.1) mg/dL Phosphorus 3.1 (2.6-4.7) mg/dL Magnesium 2.1 (1.8-2.4) mg/dL Total Bilirubin 1.2 H (0.2-1.0) mg/dL AST 35 (15-37) IU/L ALT 21 (14-63) IU/L Alkaline Phosphatase 67 (46-116) U/L Total Protein 5.4 L (6.4-8.2) g/dL Albumin 2.1 L (3.4-5.0) g/dL Globulin 3.3 (2.6-4.0) g/dL Albumin/Globulin Ratio 0.6 L (0.9-1.6) Med Orders - Current: Current Medications Acetaminophen (Tylenol Extra Strength) 500 mg PO Q6H PRN PRN Reason: Pain Last Admin: 06/21/19 07:39 Dose: 500 mg Hydrocodone Bitart/Acetaminophen ([place] 325-5 Mg) 1 tab PO Q4H PRN PRN Reason: Other Last Admin: 06/21/19 05:20 Dose: 1 tab Al Hydroxide/Mg Hydroxide (Mag-Al Plus) 30 ml PO Q4H PRN PRN Reason: Heartburn Last Admin: 06/19/19 02:28 Dose: 30 ml Albuterol/Ipratropium (Duoneb 3.0-0.5 Mg/3 Ml) 3 ml NEB Q4HRRT PRN PRN Reason: Shortness Of Breath/wheezing Last Admin: 06/14/19 00:36 Dose: 3 ml Aspirin (Aspirin) 81 mg PO [facility]ILY [facility] Last Admin: 06/21/19 09:21 Dose: 81 mg Atorvastatin Calcium (Lipitor) 20 mg PO BEDTIME [facility] Last Admin: 06/20/19 21:52 Dose: 20 mg Bisacodyl (Dulcolax) 10 mg RECTAL DAILY PRN PRN Reason: Constipation Last Admin: 06/17/19 22:50 Dose: 10 mg Docusate Sodium (Colace) 100 mg PO BID [facility] Last Admin: 06/21/19 09:20 Dose: 100 mg Gabapentin (Neurontin) 300 mg PO TID [facility] Last Admin: 06/21/19 06:46 Dose: 300 mg Hydromorphone HCl (Dilaudid) 0.5 mg IVPUSH Q4H PRN PRN Reason: Other Last Admin: 06/20/19 08:54 Dose: 0.5 mg Hydroxyzine Pamoate (Vistaril) 25 mg PO Q6H [facility] Last Admin: 06/21/19 07:40 Dose: 25 mg Insulin Aspart (Novolog) 0 unit SUBCUT TIDAC [facility]; Protocol Last Admin: 06/21/19 07:33 Dose: 2 units Insulin Glargine (Lantus Solostar) 8 units SUBCUT DAILY [facility] Last Admin: 06/21/19 09:22 Dose: 8 units Lorazepam (Ativan) 0.5 mg PO DAILY [facility] Last Admin: 06/21/19 09:20 Dose: 0.5 mg Nitroglycerin (Nitrostat) 0.4 mg SL ASDIRECTED PRN PRN Reason: Chest Pain Omeprazole (Omeprazole) 20 mg PO [facility]AKFAST [facility] Last Admin: 06/21/19 06:46 Dose: 20 mg Ondansetron HCl (Zofran Odt) 4 mg PO Q4H PRN PRN Reason: nausea, able to take PO Ondansetron HCl (Zofran) 4 mg IVPUSH Q4H PRN PRN Reason: Nausea/Vomiting Last Admin: 06/12/19 23:07 Dose: 4 mg Ticagrelor 90 Mg 1 each PO BID [facility] Last Admin: 06/21/19 09:20 Dose: 1 each Scopolamine (Transderm-Scop) 1.5 mg TRDERM ONARRIVE [facility] Sodium Chloride (Normal Saline) 10 ml IV ASDIRECTED PRN PRN Reason: IV Use Tamsulosin HCl (Flomax) 0.4 mg PO [facility]AK[facility]ST [facility] Last Admin: 06/21/19 10:48 Dose: 0.4 mg Trazodone HCl (Trazodone) 100 mg PO BEDTIME [facility] Last Admin: 06/20/19 21:52 Dose: 100 mg Discontinued Medications Hydrocodone Bitart/Acetaminophen ([place] 325-5 Mg) 2 tab PO Q4H PRN PRN Reason: Pain (moderate 4-6) Atorvastatin Calcium (Lipitor) 20 mg PO BEDTIME [facility] Last Admin: 06/17/19 20:36 Dose: 20 mg Cefazolin Sodium (Ancef) Confirm Administered Dose 2 gm .ROUTE .STK-MED ONE Stop: 06/17/19 11:34 Esmolol HCl (Esmolol) Confirm Administered Dose 100 mg .ROUTE .STK-MED ONE Stop: 06/17/19 13:29 Fentanyl (Sublimaze) Confirm Administered Dose 100 mcg .ROUTE .STK-MED ONE Stop: 06/17/19 09:04 Furosemide (Lasix) 40 mg IVPUSH NOW ONE Stop: 06/19/19 11:33 Last Admin: 06/19/19 11:46 Dose: 40 mg Heparin Sodium (Porcine) (Heparin Sodium) 5,000 units SUBCUT Q8H [facility] Last Admin: 06/14/19 17:42 Dose: 5,000 units Heparin Sodium (Porcine) (Heparin Sodium) 5,000 units SUBCUT Q8H [facility] Stop: 06/16/19 23:00 Last Admin: 06/16/19 16:13 Dose: 5,000 units Hydromorphone HCl (Dilaudid) 1 mg IVPUSH NOW STA Stop: 06/12/19 10:26 Last Admin: 06/12/19 10:37 Dose: 1 mg Hydromorphone HCl (Dilaudid) 1 mg IVPUSH ONETIME ONE Stop: 06/12/19 11:16 Last Admin: 06/12/19 11:23 Dose: 1 mg Hydromorphone HCl (Dilaudid) 1 mg IVPUSH ONETIME ONE Stop: 06/12/19 12:39 Last Admin: 06/12/19 12:42 Dose: 1 mg Hydromorphone HCl (Dilaudid) 0.5 mg IVPUSH Q4H PRN PRN Reason: Pain Hydromorphone HCl (Dilaudid) 1 mg IVPUSH ONETIME ONE Stop: 06/13/19 17:36 Last Admin: 06/13/19 17:53 Dose: 1 mg Hydromorphone HCl (Dilaudid) 0.5 mg IVPUSH Q4H PRN PRN Reason: Other Last Admin: 06/17/19 10:37 Dose: 0.5 mg Hydromorphone HCl (Dilaudid) 2 mg IVPUSH ONETIME ONE Stop: 06/14/19 17:01 Last Admin: 06/14/19 17:10 Dose: 2 mg Cefazolin Sodium/Dextrose 2 gm (/ Premix) 50 mls @ 100 mls/hr IV ONCALL [facility] Lactated Ringer's (Ringers, Lactated) 1,000 mls @ 100 mls/hr IV ASDIRECTED [facility] Last Admin: 06/13/19 09:27 Dose: 100 mls/hr Tranexamic Acid 2,000 mg/ (Sodium Chloride) 120 mls @ 360 mls/hr IV ASDIRECTED ONE Stop: 06/12/19 13:26 Famotidine 40 mg/ Sodium (Chloride) 10 mls @ 300 mls/hr IV ONETIME ONE Stop: 06/12/19 13:31 Sodium Chloride (Normal Saline) 500 mls @ 999 mls/hr IV .BOLUS [facility] Last Admin: 06/12/19 14:43 Dose: 999 mls/hr Lactated Ringer's (Ringers, Lactated) 1,000 mls @ 75 mls/hr IV ASDIRECTED [facility] Last Admin: 06/14/19 23:54 Dose: 75 mls/hr Lactated Ringer's (Ringers, Lactated) 1,000 mls @ 75 mls/hr IV ASDIRECTED [facility] Last Admin: 06/17/19 21:12 Dose: 75 mls/hr Ropivacaine 49.25 ml/Ketorolac Tromethamine 30 mg/Epinephrine HCl 0.5 mg/ Clonidine HCl 80 mcg/ Sodium Chloride 75 mls @ 50 mls/sec INJECT ASDIRECTED [facility] Cefazolin Sodium/Dextrose 2 gm (/ Premix) 50 mls @ 100 mls/hr IV ONCALL [facility] Cefazolin Sodium/Dextrose 2 gm (/ Premix) 50 mls @ 100 mls/hr IV ONETIME ONE Stop: 06/17/19 20:29 Last Admin: 06/17/19 20:09 Dose: 100 mls/hr Vasopressin 100 units/ Sodium (Chloride) 100 mls @ 0.6 mls/hr IV TITRATE [facility]; Protocol Last Titration: 06/18/19 11:10 Dose: 0 units/min, 0 mls/hr Lactated Ringer's (Ringers, Lactated) 1,000 mls @ 999 mls/hr IV .BOLUS ONE Stop: 06/18/19 10:42 Last Admin: 06/18/19 09:52 Dose: 999 mls/hr Pantoprazole Sodium 40 mg/ (Sodium Chloride) 10 mls @ 300 mls/hr IV NOW ONE Stop: 06/19/19 04:36 Last Admin: 06/19/19 04:55 Dose: 300 mls/hr Ketorolac Tromethamine (Toradol) 15 mg IVPUSH Q6H PRN PRN Reason: Pain Last Admin: 06/14/19 01:32 Dose: 15 mg Lidocaine (Lidoderm 5%) 700 mg TOP Q24H [facility] Last Admin: 06/19/19 07:26 Dose: Not Given Lidocaine (Xylocaine-Mpf 2%) Confirm Administered Dose 5 ml .ROUTE .STK-MED ONE Stop: 06/17/19 09:04 Magnesium Hydroxide (Milk Of Magnesia) 30 ml PO ONETIME ONE Stop: 06/21/19 09:31 Last Admin: 06/21/19 10:48 Dose: 30 ml Midazolam HCl (Versed 1 Mg/Ml) Confirm Administered Dose 2 mg .ROUTE .STK-MED ONE Stop: 06/17/19 09:04 Morphine Sulfate (Morphine) 2 mg IVPUSH Q2H PRN PRN Reason: Pain (severe 7-10) Stop: 06/13/19 13:32 Last Admin: 06/13/19 12:53 Dose: 2 mg Ondansetron HCl (Zofran) 4 mg IVPUSH ONETIME ONE Stop: 06/12/19 10:27 Last Admin: 06/12/19 10:36 Dose: 4 mg Ondansetron HCl (Zofran) Confirm Administered Dose 4 mg .ROUTE .STK-MED ONE Stop: 06/17/19 14:21 Phenylephrine HCl (Ebre-Synephrine) Confirm Administered Dose 10 mg .ROUTE .STK- MED ONE Stop: 06/17/19 09:05 Phenylephrine HCl (Eber-Synephrine) Confirm Administered Dose 10 mg .ROUTE .STK- MED ONE Stop: 06/17/19 12:53 Phenylephrine HCl (Eber-Synephrine) Confirm Administered Dose 10 mg .ROUTE .STK- MED ONE Stop: 06/17/19 13:40 Phenylephrine HCl (Phenylephrine In Ns 100 Mcg/Ml) Confirm Administered Dose 1 mg .ROUTE .STK-MED ONE Stop: 06/17/19 13:55 Propofol (Diprivan 20 Ml) Confirm Administered Dose 400 mg .ROUTE .STK-MED ONE Stop: 06/17/19 09:04 Propofol (Diprivan 20 Ml) Confirm Administered Dose 200 mg .ROUTE .STK-MED ONE Stop: 06/17/19 12:30 Propofol (Diprivan 20 Ml) Confirm Administered Dose 200 mg .ROUTE .STK-MED ONE Stop: 06/17/19 13:21 Sodium Chloride (Saline Flush) 10 ml FLUSH ASDIRECTED PRN PRN Reason: Keep Vein Open Last Admin: 06/20/19 04:29 Dose: 10 ml Sodium Chloride (Saline Flush) 2.5 ml FLUSH ASDIRECTED PRN PRN Reason: Keep Vein Open Last Admin: 06/12/19 10:39 Dose: 2.5 ml Sodium Phosphate (Neutra-Phos) 250 mg PO QID [facility] Stop: 06/21/19 06:01 Last Admin: 06/21/19 06:46 Dose: 250 mg Tamsulosin HCl (Flomax) 0.4 mg PO [facility] Last Admin: 06/17/19 09:12 Dose: Not Given Tranexamic Acid (Cyklokapron) Confirm Administered Dose 1,000 mg .ROUTE .STK- MED ONE Stop: 06/17/19 09:45 Vancomycin HCl (Vancomycin) Confirm Administered Dose 1 gm .ROUTE .STK-MED ONE Stop: 06/17/19 13:37 Vasopressin (Vasopressin) Confirm Administered Dose 20 units .ROUTE .STK-MED ONE Stop: 06/17/19 13:46 Vasopressin (Vasopressin) Confirm Administered Dose 20 units .ROUTE .STK-MED ONE Stop: 06/17/19 14:21 - Exam General: Alert, Oriented, Cooperative, No Acute Distress Lungs: Clear to Auscultation, Normal Respiratory Effort Cardiovascular: Regular Rate, Regular Rhythm GI/Abdominal Exam: Normal Bowel Sounds, Soft, Non-Tender, No Distention Extremities: Normal Inspection, Other (LLE: dressings c/d/i.) Sepsis Event Note - Evaluation Sepsis Screening Result: No Definite Risk - Focused Exam Vital Signs: Vital Signs Temp Pulse Resp BP Pulse Ox 06/21/19 04:00 97.6 F 84 18 109/58 L 94 L Date Exam was Performed: 06/21/19 Time Exam was Performed: 11:45 - Problem List Review Problem List Initiated/Reviewed/Updated: Yes - My Orders Last 24 Hours: My Active Orders 06/20/19 17:08 Heat Therapy [OM.PC] Routine 06/20/19 17:09 Communication Order [RC] STAT - Plan Plan:: Assessment and Plan: 1. Left femur fracture s/p fracture repair POD#4. Continue aspirin and Brilinta. Per orthopedic surgery, PT/OT and pain control. 2. Acute normocytic anemia s/p transfusion 6 units PRBC's. Hemoglobin 8.9 this AM. Will continue to monitor. 3. Acute urinary retention: Bladder scan q6h and straight cath if > 1 L. Continue heat pads on lower abdomen and gentle bladder massage. 4. History of CAD s/p CABG, stents x 6,: Cont ASA and Brilinta. 5. PMH of HfpEF, HTN, COPD and DM type II: continue home medications. 6. Per case management: Patient accepted to [facility] on discharge. <Estevan Jones - Last Filed: 06/25/19 20:56> - Patient Data Vitals - Most Recent: Last Vital Signs Temp 36.6 C 06/22/19 12:00 Pulse 92 06/22/19 12:00 Resp 16 06/22/19 12:00 BP 115/60 06/22/19 12:00 Pulse Ox 95 06/22/19 12:00 Med Orders - Current: Current Medications Discontinued Medications Acetaminophen (Tylenol Extra Strength) 500 mg PO Q6H PRN PRN Reason: Pain Last Admin: 06/21/19 07:39 Dose: 500 mg Hydrocodone Bitart/Acetaminophen ([place] 325-5 Mg) 2 tab PO Q4H PRN PRN Reason: Pain (moderate 4-6) Hydrocodone Bitart/Acetaminophen ([place] 325-5 Mg) 1 tab PO Q4H PRN PRN Reason: Other Last Admin: 06/22/19 13:57 Dose: 1 tab Al Hydroxide/Mg Hydroxide (Mag-Al Plus) 30 ml PO Q4H PRN PRN Reason: Heartburn Last Admin: 06/19/19 02:28 Dose: 30 ml Albuterol/Ipratropium (Duoneb 3.0-0.5 Mg/3 Ml) 3 ml NEB Q4HRRT PRN PRN Reason: Shortness Of Breath/wheezing Last Admin: 06/14/19 00:36 Dose: 3 ml Aspirin (Aspirin) 81 mg PO [facility]ILY [facility] Last Admin: 06/22/19 09:04 Dose: 81 mg Atorvastatin Calcium (Lipitor) 20 mg PO BEDTIME [facility] Last Admin: 06/17/19 20:36 Dose: 20 mg Atorvastatin Calcium (Lipitor) 20 mg PO B[facility]TIME [facility] Last Admin: 06/21/19 20:22 Dose: 20 mg Bisacodyl (Dulcolax) 10 mg RECTAL DAILY PRN PRN Reason: Constipation Last Admin: 06/17/19 22:50 Dose: 10 mg Cefazolin Sodium (Ancef) Confirm Administered Dose 2 gm .ROUTE .STK-MED ONE Stop: 06/17/19 11:34 Docusate Sodium (Colace) 100 mg PO BID [facility] Last Admin: 06/22/19 09:05 Dose: 100 mg Esmolol HCl (Esmolol) Confirm Administered Dose 100 mg .ROUTE .STK-MED ONE Stop: 06/17/19 13:29 Fentanyl (Sublimaze) Confirm Administered Dose 100 mcg .ROUTE .STK-MED ONE Stop: 06/17/19 09:04 Furosemide (Lasix) 40 mg IVPUSH NOW ONE Stop: 06/19/19 11:33 Last Admin: 06/19/19 11:46 Dose: 40 mg Gabapentin (Neurontin) 300 mg PO TID [facility] Last Admin: 06/22/19 13:57 Dose: 300 mg Heparin Sodium (Porcine) (Heparin Sodium) 5,000 units SUBCUT Q8H [facility] Last Admin: 06/14/19 17:42 Dose: 5,000 units Heparin Sodium (Porcine) (Heparin Sodium) 5,000 units SUBCUT Q8H [facility] Stop: 06/16/19 23:00 Last Admin: 06/16/19 16:13 Dose: 5,000 units Hydromorphone HCl (Dilaudid) 1 mg IVPUSH NOW STA Stop: 06/12/19 10:26 Last Admin: 06/12/19 10:37 Dose: 1 mg Hydromorphone HCl (Dilaudid) 1 mg IVPUSH ONETIME ONE Stop: 06/12/19 11:16 Last Admin: 06/12/19 11:23 Dose: 1 mg Hydromorphone HCl (Dilaudid) 1 mg IVPUSH ONETIME ONE Stop: 06/12/19 12:39 Last Admin: 06/12/19 12:42 Dose: 1 mg Hydromorphone HCl (Dilaudid) 0.5 mg IVPUSH Q4H PRN PRN Reason: Pain Hydromorphone HCl (Dilaudid) 1 mg IVPUSH ONETIME ONE Stop: 06/13/19 17:36 Last Admin: 06/13/19 17:53 Dose: 1 mg Hydromorphone HCl (Dilaudid) 0.5 mg IVPUSH Q4H PRN PRN Reason: Other Last Admin: 06/17/19 10:37 Dose: 0.5 mg Hydromorphone HCl (Dilaudid) 2 mg IVPUSH ONETIME ONE Stop: 06/14/19 17:01 Last Admin: 06/14/19 17:10 Dose: 2 mg Hydromorphone HCl (Dilaudid) 0.5 mg IVPUSH Q4H PRN PRN Reason: Other Last Admin: 06/20/19 08:54 Dose: 0.5 mg Hydroxyzine Pamoate (Vistaril) 25 mg PO Q6H [facility] Last Admin: 06/22/19 13:57 Dose: 25 mg Cefazolin Sodium/Dextrose 2 gm (/ Premix) 50 mls @ 100 mls/hr IV ONCALL [facility] Lactated Ringer's (Ringers, Lactated) 1,000 mls @ 100 mls/hr IV ASDIRECTED [facility] Last Admin: 06/13/19 09:27 Dose: 100 mls/hr Tranexamic Acid 2,000 mg/ (Sodium Chloride) 120 mls @ 360 mls/hr IV ASDIRECTED ONE Stop: 06/12/19 13:26 Famotidine 40 mg/ Sodium (Chloride) 10 mls @ 300 mls/hr IV ONETIME ONE Stop: 06/12/19 13:31 Sodium Chloride (Normal Saline) 500 mls @ 999 mls/hr IV .BOLUS [facility] Last Admin: 06/12/19 14:43 Dose: 999 mls/hr Lactated Ringer's (Ringers, Lactated) 1,000 mls @ 75 mls/hr IV ASDIRECTED [facility] Last Admin: 06/14/19 23:54 Dose: 75 mls/hr Lactated Ringer's (Ringers, Lactated) 1,000 mls @ 75 mls/hr IV ASDIRECTED [facility] Last Admin: 06/17/19 21:12 Dose: 75 mls/hr Ropivacaine 49.25 ml/Ketorolac Tromethamine 30 mg/Epinephrine HCl 0.5 mg/ Clonidine HCl 80 mcg/ Sodium Chloride 75 mls @ 50 mls/sec INJECT ASDIRECTED [facility] Cefazolin Sodium/Dextrose 2 gm (/ Premix) 50 mls @ 100 mls/hr IV ONCALL [facility] Cefazolin Sodium/Dextrose 2 gm (/ Premix) 50 mls @ 100 mls/hr IV ONETIME ONE Stop: 06/17/19 20:29 Last Admin: 06/17/19 20:09 Dose: 100 mls/hr Vasopressin 100 units/ Sodium (Chloride) 100 mls @ 0.6 mls/hr IV TITRATE [facility]; Protocol Last Titration: 06/18/19 11:10 Dose: 0 units/min, 0 mls/hr Lactated Ringer's (Ringers, Lactated) 1,000 mls @ 999 mls/hr IV .BOLUS ONE Stop: 06/18/19 10:42 Last Admin: 06/18/19 09:52 Dose: 999 mls/hr Pantoprazole Sodium 40 mg/ (Sodium Chloride) 10 mls @ 300 mls/hr IV NOW ONE Stop: 06/19/19 04:36 Last Admin: 06/19/19 04:55 Dose: 300 mls/hr Insulin Aspart (Novolog) 0 unit SUBCUT [facility]; Protocol Last Admin: 06/22/19 12:50 Dose: 4 units Insulin Glargine (Lantus Solostar) 8 units SUBCUT DAILY [facility] Last Admin: 06/22/19 09:10 Dose: 8 units Ketorolac Tromethamine (Toradol) 15 mg IVPUSH Q6H PRN PRN Reason: Pain Last Admin: 06/14/19 01:32 Dose: 15 mg Lidocaine (Lidoderm 5%) 700 mg TOP Q24H [facility] Last Admin: 06/19/19 07:26 Dose: Not Given Lidocaine (Xylocaine-Mpf 2%) Confirm Administered Dose 5 ml .ROUTE .STK-MED ONE Stop: 06/17/19 09:04 Lorazepam (Ativan) 0.5 mg PO DAILY [facility] Last Admin: 06/22/19 09:05 Dose: 0.5 mg Magnesium Hydroxide (Milk Of Magnesia) 30 ml PO ONETIME ONE Stop: 06/21/19 09:31 Last Admin: 06/21/19 10:48 Dose: 30 ml Midazolam HCl (Versed 1 Mg/Ml) Confirm Administered Dose 2 mg .ROUTE .STK-MED ONE Stop: 06/17/19 09:04 Morphine Sulfate (Morphine) 2 mg IVPUSH Q2H PRN PRN Reason: Pain (severe 7-10) Stop: 06/13/19 13:32 Last Admin: 06/13/19 12:53 Dose: 2 mg Nitroglycerin (Nitrostat) 0.4 mg SL ASDIRECTED PRN PRN Reason: Chest Pain Omeprazole (Omeprazole) 20 mg PO [facility] Last Admin: 06/22/19 06:34 Dose: 20 mg Ondansetron HCl (Zofran) 4 mg IVPUSH ONETIME ONE Stop: 06/12/19 10:27 Last Admin: 06/12/19 10:36 Dose: 4 mg Ondansetron HCl (Zofran Odt) 4 mg PO Q4H PRN PRN Reason: nausea, able to take PO Ondansetron HCl (Zofran) 4 mg IVPUSH Q4H PRN PRN Reason: Nausea/Vomiting Last Admin: 06/12/19 23:07 Dose: 4 mg Ondansetron HCl (Zofran) Confirm Administered Dose 4 mg .ROUTE .STK-MED ONE Stop: 06/17/19 14:21 Ticagrelor 90 Mg 1 each PO BID [facility] Last Admin: 06/22/19 09:12 Dose: 1 each Phenylephrine HCl (Eber-Synephrine) Confirm Administered Dose 10 mg .ROUTE .STK- MED ONE Stop: 06/17/19 09:05 Phenylephrine HCl (Eber-Synephrine) Confirm Administered Dose 10 mg .ROUTE .STK- MED ONE Stop: 06/17/19 12:53 Phenylephrine HCl (Eber-Synephrine) Confirm Administered Dose 10 mg .ROUTE .STK- MED ONE Stop: 06/17/19 13:40 Phenylephrine HCl (Phenylephrine In Ns 100 Mcg/Ml) Confirm Administered Dose 1 mg .ROUTE .STK-MED ONE Stop: 06/17/19 13:55 Propofol (Diprivan 20 Ml) Confirm Administered Dose 400 mg .ROUTE .STK-MED ONE Stop: 06/17/19 09:04 Propofol (Diprivan 20 Ml) Confirm Administered Dose 200 mg .ROUTE .STK-MED ONE Stop: 06/17/19 12:30 Propofol (Diprivan 20 Ml) Confirm Administered Dose 200 mg .ROUTE .STK-MED ONE Stop: 06/17/19 13:21 Scopolamine (Transderm-Scop) 1.5 mg TRDERM ON[facility] Sodium Chloride (Saline Flush) 10 ml FLUSH ASDIRECTED PRN PRN Reason: Keep Vein Open Last Admin: 06/20/19 04:29 Dose: 10 ml Sodium Chloride (Saline Flush) 2.5 ml FLUSH ASDIRECTED PRN PRN Reason: Keep Vein Open Last Admin: 06/12/19 10:39 Dose: 2.5 ml Sodium Chloride (Normal Saline) 10 ml IV ASDIRECTED PRN PRN Reason: IV Use Sodium Phosphate (Neutra-Phos) 250 mg PO QID [facility] Stop: 06/21/19 06:01 Last Admin: 06/21/19 06:46 Dose: 250 mg Tamsulosin HCl (Flomax) 0.4 mg [facility] Last Admin: 06/17/19 09:12 Dose: Not Given Tamsulosin HCl (Flomax) 0.4 mg [facility] Last Admin: 06/22/19 09:04 Dose: 0.4 mg Tranexamic Acid (Cyklokapron) Confirm Administered Dose 1,000 mg .ROUTE .STK- MED ONE Stop: 06/17/19 09:45 Trazodone HCl (Trazodone) 100 mg PO BEDTIME [facility] Last Admin: 06/21/19 20:23 Dose: 100 mg Vancomycin HCl (Vancomycin) Confirm Administered Dose 1 gm .ROUTE .STK-MED ONE Stop: 06/17/19 13:37 Vasopressin (Vasopressin) Confirm Administered Dose 20 units .ROUTE .STK-MED ONE Stop: 06/17/19 13:46 Vasopressin (Vasopressin) Confirm Administered Dose 20 units .ROUTE .STK-MED ONE Stop: 06/17/19 14:21 - Problem List & Annotations (1) CAD (coronary artery disease) SNOMED Code(s): 28470324 Code(s): I25.10 - ATHSCL HEART DISEASE OF [place] CORONARY ARTERY W/O ANG PCTRS Status: Acute (2) Femur fracture SNOMED Code(s): 46816136 Code(s): S72.90XA - UNSP FRACTURE OF UNSP FEMUR, INIT ENCNTR FOR CLOSED FRACTURE Status: Acute Qualifiers: Encounter type: initial encounter Femur location: shaft Fracture type: closed Fracture morphology: spiral Fracture alignment: displaced Laterality: left Qualified Code(s): S72.342A - Displaced spiral fracture of shaft of left femur, initial encounter for closed fracture (3) Elevated troponin SNOMED Code(s): 296706636, 909516392, 899712581 Code(s): R74.8 - ABNORMAL LEVELS OF OTHER SERUM ENZYMES Status: Acute - Plan Plan:: I have seen and evaluated the patient and agree with the residents note unless specified in my note
--- NOTE | 2019-06-21 17:14 | PCM.SN ---
- Free Text/Narrative Note: Ortho Note 74 yo male POD#4 from [facility] left periprosthetic femur fracture Dressing intact with minimal drainage Plan: On Hospitalist service Discharge to intermediate facility when medically stable Non weight bearing for 8 weeks Anti-platelet therapy sufficient for VTE prophylaxis
[2019-06-21] MEDS: atorvaSTATin 20 MG Tab PO SCH (20:22)
[2019-06-21] MEDS: traZODone 50 MG Tab PO SCH (20:23)
[2019-06-22] MEDS: hydrOXYzine Pamoate 25 MG Cap PO SCH ×3 (01:47→13:57)
[2019-06-22 05:55] LABS: BLOOD UREA NITROGEN,BUN 12 mg/dL (7.0-18.0); CARBON DIOXIDE,CO2 28.5 mmol/L (21.0-32.0); CHLORIDE,CL 103 mmol/L (98-107); GLUCOSE RANDOM 149 mg/dL (74-106); POTASSIUM,K 3.7 mmol/L (3.5-5.1); SODIUM,NA 137 mmol/L (136-148)
[2019-06-22] MEDS: Gabapentin 300 MG Cap PO SCH ×2 (06:34→13:57)
[2019-06-22] MEDS: Omeprazole 20 MG Cap.CR PO SCH (06:34)
[2019-06-22] MEDS: Insulin Aspart 100 Units/ML 3 ML Pen SUBCUT SCH ×2 (07:53→12:50)
[2019-06-22] MEDS: Aspirin 81 MG Tab.Chew PO SCH (09:04)
[2019-06-22] MEDS: Tamsulosin 0.4 MG Cap.ER PO SCH (09:04)
[2019-06-22] MEDS: Docusate Sodium 100 MG Cap PO SCH (09:05)
[2019-06-22] MEDS: LORazepam 0.5 MG Tab PO SCH (09:05)
[2019-06-22] MEDS: Acetaminophen/HYDROcodone 325-5 MG Tab PO PRN ×2 (09:08→13:57)
[2019-06-22] MEDS: Insulin Glargine,Human Rec. Analog 100 Units/ML 3 ML Pen SUBCUT SCH (09:10)
--- NOTE | 2019-06-22 09:11 | PCM.DCSUM1 ---
<Steven Jones - Last Filed: 06/22/19 10:25> Discharge Summary - Hospital Course Free Text/Narrative:: 74-year-old male admitted for left femur fracture secondary to mechanical fall s /p repair POD#5. He has a PMH of CAD s/p CABG, stents x6, history of stent thrombosis, HTN, CKD, COPD and DM type 2. On admission, CT head negative, CXR negative and x-ray of left femur revealed a fracture. Patient is on aspirin 81 mg qd and Brilinta 90 mg BID. On admission, Brilinta was held for 5 days before patient cleared for surgery by anesthesia. Cardiology consulted for evaluation prior to surgery because of significant cardiac history. Patient was in the ICU after surgery as post-op course complicated by low blood pressures and acute anemia. He was placed on vasopressors and eventually weaned off as blood pressures stabilized. Patient required 6 units of transfused PRBC's after surgery. His hemoglobin remained stable thereafter. He was downgraded to the general medical floor shortly after. His aspirin and Brilinta were resumed after surgery per recommendation by orthopedic surgery. Also, aspirin and Brilinta appropriate for VTE prophylaxis per orthopedic surgery. Orthopedic surgery also recommended non-weight bearing for 8 weeks post-op. Patient accepted to [facility] and discharged today in stable condition. Will require PT/OT/ST. Follow-up in orthopedic clinic 3 weeks post-op. - Discharge Data Discharge Date: 06/22/19 Discharge Disposition: DC/Tfer to Inpt Rehab Fac 62 Condition: Stable - Referral to Home Health Primary Care Physician: Tatum Linton MD - Patient Summary/Data Operative Procedure(s) Performed: orif left femoral periprosthetic shaft fracture Consults: Consultations 06/12/19 13:31 Consult to Physician [CONS] Routine 06/13/19 17:18 Consult to Physician [CONS] Stat 06/16/19 10:50 Consult to Wound Care Services [CONS] Routine 06/18/19 11:05 Consult to Physical Therapy [PT Evaluation and Treatment] [CONS] Routine - Patient Instructions Diet: Heart Healthy Diet, Diabetic Diet Activity, Other: Non weight bearing for 8 weeks post-op Notify Provider of: Fever, Increased Pain, Swelling and Redness, Drainage, Nausea and/or Vomiting Other/Special Instructions: PT/OT/ST - Discharge Plan *PRESCRIPTION DRUG MONITORING PROGRAM REVIEWED*: Not Applicable *COPY OF PRESCRIPTION DRUG MONITORING REPORT IN PATIENT ELAINE: Not Applicable Prescriptions/Med Rec: Acetaminophen/HYDROcodone [[place] 325-5 MG] 1 tab PO Q6H PRN #15 tablet PRN Reason: Pain Bisacodyl [Dulcolax] 10 mg RECTAL DAILY PRN 7 Days #7 supp PRN Reason: Constipation Docusate Sodium [Colace] 100 mg PO BID 7 Days #14 cap Gabapentin [Neurontin] 300 mg PO TID 7 Days #21 cap LORazepam [Ativan] 0.5 mg PO DAILY 7 Days #7 tablet Home Medications: Home Meds Aspirin [Aspirin EC] 81 mg PO BEDTIME 01/24/14 [History] Carvedilol [Coreg] 6.25 mg PO BID 01/24/14 [History] atorvaSTATin [Lipitor] 20 mg PO BEDTIME 01/24/14 [History] Lisinopril 10 mg PO DAILY 03/26/18 [History] Nitroglycerin 0.4 mg PO ASDIRECTED PRN 03/26/18 [History] Ticagrelor [Brilinta] 90 mg PO BID 03/26/18 [History] Omeprazole 20 mg PO WITHDINNER 07/02/18 [History] metFORMIN [Glucophage XR] 500 mg PO WITHDINNER 07/02/18 [History] traZODone HCl [Trazodone HCl] 100 mg PO BEDTIME 07/02/18 [History] Multivitamin [Daily Multiple Vitamin] 1 tab PO DAILY 06/12/19 [History] Sulfamethoxazole/Trimethoprim [Sulfamethoxazole-Tmp Ds Tablet] 1 tab PO BID 07/31 [History] Tamsulosin HCl [Flomax] 0.4 mg PO BEDTIME 06/12/19 [History] LORazepam 0.5 mg PO DAILY PRN 06/14/19 [History] Tolterodine Tartrate [Tolterodine Tartrate ER] 1 cap PO BEDTIME 06/14/19 [ History] Acetaminophen/HYDROcodone [[place] 325-5 MG] 1 tab PO Q6H PRN #15 tablet 06/22/19 [Rx] Bisacodyl [Dulcolax] 10 mg RECTAL DAILY PRN 7 Days #7 supp 06/22/19 [Rx] Docusate Sodium [Colace] 100 mg PO BID 7 Days #14 cap 06/22/19 [Rx] Gabapentin [Neurontin] 300 mg PO TID 7 Days #21 cap 06/22/19 [Rx] LORazepam [Ativan] 0.5 mg PO DAILY 7 Days #7 tablet 06/22/19 [Rx] Patient Handouts: Acetaminophen; Hydrocodone tablets or capsules, Gabapentin capsules or tablets, Femoral Shaft Fracture, Docusate capsules Referrals: Artemio Post MD [Physician] - Pradeep Medrano DO [Physician] - - Discharge Summary/Plan Comment DC Time >30 min.: No - Patient Data Vitals - Most Recent: Last Vital Signs Temp 98.1 F 06/22/19 08:00 Pulse 95 06/22/19 08:00 Resp 18 06/22/19 08:00 BP 115/59 L 06/22/19 08:00 Pulse Ox 93 L 06/22/19 08:00 Weight - Most Recent: 128.82 kg I&O - Last 24 hours: Intake & Output 06/21/19 06/22/19 06/22/19 22:59 06:59 14:59 Intake Total 500 Balance 500 Lab Results - Last 24 hrs: Laboratory Results - last 24 hr 06/21/19 06/21/19 06/22/19 Range/Units 12:25 17:28 04:50 WBC 9.53 (4.0-11.0) K/uL RBC 2.93 L (4.50-5.90) M/uL Hgb 8.8 L (13.0-17.0) g/dL Hct 26.8 L (38.0-50.0) % MCV 91.5 (80.0-98.0) fL MCH 30.0 (27.0-32.0) pg MCHC 32.8 (31.0-37.0) g/dL RDW Std Deviation 47.1 (28.0-62.0) fl RDW Coeff of Adriana 15 (11.0-15.0) % Plt Count 261 (150-400) K/uL MPV 9.60 (7.40-12.00) fL Neut % (Auto) 67.6 (48.0-80.0) % Lymph % (Auto) 17.4 (16.0-40.0) % [place] % (Auto) 12.1 (0.0-15.0) % Eos % (Auto) 2.4 (0.0-7.0) % Baso % (Auto) 0.5 (0.0-1.5) % Neut # (Auto) 6.4 H (1.4-5.7) K/uL Lymph # (Auto) 1.7 (0.6-2.4) K/uL [place] # (Auto) 1.2 H (0.0-0.8) K/uL Eos # (Auto) 0.2 (0.0-0.7) K/uL Baso # (Auto) 0.1 (0.0-0.1) K/uL Nucleated RBC % 0.0 /100WBC Nucleated RBCs # 0 K/uL Sodium (136-148) mmol/L Potassium (3.5-5.1) mmol/L Chloride (98-107) mmol/L Carbon Dioxide (21.0-32.0) mmol/L BUN (7.0-18.0) mg/dL Creatinine (0.8-1.3) mg/dL Est Cr Clr Drug Dosing mL/min Estimated GFR (MDRD) ml/min Glucose (74-106) mg/dL POC Glucose 146 H 346 H (60-110) mg/dL Calcium (8.5-10.1) mg/dL Phosphorus (2.6-4.7) mg/dL Magnesium (1.8-2.4) mg/dL Total Bilirubin (0.2-1.0) mg/dL AST (15-37) IU/L ALT (14-63) IU/L Alkaline Phosphatase (46-116) U/L Total Protein (6.4-8.2) g/dL Albumin (3.4-5.0) g/dL Globulin (2.6-4.0) g/dL Albumin/Globulin Ratio (0.9-1.6) 06/22/19 06/22/19 Range/Units 04:50 06:33 WBC (4.0-11.0) K/uL RBC (4.50-5.90) M/uL Hgb (13.0-17.0) g/dL Hct (38.0-50.0) % MCV (80.0-98.0) fL MCH (27.0-32.0) pg MCHC (31.0-37.0) g/dL RDW Std Deviation (28.0-62.0) fl RDW Coeff of Adriana (11.0-15.0) % Plt Count (150-400) K/uL MPV (7.40-12.00) fL Neut % (Auto) (48.0-80.0) % Lymph % (Auto) (16.0-40.0) % [place] % (Auto) (0.0-15.0) % Eos % (Auto) (0.0-7.0) % Baso % (Auto) (0.0-1.5) % Neut # (Auto) (1.4-5.7) K/uL Lymph # (Auto) (0.6-2.4) K/uL [place] # (Auto) (0.0-0.8) K/uL Eos # (Auto) (0.0-0.7) K/uL Baso # (Auto) (0.0-0.1) K/uL Nucleated RBC % /100WBC Nucleated RBCs # K/uL Sodium 137 (136-148) mmol/L Potassium 3.7 (3.5-5.1) mmol/L Chloride 103 (98-107) mmol/L Carbon Dioxide 28.5 (21.0-32.0) mmol/L BUN 12 (7.0-18.0) mg/dL Creatinine 0.8 (0.8-1.3) mg/dL Est Cr Clr Drug Dosing 100.55 mL/min Estimated GFR (MDRD) > 60.0 ml/min Glucose 149 H (74-106) mg/dL POC Glucose 141 H (60-110) mg/dL Calcium 7.9 L (8.5-10.1) mg/dL Phosphorus 2.8 (2.6-4.7) mg/dL Magnesium 1.9 (1.8-2.4) mg/dL Total Bilirubin 1.0 (0.2-1.0) mg/dL AST 33 (15-37) IU/L ALT 24 (14-63) IU/L Alkaline Phosphatase 68 (46-116) U/L Total Protein 5.4 L (6.4-8.2) g/dL Albumin 2.0 L (3.4-5.0) g/dL Globulin 3.4 (2.6-4.0) g/dL Albumin/Globulin Ratio 0.6 L (0.9-1.6) Med Orders - Current: Current Medications Acetaminophen (Tylenol Extra Strength) 500 mg PO Q6H PRN PRN Reason: Pain Last Admin: 06/21/19 07:39 Dose: 500 mg Hydrocodone Bitart/Acetaminophen ([place] 325-5 Mg) 1 tab PO Q4H PRN PRN Reason: Other Last Admin: 06/21/19 13:47 Dose: 1 tab Al Hydroxide/Mg Hydroxide (Mag-Al Plus) 30 ml PO Q4H PRN PRN Reason: Heartburn Last Admin: 06/19/19 02:28 Dose: 30 ml Albuterol/Ipratropium (Duoneb 3.0-0.5 Mg/3 Ml) 3 ml NEB Q4HRRT PRN PRN Reason: Shortness Of Breath/wheezing Last Admin: 06/14/19 00:36 Dose: 3 ml Aspirin (Aspirin) 81 mg PO DAILY [facility] Last Admin: 06/21/19 09:21 Dose: 81 mg Atorvastatin Calcium (Lipitor) 20 mg PO BEDTIME [facility] Last Admin: 06/21/19 20:22 Dose: 20 mg Bisacodyl (Dulcolax) 10 mg RECTAL DAILY PRN PRN Reason: Constipation Last Admin: 06/17/19 22:50 Dose: 10 mg Docusate Sodium (Colace) 100 mg PO BID [facility] Last Admin: 06/21/19 20:23 Dose: 100 mg Gabapentin (Neurontin) 300 mg PO TID [facility] Last Admin: 06/22/19 06:34 Dose: 300 mg Hydromorphone HCl (Dilaudid) 0.5 mg IVPUSH Q4H PRN PRN Reason: Other Last Admin: 06/20/19 08:54 Dose: 0.5 mg Hydroxyzine Pamoate (Vistaril) 25 mg PO Q6H [facility] Last Admin: 06/22/19 01:47 Dose: 25 mg Insulin Aspart (Novolog) 0 unit SUBCUT TIDAC [facility]; Protocol Last Admin: 06/22/19 07:53 Dose: Not Given Insulin Glargine (Lantus Solostar) 8 units SUBCUT DAILY [facility] Last Admin: 06/21/19 09:22 Dose: 8 units Lorazepam (Ativan) 0.5 mg PO DAILY [facility] Last Admin: 06/21/19 09:20 Dose: 0.5 mg Nitroglycerin (Nitrostat) 0.4 mg SL ASDIRECTED PRN PRN Reason: Chest Pain Omeprazole (Omeprazole) 20 mg PO ACBREAKFAST [facility] Last Admin: 06/22/19 06:34 Dose: 20 mg Ondansetron HCl (Zofran Odt) 4 mg PO Q4H PRN PRN Reason: nausea, able to take PO Ondansetron HCl (Zofran) 4 mg IVPUSH Q4H PRN PRN Reason: Nausea/Vomiting Last Admin: 06/12/19 23:07 Dose: 4 mg Ticagrelor 90 Mg 1 each PO BID [facility] Last Admin: 06/21/19 21:18 Dose: 1 each Scopolamine (Transderm-Scop) 1.5 mg TRDERM ONARRIVE [facility] Sodium Chloride (Normal Saline) 10 ml IV ASDIRECTED PRN PRN Reason: IV Use Tamsulosin HCl (Flomax) 0.4 mg PO PCBREAKFAST [facility] Last Admin: 06/21/19 10:48 Dose: 0.4 mg Trazodone HCl (Trazodone) 100 mg PO BEDTIME [facility] Last Admin: 06/21/19 20:23 Dose: 100 mg Discontinued Medications Hydrocodone Bitart/Acetaminophen ([place] 325-5 Mg) 2 tab PO Q4H PRN PRN Reason: Pain (moderate 4-6) Atorvastatin Calcium (Lipitor) 20 mg PO BEDTIME [facility] Last Admin: 06/17/19 20:36 Dose: 20 mg Cefazolin Sodium (Ancef) Confirm Administered Dose 2 gm .ROUTE .STK-MED ONE Stop: 06/17/19 11:34 Esmolol HCl (Esmolol) Confirm Administered Dose 100 mg .ROUTE .STK-MED ONE Stop: 06/17/19 13:29 Fentanyl (Sublimaze) Confirm Administered Dose 100 mcg .ROUTE .STK-MED ONE Stop: 06/17/19 09:04 Furosemide (Lasix) 40 mg IVPUSH NOW ONE Stop: 06/19/19 11:33 Last Admin: 06/19/19 11:46 Dose: 40 mg Heparin Sodium (Porcine) (Heparin Sodium) 5,000 units SUBCUT Q8H [facility] Last Admin: 06/14/19 17:42 Dose: 5,000 units Heparin Sodium (Porcine) (Heparin Sodium) 5,000 units SUBCUT Q8H [facility] Stop: 06/16/19 23:00 Last Admin: 06/16/19 16:13 Dose: 5,000 units Hydromorphone HCl (Dilaudid) 1 mg IVPUSH NOW STA Stop: 06/12/19 10:26 Last Admin: 06/12/19 10:37 Dose: 1 mg Hydromorphone HCl (Dilaudid) 1 mg IVPUSH ONETIME ONE Stop: 06/12/19 11:16 Last Admin: 06/12/19 11:23 Dose: 1 mg Hydromorphone HCl (Dilaudid) 1 mg IVPUSH ONETIME ONE Stop: 06/12/19 12:39 Last Admin: 06/12/19 12:42 Dose: 1 mg Hydromorphone HCl (Dilaudid) 0.5 mg IVPUSH Q4H PRN PRN Reason: Pain Hydromorphone HCl (Dilaudid) 1 mg IVPUSH ONETIME ONE Stop: 06/13/19 17:36 Last Admin: 06/13/19 17:53 Dose: 1 mg Hydromorphone HCl (Dilaudid) 0.5 mg IVPUSH Q4H PRN PRN Reason: Other Last Admin: 06/17/19 10:37 Dose: 0.5 mg Hydromorphone HCl (Dilaudid) 2 mg IVPUSH ONETIME ONE Stop: 06/14/19 17:01 Last Admin: 06/14/19 17:10 Dose: 2 mg Cefazolin Sodium/Dextrose 2 gm (/ Premix) 50 mls @ 100 mls/hr IV ONCALL [facility] Lactated Ringer's (Ringers, Lactated) 1,000 mls @ 100 mls/hr IV ASDIRECTED [facility] Last Admin: 06/13/19 09:27 Dose: 100 mls/hr Tranexamic Acid 2,000 mg/ (Sodium Chloride) 120 mls @ 360 mls/hr IV ASDIRECTED ONE Stop: 06/12/19 13:26 Famotidine 40 mg/ Sodium (Chloride) 10 mls @ 300 mls/hr IV ONETIME ONE Stop: 06/12/19 13:31 Sodium Chloride (Normal Saline) 500 mls @ 999 mls/hr IV .BOLUS [facility]WIN Last Admin: 06/12/19 14:43 Dose: 999 mls/hr Lactated Ringer's (Ringers, Lactated) 1,000 mls @ 75 mls/hr IV ASDIRECTED [facility] Last Admin: 06/14/19 23:54 Dose: 75 mls/hr Lactated Ringer's (Ringers, Lactated) 1,000 mls @ 75 mls/hr IV ASDIRECTED [facility] Last Admin: 06/17/19 21:12 Dose: 75 mls/hr Ropivacaine 49.25 ml/Ketorolac Tromethamine 30 mg/Epinephrine HCl 0.5 mg/ Clonidine HCl 80 mcg/ Sodium Chloride 75 mls @ 50 mls/sec INJECT ASDIRECTED [facility] Cefazolin Sodium/Dextrose 2 gm (/ Premix) 50 mls @ 100 mls/hr IV ONCALL [facility] Cefazolin Sodium/Dextrose 2 gm (/ Premix) 50 mls @ 100 mls/hr IV ONETIME ONE Stop: 06/17/19 20:29 Last Admin: 06/17/19 20:09 Dose: 100 mls/hr Vasopressin 100 units/ Sodium (Chloride) 100 mls @ 0.6 mls/hr IV TITRATE [facility]; Protocol Last Titration: 06/18/19 11:10 Dose: 0 units/min, 0 mls/hr Lactated Ringer's (Ringers, Lactated) 1,000 mls @ 999 mls/hr IV .BOLUS ONE Stop: 06/18/19 10:42 Last Admin: 06/18/19 09:52 Dose: 999 mls/hr Pantoprazole Sodium 40 mg/ (Sodium Chloride) 10 mls @ 300 mls/hr IV NOW ONE Stop: 06/19/19 04:36 Last Admin: 06/19/19 04:55 Dose: 300 mls/hr Ketorolac Tromethamine (Toradol) 15 mg IVPUSH Q6H PRN PRN Reason: Pain Last Admin: 06/14/19 01:32 Dose: 15 mg Lidocaine (Lidoderm 5%) 700 mg TOP Q24H [facility] Last Admin: 06/19/19 07:26 Dose: Not Given Lidocaine (Xylocaine-Mpf 2%) Confirm Administered Dose 5 ml .ROUTE .STK-MED ONE Stop: 06/17/19 09:04 Magnesium Hydroxide (Milk Of Magnesia) 30 ml PO ONETIME ONE Stop: 06/21/19 09:31 Last Admin: 06/21/19 10:48 Dose: 30 ml Midazolam HCl (Versed 1 Mg/Ml) Confirm Administered Dose 2 mg .ROUTE .STK-MED ONE Stop: 06/17/19 09:04 Morphine Sulfate (Morphine) 2 mg IVPUSH Q2H PRN PRN Reason: Pain (severe 7-10) Stop: 06/13/19 13:32 Last Admin: 06/13/19 12:53 Dose: 2 mg Ondansetron HCl (Zofran) 4 mg IVPUSH ONETIME ONE Stop: 06/12/19 10:27 Last Admin: 06/12/19 10:36 Dose: 4 mg Ondansetron HCl (Zofran) Confirm Administered Dose 4 mg .ROUTE .STK-MED ONE Stop: 06/17/19 14:21 Phenylephrine HCl (Eber-Synephrine) Confirm Administered Dose 10 mg .ROUTE .STK- MED ONE Stop: 06/17/19 09:05 Phenylephrine HCl (Eber-Synephrine) Confirm Administered Dose 10 mg .ROUTE .STK- MED ONE Stop: 06/17/19 12:53 Phenylephrine HCl (Eber-Synephrine) Confirm Administered Dose 10 mg .ROUTE .STK- MED ONE Stop: 06/17/19 13:40 Phenylephrine HCl (Phenylephrine In Ns 100 Mcg/Ml) Confirm Administered Dose 1 mg .ROUTE .STK-MED ONE Stop: 06/17/19 13:55 Propofol (Diprivan 20 Ml) Confirm Administered Dose 400 mg .ROUTE .STK-MED ONE Stop: 06/17/19 09:04 Propofol (Diprivan 20 Ml) Confirm Administered Dose 200 mg .ROUTE .STK-MED ONE Stop: 06/17/19 12:30 Propofol (Diprivan 20 Ml) Confirm Administered Dose 200 mg .ROUTE .STK-MED ONE Stop: 06/17/19 13:21 Sodium Chloride (Saline Flush) 10 ml FLUSH ASDIRECTED PRN PRN Reason: Keep Vein Open Last Admin: 06/20/19 04:29 Dose: 10 ml Sodium Chloride (Saline Flush) 2.5 ml FLUSH ASDIRECTED PRN PRN Reason: Keep Vein Open Last Admin: 06/12/19 10:39 Dose: 2.5 ml Sodium Phosphate (Neutra-Phos) 250 mg PO QID [facility] Stop: 06/21/19 06:01 Last Admin: 06/21/19 06:46 Dose: 250 mg Tamsulosin HCl (Flomax) 0.4 mg PO PCBREAKFAST [facility] Last Admin: 06/17/19 09:12 Dose: Not Given Tranexamic Acid (Cyklokapron) Confirm Administered Dose 1,000 mg .ROUTE .STK- MED ONE Stop: 06/17/19 09:45 Vancomycin HCl (Vancomycin) Confirm Administered Dose 1 gm .ROUTE .STK-MED ONE Stop: 06/17/19 13:37 Vasopressin (Vasopressin) Confirm Administered Dose 20 units .ROUTE .STK-MED ONE Stop: 06/17/19 13:46 Vasopressin (Vasopressin) Confirm Administered Dose 20 units .ROUTE .STK-MED ONE Stop: 06/17/19 14:21 <Elijah Love J - Last Filed: 06/22/19 22:29> Discharge Summary - Referral to Home Health Primary Care Physician: Tatum Linton MD - Patient Summary/Data Consults: Consultations 06/12/19 13:31 Consult to Physician [CONS] Routine 06/13/19 17:18 Consult to Physician [CONS] Stat 06/16/19 10:50 Consult to Wound Care Services [CONS] Routine 06/18/19 11:05 Consult to Physical Therapy [PT Evaluation and Treatment] [CONS] Routine - Patient Data Vitals - Most Recent: Last Vital Signs Temp 36.6 C 06/22/19 12:00 Pulse 92 06/22/19 12:00 Resp 16 06/22/19 12:00 BP 115/60 06/22/19 12:00 Pulse Ox 95 06/22/19 12:00 I&O - Last 24 hours: Intake & Output 06/22/19 06/22/19 06/22/19 06:59 14:59 22:59 Intake Total 500 1000 Output Total 0 Balance 500 1000 Lab Results - Last 24 hrs: Laboratory Results - last 24 hr 06/22/19 06/22/19 06/22/19 Range/Units 04:50 04:50 06:33 WBC 9.53 (4.0-11.0) K/uL RBC 2.93 L (4.50-5.90) M/uL Hgb 8.8 L (13.0-17.0) g/dL Hct 26.8 L (38.0-50.0) % MCV 91.5 (80.0-98.0) fL MCH 30.0 (27.0-32.0) pg MCHC 32.8 (31.0-37.0) g/dL RDW Std Deviation 47.1 (28.0-62.0) fl RDW Coeff of Adriana 15 (11.0-15.0) % Plt Count 261 (150-400) K/uL MPV 9.60 (7.40-12.00) fL Neut % (Auto) 67.6 (48.0-80.0) % Lymph % (Auto) 17.4 (16.0-40.0) % [place] % (Auto) 12.1 (0.0-15.0) % Eos % (Auto) 2.4 (0.0-7.0) % Baso % (Auto) 0.5 (0.0-1.5) % Neut # (Auto) 6.4 H (1.4-5.7) K/uL Lymph # (Auto) 1.7 (0.6-2.4) K/uL [place] # (Auto) 1.2 H (0.0-0.8) K/uL Eos # (Auto) 0.2 (0.0-0.7) K/uL Baso # (Auto) 0.1 (0.0-0.1) K/uL Nucleated RBC % 0.0 /100WBC Nucleated RBCs # 0 K/uL Sodium 137 (136-148) mmol/L Potassium 3.7 (3.5-5.1) mmol/L Chloride 103 (98-107) mmol/L Carbon Dioxide 28.5 (21.0-32.0) mmol/L BUN 12 (7.0-18.0) mg/dL Creatinine 0.8 (0.8-1.3) mg/dL Est Cr Clr Drug Dosing 100.55 mL/min Estimated GFR (MDRD) > 60.0 ml/min Glucose 149 H (74-106) mg/dL POC Glucose 141 H (60-110) mg/dL Calcium 7.9 L (8.5-10.1) mg/dL Phosphorus 2.8 (2.6-4.7) mg/dL Magnesium 1.9 (1.8-2.4) mg/dL Total Bilirubin 1.0 (0.2-1.0) mg/dL AST 33 (15-37) IU/L ALT 24 (14-63) IU/L Alkaline Phosphatase 68 (46-116) U/L Total Protein 5.4 L (6.4-8.2) g/dL Albumin 2.0 L (3.4-5.0) g/dL Globulin 3.4 (2.6-4.0) g/dL Albumin/Globulin Ratio 0.6 L (0.9-1.6) 06/22/19 Range/Units 11:38 WBC (4.0-11.0) K/uL RBC (4.50-5.90) M/uL Hgb (13.0-17.0) g/dL Hct (38.0-50.0) % MCV (80.0-98.0) fL MCH (27.0-32.0) pg MCHC (31.0-37.0) g/dL RDW Std Deviation (28.0-62.0) fl RDW Coeff of Adriana (11.0-15.0) % Plt Count (150-400) K/uL MPV (7.40-12.00) fL Neut % (Auto) (48.0-80.0) % Lymph % (Auto) (16.0-40.0) % [place] % (Auto) (0.0-15.0) % Eos % (Auto) (0.0-7.0) % Baso % (Auto) (0.0-1.5) % Neut # (Auto) (1.4-5.7) K/uL Lymph # (Auto) (0.6-2.4) K/uL [place] # (Auto) (0.0-0.8) K/uL Eos # (Auto) (0.0-0.7) K/uL Baso # (Auto) (0.0-0.1) K/uL Nucleated RBC % /100WBC Nucleated RBCs # K/uL Sodium (136-148) mmol/L Potassium (3.5-5.1) mmol/L Chloride (98-107) mmol/L Carbon Dioxide (21.0-32.0) mmol/L BUN (7.0-18.0) mg/dL Creatinine (0.8-1.3) mg/dL Est Cr Clr Drug Dosing mL/min Estimated GFR (MDRD) ml/min Glucose (74-106) mg/dL POC Glucose 216 H (60-110) mg/dL Calcium (8.5-10.1) mg/dL Phosphorus (2.6-4.7) mg/dL Magnesium (1.8-2.4) mg/dL Total Bilirubin (0.2-1.0) mg/dL AST (15-37) IU/L ALT (14-63) IU/L Alkaline Phosphatase (46-116) U/L Total Protein (6.4-8.2) g/dL Albumin (3.4-5.0) g/dL Globulin (2.6-4.0) g/dL Albumin/Globulin Ratio (0.9-1.6) Med Orders - Current: Current Medications Discontinued Medications Acetaminophen (Tylenol Extra Strength) 500 mg PO Q6H PRN PRN Reason: Pain Last Admin: 06/21/19 07:39 Dose: 500 mg Hydrocodone Bitart/Acetaminophen ([place] 325-5 Mg) 2 tab PO Q4H PRN PRN Reason: Pain (moderate 4-6) Hydrocodone Bitart/Acetaminophen ([place] 325-5 Mg) 1 tab PO Q4H PRN PRN Reason: Other Last Admin: 06/22/19 13:57 Dose: 1 tab Al Hydroxide/Mg Hydroxide (Mag-Al Plus) 30 ml PO Q4H PRN PRN Reason: Heartburn Last Admin: 06/19/19 02:28 Dose: 30 ml Albuterol/Ipratropium (Duoneb 3.0-0.5 Mg/3 Ml) 3 ml NEB Q4HRRT PRN PRN Reason: Shortness Of Breath/wheezing Last Admin: 06/14/19 00:36 Dose: 3 ml Aspirin (Aspirin) 81 mg PO DAILY [facility] Last Admin: 06/22/19 09:04 Dose: 81 mg Atorvastatin Calcium (Lipitor) 20 mg PO BEDTIME [facility] Last Admin: 06/17/19 20:36 Dose: 20 mg Atorvastatin Calcium (Lipitor) 20 mg PO BEDTIME TWIN Last Admin: 06/21/19 20:22 Dose: 20 mg Bisacodyl (Dulcolax) 10 mg RECTAL DAILY PRN PRN Reason: Constipation Last Admin: 06/17/19 22:50 Dose: 10 mg Cefazolin Sodium (Ancef) Confirm Administered Dose 2 gm .ROUTE .STK-MED ONE Stop: 06/17/19 11:34 Docusate Sodium (Colace) 100 mg PO BID [facility] Last Admin: 06/22/19 09:05 Dose: 100 mg Esmolol HCl (Esmolol) Confirm Administered Dose 100 mg .ROUTE .STK-MED ONE Stop: 06/17/19 13:29 Fentanyl (Sublimaze) Confirm Administered Dose 100 mcg .ROUTE .STK-MED ONE Stop: 06/17/19 09:04 Furosemide (Lasix) 40 mg IVPUSH NOW ONE Stop: 06/19/19 11:33 Last Admin: 06/19/19 11:46 Dose: 40 mg Gabapentin (Neurontin) 300 mg PO TID [facility] Last Admin: 06/22/19 13:57 Dose: 300 mg Heparin Sodium (Porcine) (Heparin Sodium) 5,000 units SUBCUT Q8H [facility] Last Admin: 06/14/19 17:42 Dose: 5,000 units Heparin Sodium (Porcine) (Heparin Sodium) 5,000 units SUBCUT Q8H [facility] Stop: 06/16/19 23:00 Last Admin: 06/16/19 16:13 Dose: 5,000 units Hydromorphone HCl (Dilaudid) 1 mg IVPUSH NOW STA Stop: 06/12/19 10:26 Last Admin: 06/12/19 10:37 Dose: 1 mg Hydromorphone HCl (Dilaudid) 1 mg IVPUSH ONETIME ONE Stop: 06/12/19 11:16 Last Admin: 06/12/19 11:23 Dose: 1 mg Hydromorphone HCl (Dilaudid) 1 mg IVPUSH ONETIME ONE Stop: 06/12/19 12:39 Last Admin: 06/12/19 12:42 Dose: 1 mg Hydromorphone HCl (Dilaudid) 0.5 mg IVPUSH Q4H PRN PRN Reason: Pain Hydromorphone HCl (Dilaudid) 1 mg IVPUSH ONETIME ONE Stop: 06/13/19 17:36 Last Admin: 06/13/19 17:53 Dose: 1 mg Hydromorphone HCl (Dilaudid) 0.5 mg IVPUSH Q4H PRN PRN Reason: Other Last Admin: 06/17/19 10:37 Dose: 0.5 mg Hydromorphone HCl (Dilaudid) 2 mg IVPUSH ONETIME ONE Stop: 06/14/19 17:01 Last Admin: 06/14/19 17:10 Dose: 2 mg Hydromorphone HCl (Dilaudid) 0.5 mg IVPUSH Q4H PRN PRN Reason: Other Last Admin: 06/20/19 08:54 Dose: 0.5 mg Hydroxyzine Pamoate (Vistaril) 25 mg PO Q6H [facility] Last Admin: 06/22/19 13:57 Dose: 25 mg Cefazolin Sodium/Dextrose 2 gm (/ Premix) 50 mls @ 100 mls/hr IV ONCALL [facility] Lactated Ringer's (Ringers, Lactated) 1,000 mls @ 100 mls/hr IV ASDIRECTED [facility] Last Admin: 06/13/19 09:27 Dose: 100 mls/hr Tranexamic Acid 2,000 mg/ (Sodium Chloride) 120 mls @ 360 mls/hr IV ASDIRECTED ONE Stop: 06/12/19 13:26 Famotidine 40 mg/ Sodium (Chloride) 10 mls @ 300 mls/hr IV ONETIME ONE Stop: 06/12/19 13:31 Sodium Chloride (Normal Saline) 500 mls @ 999 mls/hr IV .BOLUS [facility] Last Admin: 06/12/19 14:43 Dose: 999 mls/hr Lactated Ringer's (Ringers, Lactated) 1,000 mls @ 75 mls/hr IV ASDIRECTED [facility] Last Admin: 06/14/19 23:54 Dose: 75 mls/hr Lactated Ringer's (Ringers, Lactated) 1,000 mls @ 75 mls/hr IV ASDIRECTED [facility] Last Admin: 06/17/19 21:12 Dose: 75 mls/hr Ropivacaine 49.25 ml/Ketorolac Tromethamine 30 mg/Epinephrine HCl 0.5 mg/ Clonidine HCl 80 mcg/ Sodium Chloride 75 mls @ 50 mls/sec INJECT ASDIRECTED [facility] Cefazolin Sodium/Dextrose 2 gm (/ Premix) 50 mls @ 100 mls/hr IV ONCALL [facility] Cefazolin Sodium/Dextrose 2 gm (/ Premix) 50 mls @ 100 mls/hr IV ONETIME ONE Stop: 06/17/19 20:29 Last Admin: 06/17/19 20:09 Dose: 100 mls/hr Vasopressin 100 units/ Sodium (Chloride) 100 mls @ 0.6 mls/hr IV TITRATE [facility]; Protocol Last Titration: 06/18/19 11:10 Dose: 0 units/min, 0 mls/hr Lactated Ringer's (Ringers, Lactated) 1,000 mls @ 999 mls/hr IV .BOLUS ONE Stop: 06/18/19 10:42 Last Admin: 06/18/19 09:52 Dose: 999 mls/hr Pantoprazole Sodium 40 mg/ (Sodium Chloride) 10 mls @ 300 mls/hr IV NOW ONE Stop: 06/19/19 04:36 Last Admin: 06/19/19 04:55 Dose: 300 mls/hr Insulin Aspart (Novolog) 0 unit SUBCUT TIDAC [facility]; Protocol Last Admin: 06/22/19 12:50 Dose: 4 units Insulin Glargine (Lantus Solostar) 8 units SUBCUT DAILY [facility] Last Admin: 06/22/19 09:10 Dose: 8 units Ketorolac Tromethamine (Toradol) 15 mg IVPUSH Q6H PRN PRN Reason: Pain Last Admin: 06/14/19 01:32 Dose: 15 mg Lidocaine (Lidoderm 5%) 700 mg TOP Q24H [facility] Last Admin: 06/19/19 07:26 Dose: Not Given Lidocaine (Xylocaine-Mpf 2%) Confirm Administered Dose 5 ml .ROUTE .STK-MED ONE Stop: 06/17/19 09:04 Lorazepam (Ativan) 0.5 mg PO DAILY [facility] Last Admin: 06/22/19 09:05 Dose: 0.5 mg Magnesium Hydroxide (Milk Of Magnesia) 30 ml PO ONETIME ONE Stop: 06/21/19 09:31 Last Admin: 06/21/19 10:48 Dose: 30 ml Midazolam HCl (Versed 1 Mg/Ml) Confirm Administered Dose 2 mg .ROUTE .STK-MED ONE Stop: 06/17/19 09:04 Morphine Sulfate (Morphine) 2 mg IVPUSH Q2H PRN PRN Reason: Pain (severe 7-10) Stop: 06/13/19 13:32 Last Admin: 06/13/19 12:53 Dose: 2 mg Nitroglycerin (Nitrostat) 0.4 mg SL ASDIRECTED PRN PRN Reason: Chest Pain Omeprazole (Omeprazole) 20 mg PO ACBREAKFAST [facility] Last Admin: 06/22/19 06:34 Dose: 20 mg Ondansetron HCl (Zofran) 4 mg IVPUSH ONETIME ONE Stop: 06/12/19 10:27 Last Admin: 06/12/19 10:36 Dose: 4 mg Ondansetron HCl (Zofran Odt) 4 mg PO Q4H PRN PRN Reason: nausea, able to take PO Ondansetron HCl (Zofran) 4 mg IVPUSH Q4H PRN PRN Reason: Nausea/Vomiting Last Admin: 06/12/19 23:07 Dose: 4 mg Ondansetron HCl (Zofran) Confirm Administered Dose 4 mg .ROUTE .STK-MED ONE Stop: 06/17/19 14:21 Ticagrelor 90 Mg 1 each PO BID [facility] Last Admin: 06/22/19 09:12 Dose: 1 each Phenylephrine HCl (Eber-Synephrine) Confirm Administered Dose 10 mg .ROUTE .STK- MED ONE Stop: 06/17/19 09:05 Phenylephrine HCl (Eber-Synephrine) Confirm Administered Dose 10 mg .ROUTE .STK- MED ONE Stop: 06/17/19 12:53 Phenylephrine HCl (Eber-Synephrine) Confirm Administered Dose 10 mg .ROUTE .STK- MED ONE Stop: 06/17/19 13:40 Phenylephrine HCl (Phenylephrine In Ns 100 Mcg/Ml) Confirm Administered Dose 1 mg .ROUTE .STK-MED ONE Stop: 06/17/19 13:55 Propofol (Diprivan 20 Ml) Confirm Administered Dose 400 mg .ROUTE .STK-MED ONE Stop: 06/17/19 09:04 Propofol (Diprivan 20 Ml) Confirm Administered Dose 200 mg .ROUTE .STK-MED ONE Stop: 06/17/19 12:30 Propofol (Diprivan 20 Ml) Confirm Administered Dose 200 mg .ROUTE .STK-MED ONE Stop: 06/17/19 13:21 Scopolamine (Transderm-Scop) 1.5 mg TRDERM ONARRIVE [facility] Sodium Chloride (Saline Flush) 10 ml FLUSH ASDIRECTED PRN PRN Reason: Keep Vein Open Last Admin: 06/20/19 04:29 Dose: 10 ml Sodium Chloride (Saline Flush) 2.5 ml FLUSH ASDIRECTED PRN PRN Reason: Keep Vein Open Last Admin: 06/12/19 10:39 Dose: 2.5 ml Sodium Chloride (Normal Saline) 10 ml IV ASDIRECTED PRN PRN Reason: IV Use Sodium Phosphate (Neutra-Phos) 250 mg PO QID [facility] Stop: 06/21/19 06:01 Last Admin: 06/21/19 06:46 Dose: 250 mg Tamsulosin HCl (Flomax) 0.4 mg PO PCBREAKFAST [facility] Last Admin: 06/17/19 09:12 Dose: Not Given Tamsulosin HCl (Flomax) 0.4 [facility] Last Admin: 06/22/19 09:04 Dose: 0.4 mg Tranexamic Acid (Cyklokapron) Confirm Administered Dose 1,000 mg .ROUTE .STK- MED ONE Stop: 06/17/19 09:45 Trazodone HCl (Trazodone) 100 mg PO BEDTIME [facility] Last Admin: 06/21/19 20:23 Dose: 100 mg Vancomycin HCl (Vancomycin) Confirm Administered Dose 1 gm .ROUTE .STK-MED ONE Stop: 06/17/19 13:37 Vasopressin (Vasopressin) Confirm Administered Dose 20 units .ROUTE .STK-MED ONE Stop: 06/17/19 13:46 Vasopressin (Vasopressin) Confirm Administered Dose 20 units .ROUTE .STK-MED ONE Stop: 06/17/19 14:21 - Free Text/Narrative Note: I have seen and examined the patient with the resident. I have discussed findings and treatment plan with the resident. I agree with the assessment and plan outlined in the following note.
--- NOTE | 2019-06-22 12:05 | PCM.SN ---
- Free Text/Narrative Note: Ortho Note POD#5 from [facility] left periprosthetic femur fracture Pain well managed Dressing minimal drainage, please do not change Aquacell dressing. Discharge Summary reviewed Non weight bearing left lower extremity for 8 weeks as specified Continue anti-platelet therapy for VTE prophylaxis
[2019-06-22 14:41] VITALS: BP 115/60; PULSE 92
== END 2019-06-22 14:30 | DRG 481 ==
LOC: MW.ED 10:23 → MW.MS 11:01 → MW.ICU 06-17 15:12 → MW.MS 06-20 15:21
PROVIDERS: ADMIT Student in an Organized Health Care Education/Training Program; ATTEND Student in an Organized Health Care Education/Training Program
PROC: 0QS904Z Reposition Left Femoral Shaft with Internal Fixation Device, Open Approach (ICD-10-PCS; principal; 2019-06-17)
PROC: 3E033XZ Introduction of Vasopressor into Peripheral Vein, Percutaneous Approach (ICD-10-PCS; 2019-06-17)
PROC: 02HV33Z Insertion of Infusion Device into Superior Vena Cava, Percutaneous Approach (ICD-10-PCS; 2019-06-17)
PROC: 30233N1 Transfusion of Nonautologous Red Blood Cells into Peripheral Vein, Percutaneous Approach (ICD-10-PCS; 2019-06-18)
DX: S72.92XA Unspecified fracture of left femur, initial encounter for closed fracture (principal); S72.342A Displaced spiral fracture of shaft of left femur, initial encounter for closed fracture; M97.02XA Periprosthetic fracture around internal prosthetic left hip joint, initial encounter; Z88.8 Allergy status to other drugs, medicaments and biological substances; I50.30 Unspecified diastolic (congestive) heart failure; I13.0 Hypertensive heart and chronic kidney disease with heart failure and stage 1 through stage 4 chronic kidney disease, or unspecified chronic kidney disease; I95.9 Hypotension, unspecified; H54.7 Unspecified visual loss; I50.9 Heart failure, unspecified; I11.0 Hypertensive heart disease with heart failure; E87.5 Hyperkalemia; I25.10 Atherosclerotic heart disease of native coronary artery without angina pectoris; E11.22 Type 2 diabetes mellitus with diabetic chronic kidney disease; J44.9 Chronic obstructive pulmonary disease, unspecified; E11.9 Type 2 diabetes mellitus without complications; R33.9 Retention of urine, unspecified; D64.9 Anemia, unspecified; R74.8 Abnormal levels of other serum enzymes; M19.90 Unspecified osteoarthritis, unspecified site; I25.2 Old myocardial infarction; Z79.82 Long term (current) use of aspirin; Z95.1 Presence of aortocoronary bypass graft; Z95.5 Presence of coronary angioplasty implant and graft; Z79.84 Long term (current) use of oral hypoglycemic drugs; Z79.899 Other long term (current) drug therapy; Z88.5 Allergy status to narcotic agent; W00.0XXA Fall on same level due to ice and snow, initial encounter
CPT/HCPCS: 36415; 70450; 71045; 72170; 73552; 80053; 80061; 83036; 84443; 84484; 85025; 85610; 96374; 96375; 99285; J1170; J2405; 01230; 36430; 51702; 51798; 80048; 81003; 82962; 83605; 83735; 84100; 85014; 85018; 85027; 86850; 86900; 86901; 86920; 86921; 86922; 93005; 93306; 97110-GP; 97162-GP; 97530-GP; 99284; A9270-GY; C9113; J0171; J0690; J0735; J1644; J1815-GY; J1885; J1940; J2001; J2250; J2270; J2370; J2704; J2795; J3010; J3370; J3490; J7040; J7050; J7120; J7620-GY; P9016

== ENCOUNTER 2020-02-26 14:46 | Emergency (ER) | payer MEDICARE, OTHER ==
[2020-02-26] MEDS ORDERED: Ketorolac 15 MG/ML SDV IM ONE (15:01)
[2020-02-26 15:27] VITALS: BP 136/72; PULSE 78
[2020-02-26 15:29] LABS: BLOOD UREA NITROGEN,BUN 13 mg/dL (7.0-18.0); CARBON DIOXIDE,CO2 26.3 mmol/L (21.0-32.0); CHLORIDE,CL 104 mmol/L (98-107); GLUCOSE RANDOM 97 mg/dL (74-106); POTASSIUM,K 4.6 mmol/L (3.5-5.1); SODIUM,NA 135 mmol/L (136-148)
--- NOTE | 2020-02-26 15:34 | EDM.PDOC ---
ED HPI GENERAL MEDICAL PROBLEM - General Chief Complaint: Trauma Stated Complaint: PAT FELL DOWN Time Seen by Provider: 02/26/20 14:47 Source of Information: Reports: Patient History Limitations: Reports: No Limitations - History of Present Illness INITIAL COMMENTS - FREE TEXT/NARRATIVE: 75M PMHx CAD, HTN presents s/p fall this morning. Patient was walking out his screen door with his cane in his left hand and coffee in the right hand when he fell landing on his left arm, left knee/leg, and right hand. He states he also hit his head but denies LOC. He was able to get up on his own. Throughout day has had worsening pain on LUE. Left Arm Pain Score (Numeric/FACES): 10 - Related Data Allergies Allergy/AdvReac Type Severity Reaction Status Date / Time hydrocodone bitartrate Allergy Change Verified 02/26/20 14:59 [From Bim] Mental Status meperidine HCl [From Demerol] Allergy Change Verified 02/26/20 14:59 Mental Status oxycodone [Oxycodone] Allergy Change Verified 02/26/20 14:59 Mental Status tramadol HCl [From Ultram] Allergy Change Verified 02/26/20 14:59 Mental Status Home Meds: Home Meds Aspirin [Aspirin EC] 81 mg PO BEDTIME 01/24/14 [History] Carvedilol [Coreg] 6.25 mg PO BID 01/24/14 [History] atorvaSTATin [Lipitor] 20 mg PO BEDTIME 01/24/14 [History] Lisinopril 10 mg PO DAILY 03/26/18 [History] Ticagrelor [Brilinta] 90 mg PO BID 03/26/18 [History] Omeprazole 20 mg PO WITHDINNER 07/02/18 [History] metFORMIN [Glucophage XR] 500 mg PO WITHDINNER 07/02/18 [History] Multivitamin [Daily Multiple Vitamin] 1 tab PO DAILY 06/12/19 [History] Sulfamethoxazole/Trimethoprim [Sulfamethoxazole-Tmp Ds Tablet] 1 tab PO BID 06/12/19 [History] Tamsulosin HCl [Flomax] 0.4 mg PO BEDTIME 06/12/19 [History] LORazepam 0.5 mg PO DAILY PRN 06/14/19 [History] Tolterodine Tartrate [Tolterodine Tartrate ER] 1 cap PO BEDTIME 06/14/19 [History] Docusate Sodium [Colace] 100 mg PO BID 7 Days #14 cap 06/22/19 [Rx] Gabapentin [Neurontin] 300 mg PO TID 7 Days #21 cap 06/22/19 [Rx] LORazepam [Ativan] 0.5 mg PO DAILY 7 Days #7 tablet 06/22/19 [Rx] Sertraline [Zoloft] 50 mg PO DAILY 02/26/20 [History] Past Medical History HEENT History: Reports: Impaired Vision Other HEENT History: wears glasses Cardiovascular History: Reports: Heart Failure, Hypertension, ND, Stents Respiratory History: Reports: COPD Gastrointestinal History: Reports: None Genitourinary History: Reports: Renal Calculus, Other (See Below) Other Genitourinary History: retention Musculoskeletal History: Reports: Osteoarthritis Neurological History: Reports: None Other Neuro History: crushed vertabrea in lower back, hx of rib fractures Psychiatric History: Reports: None Endocrine/Metabolic History: Reports: Diabetes, Type II Hematologic History: Reports: B12 Deficiency Dermatologic History: Reports: None - Infectious Disease History Infectious Disease History: Reports: Chicken Pox - Past Surgical History HEENT Surgical History: Reports: Adenoidectomy, Tonsillectomy GI Surgical History: Reports: Appendectomy, Other (See Below) Other GI Surgeries/Procedures: gastric bypass Endocrine Surgical History: Reports: None Other Endocrine Surgeries/Procedures: sweat glans removed in groin and bilateral armpits. Neurological Surgical History: Reports: None Musculoskeletal Surgical History: Reports: Arthroscopic Procedure, Hip Replacement, Knee Replacement Other Musculoskeletal Surgeries/Procedures:: left hip and knee replaced. Right knee replaced. Social & Family History - Family History Family Medical History: Noncontributory - Caffeine Use Caffeine Use: Reports: Coffee, Soda, Tea Other Caffeine Use: Diet Mountain Dew Review of Systems - Review of Systems Review Of Systems: Comprehensive ROS is negative, except as noted in HPI. ED EXAM, GENERAL - Physical Exam Exam: See Below Exam Limited By: No Limitations General Appearance: Alert, WD/WN, No Apparent Distress Eye Exam: Bilateral Eye: EOMI, PERRL Ears: Normal External Exam Nose: Normal Inspection Head: Atraumatic, Normocephalic Neck: Non-Tender Respiratory/Chest: No Respiratory Distress, Lungs Clear, Normal Breath Sounds, No Accessory Muscle Use Cardiovascular: Normal Peripheral Pulses, Regular Rate, Rhythm GI/Abdominal: Soft, Non-Tender, No Distention Back Exam: Normal Inspection. No: Paraspinal Tenderness, Vertebral Tenderness Extremities: Other (ecchymosis to L arm w/ mild TTP of left AC joint, no TTP of left elbow, normal magnesium mill operator strength b/l, no pelvic instability, no TTP of b/l pelvis/hips, mild TTP of L knee joint) Psychiatric: Normal Affect, Normal Mood Skin Exam: Warm, Dry EKG INTERPRETATION EKG Date: 02/26/20 Time: 16:17 Rhythm: NSR Rate (Beats/Min): 78 [place]: Normal P-Wave: Present QRS: Normal ST-T: Normal QT: Normal ND/PQ Interval: 211 Course - Vital Signs Last Recorded V/S: Last Vital Signs Temp 96.9 F 02/26/20 14:55 Pulse 78 02/26/20 14:55 Resp 18 02/26/20 14:55 BP 136/72 02/26/20 14:55 Pulse Ox 96 02/26/20 14:55 - Orders/Labs/Meds Orders: Active Orders 24 hr Category Date Time Status EKG Documentation Completion [RC] STAT Care 02/26/20 14:57 Active Splinting [RC] ASDIRECTED Care 02/26/20 16:41 Active Cervical Spine wo Cont [CT] Stat Exams 02/26/20 14:59 Ordered TROPONIN I [CHEM] Stat Lab 02/26/20 17:44 Ordered Labs: Laboratory Tests 02/26/20 02/26/20 02/26/20 Range/Units 15:00 15:00 15:00 WBC 11.87 H (4.0-11.0) K/uL RBC 4.15 L (4.50-5.90) M/uL Hgb 12.2 L (13.0-17.0) g/dL Hct 37.8 L (38.0-50.0) % MCV 91.1 (80.0-98.0) fL MCH 29.4 (27.0-32.0) pg MCHC 32.3 (31.0-37.0) g/dL RDW Std Deviation 53.0 (28.0-62.0) fl RDW Coeff of Adriana 16 H (11.0-15.0) % Plt Count 211 (150-400) K/uL MPV 10.00 (7.40-12.00) fL Neut % (Auto) 58.1 (48.0-80.0) % Lymph % (Auto) 30.2 (16.0-40.0) % [place] % (Auto) 8.1 (0.0-15.0) % Eos % (Auto) 3.3 (0.0-7.0) % Baso % (Auto) 0.3 (0.0-1.5) % Neut # (Auto) 6.9 H (1.4-5.7) K/uL Lymph # (Auto) 3.6 H (0.6-2.4) K/uL [place] # (Auto) 1.0 H (0.0-0.8) K/uL Eos # (Auto) 0.4 (0.0-0.7) K/uL Baso # (Auto) 0.0 (0.0-0.1) K/uL Nucleated RBC % 0.0 /100WBC Nucleated RBCs # 0 K/uL INR 1.04 APTT 26.7 (18.6-31.3) SEC Sodium 135 L (136-148) mmol/L Potassium 4.6 (3.5-5.1) mmol/L Chloride 104 (98-107) mmol/L Carbon Dioxide 26.3 (21.0-32.0) mmol/L BUN 13 (7.0-18.0) mg/dL Creatinine 1.1 (0.8-1.3) mg/dL Est Cr Clr Drug Dosing 68.28 mL/min Estimated GFR (MDRD) > 60.0 ml/min Glucose 97 (74-106) mg/dL Calcium 8.3 L (8.5-10.1) mg/dL Magnesium 2.1 (1.8-2.4) mg/dL Total Bilirubin 0.3 (0.2-1.0) mg/dL AST 30 (15-37) IU/L ALT 31 (14-63) IU/L Alkaline Phosphatase 104 (46-116) U/L Troponin I 0.060 H* (0.000-0.056) ng/mL Total Protein 7.1 (6.4-8.2) g/dL Albumin 3.9 (3.4-5.0) g/dL Globulin 3.2 (2.6-4.0) g/dL Albumin/Globulin Ratio 1.2 (0.9-1.6) Meds: Medications Discontinued Medications Generic Name Dose Route Start Last Admin Trade Name David PRN Reason Stop Dose Admin Aspirin 325 mg 02/26/20 15:40 02/26/20 16:46 Aspirin PO 02/26/20 15:41 Not Given ONETIME ONE Aspirin 325 mg 02/26/20 16:56 Aspirin PO 02/26/20 16:57 ONETIME ONE Enoxaparin Sodium 120 mg 02/26/20 17:23 Lovenox 1 mg/kg (120 mg) 02/26/20 17:24 SUBCUT ONETIME ONE Ketorolac Tromethamine 15 mg 02/26/20 15:01 02/26/20 15:45 Toradol IM 02/26/20 15:02 Not Given ONETIME ONE - Re-Assessments/Exams Free Text/Narrative Re-Assessment/Exam: 02/26/20 15:36 Patient presents s/p fall; he is on blood thinners. Will get head CT/C-spine. Will get CXR/PXR. Will image LUE and R hand. Will image L knee. Will get basic labs and EKG. 02/26/20 16:24 CT head read as hemorrhage L cerebellar tentorium. However in comparing with old CT imaging, this appears to be a chronic/stable finding that has perviously been read as small meningioma and appears unchanged. I have contacted Dr. Venegas radiology who agrees that the finding could be consistent with meningioma and would like to review old images for comparison and will make addendum after reviewing old images to better differentiate meningioma vs hemorrhage. 02/26/20 17:24 Imaging grossly unremarkable including head CT aside from possible fracture of R 2nd digit; will place finger splint. Troponin elevated at 0.060. Patient on repeat history does endorse worsening generalized weakness, SOB, exertional chest pain. Will transfer patient to [facility]. Dr. Miller agrees to accept patient for transfer. Departure - Departure Time of Disposition: 17:23 Disposition: DC/Tfer to Acute Hospital 02 Condition: Good Clinical Impression: NSTEMI (non-ST elevation myocardial infarction) - Discharge Information Referrals: PCP,Unobtain [Primary Care Provider] - Forms: ED Department Discharge Sepsis Event Note (ED) - Evaluation Sepsis Screening Result: No Definite Risk - Focused Exam Vital Signs: Vital Signs Temp Pulse Resp BP Pulse Ox 02/26/20 14:55 96.9 F 78 18 136/72 96 - My Orders Last 24 Hours: My Active Orders 02/26/20 14:57 EKG Documentation Completion [RC] STAT 02/26/20 14:59 Cervical Spine wo Cont [CT] Stat 02/26/20 16:41 Splinting [RC] ASDIRECTED 02/26/20 17:44 TROPONIN I [CHEM] Stat - Assessment/Plan Last 24 Hours: My Active Orders 02/26/20 14:57 EKG Documentation Completion [RC] STAT 02/26/20 14:59 Cervical Spine wo Cont [CT] Stat 02/26/20 16:41 Splinting [RC] ASDIRECTED 02/26/20 17:44 TROPONIN I [CHEM] Stat
[2020-02-26] MEDS ORDERED: Aspirin 325 MG Tab PO ONE ×2 (15:40→16:56)
--- NOTE | 2020-02-26 15:42 | CT ---
CT cervical spine Technique: Multiple axial sections were obtained from above C1 inferiorly to the bottom of T2. Reconstructed sagittal and coronal images were reviewed. Comparison: No prior cervical spine imaging is available. Findings: Degenerative change is noted between the dens and anterior arch of C1 with joint space narrowing and osteophytes. Mild degenerative change is scattered throughout the apophyseal joints. Details of the lower cervical spine are slightly limited due to patient body habitus. No discrete fracture is appreciated. No abnormal subluxation is seen. Mild right-sided neural foraminal stenosis is noted at C4-5. Other neural foramina are patent. No bony central canal stenosis is seen. Carotid artery calcification is seen on both sides. Impression: 1. Degenerative change as noted above. 2. Carotid artery calcification. 3. Nothing acute is appreciated on CT study of the cervical spine. Diagnostic code #2 This report was dictated in MDT
--- NOTE | 2020-02-26 15:45 | CT ---
Addendum: Additional older CTs are now available for comparison. These were not available at time of original dictation. These older CTs have a date of 06/24/14 and 01/24/14. Area of increased density believed to represent an acute hemorrhage is noted on prior studies. This does not represent an acute hemorrhage and is felt compatible with an extra-axial stable meningioma. Size of this remains stable. No acute intracranial hemorrhage is seen. Impression: 1. Stable finding off the inferior left cerebellar tentorium compatible with partially calcified and small meningioma, size unchanged. Diagnostic code #2 This report was dictated in MDT --- Addendum1 above dictated on [02/26/2020 15:38] by [Jose A Venegas Hilton J.] --- --- Addendum1 above signed on [02/26/2020 15:39] by [Jose A Venegas Hilton J.] --- --- Original report below dictated on [02/26/2020 14:43] by [Jose A Venegas Hilton J.] --- --- Original report below signed on [02/26/2020 14:43] by [Jose A Venegas, Brian Cloud] --- Head CT Technique: Multiple axial sections were obtained through the brain. Intravenous contrast was not utilized. Comparison: No prior intracranial imaging. Findings: Ventricles along with basal cisterns and sulci over the convexities are moderately prominent. Mild diminished density is noted within portions of the basal ganglia most likely due to small vessel ischemic demyelination change. Slight acute hemorrhage is noted adjacent to the left tentorium extending inferiorly. This small area of hemorrhage measures 1.3 cm x 8.2 mm. No other evidence of intracranial hemorrhage. No midline shift or mass-effect is seen. Bone window settings were reviewed which shows a minimal amount of fluid within the left maxillary sinus most likely relating to retained secretions. No acute mastoid sinus findings are seen. No acute calvarial abnormality is appreciated. Impression: 1. Small hemorrhage adjacent to the left cerebellar tentorium measuring 1.3 cm by 8.2 mm. 2. Senescent change as noted above. No other acute abnormality is appreciated. Diagnostic code #5 This report was dictated in MDT --- Addendum1 signed ---
--- NOTE | 2020-02-26 16:24 | CR ---
Chest: Frontal view of the chest was obtained. Comparison: No prior chest x-ray is available. Heart size and mediastinum are normal. Lungs are clear with no acute parenchymal change. Bony structures are grossly intact. Impression: 1. Nothing acute is appreciated on frontal chest x-ray. Diagnostic code #1 This report was dictated in MDT
--- NOTE | 2020-02-26 16:31 | CR ---
Pelvis: AP view of the pelvis was obtained. Comparison: No prior pelvis x-ray is available, previous pelvic CT study of 07/07/19 is available. Left hip prosthesis is noted. Mild joint space narrowing seen superiorly within the right hip. Osteopenia is present. Vascular calcification is noted. No acute fracture or other bony abnormality is appreciated. Small bony densities are noted off the superior greater tuberosity which are old. No acute fracture or other abnormality is appreciated. Impression: 1. Findings as described above. 2. Nothing acute is appreciated on AP pelvis study. Diagnostic code #2 This report was dictated in MDT
--- NOTE | 2020-02-26 16:32 | CR ---
Left elbow: 3 views left elbow were obtained. Comparison: No previous study. Small spur is noted off the olecranon process. Bony density is noted off the coronoid process which is likely due to old fracture. No acute fracture or other bony abnormality is appreciated. Impression: 1. Findings as noted above. 2. No acute finding is appreciated. Diagnostic code #2 This report was dictated in MDT
--- NOTE | 2020-02-26 16:34 | CR ---
Right hand: 3 views of the right hand were obtained. Comparison: Previous hand exam is not available. Findings: Fracture is identified within the distal phalanx of the 2nd digit. Fracture lines are somewhat sclerotic and uncertain if this is acute or old and please correlate with the patient's symptoms. Degenerative change is noted within the CMC joint of the thumb. Scattered degenerative change is noted within the DIP and PIP joints. No additional fracture or other bony abnormality is appreciated. Impression: 1. Degenerative change. 2. Fracture within the distal phalanx of the right 2nd finger, uncertain if this represents old ununited fracture or acute fracture, please correlate with the patient's symptoms. 3. No other acute abnormality is appreciated. Diagnostic code #3 This report was dictated in MDT
--- NOTE | 2020-02-26 16:36 | CR ---
Left hip: AP and frog-leg lateral views left hip were obtained. Comparison: Prior left femur study of 11/18/19. Left hip prosthesis is seen. Components are aligned. Detach bony densities off the superior trochanter are noted which are stable. Plate and screws are seen distal to the prosthesis which are stable. Osteopenia is noted. No acute fracture or other abnormality is appreciated. Impression: 1. Left hip prosthesis and osteopenia. Plate and screws. 2. Nothing acute is appreciated on 2 view left hip exam. Diagnostic code #2 This report was dictated in MDT
--- NOTE | 2020-02-26 16:39 | CR ---
Left knee: AP and lateral views left knee were obtained. Comparison: No prior knee exam. Plate and screws are noted within the distal femur. Knee prosthesis is noted. Components are aligned. Diffuse vascular calcification is seen. No acute fracture or other bony abnormality is appreciated. Impression: 1. Findings as noted above. 2. Nothing acute is seen on 2 view left knee exam. Diagnostic code #2 This report was dictated in MDT
--- NOTE | 2020-02-26 16:40 | CR ---
Left shoulder: 3 views of the left shoulder were obtained. Slight cortical thickening is noted within the proximal humeral shaft believed to be benign. No acute fracture is seen. Joint space narrowing and mild inferior spurring noted within the acromioclavicular joint. Impression: 1. Degenerative change and other findings. 2. Nothing acute is appreciated. Diagnostic code #2 This report was dictated in MDT
[2020-02-26] MEDS ORDERED: Enoxaparin 150 MG/1 ML Syringe SUBCUT ONE (17:23)
[2020-02-26] MEDS ORDERED: Acetaminophen 500 MG Tab PO ONE (17:43)
== END 2020-02-26 16:30 ==
LOC: MW.ED 14:46
DX: S40.022A Contusion of left upper arm, initial encounter (principal); I21.4 Non-ST elevation (NSTEMI) myocardial infarction; S62.630A Displaced fracture of distal phalanx of right index finger, initial encounter for closed fracture; I11.0 Hypertensive heart disease with heart failure; I50.9 Heart failure, unspecified; I25.2 Old myocardial infarction; J44.9 Chronic obstructive pulmonary disease, unspecified; M19.90 Unspecified osteoarthritis, unspecified site; E11.9 Type 2 diabetes mellitus without complications; I25.10 Atherosclerotic heart disease of native coronary artery without angina pectoris; Z79.84 Long term (current) use of oral hypoglycemic drugs; Z88.5 Allergy status to narcotic agent; Z79.82 Long term (current) use of aspirin; Z95.5 Presence of coronary angioplasty implant and graft; Z79.899 Other long term (current) drug therapy; Z79.01 Long term (current) use of anticoagulants; W18.30XA Fall on same level, unspecified, initial encounter; S09.8XXA Other specified injuries of head, initial encounter
CPT/HCPCS: 29130; 36415; 70450; 71045; 72125; 72170; 73030; 73070; 73120; 73501; 73562; 80053; 83735; 84484; 85025; 85610; 85730; 93005; 96372; 99285; A9270; J1650; 72126; 72126-26; 93010

== ENCOUNTER 2022-02-23 05:17 | Emergency (ER) | payer MEDICARE, OTHER ==
[2022-02-23] MEDS ORDERED: Albuterol/Ipratropium 3.0-0.5 MG/3 ML Neb Soln NEB STA (05:27)
[2022-02-23 06:16] LABS: CARBON DIOXIDE,CO2 28.3 mmol/L (21.0-32.0); POTASSIUM,K 4.8 mmol/L (3.5-5.1)
[2022-02-23] MEDS ORDERED: methylPREDNISolone Sodium Succinate 40 MG/1 ML SDV IVPUSH ONE (07:06)
[2022-02-23] MEDS ORDERED: cefTRIAXone 1 GM in Sodium Chloride 0.9% 50 ML IV ONE (07:47)
[2022-02-23] MEDS ORDERED: Azithromycin 500 MG in Sodium Chloride 0.9% 250 ML IV ONE (07:47)
[2022-02-23] MEDS ORDERED: HYDROmorphone 1 MG/ML Syringe IVPUSH ONE ×2 (08:32→11:14)
[2022-02-23 10:14] VITALS: BP 132/69; PULSE 91
== END 2022-02-23 13:36 ==
LOC: MW.ED 05:17
DX: S72.002A Fracture of unspecified part of neck of left femur, initial encounter for closed fracture (principal); J18.9 Pneumonia, unspecified organism; J96.01 Acute respiratory failure with hypoxia; J44.9 Chronic obstructive pulmonary disease, unspecified; E11.9 Type 2 diabetes mellitus without complications; I11.0 Hypertensive heart disease with heart failure; I50.9 Heart failure, unspecified; I25.2 Old myocardial infarction; I25.10 Atherosclerotic heart disease of native coronary artery without angina pectoris; M19.90 Unspecified osteoarthritis, unspecified site; Z86.73 Personal history of transient ischemic attack (TIA), and cerebral infarction without residual deficits; Z88.5 Allergy status to narcotic agent; Z88.8 Allergy status to other drugs, medicaments and biological substances; Z79.82 Long term (current) use of aspirin; Z79.899 Other long term (current) drug therapy; Z79.84 Long term (current) use of oral hypoglycemic drugs; Z20.822 Contact with and (suspected) exposure to COVID-19; W01.198A Fall on same level from slipping, tripping and stumbling with subsequent striking against other object, initial encounter
CPT/HCPCS: 36415; 70450; 71045; 72125; 73502; 73560; 80053; 82550; 83605; 83735; 83880; 84484; 85025; 85610; 93005; 96365; 96367; 96375; 96376; 99285; J0456; J0696; J1170; J2920; J7050; U0002; 93010; J7620-GY

== ENCOUNTER 2022-09-29 11:09 | Emergency (ER) | payer MEDICARE, OTHER ==
[2022-09-29 13:06] LABS: CARBON DIOXIDE,CO2 30.2 mmol/L (21.0-32.0)
[2022-09-29] MEDS ORDERED: Pantoprazole 80 MG in Sodium Chloride 0.9% 10 ML IVPUSH ONE (13:20)
[2022-09-29 14:19] VITALS: BP 129/67; PULSE 79
== END 2022-09-29 15:36 ==
LOC: MW.ED 11:09
DX: K92.2 Gastrointestinal hemorrhage, unspecified (principal); I11.0 Hypertensive heart disease with heart failure; I50.9 Heart failure, unspecified; I25.2 Old myocardial infarction; J44.9 Chronic obstructive pulmonary disease, unspecified; M19.90 Unspecified osteoarthritis, unspecified site; E11.9 Type 2 diabetes mellitus without complications; Z88.5 Allergy status to narcotic agent; Z79.82 Long term (current) use of aspirin; Z79.899 Other long term (current) drug therapy; Z79.84 Long term (current) use of oral hypoglycemic drugs
CPT/HCPCS: 36415; 36430; 80053; 83605; 83690; 83735; 84484; 85025; 85610; 85730; 86850; 86900; 86901; 86920; 93005; 96374; 99285; C9113; J3490; P9016; 93010; 99291

== ENCOUNTER 2024-04-26 11:38 | Observation (INO) | payer MEDICARE, OTHER ==
[2024-04-26] MEDS ORDERED: Sodium Chloride 0.9% 10 ML Syringe FLUSH PRN (11:41)
[2024-04-26] MEDS ORDERED: Sodium Chloride 0.9% 2.5 ML Syringe FLUSH PRN (11:41)
[2024-04-26 12:01] LABS: BASOPHILS ABSOLUTE AUTO 0.01 K/uL (0.00-0.20); BASOPHILS PERCENT AUTO 0.2 % (0.0-1.0); EOSINOPHILS ABSOLUTE AUTO 0.02 K/uL (0.00-0.45); EOSINOPHILS PERCENT AUTO 0.5 % (0.0-6.0); HEMATOCRIT 46.4 % (42.0-52.0); HEMOGLOBIN 15.3 g/dL (14.0-18.0); IMMATURE GRAN ABSOLUTE AUTO 0.03 K/uL (0.00-0.05); IMMATURE GRAN PERCENT AUTO 0.7 % (0.0-0.4); LYMPHOCYTES ABSOLUTE AUTO 0.55 K/uL (1.00-4.80); LYMPHOCYTES PERCENT AUTO 12.6 % (24.0-44.0); MEAN CORPUSCULAR HEMOGLOBIN 32.6 pg (28.0-32.0); MEAN CORPUSCULAR VOLUME 98.9 fL (83.0-99.0); MEAN PLATELET VOLUME 10.8 fL (9.4-12.4); MONOCYTES ABSOLUTE AUTO 0.07 K/uL (0.00-0.80); MONOCYTES PERCENT AUTO 1.6 % (0.0-8.0); NEUTROPHILS PERCENT AUTO 84.4 % (41.0-71.0); PLATELET COUNT,PLT 107 K/uL (150-400); RED BLOOD CELL COUNT 4.69 M/uL (4.52-5.90); WHITE BLOOD CELL COUNT,WBC 4.38 K/uL (3.9-11.3)
[2024-04-26 12:03] LABS: BASE EXCESS ARTERIAL 4.1 (-2.0-3.0); BICARBONATE,ARTERIAL 31 mEq/L (22-26); PCO2 ARTERIAL 52 mmHG (35-45); PO2 ARTERIAL 164 mmHG (80-105)
[2024-04-26 12:13] LABS: INR 1.07 (0.86-1.11)
[2024-04-26 12:46] LABS: LACTIC ACID 1.7 mmol/L (0.4-2.0)
[2024-04-26] MEDS: cefTRIAXone 2 GM in Sodium Chloride 0.9% 50 ML IV ONE (12:47)
[2024-04-26] MEDS: Acetaminophen 1,000 MG in Premix Bag 1 BAG IV ONE (12:47)
[2024-04-26 12:50] LABS: A/G RATIO 0.9 (0.9-1.6); ALBUMIN 3.4 g/dL (3.4-5.0); BILIRUBIN TOTAL 1.4 mg/dL (0.2-1.0); CALCIUM 9.4 mg/dL (8.5-10.1); CARBON DIOXIDE,CO2 33.6 mmol/L (21.0-32.0); CREATININE 1.2 mg/dL (0.8-1.3); EST CRCL DRUG DOSING (CG) 57.08 mL/min; POTASSIUM,K 4.8 mmol/L (3.5-5.1); PROTEIN TOTAL,TP 7.2 g/dL (6.4-8.2)
[2024-04-26] MEDS: LORazepam 2 MG/ML SDV IVPUSH PRN (16:36)
[2024-04-26] MEDS: Morphine 2 MG/ML SYRINGE IVPUSH PRN (16:37)
[2024-04-26 20:47] VITALS: PULSE 93
[2024-04-27 07:43] VITALS: BP 74/57
== END 2024-04-27 03:20 | disposition expired ==
LOC: MW.ED 11:38 → MW.MS 13:42
PROVIDERS: ADMIT Internal Medicine; ATTEND Internal Medicine
DX: Z51.5 Encounter for palliative care (principal); J96.01 Acute respiratory failure with hypoxia; I63.9 Cerebral infarction, unspecified; I13.0 Hypertensive heart and chronic kidney disease with heart failure and stage 1 through stage 4 chronic kidney disease, or unspecified chronic kidney disease; E11.22 Type 2 diabetes mellitus with diabetic chronic kidney disease; N18.9 Chronic kidney disease, unspecified; I50.9 Heart failure, unspecified; I25.810 Atherosclerosis of coronary artery bypass graft(s) without angina pectoris; J44.9 Chronic obstructive pulmonary disease, unspecified; R78.81 Bacteremia; R41.0 Disorientation, unspecified; R29.6 Repeated falls; Z95.1 Presence of aortocoronary bypass graft; Z79.82 Long term (current) use of aspirin; Z79.899 Other long term (current) drug therapy; Z79.84 Long term (current) use of oral hypoglycemic drugs; Z88.8 Allergy status to other drugs, medicaments and biological substances; Z88.5 Allergy status to narcotic agent
CPT/HCPCS: 36415; 36600; 71045; 80053; 82803; 83605; 83690; 83880; 84484; 85025; 85610; 87040; 93005; 96374; 96375; 96376; 99285; G0378; J2060; J2270; 87077; 87186; 93010; 99223; 99238